=== PATIENT | male | born 1950 | race Caucasian/White ===

== ENCOUNTER → 2016-09-17 | Outpatient (CLI) | payer OTHER ==
[~2016-09-17] MED LIST: ASPI-231 PO; CARV3.1213 OR; CLOP75TA41 PO; GABA300C8 PO; INSUINJ47 SC; LEVEMIR SC; LOS50T PO; OMEG100078 PO; PRAV20TA3 PO; TELM80TA PO
[2016-09-17 10:50] LABS: Basophils # (auto) 0 uL; Basophils % (auto) 0.4 % (0.0-2.0); Eosinophils # (auto) 0.3 uL; Hematocrit 39.9 % (41.0-53.0); Hemoglobin 13.3 g/dL (13.5-17.5); Lymphocytes # (auto) 1.8 uL; Lymphocytes % (auto) 18.4 % (10.0-50.0); Mean Corpuscular Hgb Conc. 33.2 g/dL (32.0-36.0); Mean Corpuscular Volume 93.4 fL (80.0-100.0); Monocytes # (auto) 0.6 uL; Monocytes % (auto) 6.4 % (0.0-12.0); Neutrophils # (auto) 7.1 uL; Neutrophils % (auto) 71.8 % (37.0-80.0); Platelet Count (auto) 346 10^3/uL (140-450); Red Cell Distribution Width 12.6 % (11.6-16.0); White Blood Cell 9.9 10^3/uL (4.4-10.8)
[2016-09-17 10:53] LABS: Urine Bilirubin Negative (Negative); Urine Color Yellow (Yellow); Urine Glucose Normal (Normal); Urine Ketone Negative (Negative); Urine Nitrite Negative (Negative); Urine RBC 1 /hpf (0 - 3); Urine Squamous Epithelial Cell FEW /hpf (<5); Urine Urobilinogen Normal (Negative); Urine pH 5.5 (5.0-8.0)
[2016-09-17 10:57] LABS: Urine Blood 1+ /uL (Negative)
[2016-09-17 11:19] LABS: Albumin 3.7 g/dL (3.4-5.0); BUN/Creatinine Ratio 22.3; Bilirubin, Total 0.6 mg/dL (0.2-1.0); Calcium 9.1 mg/dL (8.5-10.1); Total Protein 7.5 g/dL (6.4-8.2)
[2016-09-17 11:32] LABS: Potassium 6.2 mmol/L (3.5-5.1)
== END | disposition home or self-care (01) ==
LOC: LAB 10:12
DX: E11.40 Type 2 diabetes mellitus with diabetic neuropathy, unspecified (principal)
CPT/HCPCS: 36415; 80053; 80061; 81001; 83036; 84443; 85025

== ENCOUNTER → 2016-10-10 | Outpatient (CLI) | payer OTHER ==
[2016-10-10 11:41] LABS: Urine Bilirubin Negative (Negative); Urine Color Yellow (Yellow); Urine Ketone Negative (Negative); Urine Nitrite Negative (Negative); Urine RBC 3 /hpf (0 - 3); Urine Urobilinogen Normal (Negative)
[2016-10-10 11:51] LABS: Urine Blood 1+ /uL (Negative); Urine Glucose 1+ mg/dL (Normal)
[2016-10-10 12:01] LABS: Albumin 3.5 g/dL (3.4-5.0); BUN/Creatinine Ratio 18.9; Bilirubin, Total 0.5 mg/dL (0.2-1.0); Calcium 8.8 mg/dL (8.5-10.1); Potassium 4.1 mmol/L (3.5-5.1); Total Protein 6.9 g/dL (6.4-8.2)
== END | disposition home or self-care (01) ==
LOC: LAB 09:55
DX: E87.5 Hyperkalemia (principal)
CPT/HCPCS: 36415; 80053; 81001; 82043

== ENCOUNTER → 2016-11-28 | Outpatient (CLI) | payer OTHER ==
[2016-11-28 10:59] LABS: Basophils # (auto) 0 uL; Basophils % (auto) 0.3 % (0.0-2.0); Eosinophils # (auto) 0.2 uL; Eosinophils % (auto) 2.4 % (0.0-7.0); Hematocrit 37.6 % (41.0-53.0); Hemoglobin 12.5 g/dL (13.5-17.5); Lymphocytes # (auto) 1.4 uL; Mean Corpuscular Hemoglobin 30.6 pg (28.0-32.0); Mean Corpuscular Hgb Conc. 33.2 g/dL (32.0-36.0); Mean Corpuscular Volume 92.2 fL (80.0-100.0); Mean Platelet Volume 8.3 fL (7.4-10.4); Monocytes # (auto) 0.7 uL; Monocytes % (auto) 7.9 % (0.0-12.0); Neutrophils # (auto) 6.5 uL; Neutrophils % (auto) 73.4 % (37.0-80.0); Platelet Count (auto) 309 10^3/uL (140-450); Red Cell Distribution Width 13.3 % (11.6-16.0); White Blood Cell 8.9 10^3/uL (4.4-10.8)
[2016-11-28 11:24] LABS: Albumin 3.5 g/dL (3.4-5.0); BUN/Creatinine Ratio 20.8; Bilirubin, Total 0.4 mg/dL (0.2-1.0); Calcium 8.4 mg/dL (8.5-10.1); Total Protein 7.1 g/dL (6.4-8.2)
[2016-11-28 11:40] LABS: Potassium 6.4 mmol/L (3.5-5.1)
[2016-11-28 12:10] LABS: Urine Bilirubin Negative (Negative); Urine Color Yellow (Yellow); Urine Ketone Negative (Negative); Urine Nitrite Negative (Negative); Urine RBC 11 /hpf (0 - 3); Urine Squamous Epithelial Cell FEW /hpf (<5); Urine Urobilinogen Normal (Negative)
[2016-11-28 12:13] LABS: Urine Blood 1+ /uL (Negative); Urine Glucose 2+ mg/dL (Normal)
== END | disposition home or self-care (01) ==
LOC: LAB 10:25
DX: E11.21 Type 2 diabetes mellitus with diabetic nephropathy (principal)
CPT/HCPCS: 36415; 80053; 80061; 81001; 82043; 83036; 84443; 85025

== ENCOUNTER → 2016-12-08 | Outpatient (CLI) | payer OTHER ==
[2016-12-08 09:38] LABS: BUN/Creatinine Ratio 20.8; Calcium 8.7 mg/dL (8.5-10.1); Potassium 4.5 mmol/L (3.5-5.1)
== END | disposition home or self-care (01) ==
LOC: LAB 08:23
DX: E87.5 Hyperkalemia (principal)
CPT/HCPCS: 36415; 80048

== ENCOUNTER 2017-05-14 14:40 | Emergency (ER) | payer OTHER ==
[~2017-05-14] VITALS: Ht 172.7 cm; Wt 97.1 kg
[2017-05-14 15:41] LABS: Basophils # (auto) 0 uL; Basophils % (auto) 0.2 % (0.0-2.0); CONDITION Y; Eosinophils # (auto) 0.2 uL; Eosinophils % (auto) 1.7 % (0.0-7.0); Hematocrit 33.8 % (41.0-53.0); Hemoglobin 11.6 g/dL (13.5-17.5); Lymphocytes # (auto) 1.7 uL; Mean Corpuscular Hemoglobin 32.8 pg (28.0-32.0); Mean Corpuscular Hgb Conc. 34.5 g/dL (32.0-36.0); Mean Platelet Volume 8.1 fL (7.4-10.4); Monocytes # (auto) 0.7 uL; Monocytes % (auto) 7.3 % (0.0-12.0); Neutrophils # (auto) 6.9 uL; Neutrophils % (auto) 72.8 % (37.0-80.0); Platelet Count (auto) 300 10^3/uL (140-450); Red Cell Distribution Width 12.8 % (11.6-16.0); White Blood Cell 9.5 10^3/uL (4.4-10.8)
[2017-05-14 16:03] LABS: Albumin 3.4 g/dL (3.4-5.0); BUN/Creatinine Ratio 17.3; Bilirubin, Total 0.3 mg/dL (0.2-1.0); Calcium 8.7 mg/dL (8.5-10.1); Potassium 5.5 mmol/L (3.5-5.1); Total Protein 7.3 g/dL (6.4-8.2)
[2017-05-14] MEDS ORDERED: CALCIUM CHL 100MG/ML 1,000 MG in D5W 5% 100 ML IV ONE (17:45)
[2017-05-14] MEDS ORDERED: SODIUM BICARBONATE 8.4 % INJ 50ML VIAL IV ONE (17:45)
[2017-05-14] MEDS ORDERED: DEXTROSE (50%) 50ML SYRG IV ONE (17:45)
[2017-05-14] MEDS ORDERED: InsuLIN REG 1unit/0.01ml Soln (100units/ml) IV ONE (17:45)
[2017-05-14] MEDS ORDERED: SODIUM BICARBONATE 8.4% INJ 50ML SYRINGE ONE (18:27)
[2017-05-14 20:47] VITALS: BP 146/72
== END 2017-05-14 18:45 | disposition home or self-care (01) ==
LOC: ER 14:43
DX: E87.5 Hyperkalemia (principal); N28.9 Disorder of kidney and ureter, unspecified; I25.10 Atherosclerotic heart disease of native coronary artery without angina pectoris; E11.9 Type 2 diabetes mellitus without complications; E78.5 Hyperlipidemia, unspecified; I10 Essential (primary) hypertension; Z95.1 Presence of aortocoronary bypass graft; Z79.4 Long term (current) use of insulin; Z79.82 Long term (current) use of aspirin; Z79.899 Other long term (current) drug therapy; Z90.49 Acquired absence of other specified parts of digestive tract
CPT/HCPCS: 36415; 80053; 82962; 85025; 93005; 94761; 96365; 96375; 99285; J1815; J7042; J7060

== ENCOUNTER → 2017-05-14 | Outpatient (CLI) | payer OTHER ==
[~2017-05-14] MED LIST changes: +CAR3125T OR; -CARV3.1213 OR; +GABA-497 PO; -GABA300C8 PO
[2017-05-14 09:47] LABS: Basophils # (auto) 0 uL; Basophils % (auto) 0.3 % (0.0-2.0); CONDITION Y; Eosinophils # (auto) 0.2 uL; Eosinophils % (auto) 1.8 % (0.0-7.0); Hematocrit 34.6 % (41.0-53.0); Hemoglobin 11.8 g/dL (13.5-17.5); Lymphocytes # (auto) 1.5 uL; Lymphocytes % (auto) 16.3 % (10.0-50.0); Mean Corpuscular Hemoglobin 32.5 pg (28.0-32.0); Mean Corpuscular Hgb Conc. 34.1 g/dL (32.0-36.0); Mean Corpuscular Volume 95.4 fL (80.0-100.0); Mean Platelet Volume 8.4 fL (7.4-10.4); Monocytes # (auto) 0.7 uL; Neutrophils % (auto) 74.6 % (37.0-80.0); Platelet Count (auto) 321 10^3/uL (140-450); Red Cell Distribution Width 13.1 % (11.6-16.0); White Blood Cell 9.4 10^3/uL (4.4-10.8)
[2017-05-14 09:53] LABS: Urine Bilirubin Negative (Negative); Urine Blood 1+ /uL (Negative); Urine Color Yellow (Yellow); Urine Glucose 2+ mg/dL (Normal); Urine Hyaline Cast FEW /lpf (0 - 2); Urine Ketone Negative (Negative); Urine Nitrite Negative (Negative); Urine RBC 4 /hpf (0 - 3); Urine Urobilinogen Normal (Negative); Urine pH 5.5 (5.0-8.0)
[2017-05-14 10:04] LABS: Albumin 3.5 g/dL (3.4-5.0); BUN/Creatinine Ratio 18.6; Bilirubin, Total 0.5 mg/dL (0.2-1.0); Calcium 8.7 mg/dL (8.5-10.1); Total Protein 7.3 g/dL (6.4-8.2)
[2017-05-14 10:09] LABS: Potassium 5.7 mmol/L (3.5-5.1)
== END | disposition home or self-care (01) ==
LOC: LAB 08:54
PROVIDERS: ATTEND Family Medicine
DX: E11.9 Type 2 diabetes mellitus without complications (principal); E78.5 Hyperlipidemia, unspecified; I12.9 Hypertensive chronic kidney disease with stage 1 through stage 4 chronic kidney disease, or unspecified chronic kidney disease; N18.3 Chronic kidney disease, stage 3 (moderate); I25.10 Atherosclerotic heart disease of native coronary artery without angina pectoris; Z95.1 Presence of aortocoronary bypass graft
CPT/HCPCS: 36415; 80053; 80061; 81001; 82607; 83036; 84153; 84443; 85025

== ENCOUNTER → 2017-06-09 | Outpatient (CLI) | payer OTHER ==
[2017-06-09 16:11] LABS: BUN/Creatinine Ratio 20.1; Calcium 8.4 mg/dL (8.5-10.1); Potassium 5.2 mmol/L (3.5-5.1)
== END | disposition home or self-care (01) ==
LOC: LAB 15:28
PROVIDERS: ATTEND Internal Medicine Cardiovascular Disease
DX: I13.0 Hypertensive heart and chronic kidney disease with heart failure and stage 1 through stage 4 chronic kidney disease, or unspecified chronic kidney disease (principal); I50.9 Heart failure, unspecified; N18.4 Chronic kidney disease, stage 4 (severe)
CPT/HCPCS: 36415; 80048

== ENCOUNTER → 2017-07-07 | Outpatient (CLI) | payer OTHER ==
[2017-07-07 17:36] LABS: BUN/Creatinine Ratio 20.6; Calcium 8.3 mg/dL (8.5-10.1); Potassium 4.5 mmol/L (3.5-5.1)
== END | disposition home or self-care (01) ==
LOC: LAB 15:57
PROVIDERS: ATTEND Internal Medicine Cardiovascular Disease
DX: E11.22 Type 2 diabetes mellitus with diabetic chronic kidney disease (principal); E11.65 Type 2 diabetes mellitus with hyperglycemia; N18.3 Chronic kidney disease, stage 3 (moderate); R07.89 Other chest pain
CPT/HCPCS: 36415; 80048

== ENCOUNTER → 2017-07-21 | Outpatient (CLI) | payer OTHER ==
[2017-07-21 10:31] LABS: Albumin 3.4 g/dL (3.4-5.0); BUN/Creatinine Ratio 17.6; Calcium 8.4 mg/dL (8.5-10.1); Potassium 5.2 mmol/L (3.5-5.1)
[2017-07-21 10:33] LABS: Bilirubin, Total 0.4 mg/dL (0.2-1.0); Total Protein 7.4 g/dL (6.4-8.2)
== END | disposition home or self-care (01) ==
LOC: LAB 09:39
PROVIDERS: ATTEND Family Medicine
DX: E11.21 Type 2 diabetes mellitus with diabetic nephropathy (principal); E11.22 Type 2 diabetes mellitus with diabetic chronic kidney disease; N18.9 Chronic kidney disease, unspecified; E87.5 Hyperkalemia
CPT/HCPCS: 36415; 80053; 83036

== ENCOUNTER → 2017-09-21 | Outpatient (CLI) | payer OTHER ==
[~2017-09-21] MED LIST changes: +ATOR20TA50 PO; -GABA-497 PO; +GABA300C10 PO; +INSLANTI SC; +INSLISPI SC; +LOSA100T25 PO; +METO-169 PO
[2017-09-21 09:06] LABS: Basophils # (auto) 0.1 uL; Basophils % (auto) 0.8 % (0.0-2.0); Eosinophils # (auto) 0.3 uL; Eosinophils % (auto) 3.3 % (0.0-7.0); Hematocrit 36.9 % (41.0-53.0); Hemoglobin 12.7 g/dL (13.5-17.5); Lymphocytes # (auto) 1.5 uL; Lymphocytes % (auto) 19.3 % (10.0-50.0); Mean Corpuscular Hemoglobin 32.1 pg (28.0-32.0); Mean Corpuscular Hgb Conc. 34.3 g/dL (32.0-36.0); Mean Corpuscular Volume 93.4 fL (80.0-100.0); Monocytes # (auto) 0.7 uL; Monocytes % (auto) 8.6 % (0.0-12.0); Neutrophils # (auto) 5.2 uL; Nucleated Red Blood Cells % 0.1 %; Platelet Count (auto) 243 10^3/uL (140-450); Red Blood Cells 3.95 10^6/uL (4.5-5.90); Red Cell Distribution Width 12.9 % (11.8-14.3); White Blood Cell 7.7 10^3/uL (4.4-10.8)
[2017-09-21 09:40] LABS: Urine Bacteria NONE SEEN /hpf (None Seen); Urine Blood 2+ /uL (Negative); Urine Mucus FEW (None Seen); Urine Specific Gravity 1.018 (1.001-1.035); Urine WBC 1 /hpf (0 - 3)
[2017-09-21 09:45] LABS: BUN/Creatinine Ratio 17.9; Calcium 8.3 mg/dL (8.5-10.1); Potassium 4.8 mmol/L (3.5-5.1)
[2017-09-21 09:46] LABS: Protein, Urine 245.7 mg/dL (0.0-11.9)
[2017-09-21 13:53] LABS: Hepatitis B Surface Antibody Negative
[2017-09-21 14:03] LABS: Hepatitis B Surface Antigen Negative (Negative)
[2017-09-21 14:31] LABS: Hepatitis A Total Antibody Negative; Hepatitis C Antibody Negative (Negative)
[2017-09-21 14:32] LABS: Hepatitis B Core Total AB Negative
== END | disposition home or self-care (01) ==
LOC: LAB 08:23
PROVIDERS: ATTEND Student in an Organized Health Care Education/Training Program
DX: E11.22 Type 2 diabetes mellitus with diabetic chronic kidney disease (principal); N18.3 Chronic kidney disease, stage 3 (moderate); E21.3 Hyperparathyroidism, unspecified; D63.1 Anemia in chronic kidney disease; R80.9 Proteinuria, unspecified; R79.82 Elevated C-reactive protein (CRP); R94.5 Abnormal results of liver function studies
CPT/HCPCS: 36415; 80048; 80061; 81001; 82570; 84156; 85025; 86038; 86160; 86256; 86704; 86706; 86708; 86803; 87340

== ENCOUNTER 2017-11-20 15:51 | Inpatient (IN) | payer OTHER ==
[~2017-11-20] VITALS: Ht 172.7 cm; Wt 98.7 kg
[~2017-11-20 15:51] MED LIST changes: -ATOR20TA50 PO; -INSLANTI SC; -INSLISPI SC; -LOSA100T25 PO; -METO-169 PO
[2017-11-20 16:40] LABS: Basophils # (auto) 0.1 uL; Basophils % (auto) 0.7 % (0.0-2.0); Eosinophils # (auto) 0.2 uL; Eosinophils % (auto) 2.1 % (0.0-7.0); Hematocrit 35.6 % (41.0-53.0); Lymphocytes # (auto) 1.5 uL; Lymphocytes % (auto) 15.9 % (10.0-50.0); Mean Corpuscular Hemoglobin 31.7 pg (28.0-32.0); Mean Corpuscular Hgb Conc. 33.8 g/dL (32.0-36.0); Mean Corpuscular Volume 93.8 fL (80.0-100.0); Monocytes # (auto) 0.7 uL; Monocytes % (auto) 7.5 % (0.0-12.0); Neutrophils # (auto) 7.2 uL; Neutrophils % (auto) 73.8 % (37.0-80.0); Nucleated Red Blood Cells % 0.1 %; Platelet Count (auto) 295 10^3/uL (140-450); Red Cell Distribution Width 13.4 % (11.8-14.3); White Blood Cell 9.8 10^3/uL (4.4-10.8)
[2017-11-20 16:58] LABS: Albumin 3.2 g/dL (3.4-5.0); BUN/Creatinine Ratio 21.5; Potassium 5.5 mmol/L (3.5-5.1)
[2017-11-20 17:00] LABS: Bilirubin, Total 0.4 mg/dL (0.2-1.0); Total Protein 6.9 g/dL (6.4-8.2)
[2017-11-20] MEDS ORDERED: SODIUM POLYSTYRENE SULF 15GM/60ML SUSP PO ONE (22:00)
[2017-11-21] MEDS ORDERED: DEXTROSE (50%) 50ML SYRG IV PRN (02:15)
[2017-11-21] MEDS ORDERED: TEMAZEPAM 15 MG CAP PO PRN (02:15)
[2017-11-21] MEDS ORDERED: NITROGLYCERIN 0.4 MG SL TAB SL PRN (02:15)
[2017-11-21] MEDS ORDERED: HYDROcodone-ACET 5/325MG TAB PO PRN (02:15)
[2017-11-21] MEDS ORDERED: MORPHINE SULFATE 4 MG/ML SYR/VIAL IV PRN (02:15)
[2017-11-21] MEDS ORDERED: ACETAMINOPHEN 325 MG TAB PO PRN (02:15)
[2017-11-21] MEDS ORDERED: cloNIDine HCL 0.1 MG TAB PO PRN (02:15)
[2017-11-21] MEDS ORDERED: ONDANSETRON HCL 4 MG/2 ML VIAL IV PRN (02:15)
[2017-11-21] MEDS ORDERED: DEXTROSE (50%) 50ML SYRG IV ONE (05:15)
[2017-11-21] MEDS ORDERED: SODIUM POLYSTYRENE SULF 15GM/60ML SUSP PO ONE ×2 (05:15→12:15)
[2017-11-21] MEDS ORDERED: CALCIUM GLUC 4.65meq/50ml D5AE 50 ML IV ONE ×2 (05:15→12:15)
[2017-11-21] MEDS ORDERED: InsuLIN REG 1unit/0.01ml Soln (100units/ml) IV ONE (05:15)
[2017-11-21] MEDS ORDERED: SODIUM BICARBONATE 8.4 % INJ 50ML VIAL IV ONE ×2 (05:15→12:15)
[2017-11-21] MEDS: ACCU-CHEK COMFORT CURVE STRIP VI SCH ×4 (05:58→23:45)
[2017-11-21] MEDS: InsuLIN REG 1unit/0.01ml Soln (100units/ml) SC SCH ×4 (06:05→23:46)
[2017-11-21 08:00] VITALS: BP 130/90
[2017-11-21 09:31] VITALS: BP 130/90
[2017-11-21 09:47] VITALS: BP 130/90
[2017-11-21] MEDS ORDERED: LOSARTAN POTASSIUM 50 MG TAB PO SCH (10:00)
[2017-11-21] MEDS ORDERED: MICARDIS 80 MG PO SCH (10:00)
[2017-11-21] MEDS: CARVEDILOL 3.125 MG TAB PO SCH ×2 (11:20→22:27)
[2017-11-21] MEDS: GABAPENTIN 300 MG CAP PO SCH (11:20)
[2017-11-21] MEDS: PANTOPRAZOLE 40 MG TAB PO SCH (11:21)
[2017-11-21] MEDS: CLOPIDOGREL BISULFATE 75 MG TAB PO SCH (11:21)
[2017-11-21] MEDS: ENOXAPARIN SOD 30 MG/0.3 ML SYRINGE SC SCH (11:22)
[2017-11-21 12:00] VITALS: BP 140/77
[2017-11-21] MEDS ORDERED: InsuLIN REG 1unit/0.01ml Soln (100units/ml) SC ONE (12:15)
[2017-11-21 16:12] LABS: BUN/Creatinine Ratio 19.2; Calcium 8.5 mg/dL (8.5-10.1); Potassium 5.5 mmol/L (3.5-5.1)
[2017-11-21 17:00] VITALS: BP 154/87
[2017-11-21] MEDS: Boost Glucose Control 8 Ounces PO SCH (18:03)
[2017-11-21 21:45] VITALS: BP 135/71
[2017-11-21] MEDS: PRAVASTATIN SODIUM 20 MG TAB PO SCH (22:27)
[2017-11-22 05:35] VITALS: BP 125/69
[2017-11-22] MEDS: InsuLIN REG 1unit/0.01ml Soln (100units/ml) SC SCH ×3 (06:38→18:01)
[2017-11-22] MEDS: ACCU-CHEK COMFORT CURVE STRIP VI SCH ×3 (06:38→22:00)
[2017-11-22 08:00] LABS: Albumin 3.2 g/dL (3.4-5.0); BUN/Creatinine Ratio 20.1; Bilirubin, Total 0.5 mg/dL (0.2-1.0); Calcium 8.4 mg/dL (8.5-10.1); Potassium 4.6 mmol/L (3.5-5.1)
[2017-11-22] MEDS: Boost Glucose Control 8 Ounces PO SCH ×3 (08:00→18:00)
[2017-11-22 08:09] LABS: Basophils # (auto) 0 uL; Basophils % (auto) 0.5 % (0.0-2.0); Eosinophils # (auto) 0.3 uL; Eosinophils % (auto) 2.9 % (0.0-7.0); Hematocrit 35.5 % (41.0-53.0); Lymphocytes % (auto) 22.5 % (10.0-50.0); Mean Corpuscular Hemoglobin 31.7 pg (28.0-32.0); Mean Corpuscular Hgb Conc. 33.8 g/dL (32.0-36.0); Mean Corpuscular Volume 93.8 fL (80.0-100.0); Monocytes # (auto) 0.7 uL; Monocytes % (auto) 8.3 % (0.0-12.0); Neutrophils % (auto) 65.8 % (37.0-80.0); Nucleated Red Blood Cells % 0.1 %; Platelet Count (auto) 275 10^3/uL (140-450); Red Blood Cells 3.79 10^6/uL (4.5-5.90); Red Cell Distribution Width 13.4 % (11.8-14.3)
[2017-11-22 09:00] VITALS: BP 148/76
[2017-11-22] MEDS: CARVEDILOL 3.125 MG TAB PO SCH ×2 (10:15→23:20)
[2017-11-22] MEDS: CLOPIDOGREL BISULFATE 75 MG TAB PO SCH (10:17)
[2017-11-22] MEDS: PANTOPRAZOLE 40 MG TAB PO SCH (10:18)
[2017-11-22] MEDS: GABAPENTIN 300 MG CAP PO SCH ×2 (10:18→23:21)
[2017-11-22] MEDS: ENOXAPARIN SOD 30 MG/0.3 ML SYRINGE SC SCH (10:19)
[2017-11-22] MEDS ORDERED: amLODIPine BESYLATE 5 MG TAB PO ONE (11:30)
[2017-11-22] MEDS ORDERED: NIFEdipine ER 30 MG TAB PO ONE (11:45)
[2017-11-22 13:00] VITALS: BP 156/81
[2017-11-22 17:03] VITALS: BP 141/78
[2017-11-22] MEDS ORDERED: GABA300C10 PO (18:10)
[2017-11-22 22:00] VITALS: BP 149/77
[2017-11-22] MEDS ORDERED: InsuLIN REG 1unit/0.01ml Soln (100units/ml) SC SCH (22:00)
[2017-11-22] MEDS: PRAVASTATIN SODIUM 20 MG TAB PO SCH (23:21)
[2017-11-23 05:00] VITALS: BP 116/64
[2017-11-23] MEDS: GABAPENTIN 300 MG CAP PO SCH ×2 (06:36→15:42)
[2017-11-23] MEDS ORDERED: InsuLIN REG 1unit/0.01ml Soln (100units/ml) SC SCH (07:00)
[2017-11-23] MEDS: ACCU-CHEK COMFORT CURVE STRIP VI SCH ×3 (07:10→18:50)
[2017-11-23] MEDS: InsuLIN REG 1unit/0.01ml Soln (100units/ml) SC SCH ×3 (07:10→18:50)
[2017-11-23 07:18] LABS: Basophils # (auto) 0 uL; Basophils % (auto) 0.5 % (0.0-2.0); Eosinophils # (auto) 0.3 uL; Eosinophils % (auto) 2.9 % (0.0-7.0); Hematocrit 35.2 % (41.0-53.0); Hemoglobin 12.1 g/dL (13.5-17.5); Lymphocytes # (auto) 2.4 uL; Lymphocytes % (auto) 23.4 % (10.0-50.0); Mean Corpuscular Hemoglobin 31.8 pg (28.0-32.0); Mean Corpuscular Hgb Conc. 34.3 g/dL (32.0-36.0); Mean Corpuscular Volume 92.7 fL (80.0-100.0); Monocytes # (auto) 0.8 uL; Monocytes % (auto) 7.5 % (0.0-12.0); Neutrophils # (auto) 6.7 uL; Neutrophils % (auto) 65.7 % (37.0-80.0); Platelet Count (auto) 265 10^3/uL (140-450); Red Cell Distribution Width 13.1 % (11.8-14.3); White Blood Cell 10.2 10^3/uL (4.4-10.8)
[2017-11-23 07:27] LABS: BUN/Creatinine Ratio 18.2; Calcium 8.6 mg/dL (8.5-10.1); Potassium 4.4 mmol/L (3.5-5.1)
[2017-11-23 09:00] VITALS: BP 135/79
[2017-11-23] MEDS ORDERED: NIFEdipine ER 30 MG TAB PO SCH (10:00)
[2017-11-23] MEDS ORDERED: amLODIPine BESYLATE 5 MG TAB PO SCH (10:00)
[2017-11-23] MEDS ORDERED: INSLANTI SC (11:41)
[2017-11-23] MEDS ORDERED: ATOR20TA50 PO (11:44)
[2017-11-23] MEDS ORDERED: METO-169 PO (11:45)
[2017-11-23] MEDS ORDERED: LOSA100T25 PO (11:50)
[2017-11-23] MEDS ORDERED: INSLISPI SC (11:52)
[2017-11-23 12:37] VITALS: BP 141/85
[2017-11-23] MEDS: CARVEDILOL 3.125 MG TAB PO SCH (14:10)
[2017-11-23] MEDS: CLOPIDOGREL BISULFATE 75 MG TAB PO SCH (14:10)
[2017-11-23] MEDS: ENOXAPARIN SOD 30 MG/0.3 ML SYRINGE SC SCH (14:11)
[2017-11-23] MEDS: PANTOPRAZOLE 40 MG TAB PO SCH (14:11)
[2017-11-23 16:30] VITALS: BP 140/85
[2017-11-23] MEDS: Boost Glucose Control 8 Ounces PO SCH ×3 (18:49→18:53)
== END 2017-11-23 19:33 | disposition home or self-care (01) | DRG 682 ==
LOC: ER 15:56 → TELE 15:57 → TELE-CENTR 11-21 08:14
PROVIDERS: ADMIT Nurse Practitioner; ATTEND Internal Medicine
DX: I12.9 Hypertensive chronic kidney disease with stage 1 through stage 4 chronic kidney disease, or unspecified chronic kidney disease (principal); N17.0 Acute kidney failure with tubular necrosis; E44.0 Moderate protein-calorie malnutrition; N18.4 Chronic kidney disease, stage 4 (severe); E87.5 Hyperkalemia; E11.21 Type 2 diabetes mellitus with diabetic nephropathy; E11.65 Type 2 diabetes mellitus with hyperglycemia; E11.22 Type 2 diabetes mellitus with diabetic chronic kidney disease; I25.10 Atherosclerotic heart disease of native coronary artery without angina pectoris; N18.3 Chronic kidney disease, stage 3 (moderate); Z82.49 Family history of ischemic heart disease and other diseases of the circulatory system; Z68.33 Body mass index [BMI] 33.0-33.9, adult; Z83.3 Family history of diabetes mellitus; Z95.1 Presence of aortocoronary bypass graft
CPT/HCPCS: 36415; 76775; 80048; 80053; 82962; 83036; 84132; 85025; 93005; 96365; 96375; J0610; J1815

== ENCOUNTER → 2017-11-20 | Outpatient (CLI) | payer OTHER ==
[2017-11-20 09:46] LABS: Basophils # (auto) 0.1 uL; Basophils % (auto) 0.9 % (0.0-2.0); Eosinophils # (auto) 0.3 uL; Eosinophils % (auto) 3.6 % (0.0-7.0); Hematocrit 36.8 % (41.0-53.0); Hemoglobin 12.3 g/dL (13.5-17.5); Lymphocytes # (auto) 1.8 uL; Lymphocytes % (auto) 24.4 % (10.0-50.0); Mean Corpuscular Hemoglobin 31.3 pg (28.0-32.0); Mean Corpuscular Hgb Conc. 33.3 g/dL (32.0-36.0); Mean Corpuscular Volume 93.9 fL (80.0-100.0); Monocytes # (auto) 0.6 uL; Monocytes % (auto) 8.5 % (0.0-12.0); Neutrophils # (auto) 4.6 uL; Neutrophils % (auto) 62.6 % (37.0-80.0); Platelet Count (auto) 277 10^3/uL (140-450); Red Blood Cells 3.92 10^6/uL (4.5-5.90); Red Cell Distribution Width 13.3 % (11.8-14.3); White Blood Cell 7.3 10^3/uL (4.4-10.8)
[2017-11-20 12:15] LABS: Albumin 3.2 g/dL (3.4-5.0); BUN/Creatinine Ratio 24.1; Bilirubin, Total 0.4 mg/dL (0.2-1.0); Calcium 8.7 mg/dL (8.5-10.1); Total Protein 6.9 g/dL (6.4-8.2)
== END | disposition home or self-care (01) ==
LOC: LAB 09:30
PROVIDERS: ATTEND Family Medicine
DX: E10.29 Type 1 diabetes mellitus with other diabetic kidney complication (principal)
CPT/HCPCS: 36415; 80053; 80061; 83036; 85025

== ENCOUNTER → 2017-12-15 | Outpatient (CLI) | payer OTHER ==
[~2017-12-15] MED LIST changes: +ATOR20TA50 PO; +INSLANTI SC; +INSLISPI SC; -INSUINJ47 SC; -LEVEMIR SC; -LOS50T PO; +LOSA100T25 PO; +METO-169 PO; -PRAV20TA3 PO; -TELM80TA PO
[2017-12-15 10:27] LABS: Protein, Urine 105.4 mg/dL (0.0-11.9)
[2017-12-15 10:29] LABS: BUN/Creatinine Ratio 25.8; Calcium 8.4 mg/dL (8.5-10.1); Potassium 4.5 mmol/L (3.5-5.1)
[2017-12-15 10:30] LABS: Basophils # (auto) 0.1 uL; Basophils % (auto) 0.7 % (0.0-2.0); Eosinophils # (auto) 0.1 uL; Eosinophils % (auto) 1.1 % (0.0-7.0); Hematocrit 37.3 % (41.0-53.0); Hemoglobin 12.5 g/dL (13.5-17.5); Lymphocytes # (auto) 3.1 uL; Lymphocytes % (auto) 23.5 % (10.0-50.0); Mean Corpuscular Hemoglobin 31.6 pg (28.0-32.0); Mean Corpuscular Hgb Conc. 33.5 g/dL (32.0-36.0); Mean Corpuscular Volume 94.5 fL (80.0-100.0); Monocytes # (auto) 1.1 uL; Monocytes % (auto) 8.5 % (0.0-12.0); Neutrophils # (auto) 8.6 uL; Neutrophils % (auto) 66.2 % (37.0-80.0); Platelet Count (auto) 330 10^3/uL (140-450); Red Blood Cells 3.95 10^6/uL (4.5-5.90); Red Cell Distribution Width 13.6 % (11.8-14.3)
== END | disposition home or self-care (01) ==
LOC: LAB 08:47
PROVIDERS: ATTEND Student in an Organized Health Care Education/Training Program
DX: E21.3 Hyperparathyroidism, unspecified (principal); N18.3 Chronic kidney disease, stage 3 (moderate); D63.1 Anemia in chronic kidney disease; R80.9 Proteinuria, unspecified; E55.9 Vitamin D deficiency, unspecified
CPT/HCPCS: 36415; 80048; 82570; 83970; 84156; 85025; 86038; 86160; 86256; 86431

== ENCOUNTER → 2018-02-10 | Outpatient (CLI) | payer OTHER ==
[2018-02-10 09:24] LABS: Basophils # (auto) 0.1 uL; Basophils % (auto) 0.9 % (0.0-2.0); Eosinophils # (auto) 0.2 uL; Eosinophils % (auto) 3.3 % (0.0-7.0); Hematocrit 36.9 % (41.0-53.0); Hemoglobin 12.4 g/dL (13.5-17.5); Lymphocytes # (auto) 1.7 uL; Mean Corpuscular Hemoglobin 32.2 pg (28.0-32.0); Mean Corpuscular Hgb Conc. 33.7 g/dL (32.0-36.0); Mean Corpuscular Volume 95.6 fL (80.0-100.0); Monocytes # (auto) 0.7 uL; Monocytes % (auto) 8.7 % (0.0-12.0); Neutrophils % (auto) 65.1 % (37.0-80.0); Platelet Count (auto) 291 10^3/uL (140-450); Red Blood Cells 3.86 10^6/uL (4.5-5.90); White Blood Cell 7.6 10^3/uL (4.4-10.8)
[2018-02-10 09:30] LABS: Urine Bacteria NONE SEEN /hpf (None Seen); Urine Blood 2+ /uL (Negative); Urine Specific Gravity 1.018 (1.001-1.035); Urine WBC 1 /hpf (0 - 3)
[2018-02-10 10:14] LABS: Protein, Urine 108.4 mg/dL (0.0-11.9)
[2018-02-10 10:29] LABS: BUN/Creatinine Ratio 19.4; Calcium 9.1 mg/dL (8.5-10.1); Magnesium 2.6 mg/dL (1.6-2.6)
[2018-02-10 10:42] LABS: Potassium 5.6 mmol/L (3.5-5.1)
== END | disposition home or self-care (01) ==
LOC: LAB 08:59
PROVIDERS: ATTEND Student in an Organized Health Care Education/Training Program
DX: E13.22 Other specified diabetes mellitus with diabetic chronic kidney disease (principal); R80.9 Proteinuria, unspecified; L98.499 Non-pressure chronic ulcer of skin of other sites with unspecified severity; N18.3 Chronic kidney disease, stage 3 (moderate); E21.3 Hyperparathyroidism, unspecified; D63.1 Anemia in chronic kidney disease
CPT/HCPCS: 36415; 80048; 81001; 82570; 82728; 83036; 83540; 83550; 83735; 84156; 85025

== ENCOUNTER → 2018-06-10 | Outpatient (CLI) | payer OTHER ==
[2018-06-10 11:08] LABS: Urine Bacteria NONE SEEN /hpf (None Seen); Urine Blood 1+ /uL (Negative); Urine Specific Gravity 1.018 (1.001-1.035); Urine WBC 1 /hpf (0 - 3)
== END | disposition home or self-care (01) ==
LOC: LAB 10:45
PROVIDERS: ATTEND Student in an Organized Health Care Education/Training Program
DX: N39.0 Urinary tract infection, site not specified (principal)
CPT/HCPCS: 81001; 87086

== ENCOUNTER → 2018-06-16 | Outpatient (CLI) | payer OTHER ==
[2018-06-16 13:45] LABS: Basophils # (auto) 0.1 uL; Basophils % (auto) 0.6 % (0.0-2.0); Eosinophils # (auto) 0.2 uL; Eosinophils % (auto) 1.7 % (0.0-7.0); Hematocrit 38.3 % (41.0-53.0); Lymphocytes # (auto) 1.6 uL; Lymphocytes % (auto) 16.6 % (10.0-50.0); Mean Corpuscular Hemoglobin 32.4 pg (28.0-32.0); Mean Corpuscular Volume 95.2 fL (80.0-100.0); Monocytes # (auto) 0.7 uL; Neutrophils # (auto) 7.3 uL; Neutrophils % (auto) 74.1 % (37.0-80.0); Nucleated Red Blood Cells % 0.1 %; Platelet Count (auto) 305 10^3/uL (140-450); Red Blood Cells 4.02 10^6/uL (4.5-5.90); Red Cell Distribution Width 12.9 % (11.8-14.3); White Blood Cell 9.9 10^3/uL (4.4-10.8)
[2018-06-16 13:48] LABS: Urine Bacteria NONE SEEN /hpf (None Seen); Urine Blood 1+ /uL (Negative); Urine Hyaline Cast MOD /lpf (0 - 2); Urine Mucus FEW (None Seen); Urine Specific Gravity 1.016 (1.001-1.035); Urine WBC 1 /hpf (0 - 3)
[2018-06-16 14:13] LABS: Albumin 3.5 g/dL (3.4-5.0); BUN/Creatinine Ratio 15.8; Bilirubin, Total 0.7 mg/dL (0.2-1.0); Calcium 8.7 mg/dL (8.5-10.1); Potassium 4.7 mmol/L (3.5-5.1); Total Protein 7.5 g/dL (6.4-8.2)
== END | disposition home or self-care (01) ==
LOC: LAB 13:23
PROVIDERS: ATTEND Family Medicine
DX: E78.5 Hyperlipidemia, unspecified (principal); E87.5 Hyperkalemia; E10.29 Type 1 diabetes mellitus with other diabetic kidney complication; I12.9 Hypertensive chronic kidney disease with stage 1 through stage 4 chronic kidney disease, or unspecified chronic kidney disease; N18.9 Chronic kidney disease, unspecified; Z95.1 Presence of aortocoronary bypass graft
CPT/HCPCS: 36415; 80053; 80061; 81001; 83036; 85025

== ENCOUNTER → 2018-07-20 | Outpatient (CLI) | payer OTHER ==
[2018-07-20 13:38] LABS: Basophils # (auto) 0.1 uL; Basophils % (auto) 0.8 % (0.0-2.0); Eosinophils # (auto) 0.2 uL; Eosinophils % (auto) 2.2 % (0.0-7.0); Hematocrit 37.4 % (41.0-53.0); Hemoglobin 12.4 g/dL (13.5-17.5); Lymphocytes # (auto) 1.7 uL; Lymphocytes % (auto) 18.5 % (10.0-50.0); Mean Corpuscular Hemoglobin 31.9 pg (28.0-32.0); Mean Corpuscular Hgb Conc. 33.3 g/dL (32.0-36.0); Mean Corpuscular Volume 95.7 fL (80.0-100.0); Monocytes # (auto) 0.8 uL; Monocytes % (auto) 8.5 % (0.0-12.0); Neutrophils # (auto) 6.4 uL; Platelet Count (auto) 313 10^3/uL (140-450); White Blood Cell 9.1 10^3/uL (4.4-10.8)
[2018-07-20 13:51] LABS: Urine Bacteria NONE SEEN /hpf (None Seen); Urine Blood 1+ /uL (Negative); Urine Specific Gravity 1.021 (1.001-1.035); Urine WBC <1 /hpf (0 - 3)
[2018-07-20 14:17] LABS: BUN/Creatinine Ratio 17.1; Calcium 8.2 mg/dL (8.5-10.1); Potassium 4.7 mmol/L (3.5-5.1)
== END | disposition home or self-care (01) ==
LOC: LAB 12:25
PROVIDERS: ATTEND Student in an Organized Health Care Education/Training Program
DX: I12.9 Hypertensive chronic kidney disease with stage 1 through stage 4 chronic kidney disease, or unspecified chronic kidney disease (principal); N18.3 Chronic kidney disease, stage 3 (moderate); D63.1 Anemia in chronic kidney disease; E21.3 Hyperparathyroidism, unspecified; E78.00 Pure hypercholesterolemia, unspecified; M10.9 Gout, unspecified; R80.9 Proteinuria, unspecified; E55.9 Vitamin D deficiency, unspecified
CPT/HCPCS: 36415; 80048; 81001; 83970; 85025

== ENCOUNTER → 2018-11-12 | Outpatient (CLI) | payer OTHER ==
[2018-11-12 11:44] LABS: Basophils # (auto) 0.1 uL; Basophils % (auto) 0.7 % (0.0-2.0); Eosinophils # (auto) 0.2 uL; Eosinophils % (auto) 2.1 % (0.0-7.0); Lymphocytes # (auto) 1.5 uL; Lymphocytes % (auto) 14.7 % (10.0-50.0); Mean Corpuscular Hemoglobin 31.3 pg (28.0-32.0); Mean Corpuscular Hgb Conc. 33.4 g/dL (32.0-36.0); Mean Corpuscular Volume 93.8 fL (80.0-100.0); Monocytes # (auto) 0.7 uL; Monocytes % (auto) 6.7 % (0.0-12.0); Neutrophils # (auto) 7.8 uL; Neutrophils % (auto) 75.8 % (37.0-80.0); Platelet Count (auto) 343 10^3/uL (140-450); Red Blood Cells 4.15 10^6/uL (4.5-5.90); Red Cell Distribution Width 12.7 % (11.8-14.3); White Blood Cell 10.3 10^3/uL (4.4-10.8)
[2018-11-12 11:52] LABS: Urine Blood 2+ /uL (Negative); Urine Specific Gravity 1.017 (1.001-1.035)
[2018-11-12 12:51] LABS: Potassium 4.4 mmol/L (3.5-5.1)
[2018-11-12 12:57] LABS: BUN/Creatinine Ratio 13.2; Calcium 9.8 mg/dL (8.5-10.1)
== END | disposition home or self-care (01) ==
LOC: LAB 11:09
PROVIDERS: ATTEND Student in an Organized Health Care Education/Training Program
DX: E21.3 Hyperparathyroidism, unspecified (principal); R80.9 Proteinuria, unspecified; I12.9 Hypertensive chronic kidney disease with stage 1 through stage 4 chronic kidney disease, or unspecified chronic kidney disease; N18.3 Chronic kidney disease, stage 3 (moderate); D63.1 Anemia in chronic kidney disease
CPT/HCPCS: 36415; 80048; 81003; 83036; 85025

== ENCOUNTER → 2018-11-17 | Outpatient (CLI) | payer OTHER | END | disposition home or self-care (01) | LOC: XYW 10:16 | PROVIDERS: ATTEND Internal Medicine Cardiovascular Disease | DX: I35.8 Other nonrheumatic aortic valve disorders (principal); I11.9 Hypertensive heart disease without heart failure | CPT/HCPCS: 93306 ==

== ENCOUNTER → 2018-12-01 | Outpatient (CLI) | payer OTHER ==
[2018-12-01 12:27] LABS: Protein, Urine 213.8 mg/dL (0.0-11.9)
[2018-12-01 12:49] LABS: Potassium 4.9 mmol/L (3.5-5.1)
[2018-12-01 12:57] LABS: Albumin 3.2 g/dL (3.4-5.0); BUN/Creatinine Ratio 15.9; Bilirubin, Total 0.4 mg/dL (0.2-1.0); Total Protein 7.2 g/dL (6.4-8.2)
== END | disposition home or self-care (01) ==
LOC: LAB 11:28
DX: E11.65 Type 2 diabetes mellitus with hyperglycemia (principal); I10 Essential (primary) hypertension
CPT/HCPCS: 36415; 80053; 80061; 82043; 82570; 83036; 84156

== ENCOUNTER → 2019-01-17 | Outpatient (CLI) | payer OTHER ==
[2019-01-17 16:18] LABS: Urine Blood 1+ /uL (Negative); Urine Specific Gravity 1.018 (1.001-1.035)
[2019-01-17 16:31] LABS: Basophils # (auto) 0.1 uL; Basophils % (auto) 0.6 % (0.0-2.0); Eosinophils # (auto) 0.3 uL; Eosinophils % (auto) 2.8 % (0.0-7.0); Hematocrit 35.6 % (41.0-53.0); Hemoglobin 12.3 g/dL (13.5-17.5); Lymphocytes # (auto) 1.9 uL; Mean Corpuscular Hemoglobin 31.9 pg (28.0-32.0); Mean Corpuscular Hgb Conc. 34.5 g/dL (32.0-36.0); Mean Corpuscular Volume 92.3 fL (80.0-100.0); Monocytes # (auto) 0.8 uL; Monocytes % (auto) 7.3 % (0.0-12.0); Neutrophils # (auto) 7.5 uL; Neutrophils % (auto) 71.3 % (37.0-80.0); Platelet Count (auto) 323 10^3/uL (140-450); Red Blood Cells 3.86 10^6/uL (4.5-5.90); White Blood Cell 10.5 10^3/uL (4.4-10.8)
[2019-01-17 16:49] LABS: BUN/Creatinine Ratio 17.4; Calcium 8.6 mg/dL (8.5-10.1); Potassium 3.9 mmol/L (3.5-5.1); Protein, Urine 114.1 mg/dL (0.0-11.9)
[2019-01-17 16:56] LABS: Creatinine, Urine 260 mg/dL (30.0-125.0)
== END | disposition home or self-care (01) ==
LOC: LAB 15:51
PROVIDERS: ATTEND Student in an Organized Health Care Education/Training Program
DX: I12.9 Hypertensive chronic kidney disease with stage 1 through stage 4 chronic kidney disease, or unspecified chronic kidney disease (principal); E11.22 Type 2 diabetes mellitus with diabetic chronic kidney disease; D63.1 Anemia in chronic kidney disease; N18.3 Chronic kidney disease, stage 3 (moderate); R80.9 Proteinuria, unspecified; N39.0 Urinary tract infection, site not specified
CPT/HCPCS: 36415; 80048; 81003; 82570; 84156; 85025

== ENCOUNTER → 2019-03-01 | Outpatient (CLI) | payer OTHER ==
[2019-03-01 12:57] LABS: Basophils # (auto) 0.1 uL; Basophils % (auto) 0.8 % (0.0-2.0); Eosinophils # (auto) 0.2 uL; Eosinophils % (auto) 2.6 % (0.0-7.0); Hematocrit 37.5 % (41.0-53.0); Hemoglobin 12.6 g/dL (13.5-17.5); Lymphocytes # (auto) 1.4 uL; Lymphocytes % (auto) 17.9 % (10.0-50.0); Mean Corpuscular Hemoglobin 31.6 pg (28.0-32.0); Mean Corpuscular Hgb Conc. 33.8 g/dL (32.0-36.0); Mean Corpuscular Volume 93.7 fL (80.0-100.0); Monocytes # (auto) 0.7 uL; Monocytes % (auto) 8.3 % (0.0-12.0); Neutrophils # (auto) 5.5 uL; Neutrophils % (auto) 70.4 % (37.0-80.0); Platelet Count (auto) 286 10^3/uL (140-450); Red Cell Distribution Width 13.3 % (11.8-14.3); White Blood Cell 7.9 10^3/uL (4.4-10.8)
[2019-03-01 13:39] LABS: Free T4 (Free Thyroxine) 0.76 ng/dL (0.89-1.76)
[2019-03-01 13:40] LABS: Folate (Folic Acid) 5.29 ng/mL (5.38-24)
[2019-03-01 14:14] LABS: Albumin 3.3 g/dL (3.4-5.0); Anion Gap 12 (5-15); Carbon Dioxide 16 mmol/L (21-32); Chloride 113 mmol/L (98-107); Potassium 4.1 mmol/L (3.5-5.1); Sodium 141 mmol/L (136-145)
[2019-03-01 14:21] LABS: Alanine Aminotransferase 19 U/L (16-61); Alkaline Phosphatase 90 U/L (45-117); Aspartate Aminotransferase 12 U/L (15-37); BUN/Creatinine Ratio 21.4; Bilirubin, Total 0.2 mg/dL (0.2-1.0); Blood Urea Nitrogen 61 mg/dL (7-18); Calcium 8.7 mg/dL (8.5-10.1); Cholesterol 187 mg/dL (< 200); GFR African American 29 mL/min; GFR Non-African American 24 mL/min; Glucose 336 mg/dL (74-106); HDL Cholesterol 46 mg/dL (40-59); Total Protein 7.2 g/dL (6.4-8.2); Triglycerides 457 mg/dL (< 150)
== END | disposition home or self-care (01) ==
LOC: LAB 12:17
PROVIDERS: ATTEND Internal Medicine
DX: D64.9 Anemia, unspecified (principal); R73.9 Hyperglycemia, unspecified; E78.5 Hyperlipidemia, unspecified; R52 Pain, unspecified
CPT/HCPCS: 36415; 80053; 80061; 82043; 82607; 82746; 83036; 84439; 84443; 85025

== ENCOUNTER → 2019-04-22 | Outpatient (CLI) | payer OTHER ==
[2019-04-22 10:55] LABS: Basophils # (auto) 0.1 uL; Basophils % (auto) 0.8 % (0.0-2.0); Eosinophils # (auto) 0.2 uL; Eosinophils % (auto) 2.3 % (0.0-7.0); Hematocrit 35.8 % (41.0-53.0); Hemoglobin 12.2 g/dL (13.5-17.5); Lymphocytes # (auto) 1.8 uL; Mean Corpuscular Hemoglobin 31.5 pg (28.0-32.0); Mean Corpuscular Volume 92.5 fL (80.0-100.0); Monocytes # (auto) 0.6 uL; Monocytes % (auto) 7.5 % (0.0-12.0); Neutrophils # (auto) 5.2 uL; Neutrophils % (auto) 66.4 % (37.0-80.0); Platelet Count (auto) 287 10^3/uL (140-450); Red Blood Cells 3.87 10^6/uL (4.5-5.90); Red Cell Distribution Width 13.5 % (11.8-14.3); White Blood Cell 7.8 10^3/uL (4.4-10.8)
[2019-04-22 11:11] LABS: Urine Bacteria NONE SEEN /hpf (None Seen); Urine Blood 1+ /uL (Negative); Urine Hyaline Cast FEW /lpf (0 - 2); Urine Specific Gravity 1.016 (1.001-1.035); Urine WBC <1 /hpf (0 - 3)
[2019-04-22 11:22] LABS: BUN/Creatinine Ratio 13.1; Calcium 8.7 mg/dL (8.5-10.1); Potassium 3.9 mmol/L (3.5-5.1)
== END | disposition home or self-care (01) ==
LOC: LAB 10:37
PROVIDERS: ATTEND Student in an Organized Health Care Education/Training Program
DX: E11.22 Type 2 diabetes mellitus with diabetic chronic kidney disease (principal); I12.9 Hypertensive chronic kidney disease with stage 1 through stage 4 chronic kidney disease, or unspecified chronic kidney disease; N18.3 Chronic kidney disease, stage 3 (moderate); N39.0 Urinary tract infection, site not specified; D63.1 Anemia in chronic kidney disease
CPT/HCPCS: 36415; 80048; 81001; 83036; 85025

== ENCOUNTER 2019-06-10 09:33 | Day surgery (SDC) | payer OTHER ==
[2019-06-06 11:21] LABS: Basophils # (auto) 0.1 uL; Basophils % (auto) 0.7 % (0.0-2.0); Eosinophils # (auto) 0.2 uL; Eosinophils % (auto) 2.7 % (0.0-7.0); Hematocrit 37.4 % (41.0-53.0); Hemoglobin 12.4 g/dL (13.5-17.5); Lymphocytes # (auto) 1.6 uL; Mean Corpuscular Hemoglobin 31.1 pg (28.0-32.0); Mean Corpuscular Hgb Conc. 33.1 g/dL (32.0-36.0); Mean Corpuscular Volume 94.1 fL (80.0-100.0); Monocytes # (auto) 0.5 uL; Monocytes % (auto) 6.5 % (0.0-12.0); Neutrophils % (auto) 71.1 % (37.0-80.0); Platelet Count (auto) 257 10^3/uL (140-450); Red Blood Cells 3.98 10^6/uL (4.5-5.90); Red Cell Distribution Width 12.9 % (11.8-14.3); White Blood Cell 8.4 10^3/uL (4.4-10.8)
[2019-06-06 12:00] LABS: INR < 0.93 (0.9-1.15); Partial Thromboplastin Time 26.2 sec (23.64-32.05)
[~2019-06-10] VITALS: Ht 172.7 cm; Wt 83.5 kg
[~2019-06-10 09:33] MED LIST changes: -CAR3125T OR; +DULA0.5I SC; +FURO40TA4 PO; -LOSA100T25 PO; +LOSA25TA38 PO; +NIFE30TA76 PO
[2019-06-10] MEDS ORDERED: LIDOCAINE VISCOUS 2% 15ML UD ONE (09:42)
[2019-06-10] MEDS ORDERED: SODIUM CHLORIDE LOCK 10 ML ONE (09:42)
[2019-06-10] MEDS ORDERED: MIDAZOLAM HCL 5 MG/ML-1ML VIAL ONE (09:43)
[2019-06-10] MEDS ORDERED: fentaNYL CITRATE 100 MCG/2 ML VL ONE (09:43)
[2019-06-10] MEDS ORDERED: diphenhdrAMINE HCL 50 MG/1 ML VL ONE (09:43)
[2019-06-10 11:15] VITALS: BP 130/74
== END 2019-06-10 10:54 | disposition home or self-care (01) ==
LOC: GI 09:33
PROVIDERS: ATTEND Internal Medicine Gastroenterology
DX: K29.50 Unspecified chronic gastritis without bleeding (principal); K22.8 Other specified diseases of esophagus; K29.80 Duodenitis without bleeding; I25.10 Atherosclerotic heart disease of native coronary artery without angina pectoris; E11.22 Type 2 diabetes mellitus with diabetic chronic kidney disease; I13.10 Hypertensive heart and chronic kidney disease without heart failure, with stage 1 through stage 4 chronic kidney disease, or unspecified chronic kidney disease; N18.3 Chronic kidney disease, stage 3 (moderate); E78.00 Pure hypercholesterolemia, unspecified; Z79.899 Other long term (current) drug therapy; Z97.0 Presence of artificial eye; Z79.01 Long term (current) use of anticoagulants; Z98.890 Other specified postprocedural states; Z79.4 Long term (current) use of insulin; Z95.1 Presence of aortocoronary bypass graft; Z88.8 Allergy status to other drugs, medicaments and biological substances
CPT/HCPCS: 36415; 43239; 43450; 82962; 85025; 85610; 85730; 88305; 88342; J2250; J3010; J7030

== ENCOUNTER → 2019-06-15 | Outpatient (CLI) | payer OTHER | END | disposition home or self-care (01) | LOC: LAB 13:15 | PROVIDERS: ATTEND Internal Medicine Gastroenterology | DX: Z01.812 Encounter for preprocedural laboratory examination (principal); R63.4 Abnormal weight loss; E11.22 Type 2 diabetes mellitus with diabetic chronic kidney disease; I12.9 Hypertensive chronic kidney disease with stage 1 through stage 4 chronic kidney disease, or unspecified chronic kidney disease; N18.9 Chronic kidney disease, unspecified | CPT/HCPCS: 36415; 82565; 84520 ==

== ENCOUNTER → 2019-07-27 | Outpatient (CLI) | payer OTHER ==
[2019-07-27 13:50] LABS: Basophils # (auto) 0.1 uL; Basophils % (auto) 1.3 % (0.0-2.0); Eosinophils # (auto) 0.4 uL; Eosinophils % (auto) 6.7 % (0.0-7.0); Hematocrit 33.6 % (41.0-53.0); Hemoglobin 11.2 g/dL (13.5-17.5); Lymphocytes # (auto) 1.9 uL; Lymphocytes % (auto) 29.1 % (10.0-50.0); Mean Corpuscular Hemoglobin 31.8 pg (28.0-32.0); Mean Corpuscular Hgb Conc. 33.2 g/dL (32.0-36.0); Mean Corpuscular Volume 95.6 fL (80.0-100.0); Monocytes # (auto) 0.5 uL; Monocytes % (auto) 7.1 % (0.0-12.0); Neutrophils # (auto) 3.7 uL; Neutrophils % (auto) 55.8 % (37.0-80.0); Platelet Count (auto) 255 10^3/uL (140-450); Red Blood Cells 3.52 10^6/uL (4.5-5.90); Red Cell Distribution Width 13.2 % (11.8-14.3); White Blood Cell 6.6 10^3/uL (4.4-10.8)
[2019-07-27 13:55] LABS: Urine Blood 2+ /uL (Negative); Urine Specific Gravity 1.016 (1.001-1.035)
[2019-07-27 14:18] LABS: BUN/Creatinine Ratio 12.9; Calcium 8.6 mg/dL (8.5-10.1)
[2019-07-27 14:19] LABS: Creatinine, Urine 218 mg/dL (30.0-125.0); Protein, Urine 51.9 mg/dL (0.0-11.9)
[2019-07-27 15:48] LABS: Potassium 6.1 mmol/L (3.5-5.1)
== END | disposition home or self-care (01) ==
LOC: LAB 13:34
PROVIDERS: ATTEND Student in an Organized Health Care Education/Training Program
DX: R80.9 Proteinuria, unspecified (principal); E11.22 Type 2 diabetes mellitus with diabetic chronic kidney disease; I12.9 Hypertensive chronic kidney disease with stage 1 through stage 4 chronic kidney disease, or unspecified chronic kidney disease; N18.9 Chronic kidney disease, unspecified; I25.10 Atherosclerotic heart disease of native coronary artery without angina pectoris; E78.5 Hyperlipidemia, unspecified; Z88.8 Allergy status to other drugs, medicaments and biological substances; Z79.4 Long term (current) use of insulin
CPT/HCPCS: 36415; 80048; 81003; 82570; 83036; 84156; 85025

== ENCOUNTER → 2020-03-27 | Outpatient (CLI) | payer OTHER ==
[~2020-03-27] MED LIST changes: +ASPI-498 PO; +CLIN300C8 PO; +DULA1INJ SC; +GLIP2.5T28 PO; +IBUP800T24 PO; +INSU100I43 SC; +INSUINJ37 SC; +NIFE1TAB31 PO; -NIFE30TA76 PO; +PATI1POW PO; +RANO10003 PO; +ROSU20TA14 PO
[2020-03-27 12:57] LABS: Basophils # (auto) 0.1 10 ^3/uL (0-0.2); Basophils % (auto) 0.8 % (0.0-2.0); Eosinophils # (auto) 0.1 10 ^3/uL (0-0.8); Eosinophils % (auto) 1.7 % (0.0-7.0); Hemoglobin 11.6 g/dL (13.5-17.5); Lymphocytes # (auto) 1.6 10 ^3/uL (0.4-5.4); Lymphocytes % (auto) 21.7 % (10.0-50.0); Mean Corpuscular Hemoglobin 31.9 pg (28.0-32.0); Mean Corpuscular Volume 96.4 fL (80.0-100.0); Monocytes # (auto) 0.6 10 ^3/uL (0-1.3); Monocytes % (auto) 8.6 % (0.0-12.0); Neutrophils # (auto) 4.9 10 ^3/uL (1.6-8.6); Neutrophils % (auto) 67.2 % (37.0-80.0); Nucleated Red Blood Cells % 0.1 %; Platelet Count (auto) 274 10^3/uL (140-450); Red Blood Cells 3.63 10^6/uL (4.5-5.90); Red Cell Distribution Width 13.3 % (11.8-14.3); White Blood Cell 7.2 10^3/uL (4.4-10.8)
[2020-03-27 13:06] LABS: Urine Bacteria NONE SEEN /hpf (None Seen); Urine Blood Negative /uL (Negative); Urine Hyaline Cast FEW /lpf (0 - 2); Urine Specific Gravity 1.019 (1.001-1.035); Urine WBC 1 /hpf (0 - 3)
[2020-03-27 13:24] LABS: BUN/Creatinine Ratio 14.1; Calcium 8.5 mg/dL (8.5-10.1); Potassium 5.1 mmol/L (3.5-5.1); Protein, Urine 17.1 mg/dL (0.0-11.9)
== END | disposition home or self-care (01) ==
LOC: LAB 12:46 → MERGE 12:46
PROVIDERS: ATTEND Student in an Organized Health Care Education/Training Program
DX: E11.22 Type 2 diabetes mellitus with diabetic chronic kidney disease (principal); N18.3 Chronic kidney disease, stage 3 (moderate); D63.1 Anemia in chronic kidney disease; R80.9 Proteinuria, unspecified; R82.90 Unspecified abnormal findings in urine
CPT/HCPCS: 36415; 80048; 81001; 82570; 83036; 84156; 85025

== ENCOUNTER 2020-05-13 01:48 | Emergency (ER) | payer OTHER ==
[~2020-05-13] VITALS: Ht 175.3 cm; Wt 78.9 kg
[~2020-05-13 01:48] MED LIST changes: -ASPI-498 PO; -CLIN300C8 PO; -DULA1INJ SC; -GLIP2.5T28 PO; -IBUP800T24 PO; -INSU100I43 SC; -INSUINJ37 SC; -PATI1POW PO; -RANO10003 PO; -ROSU20TA14 PO
[2020-05-13 03:21] LABS: Basophils # (auto) 0.1 10 ^3/uL (0-0.2); Basophils % (auto) 0.5 % (0.0-2.0); Eosinophils # (auto) 0.3 10 ^3/uL (0-0.8); Eosinophils % (auto) 2.9 % (0.0-7.0); Hematocrit 28.1 % (41.0-53.0); Hemoglobin 9.6 g/dL (13.5-17.5); Lymphocytes # (auto) 1.1 10 ^3/uL (0.4-5.4); Mean Corpuscular Hemoglobin 32.6 pg (28.0-32.0); Mean Corpuscular Hgb Conc. 34.2 g/dL (32.0-36.0); Mean Corpuscular Volume 95.3 fL (80.0-100.0); Monocytes # (auto) 1.2 10 ^3/uL (0-1.3); Neutrophils # (auto) 9.1 10 ^3/uL (1.6-8.6); Neutrophils % (auto) 77.6 % (37.0-80.0); Platelet Count (auto) 368 10^3/uL (140-450); Red Blood Cells 2.95 10^6/uL (4.5-5.90); Red Cell Distribution Width 12.6 % (11.8-14.3); White Blood Cell 11.8 10^3/uL (4.4-10.8)
[2020-05-13 03:38] LABS: Albumin 2.9 g/dL (3.4-5.0); Calcium 8.2 mg/dL (8.5-10.1); Potassium 4.5 mmol/L (3.5-5.1)
[2020-05-13 03:41] LABS: Bilirubin, Total 0.3 mg/dL (0.2-1.0); Total Protein 6.8 g/dL (6.4-8.2)
[2020-05-13 03:43] LABS: BUN/Creatinine Ratio 16.6
[2020-05-13] MEDS ORDERED: SODIUM CHLORIDE 0.9% 1,000 ML IV ONE (04:00)
[2020-05-13] MEDS ORDERED: InsuLIN REG 1unit/0.01ml Soln (100units/ml) IV ONE (04:00)
[2020-05-13] MEDS ORDERED: PIPERACILLIN-TAZOB 3.375GM 100 ML IV ONE (04:00)
[2020-05-13 04:53] VITALS: BP 122/54
[2020-05-14] MEDS ORDERED: DULA1INJ SC (18:33)
[2020-05-14] MEDS ORDERED: ROSU20TA14 PO (18:33)
[2020-05-14] MEDS ORDERED: METO-169 PO (18:33)
[2020-05-14] MEDS ORDERED: RANO10003 PO (18:33)
[2020-05-14] MEDS ORDERED: FURO40TA4 PO (18:33)
[2020-05-14] MEDS ORDERED: CLIN300C8 PO (18:33)
[2020-05-14] MEDS ORDERED: CLOP75TA41 PO (18:33)
[2020-05-14] MEDS ORDERED: PATI1POW PO (18:33)
[2020-05-14] MEDS ORDERED: GLIP2.5T28 PO (18:33)
[2020-05-14] MEDS ORDERED: LOSA25TA38 PO (18:33)
[2020-05-14] MEDS ORDERED: ASPI-498 PO (18:33)
[2020-05-14] MEDS ORDERED: NIFE1TAB31 PO (18:33)
[2020-05-14] MEDS ORDERED: INSUINJ37 SC (18:33)
[2020-05-14] MEDS ORDERED: INSU100I43 SC (18:33)
[2020-05-14] MEDS ORDERED: IBUP800T24 PO (18:33)
[2020-05-14] MEDS ORDERED: GABA300C10 PO (18:33)
== END 2020-05-13 06:25 | disposition home or self-care (01) ==
LOC: MERGE 01:48 → ER 01:48
DX: L03.115 Cellulitis of right lower limb (principal); E11.51 Type 2 diabetes mellitus with diabetic peripheral angiopathy without gangrene; E11.22 Type 2 diabetes mellitus with diabetic chronic kidney disease; I12.9 Hypertensive chronic kidney disease with stage 1 through stage 4 chronic kidney disease, or unspecified chronic kidney disease; N18.9 Chronic kidney disease, unspecified; D63.1 Anemia in chronic kidney disease; E78.5 Hyperlipidemia, unspecified
CPT/HCPCS: 36415; 80053; 85025; 87077; 87186; 87205; 96361; 96374; 99283; J1815; J2543

== ENCOUNTER 2020-05-25 12:31 | Emergency (ER) | payer OTHER ==
[~2020-05-25] VITALS: Ht 175.3 cm; Wt 78.9 kg
[2020-05-25 13:06] VITALS: BP 109/56
[2020-05-25 13:58] LABS: Basophils # (auto) 0.1 10 ^3/uL (0-0.2); Basophils % (auto) 1.1 % (0.0-2.0); Eosinophils # (auto) 0.2 10 ^3/uL (0-0.8); Eosinophils % (auto) 2.5 % (0.0-7.0); Hemoglobin 9.4 g/dL (13.5-17.5); Lymphocytes # (auto) 1.6 10 ^3/uL (0.4-5.4); Mean Corpuscular Hemoglobin 32.6 pg (28.0-32.0); Mean Corpuscular Hgb Conc. 34.7 g/dL (32.0-36.0); Mean Corpuscular Volume 94.1 fL (80.0-100.0); Monocytes # (auto) 0.6 10 ^3/uL (0-1.3); Monocytes % (auto) 6.3 % (0.0-12.0); Neutrophils # (auto) 6.5 10 ^3/uL (1.6-8.6); Neutrophils % (auto) 72.1 % (37.0-80.0); Platelet Count (auto) 456 10^3/uL (140-450); Red Blood Cells 2.87 10^6/uL (4.5-5.90); Red Cell Distribution Width 12.4 % (11.8-14.3); White Blood Cell 8.9 10^3/uL (4.4-10.8)
[2020-05-25 14:45] LABS: Albumin 2.9 g/dL (3.4-5.0); Calcium 8.5 mg/dL (8.5-10.1); Potassium 5.4 mmol/L (3.5-5.1)
[2020-05-25 14:49] LABS: BUN/Creatinine Ratio 15.3; Bilirubin, Total 0.3 mg/dL (0.2-1.0); Total Protein 7.2 g/dL (6.4-8.2)
== END 2020-05-25 13:56 | disposition home or self-care (01) ==
LOC: ER 12:31
DX: T82.49XA Other complication of vascular dialysis catheter, initial encounter (principal); Y84.9 Medical procedure, unspecified as the cause of abnormal reaction of the patient, or of later complication, without mention of misadventure at the time of the procedure; Y92.89 Other specified places as the place of occurrence of the external cause
CPT/HCPCS: 36410; 36415; 80053; 85025

== ENCOUNTER 2020-05-31 17:54 | Emergency (ER) | payer OTHER ==
[~2020-05-31] VITALS: Ht 175.3 cm; Wt 78.9 kg
[2020-05-31 18:28] LABS: Basophils # (auto) 0.1 10 ^3/uL (0-0.2); Basophils % (auto) 0.9 % (0.0-2.0); Eosinophils # (auto) 0.7 10 ^3/uL (0-0.8); Eosinophils % (auto) 8.4 % (0.0-7.0); Hematocrit 29.9 % (41.0-53.0); Hemoglobin 9.8 g/dL (13.5-17.5); Lymphocytes # (auto) 1.3 10 ^3/uL (0.4-5.4); Lymphocytes % (auto) 16.9 % (10.0-50.0); Mean Corpuscular Hemoglobin 31.3 pg (28.0-32.0); Mean Corpuscular Hgb Conc. 32.8 g/dL (32.0-36.0); Mean Corpuscular Volume 95.5 fL (80.0-100.0); Monocytes # (auto) 0.5 10 ^3/uL (0-1.3); Monocytes % (auto) 6.7 % (0.0-12.0); Neutrophils # (auto) 5.3 10 ^3/uL (1.6-8.6); Neutrophils % (auto) 67.1 % (37.0-80.0); Platelet Count (auto) 399 10^3/uL (140-450); Red Blood Cells 3.13 10^6/uL (4.5-5.90); Red Cell Distribution Width 12.8 % (11.8-14.3)
[2020-05-31 18:43] LABS: INR 1.03 (0.9-1.15); Partial Thromboplastin Time 26.8 sec (23.0-31.2)
[2020-05-31 19:07] LABS: Chloride 109 mmol/L (98-107); Potassium 4.5 mmol/L (3.5-5.1); Sodium 138 mmol/L (136-145)
[2020-05-31 19:15] LABS: Alanine Aminotransferase 19 U/L (16-61); Albumin 3.4 g/dL (3.4-5.0); Alkaline Phosphatase 74 U/L (45-117); Anion Gap 6 (5-15); Aspartate Aminotransferase 12 U/L (15-37); BUN/Creatinine Ratio 14.8; Bilirubin, Total 0.4 mg/dL (0.2-1.0); Blood Urea Nitrogen 56 mg/dL (7-18); Calcium 8.5 mg/dL (8.5-10.1); Carbon Dioxide 23 mmol/L (21-32); GFR African American 20 mL/min; GFR Non-African American 17 mL/min; Glucose 102 mg/dL (74-106); Total Protein 7.9 g/dL (6.4-8.2)
[2020-05-31 20:06] VITALS: BP 121/60
== END 2020-05-31 20:05 | disposition home or self-care (01) ==
LOC: ER 17:54
DX: E87.5 Hyperkalemia (principal); E11.22 Type 2 diabetes mellitus with diabetic chronic kidney disease; I12.9 Hypertensive chronic kidney disease with stage 1 through stage 4 chronic kidney disease, or unspecified chronic kidney disease; N18.9 Chronic kidney disease, unspecified; D63.1 Anemia in chronic kidney disease; I25.10 Atherosclerotic heart disease of native coronary artery without angina pectoris; E78.5 Hyperlipidemia, unspecified
CPT/HCPCS: 36415; 80053; 84484; 85025; 85610; 85730; 93005

== ENCOUNTER → 2020-05-31 | Outpatient (CLI) | payer OTHER ==
[2020-05-31 14:49] LABS: Basophils # (auto) 0.1 10 ^3/uL (0-0.2); Basophils % (auto) 1.3 % (0.0-2.0); Eosinophils # (auto) 0.5 10 ^3/uL (0-0.8); Eosinophils % (auto) 7.7 % (0.0-7.0); Hematocrit 28.5 % (41.0-53.0); Hemoglobin 9.6 g/dL (13.5-17.5); Lymphocytes # (auto) 1.4 10 ^3/uL (0.4-5.4); Lymphocytes % (auto) 21.7 % (10.0-50.0); Mean Corpuscular Hemoglobin 31.8 pg (28.0-32.0); Mean Corpuscular Hgb Conc. 33.5 g/dL (32.0-36.0); Mean Corpuscular Volume 94.7 fL (80.0-100.0); Monocytes # (auto) 0.6 10 ^3/uL (0-1.3); Monocytes % (auto) 8.4 % (0.0-12.0); Neutrophils % (auto) 60.9 % (37.0-80.0); Nucleated Red Blood Cells % 0.5 %; Platelet Count (auto) 400 10^3/uL (140-450); Red Blood Cells 3.01 10^6/uL (4.5-5.90); Red Cell Distribution Width 12.9 % (11.8-14.3); White Blood Cell 6.6 10^3/uL (4.4-10.8)
[2020-05-31 15:13] LABS: Albumin 3.3 g/dL (3.4-5.0); Calcium 8.5 mg/dL (8.5-10.1)
[2020-05-31 15:16] LABS: BUN/Creatinine Ratio 16.9
[2020-05-31 15:32] LABS: Bilirubin, Total 0.4 mg/dL (0.2-1.0); Total Protein 7.2 g/dL (6.4-8.2)
== END | disposition home or self-care (01) ==
LOC: LAB 14:32
PROVIDERS: ATTEND Internal Medicine
DX: I13.0 Hypertensive heart and chronic kidney disease with heart failure and stage 1 through stage 4 chronic kidney disease, or unspecified chronic kidney disease (principal); N18.9 Chronic kidney disease, unspecified; I50.9 Heart failure, unspecified; L03.031 Cellulitis of right toe; L02.415 Cutaneous abscess of right lower limb; Z47.81 Encounter for orthopedic aftercare following surgical amputation
CPT/HCPCS: 36415; 80053; 85025

== ENCOUNTER → 2020-06-18 | Outpatient (CLI) | payer OTHER ==
[~2020-06-18] MED LIST changes: +ASPI-498 PO; +CLIN300C8 PO; +DULA1INJ SC; +GLIP2.5T28 PO; +IBUP800T24 PO; +INSU100I43 SC; +INSUINJ37 SC; +PATI1POW PO; +RANO10003 PO; +ROSU20TA14 PO
[2020-06-18 15:05] LABS: Eosinophils # (auto) 0.3 10 ^3/uL (0-0.8); Lymphocytes # (auto) 1.1 10 ^3/uL (0.4-5.4); Monocytes # (auto) 0.8 10 ^3/uL (0-1.3); Monocytes % (auto) 7.7 % (0.0-12.0); Neutrophils # (auto) 8.5 10 ^3/uL (1.6-8.6); Nucleated Red Blood Cells % 0.1 %
[2020-06-18 15:07] LABS: Basophils # (auto) 0 10 ^3/uL (0-0.2); Basophils % (auto) 0.4 % (0.0-2.0); Eosinophils % (auto) 2.8 % (0.0-7.0); Hematocrit 23.8 % (41.0-53.0); Hemoglobin 8.2 g/dL (13.5-17.5); Lymphocytes % (auto) 10.2 % (10.0-50.0); Mean Corpuscular Hemoglobin 32.3 pg (28.0-32.0); Mean Corpuscular Hgb Conc. 34.5 g/dL (32.0-36.0); Mean Corpuscular Volume 93.8 fL (80.0-100.0); Neutrophils % (auto) 78.9 % (37.0-80.0); Platelet Count (auto) 236 10^3/uL (140-450); Red Blood Cells 2.54 10^6/uL (4.5-5.90); Red Cell Distribution Width 13.5 % (11.8-14.3); White Blood Cell 10.8 10^3/uL (4.4-10.8)
[2020-06-18 15:23] LABS: Calcium 8.4 mg/dL (8.5-10.1); Potassium 4.6 mmol/L (3.5-5.1)
[2020-06-18 15:28] LABS: Bilirubin, Total 0.6 mg/dL (0.2-1.0); Total Protein 7.2 g/dL (6.4-8.2)
== END | disposition home or self-care (01) ==
LOC: LAB 14:50
PROVIDERS: ATTEND Internal Medicine
DX: E11.621 Type 2 diabetes mellitus with foot ulcer (principal); E11.22 Type 2 diabetes mellitus with diabetic chronic kidney disease; N18.4 Chronic kidney disease, stage 4 (severe); E87.5 Hyperkalemia
CPT/HCPCS: 36415; 80053; 85025

== ENCOUNTER → 2020-08-07 | Outpatient (CLI) | payer OTHER ==
[2020-08-07 16:31] LABS: Basophils # (auto) 0.1 10 ^3/uL (0-0.2); Basophils % (auto) 0.8 % (0.0-2.0); Eosinophils # (auto) 0.4 10 ^3/uL (0-0.8); Eosinophils % (auto) 6.1 % (0.0-7.0); Hematocrit 27.3 % (41.0-53.0); Hemoglobin 9.2 g/dL (13.5-17.5); Lymphocytes # (auto) 1.6 10 ^3/uL (0.4-5.4); Lymphocytes % (auto) 22.4 % (10.0-50.0); Mean Corpuscular Hgb Conc. 33.6 g/dL (32.0-36.0); Mean Corpuscular Volume 95.1 fL (80.0-100.0); Monocytes # (auto) 0.5 10 ^3/uL (0-1.3); Monocytes % (auto) 7.5 % (0.0-12.0); Neutrophils # (auto) 4.4 10 ^3/uL (1.6-8.6); Neutrophils % (auto) 63.2 % (37.0-80.0); Platelet Count (auto) 336 10^3/uL (140-450); Red Blood Cells 2.87 10^6/uL (4.5-5.90); White Blood Cell 6.9 10^3/uL (4.4-10.8)
[2020-08-07 16:38] LABS: Urine Bacteria NONE SEEN /hpf (None Seen); Urine Blood 1+ /uL (Negative); Urine WBC 426 /hpf (0 - 3); Urine WBC Clumps PRESENT /hpf (None Seen)
[2020-08-07 17:05] LABS: % Iron Saturation 32.6 % (20-55)
[2020-08-07 17:06] LABS: Albumin 3.3 g/dL (3.4-5.0); BUN/Creatinine Ratio 18.6; Bilirubin, Total 0.3 mg/dL (0.2-1.0); Magnesium 2.6 mg/dL (1.6-2.6); Phosphorus 3.9 mg/dL (2.5-4.90); Total Protein 7.3 g/dL (6.4-8.2)
[2020-08-07 17:17] LABS: Potassium 5.8 mmol/L (3.5-5.1)
== END | disposition home or self-care (01) ==
LOC: LAB 16:07
PROVIDERS: ATTEND Student in an Organized Health Care Education/Training Program
DX: E56.9 Vitamin deficiency, unspecified (principal); N18.31 Chronic kidney disease, stage 3a; D63.1 Anemia in chronic kidney disease; E11.22 Type 2 diabetes mellitus with diabetic chronic kidney disease; L98.499 Non-pressure chronic ulcer of skin of other sites with unspecified severity; E78.5 Hyperlipidemia, unspecified; E83.39 Other disorders of phosphorus metabolism; R80.9 Proteinuria, unspecified; R82.90 Unspecified abnormal findings in urine
CPT/HCPCS: 36415; 80053; 81001; 82306; 82570; 83036; 83540; 83550; 83735; 83970; 84100; 84156; 85025

== ENCOUNTER → 2020-09-03 | Outpatient (CLI) | payer OTHER ==
[2020-09-03 10:12] LABS: Urine Bacteria NONE SEEN /hpf (None Seen); Urine Blood TRACE /uL (Negative); Urine Specific Gravity 1.012 (1.001-1.035); Urine WBC 1 /hpf (0 - 3)
[2020-09-03 10:24] LABS: Basophils # (auto) 0.1 10 ^3/uL (0-0.2); Basophils % (auto) 0.7 % (0.0-2.0); Eosinophils # (auto) 0.2 10 ^3/uL (0-0.8); Eosinophils % (auto) 2.6 % (0.0-7.0); Hematocrit 29.6 % (41.0-53.0); Hemoglobin 9.9 g/dL (13.5-17.5); Lymphocytes # (auto) 1.2 10 ^3/uL (0.4-5.4); Mean Corpuscular Hemoglobin 32.5 pg (28.0-32.0); Mean Corpuscular Hgb Conc. 33.5 g/dL (32.0-36.0); Monocytes # (auto) 0.7 10 ^3/uL (0-1.3); Monocytes % (auto) 8.1 % (0.0-12.0); Neutrophils # (auto) 6.4 10 ^3/uL (1.6-8.6); Neutrophils % (auto) 74.6 % (37.0-80.0); Platelet Count (auto) 316 10^3/uL (140-450); Red Blood Cells 3.05 10^6/uL (4.5-5.90); Red Cell Distribution Width 13.6 % (11.8-14.3); White Blood Cell 8.6 10^3/uL (4.4-10.8)
[2020-09-03 11:19] LABS: Albumin 3.4 g/dL (3.4-5.0); Calcium 8.7 mg/dL (8.5-10.1); Magnesium 2.6 mg/dL (1.6-2.6)
[2020-09-03 11:21] LABS: Protein, Urine 54.5 mg/dL (0.0-11.9)
[2020-09-03 11:23] LABS: BUN/Creatinine Ratio 23.8; Bilirubin, Total 0.2 mg/dL (0.2-1.0); Phosphorus 4.9 mg/dL (2.5-4.90); Total Protein 7.6 g/dL (6.4-8.2)
[2020-09-03 11:31] LABS: Potassium 5.7 mmol/L (3.5-5.1)
== END | disposition home or self-care (01) ==
LOC: LAB 09:50
PROVIDERS: ATTEND Student in an Organized Health Care Education/Training Program
DX: E11.22 Type 2 diabetes mellitus with diabetic chronic kidney disease (principal); N18.31 Chronic kidney disease, stage 3a; D63.1 Anemia in chronic kidney disease; E21.3 Hyperparathyroidism, unspecified; B17.9 Acute viral hepatitis, unspecified; R80.9 Proteinuria, unspecified; R82.90 Unspecified abnormal findings in urine; E56.9 Vitamin deficiency, unspecified
CPT/HCPCS: 36415; 80053; 81001; 82306; 82570; 83036; 83735; 83970; 84100; 84156; 85025; 87340

== ENCOUNTER → 2020-10-01 | Outpatient (CLI) | payer OTHER ==
[~2020-10-01] MED LIST changes: -CLOP75TA41 PO; +CLOP75TA70 PO; +ERGO1CAP23 PO; +FOLI1TAB6 PO; +FURO80TA3 PO; -IBUP800T24 PO; +IBUP800T27 PO; +INSU1INJ19 SC; +LOS25T PO; -METO-169 PO; +METO-289 PO; +ROSU1TAB14 PO; +SODI650T PO
[2020-10-01 15:40] LABS: Urine WBC None Seen /hpf (0 - 3)
[2020-10-01 15:58] LABS: Urine Bacteria NONE SEEN /hpf (None Seen); Urine Blood Negative /uL (Negative); Urine Specific Gravity 1.012 (1.001-1.035)
[2020-10-01 16:07] LABS: Albumin 3.7 g/dL (3.4-5.0); Calcium 8.6 mg/dL (8.5-10.1); Magnesium 2.6 mg/dL (1.6-2.6); Potassium 5.3 mmol/L (3.5-5.1)
[2020-10-01 16:09] LABS: Protein, Urine 36.8 mg/dL (0.0-11.9)
[2020-10-01 16:10] LABS: % Iron Saturation 20.1 % (20-55); Bilirubin, Total 0.4 mg/dL (0.2-1.0); Phosphorus 4.1 mg/dL (2.5-4.90); Total Protein 7.9 g/dL (6.4-8.2)
[2020-10-01 16:28] LABS: Basophils # (auto) 0 10 ^3/uL (0-0.2); Basophils % (auto) 0.6 % (0.0-2.0); Eosinophils # (auto) 0.2 10 ^3/uL (0-0.8); Eosinophils % (auto) 2.3 % (0.0-7.0); Hematocrit 32.5 % (41.0-53.0); Hemoglobin 10.9 g/dL (13.5-17.5); Lymphocytes # (auto) 1.2 10 ^3/uL (0.4-5.4); Lymphocytes % (auto) 17.9 % (10.0-50.0); Mean Corpuscular Hemoglobin 31.8 pg (28.0-32.0); Mean Corpuscular Hgb Conc. 33.7 g/dL (32.0-36.0); Mean Corpuscular Volume 94.6 fL (80.0-100.0); Monocytes # (auto) 0.5 10 ^3/uL (0-1.3); Monocytes % (auto) 7.4 % (0.0-12.0); Neutrophils # (auto) 4.8 10 ^3/uL (1.6-8.6); Neutrophils % (auto) 71.8 % (37.0-80.0); Red Blood Cells 3.43 10^6/uL (4.5-5.90); Red Cell Distribution Width 13.2 % (11.8-14.3); White Blood Cell 6.6 10^3/uL (4.4-10.8)
== END | disposition home or self-care (01) ==
LOC: LAB 15:28
PROVIDERS: ATTEND Student in an Organized Health Care Education/Training Program
DX: E11.22 Type 2 diabetes mellitus with diabetic chronic kidney disease (principal); N18.4 Chronic kidney disease, stage 4 (severe); D63.1 Anemia in chronic kidney disease; E61.2 Magnesium deficiency; E21.3 Hyperparathyroidism, unspecified; R82.90 Unspecified abnormal findings in urine; E56.9 Vitamin deficiency, unspecified
CPT/HCPCS: 36415; 80053; 81001; 82306; 82570; 83036; 83540; 83550; 83735; 83970; 84100; 84156; 85025

== ENCOUNTER → 2020-10-11 | Outpatient (CLI) | payer OTHER ==
[~2020-10-11] MED LIST changes: -ERGO1CAP23 PO; -FOLI1TAB6 PO; -FURO80TA3 PO; -INSU1INJ19 SC; -LOS25T PO; +METO-169 PO; -METO-289 PO; -ROSU1TAB14 PO; -SODI650T PO
== END | disposition home or self-care (01) ==
LOC: LAB 12:09
PROVIDERS: ATTEND Family Medicine
DX: L57.0 Actinic keratosis (principal)

== ENCOUNTER 2020-10-24 13:35 | Inpatient (IN) | payer OTHER ==
[~2020-10-24] VITALS: Ht 175.3 cm; Wt 84.3 kg
[2020-10-24 15:16] LABS: Basophils # (auto) 0.1 10 ^3/uL (0-0.2); Basophils % (auto) 0.7 % (0.0-2.0); Eosinophils # (auto) 0.2 10 ^3/uL (0-0.8); Eosinophils % (auto) 2.3 % (0.0-7.0); Hematocrit 28.5 % (41.0-53.0); Hemoglobin 9.8 g/dL (13.5-17.5); Lymphocytes # (auto) 1.3 10 ^3/uL (0.4-5.4); Lymphocytes % (auto) 14.8 % (10.0-50.0); Mean Corpuscular Hemoglobin 32.1 pg (28.0-32.0); Mean Corpuscular Hgb Conc. 34.4 g/dL (32.0-36.0); Mean Corpuscular Volume 93.2 fL (80.0-100.0); Monocytes # (auto) 0.6 10 ^3/uL (0-1.3); Monocytes % (auto) 7.4 % (0.0-12.0); Neutrophils # (auto) 6.5 10 ^3/uL (1.6-8.6); Neutrophils % (auto) 74.8 % (37.0-80.0); Platelet Count (auto) 320 10^3/uL (140-450); Red Blood Cells 3.06 10^6/uL (4.5-5.90); Red Cell Distribution Width 12.7 % (11.8-14.3); White Blood Cell 8.7 10^3/uL (4.4-10.8)
[2020-10-24 15:40] LABS: Albumin 3.3 g/dL (3.4-5.0); Anion Gap 7 (5-15); Blood Urea Nitrogen 56 mg/dL (7-18); Calcium 8.4 mg/dL (8.5-10.1); Carbon Dioxide 23 mmol/L (21-32); Chloride 109 mmol/L (98-107); Glucose 110 mg/dL (74-106); Potassium 5.3 mmol/L (3.5-5.1); Sodium 139 mmol/L (136-145)
[2020-10-24 15:45] LABS: Alanine Aminotransferase 22 U/L (16-61); Alkaline Phosphatase 83 U/L (45-117); Aspartate Aminotransferase 12 U/L (15-37); BUN/Creatinine Ratio 15.3; Bilirubin, Total 0.4 mg/dL (0.2-1.0); GFR African American 21 mL/min; GFR Non-African American 18 mL/min; Total Protein 7.5 g/dL (6.4-8.2)
[2020-10-24] MEDS ORDERED: ACETAMINOPHEN 325 MG TAB PO PRN (20:45)
[2020-10-24] MEDS ORDERED: TEMAZEPAM 15 MG CAP PO PRN (20:45)
[2020-10-24] MEDS ORDERED: ONDANSETRON HCL 4 MG/2 ML VIAL IV PRN (20:45)
[2020-10-24] MEDS ORDERED: DEXTROSE (50%) 50ML SYRG IV PRN (20:45)
[2020-10-24] MEDS: ATORVASTATIN 20 MG TAB PO SCH (22:00)
[2020-10-24] MEDS: ACCU-CHEK COMFORT CURVE STRIP VI SCH (22:00)
[2020-10-24] MEDS: InsuLIN REG 1unit/0.01ml Soln (100units/ml) SC SCH (22:00)
[2020-10-24] MEDS: RANOLAZINE ER 500 MG TAB PO SCH (22:00)
[2020-10-24] MEDS: GABAPENTIN 300 MG CAP PO SCH (22:00)
[2020-10-25] MEDS ORDERED: SODIUM ZIRCONIUM CYCL 10 GM PAK PO ONE (01:00)
[2020-10-25 06:24] LABS: Urine Bacteria NONE SEEN /hpf (None Seen); Urine Blood TRACE /uL (Negative); Urine Specific Gravity 1.014 (1.001-1.035); Urine WBC 1 /hpf (0 - 3)
[2020-10-25] MEDS: ACCU-CHEK COMFORT CURVE STRIP VI SCH ×3 (06:28→21:23)
[2020-10-25] MEDS: InsuLIN REG 1unit/0.01ml Soln (100units/ml) SC SCH ×3 (06:31→21:25)
[2020-10-25 07:59] LABS: Calcium 8.5 mg/dL (8.5-10.1)
[2020-10-25 08:04] LABS: Potassium 5.6 mmol/L (3.5-5.1)
[2020-10-25 08:12] LABS: Basophils # (auto) 0 10 ^3/uL (0-0.2); Basophils % (auto) 0.7 % (0.0-2.0); Eosinophils # (auto) 0.1 10 ^3/uL (0-0.8); Hematocrit 28.2 % (41.0-53.0); Hemoglobin 9.7 g/dL (13.5-17.5); Lymphocytes % (auto) 16.1 % (10.0-50.0); Mean Corpuscular Hemoglobin 32.3 pg (28.0-32.0); Mean Corpuscular Hgb Conc. 34.5 g/dL (32.0-36.0); Mean Corpuscular Volume 93.6 fL (80.0-100.0); Monocytes # (auto) 0.4 10 ^3/uL (0-1.3); Monocytes % (auto) 6.9 % (0.0-12.0); Neutrophils # (auto) 4.6 10 ^3/uL (1.6-8.6); Neutrophils % (auto) 74.3 % (37.0-80.0); Nucleated Red Blood Cells % 0.1 %; Platelet Count (auto) 309 10^3/uL (140-450); Red Blood Cells 3.01 10^6/uL (4.5-5.90); Red Cell Distribution Width 13.1 % (11.8-14.3); White Blood Cell 6.2 10^3/uL (4.4-10.8)
[2020-10-25] MEDS ORDERED: SODIUM BICARBONATE 8.4% INJ 50ML SYRINGE IV ONE (10:30)
[2020-10-25] MEDS ORDERED: ALBUTEROL SULF 2.5 MG/0.5ML(0.5%) NEB SOLN NEB ONE (10:30)
[2020-10-25] MEDS: FUROSEMIDE 40 MG TAB PO SCH (11:19)
[2020-10-25] MEDS: SODIUM ZIRCONIUM CYCL 10 GM PAK PO SCH ×3 (11:20→21:02)
[2020-10-25] MEDS: GABAPENTIN 300 MG CAP PO SCH ×2 (11:20→21:02)
[2020-10-25] MEDS: CLOPIDOGREL BISULFATE 75 MG TAB PO SCH (11:20)
[2020-10-25] MEDS: NIFEdipine ER 30 MG TAB PO SCH (11:20)
[2020-10-25] MEDS: METOPROLOL SUCCINATE XL 50 MG TAB PO SCH (11:20)
[2020-10-25] MEDS: PANTOPRAZOLE 40 MG TAB PO SCH (11:20)
[2020-10-25] MEDS: RANOLAZINE ER 500 MG TAB PO SCH ×2 (12:10→21:02)
[2020-10-25] MEDS ORDERED: SODIUM BICARBONATE 50ML VIAL 150 ML in D5W 5% 1,000 ML IV ONE (13:00)
[2020-10-25 18:40] VITALS: BP 136/70
[2020-10-25] MEDS ORDERED: POLYETHYLENE GLYCOL 17 GM PWDR PO ONE (19:15)
[2020-10-25] MEDS ORDERED: ERGOCALCIFEROL 50,000 UNIT(1.25MG) CAP PO SCH (19:30)
[2020-10-25 20:00] VITALS: BP 132/67
[2020-10-25 20:30] VITALS: BP 132/67
[2020-10-25] MEDS: ATORVASTATIN 20 MG TAB PO SCH (21:01)
[2020-10-25 22:00] VITALS: BP 132/67
[2020-10-26] MEDS ORDERED: INSULIN LANTUS (GLARGINE) 1 /0.01ml (100units/ml) SC ONE (00:30)
[2020-10-26] MEDS ORDERED: DEXTROSE (50%) 50ML SYRG IV PRN (00:30)
[2020-10-26] MEDS: InsuLIN REG 1unit/0.01ml Soln (100units/ml) SC SCH ×5 (04:03→20:00)
[2020-10-26] MEDS: ACCU-CHEK COMFORT CURVE STRIP VI SCH ×5 (04:03→20:00)
[2020-10-26 05:00] VITALS: BP 123/59
[2020-10-26] MEDS: SODIUM ZIRCONIUM CYCL 10 GM PAK PO SCH ×3 (06:00→22:00)
[2020-10-26 06:30] LABS: Potassium 4.2 mmol/L (3.5-5.1)
[2020-10-26 06:34] LABS: BUN/Creatinine Ratio 15.2; Calcium 7.8 mg/dL (8.5-10.1); Magnesium 2.4 mg/dL (1.6-2.6); Phosphorus 4.8 mg/dL (2.5-4.90)
[2020-10-26 08:15] VITALS: BP 124/69
[2020-10-26 09:00] VITALS: BP 124/69
[2020-10-26] MEDS: CLOPIDOGREL BISULFATE 75 MG TAB PO SCH (09:40)
[2020-10-26] MEDS: FUROSEMIDE 40 MG TAB PO SCH (09:40)
[2020-10-26] MEDS: GABAPENTIN 300 MG CAP PO SCH ×2 (09:40→22:00)
[2020-10-26] MEDS: METOPROLOL SUCCINATE XL 50 MG TAB PO SCH (09:41)
[2020-10-26] MEDS: NIFEdipine ER 30 MG TAB PO SCH (09:41)
[2020-10-26] MEDS: RANOLAZINE ER 500 MG TAB PO SCH ×2 (09:41→22:00)
[2020-10-26] MEDS: PANTOPRAZOLE 40 MG TAB PO SCH (09:41)
[2020-10-26] MEDS: INSULIN LANTUS (GLARGINE) 1 /0.01ml (100units/ml) SC SCH ×2 (09:42→22:00)
[2020-10-26] MEDS ORDERED: DAKINS QUARTER STR 0.125% (NaHypochlorite) 473 ML TOPICAL SOL TOP SCH (10:00)
[2020-10-26 13:00] VITALS: BP 116/72
[2020-10-26 15:01] LABS: Protein, Urine 77.5 mg/dL (0.0-11.9)
[2020-10-26] MEDS ORDERED: CLOP75TA70 PO (15:19)
[2020-10-26] MEDS ORDERED: ATOR20TA50 PO (15:19)
[2020-10-26] MEDS ORDERED: ASPI-231 PO (15:19)
[2020-10-26] MEDS ORDERED: ERGO1CAP23 PO (15:22)
[2020-10-26 16:48] VITALS: BP 119/67
[2020-10-26] MEDS: ATORVASTATIN 20 MG TAB PO SCH (22:00)
[2020-10-27] MEDS: ACCU-CHEK COMFORT CURVE STRIP VI SCH (00:22)
[2020-10-27] MEDS: InsuLIN REG 1unit/0.01ml Soln (100units/ml) SC SCH (00:27)
== END 2020-10-27 00:44 | disposition home or self-care (01) | DRG 69 ==
LOC: ER 13:35 → OVERFLOW 20:41 → WEST WING 10-25 20:31
PROVIDERS: ADMIT Nurse Practitioner; ATTEND Internal Medicine
DX: G45.9 Transient cerebral ischemic attack, unspecified (principal); U07.1 COVID-19; I50.42 Chronic combined systolic (congestive) and diastolic (congestive) heart failure; I13.2 Hypertensive heart and chronic kidney disease with heart failure and with stage 5 chronic kidney disease, or end stage renal disease; N18.5 Chronic kidney disease, stage 5; D63.8 Anemia in other chronic diseases classified elsewhere; E55.9 Vitamin D deficiency, unspecified; E11.22 Type 2 diabetes mellitus with diabetic chronic kidney disease; E11.42 Type 2 diabetes mellitus with diabetic polyneuropathy; E11.621 Type 2 diabetes mellitus with foot ulcer; E11.65 Type 2 diabetes mellitus with hyperglycemia; E11.69 Type 2 diabetes mellitus with other specified complication; E87.5 Hyperkalemia; E78.5 Hyperlipidemia, unspecified; F17.200 Nicotine dependence, unspecified, uncomplicated; I25.10 Atherosclerotic heart disease of native coronary artery without angina pectoris; I70.0 Atherosclerosis of aorta; L97.519 Non-pressure chronic ulcer of other part of right foot with unspecified severity; Z79.02 Long term (current) use of antithrombotics/antiplatelets; Z79.899 Other long term (current) drug therapy; Z79.82 Long term (current) use of aspirin; Z82.3 Family history of stroke; Z82.49 Family history of ischemic heart disease and other diseases of the circulatory system; Z83.0 Family history of human immunodeficiency virus [HIV] disease; Z83.3 Family history of diabetes mellitus; Z86.73 Personal history of transient ischemic attack (TIA), and cerebral infarction without residual deficits; Z89.429 Acquired absence of other toe(s), unspecified side; Z91.14 Patient's other noncompliance with medication regimen; Z95.1 Presence of aortocoronary bypass graft; H54.62 Unqualified visual loss, left eye, normal vision right eye
CPT/HCPCS: 36415; 70450; 70551; 71046; 76775; 80048; 80053; 81001; 82043; 82270; 82570; 82962; 83735; 83880; 84100; 84156; 84300; 84484; 85025; 87426; 93005; 93306; 93886; 94644; G0378; J1815

== ENCOUNTER → 2020-10-29 | Outpatient (CLI) | payer OTHER ==
[~2020-10-29] MED LIST changes: -ASPI-498 PO; -CLIN300C8 PO; +ERGO1CAP23 PO; -GLIP2.5T28 PO; -IBUP800T27 PO; -INSU100I43 SC; -INSUINJ37 SC; -LOSA25TA38 PO; -RANO10003 PO; -ROSU20TA14 PO
[2020-10-29 15:54] LABS: Basophils # (auto) 0 10 ^3/uL (0-0.2); Basophils % (auto) 0.4 % (0.0-2.0); Eosinophils # (auto) 0.2 10 ^3/uL (0-0.8); Eosinophils % (auto) 2.4 % (0.0-7.0); Hematocrit 26.9 % (41.0-53.0); Hemoglobin 9.3 g/dL (13.5-17.5); Lymphocytes # (auto) 1.4 10 ^3/uL (0.4-5.4); Lymphocytes % (auto) 18.9 % (10.0-50.0); Mean Corpuscular Hemoglobin 32.8 pg (28.0-32.0); Mean Corpuscular Hgb Conc. 34.5 g/dL (32.0-36.0); Monocytes # (auto) 0.7 10 ^3/uL (0-1.3); Monocytes % (auto) 9.3 % (0.0-12.0); Neutrophils # (auto) 5.3 10 ^3/uL (1.6-8.6); Platelet Count (auto) 274 10^3/uL (140-450); Red Blood Cells 2.83 10^6/uL (4.5-5.90); White Blood Cell 7.6 10^3/uL (4.4-10.8)
[2020-10-29 16:10] LABS: BUN/Creatinine Ratio 12.5; Calcium 8.1 mg/dL (8.5-10.1); Potassium 4.1 mmol/L (3.5-5.1)
== END | disposition home or self-care (01) ==
LOC: LAB 15:36
PROVIDERS: ATTEND Internal Medicine
DX: E11.621 Type 2 diabetes mellitus with foot ulcer (principal); L57.0 Actinic keratosis
CPT/HCPCS: 36415; 80048; 83036; 85025

== ENCOUNTER 2020-11-04 15:08 | Inpatient (IN) | payer OTHER ==
[~2020-11-04] VITALS: Ht 175.3 cm; Wt 84.1 kg
[2020-11-04 15:46] LABS: Basophils # (auto) 0 10 ^3/uL (0-0.2); Basophils % (auto) 0.6 % (0.0-2.0); Eosinophils # (auto) 0.1 10 ^3/uL (0-0.8); Eosinophils % (auto) 1.6 % (0.0-7.0); Hematocrit 27.1 % (41.0-53.0); Hemoglobin 9.4 g/dL (13.5-17.5); Lymphocytes # (auto) 1.1 10 ^3/uL (0.4-5.4); Lymphocytes % (auto) 18.2 % (10.0-50.0); Mean Corpuscular Hemoglobin 32.8 pg (28.0-32.0); Mean Corpuscular Hgb Conc. 34.5 g/dL (32.0-36.0); Mean Corpuscular Volume 95.2 fL (80.0-100.0); Monocytes # (auto) 0.7 10 ^3/uL (0-1.3); Monocytes % (auto) 11.6 % (0.0-12.0); Neutrophils # (auto) 4.3 10 ^3/uL (1.6-8.6); Nucleated Red Blood Cells % 0.1 %; Platelet Count (auto) 253 10^3/uL (140-450); Red Blood Cells 2.85 10^6/uL (4.5-5.90); Red Cell Distribution Width 13.2 % (11.8-14.3); White Blood Cell 6.3 10^3/uL (4.4-10.8)
[2020-11-04 16:09] LABS: Calcium 8.1 mg/dL (8.5-10.1); Potassium 5.5 mmol/L (3.5-5.1)
[2020-11-04 16:16] LABS: BUN/Creatinine Ratio 14.1; Bilirubin, Total 0.6 mg/dL (0.2-1.0); Total Protein 7.2 g/dL (6.4-8.2)
[2020-11-04] MEDS ORDERED: ONDANSETRON HCL 4 MG/2 ML VIAL IV ONE (18:30)
[2020-11-04] MEDS ORDERED: MORPHINE SULFATE 4 MG/ML SYR/VIAL IV ONE (18:30)
[2020-11-04] MEDS ORDERED: ALBUTEROL SULF 2.5 MG/0.5ML(0.5%) NEB SOLN NEB ONE (20:00)
[2020-11-04] MEDS ORDERED: FUROSEMIDE 20 MG/2 ML VIAL IV ONE (20:00)
[2020-11-04] MEDS ORDERED: ONDANSETRON HCL 4 MG/2 ML VIAL IV PRN (21:00)
[2020-11-04] MEDS ORDERED: DEXTROSE (50%) 50ML SYRG IV PRN (21:00)
[2020-11-04] MEDS ORDERED: MORPHINE SULF INJ 2 MG/ML SYRINGE 1ML IV PRN (21:00)
[2020-11-04] MEDS ORDERED: TEMAZEPAM 15 MG CAP PO PRN (21:00)
[2020-11-04] MEDS ORDERED: NITROGLYCERIN 0.4 MG SL TAB SL PRN (21:00)
[2020-11-04] MEDS ORDERED: ACETAMINOPHEN 325 MG TAB PO PRN (21:00)
[2020-11-04 21:30] VITALS: BP 138/70
[2020-11-04] MEDS: ACCU-CHEK COMFORT CURVE STRIP VI SCH (22:53)
[2020-11-04] MEDS: ATORVASTATIN 20 MG TAB PO SCH (22:57)
[2020-11-04] MEDS: InsuLIN REG 1unit/0.01ml Soln (100units/ml) SC SCH (22:57)
[2020-11-04] MEDS: GABAPENTIN 300 MG CAP PO SCH (22:57)
[2020-11-05] MEDS ORDERED: SODIUM ZIRCONIUM CYCL 10 GM PAK PO ONE (01:00)
[2020-11-05] MEDS: FUROSEMIDE 40 MG/4 ML VIAL IV SCH ×2 (06:15→18:00)
[2020-11-05] MEDS: ACCU-CHEK COMFORT CURVE STRIP VI SCH ×4 (06:15→21:17)
[2020-11-05 06:29] LABS: Basophils # (auto) 0 10 ^3/uL (0-0.2); Basophils % (auto) 0.5 % (0.0-2.0); Eosinophils # (auto) 0.3 10 ^3/uL (0-0.8); Eosinophils % (auto) 4.2 % (0.0-7.0); Hematocrit 24.9 % (41.0-53.0); Hemoglobin 8.5 g/dL (13.5-17.5); Lymphocytes % (auto) 17.3 % (10.0-50.0); Mean Corpuscular Hemoglobin 32.3 pg (28.0-32.0); Mean Corpuscular Hgb Conc. 33.9 g/dL (32.0-36.0); Mean Corpuscular Volume 95.3 fL (80.0-100.0); Monocytes # (auto) 0.8 10 ^3/uL (0-1.3); Monocytes % (auto) 13.3 % (0.0-12.0); Neutrophils # (auto) 3.9 10 ^3/uL (1.6-8.6); Neutrophils % (auto) 64.7 % (37.0-80.0); Platelet Count (auto) 219 10^3/uL (140-450); Red Blood Cells 2.62 10^6/uL (4.5-5.90); White Blood Cell 6.1 10^3/uL (4.4-10.8)
[2020-11-05] MEDS: InsuLIN REG 1unit/0.01ml Soln (100units/ml) SC SCH ×4 (06:50→21:16)
[2020-11-05 06:51] LABS: Albumin 2.8 g/dL (3.4-5.0); Calcium 8.3 mg/dL (8.5-10.1); Potassium 5.3 mmol/L (3.5-5.1)
[2020-11-05 06:54] LABS: BUN/Creatinine Ratio 15.2; Bilirubin, Total 0.5 mg/dL (0.2-1.0); Total Protein 6.8 g/dL (6.4-8.2)
[2020-11-05] MEDS: NIFEdipine ER 30 MG TAB PO SCH (10:45)
[2020-11-05] MEDS: PANTOPRAZOLE 40 MG TAB PO SCH (10:45)
[2020-11-05] MEDS: ASPirin 81 mg TAB PO SCH (10:45)
[2020-11-05] MEDS: GABAPENTIN 300 MG CAP PO SCH ×2 (10:45→21:17)
[2020-11-05] MEDS: CLOPIDOGREL BISULFATE 75 MG TAB PO SCH (10:45)
[2020-11-05] MEDS: METOPROLOL SUCCINATE XL 50 MG TAB PO SCH (10:45)
[2020-11-05 11:11] LABS: Urine Bacteria NONE SEEN /hpf (None Seen); Urine Blood 1+ /uL (Negative); Urine Specific Gravity 1.008 (1.001-1.035); Urine WBC 2 /hpf (0 - 3)
[2020-11-05] MEDS ORDERED: FUROSEMIDE 20 MG/2 ML VIAL IV ONE (11:15)
[2020-11-05] MEDS ORDERED: RANO10003 PO ×2 (16:54→16:55)
[2020-11-05] MEDS ORDERED: GLIP2.5T28 PO (16:54)
[2020-11-05] MEDS ORDERED: LOSA25TA38 PO (16:55)
[2020-11-05] MEDS ORDERED: SODI650T PO (16:56)
[2020-11-05 17:00] VITALS: BP 154/80
[2020-11-05] MEDS: ATORVASTATIN 20 MG TAB PO SCH (21:17)
[2020-11-05 22:00] VITALS: BP 136/64
[2020-11-06 05:00] VITALS: BP 133/69
[2020-11-06] MEDS: FUROSEMIDE 40 MG/4 ML VIAL IV SCH (06:00)
[2020-11-06 06:53] LABS: Basophils # (auto) 0 10 ^3/uL (0-0.2); Basophils % (auto) 0.6 % (0.0-2.0); Eosinophils # (auto) 0.3 10 ^3/uL (0-0.8); Eosinophils % (auto) 4.4 % (0.0-7.0); Hematocrit 25.8 % (41.0-53.0); Hemoglobin 8.9 g/dL (13.5-17.5); Lymphocytes # (auto) 1.1 10 ^3/uL (0.4-5.4); Lymphocytes % (auto) 14.9 % (10.0-50.0); Mean Corpuscular Hemoglobin 32.5 pg (28.0-32.0); Mean Corpuscular Hgb Conc. 34.5 g/dL (32.0-36.0); Monocytes # (auto) 0.6 10 ^3/uL (0-1.3); Monocytes % (auto) 8.3 % (0.0-12.0); Neutrophils # (auto) 5.1 10 ^3/uL (1.6-8.6); Neutrophils % (auto) 71.8 % (37.0-80.0); Platelet Count (auto) 259 10^3/uL (140-450); Red Blood Cells 2.74 10^6/uL (4.5-5.90); Red Cell Distribution Width 12.9 % (11.8-14.3); White Blood Cell 7.2 10^3/uL (4.4-10.8)
[2020-11-06] MEDS: InsuLIN REG 1unit/0.01ml Soln (100units/ml) SC SCH ×2 (07:00→11:30)
[2020-11-06] MEDS: ACCU-CHEK COMFORT CURVE STRIP VI SCH ×2 (07:00→11:30)
[2020-11-06 07:07] LABS: Potassium 5.1 mmol/L (3.5-5.1)
[2020-11-06 07:20] LABS: BUN/Creatinine Ratio 15.1; Calcium 8.1 mg/dL (8.5-10.1)
[2020-11-06 09:00] VITALS: BP 140/68
[2020-11-06] MEDS: GABAPENTIN 300 MG CAP PO SCH (09:32)
[2020-11-06] MEDS: CLOPIDOGREL BISULFATE 75 MG TAB PO SCH (09:32)
[2020-11-06] MEDS: ASPirin 81 mg TAB PO SCH (09:32)
[2020-11-06] MEDS: NIFEdipine ER 30 MG TAB PO SCH (09:33)
[2020-11-06] MEDS: PANTOPRAZOLE 40 MG TAB PO SCH (09:33)
[2020-11-06] MEDS: METOPROLOL SUCCINATE XL 50 MG TAB PO SCH (09:33)
[2020-11-06] MEDS ORDERED: SODIUM ZIRCONIUM CYCL 10 GM PAK PO SCH (10:00)
[2020-11-06] MEDS ORDERED: FUROSEMIDE 40 MG/4 ML VIAL IV ONE (10:15)
[2020-11-06] MEDS ORDERED: CALCIUM ACETATE 667 MG CAP PO SCH (12:00)
[2020-11-06 13:57] VITALS: BP 135/70
[2020-11-06 16:49] VITALS: BP 130/73
[2020-11-06] MEDS ORDERED: TAMSULOSIN HYDROCHLORIDE 0.4 MG CAP PO SCH (18:00)
== END 2020-11-06 18:00 | disposition home or self-care (01) | DRG 291 ==
LOC: ER 15:08 → TELE 20:58 → TELE-E-ADS 11-05 16:54 → DOU IN ADS 11-05 17:39
PROVIDERS: ADMIT Nurse Practitioner; ATTEND Internal Medicine
DX: I13.2 Hypertensive heart and chronic kidney disease with heart failure and with stage 5 chronic kidney disease, or end stage renal disease (principal); I50.33 Acute on chronic diastolic (congestive) heart failure; N17.0 Acute kidney failure with tubular necrosis; N18.6 End stage renal disease; Z20.822 Contact with and (suspected) exposure to COVID-19; E11.22 Type 2 diabetes mellitus with diabetic chronic kidney disease; E87.5 Hyperkalemia; I25.10 Atherosclerotic heart disease of native coronary artery without angina pectoris; E78.5 Hyperlipidemia, unspecified; I70.0 Atherosclerosis of aorta; D63.1 Anemia in chronic kidney disease; E83.39 Other disorders of phosphorus metabolism; I08.0 Rheumatic disorders of both mitral and aortic valves; R33.9 Retention of urine, unspecified; Z88.8 Allergy status to other drugs, medicaments and biological substances; Z95.1 Presence of aortocoronary bypass graft; Z90.89 Acquired absence of other organs; Z83.0 Family history of human immunodeficiency virus [HIV] disease; Z83.3 Family history of diabetes mellitus; Z82.3 Family history of stroke; Z82.49 Family history of ischemic heart disease and other diseases of the circulatory system; Z83.49 Family history of other endocrine, nutritional and metabolic diseases; Z91.19 Patient's noncompliance with other medical treatment and regimen; Z79.899 Other long term (current) drug therapy
CPT/HCPCS: 36415; 71045; 80048; 80053; 81001; 82306; 82962; 83880; 83970; 84100; 84484; 85025; 85379; 87426; 93005; 93970; 94640; 96374; 96375; 96376; G0378; J1815; J2405

== ENCOUNTER → 2020-11-08 | Outpatient (CLI) | payer OTHER ==
[~2020-11-08] MED LIST changes: -DULA0.5I SC; +GLIP2.5T28 PO; +LOSA25TA38 PO; +RANO10003 PO; +SODI650T PO
[2020-11-08 15:11] LABS: Basophils # (auto) 0 10 ^3/uL (0-0.2); Basophils % (auto) 0.7 % (0.0-2.0); Eosinophils # (auto) 0.2 10 ^3/uL (0-0.8); Eosinophils % (auto) 2.9 % (0.0-7.0); Hematocrit 26.7 % (41.0-53.0); Lymphocytes # (auto) 1.2 10 ^3/uL (0.4-5.4); Mean Corpuscular Hemoglobin 32.2 pg (28.0-32.0); Mean Corpuscular Hgb Conc. 33.8 g/dL (32.0-36.0); Mean Corpuscular Volume 95.5 fL (80.0-100.0); Monocytes # (auto) 0.6 10 ^3/uL (0-1.3); Monocytes % (auto) 9.2 % (0.0-12.0); Neutrophils # (auto) 4.5 10 ^3/uL (1.6-8.6); Neutrophils % (auto) 69.2 % (37.0-80.0); Platelet Count (auto) 254 10^3/uL (140-450); Red Blood Cells 2.79 10^6/uL (4.5-5.90); Red Cell Distribution Width 12.8 % (11.8-14.3); White Blood Cell 6.5 10^3/uL (4.4-10.8)
[2020-11-08 15:30] LABS: Urine Bacteria NONE SEEN /hpf (None Seen); Urine Blood 2+ /uL (Negative); Urine Specific Gravity 1.012 (1.001-1.035); Urine WBC 1 /hpf (0 - 3)
[2020-11-08 16:01] LABS: % Iron Saturation 14.4 % (20-55)
[2020-11-08 16:02] LABS: Albumin 3.1 g/dL (3.4-5.0); Magnesium 2.6 mg/dL (1.6-2.6); Potassium 5.2 mmol/L (3.5-5.1); Protein, Urine 202.1 mg/dL (0.0-11.9)
[2020-11-08 16:05] LABS: BUN/Creatinine Ratio 16.4; Bilirubin, Total 0.4 mg/dL (0.2-1.0); Phosphorus 3.7 mg/dL (2.5-4.90); Total Protein 7.4 g/dL (6.4-8.2)
== END | disposition home or self-care (01) ==
LOC: LAB 14:35
PROVIDERS: ATTEND Student in an Organized Health Care Education/Training Program
DX: E11.22 Type 2 diabetes mellitus with diabetic chronic kidney disease (principal); N18.4 Chronic kidney disease, stage 4 (severe); D63.1 Anemia in chronic kidney disease; E83.39 Other disorders of phosphorus metabolism; R82.90 Unspecified abnormal findings in urine; E56.9 Vitamin deficiency, unspecified
CPT/HCPCS: 36415; 80053; 81001; 82306; 82570; 83036; 83540; 83550; 83735; 83970; 84100; 84156; 85025

== ENCOUNTER → 2020-12-05 | Outpatient (CLI) | payer OTHER ==
[2020-12-05 10:14] LABS: Urine Bacteria FEW /hpf (None Seen); Urine Blood 2+ /uL (Negative); Urine Hyaline Cast FEW /lpf (0 - 2); Urine Specific Gravity 1.017 (1.001-1.035); Urine WBC 6 /hpf (0 - 3)
[2020-12-05 10:38] LABS: Basophils # (auto) 0.1 10 ^3/uL (0-0.2); Eosinophils # (auto) 0.2 10 ^3/uL (0-0.8); Eosinophils % (auto) 3.8 % (0.0-7.0); Hematocrit 28.3 % (41.0-53.0); Hemoglobin 9.9 g/dL (13.5-17.5); Lymphocytes # (auto) 1.1 10 ^3/uL (0.4-5.4); Lymphocytes % (auto) 17.6 % (10.0-50.0); Mean Corpuscular Hemoglobin 32.2 pg (28.0-32.0); Mean Corpuscular Hgb Conc. 34.9 g/dL (32.0-36.0); Mean Corpuscular Volume 92.2 fL (80.0-100.0); Monocytes # (auto) 0.5 10 ^3/uL (0-1.3); Monocytes % (auto) 8.6 % (0.0-12.0); Neutrophils # (auto) 4.3 10 ^3/uL (1.6-8.6); Platelet Count (auto) 337 10^3/uL (140-450); Red Blood Cells 3.07 10^6/uL (4.5-5.90); Red Cell Distribution Width 12.5 % (11.8-14.3); White Blood Cell 6.2 10^3/uL (4.4-10.8)
[2020-12-05 10:39] LABS: Albumin 3.6 g/dL (3.4-5.0); Calcium 9.1 mg/dL (8.5-10.1); Magnesium 2.4 mg/dL (1.6-2.6); Potassium 4.8 mmol/L (3.5-5.1)
[2020-12-05 10:42] LABS: BUN/Creatinine Ratio 14.1; Bilirubin, Total 0.4 mg/dL (0.2-1.0); Phosphorus 5.4 mg/dL (2.5-4.90); Total Protein 8.1 g/dL (6.4-8.2)
[2020-12-05 13:43] LABS: Protein, Urine 427.6 mg/dL (0.0-11.9)
== END | disposition home or self-care (01) ==
LOC: LAB 09:46
PROVIDERS: ATTEND Student in an Organized Health Care Education/Training Program
DX: N18.4 Chronic kidney disease, stage 4 (severe) (principal); D63.1 Anemia in chronic kidney disease; E83.2 Disorders of zinc metabolism; R80.9 Proteinuria, unspecified; R82.90 Unspecified abnormal findings in urine; R56.9 Unspecified convulsions
CPT/HCPCS: 36415; 80053; 81001; 82306; 82570; 83036; 83735; 83970; 84100; 84156; 85025

== ENCOUNTER → 2021-01-03 | Outpatient (CLI) | payer OTHER ==
[2021-01-03 13:38] LABS: Albumin 3.5 g/dL (3.4-5.0); Calcium 8.6 mg/dL (8.5-10.1); Potassium 4.7 mmol/L (3.5-5.1)
[2021-01-03 13:45] LABS: BUN/Creatinine Ratio 14.9; Bilirubin, Total 0.3 mg/dL (0.2-1.0); Total Protein 7.3 g/dL (6.4-8.2)
== END | disposition home or self-care (01) ==
LOC: LAB 12:59
PROVIDERS: ATTEND Internal Medicine
DX: E11.621 Type 2 diabetes mellitus with foot ulcer (principal)
CPT/HCPCS: 36415; 80053

== ENCOUNTER → 2021-01-22 | Outpatient (CLI) | payer OTHER ==
[~2021-01-22] MED LIST changes: -METO-169 PO; +METO-289 PO
[2021-01-22 14:12] LABS: Calcium 8.5 mg/dL (8.5-10.1)
[2021-01-22 14:14] LABS: BUN/Creatinine Ratio 14.4
[2021-01-22 14:33] LABS: Potassium 5.6 mmol/L (3.5-5.1)
[2021-01-24 09:35] LABS: Hepatitis B Surface Antibody Negative
[2021-01-24 10:04] LABS: Hepatitis A Total Antibody Negative
[2021-01-24 12:21] LABS: Hepatitis B Core Total AB Negative; Hepatitis B Surface Antigen Negative (Negative); Hepatitis C Antibody Negative (Negative)
== END | disposition home or self-care (01) ==
LOC: LAB 13:15
PROVIDERS: ATTEND Internal Medicine
DX: N18.4 Chronic kidney disease, stage 4 (severe) (principal)
CPT/HCPCS: 36415; 80048; 83036; 86704; 86706; 86708; 86803; 87340

== ENCOUNTER 2021-02-05 14:07 | Inpatient (IN) | payer OTHER ==
[2021-02-05] VITALS (9 sets, daily range): BP systolic 120–139; BP diastolic 52–75
[~2021-02-05] VITALS: Ht 175.3 cm; Wt 84.5 kg
[2021-02-05 15:46] LABS: Basophils # (auto) 0 10 ^3/uL (0-0.2); Basophils % (auto) 0.3 % (0.0-2.0); Eosinophils # (auto) 0.1 10 ^3/uL (0-0.8); Eosinophils % (auto) 0.6 % (0.0-7.0); Hematocrit 28.4 % (41.0-53.0); Hemoglobin 9.9 g/dL (13.5-17.5); Lymphocytes # (auto) 0.5 10 ^3/uL (0.4-5.4); Lymphocytes % (auto) 3.2 % (10.0-50.0); Mean Corpuscular Hemoglobin 32.8 pg (28.0-32.0); Mean Corpuscular Hgb Conc. 34.9 g/dL (32.0-36.0); Mean Corpuscular Volume 93.9 fL (80.0-100.0); Monocytes # (auto) 0.7 10 ^3/uL (0-1.3); Monocytes % (auto) 4.7 % (0.0-12.0); Neutrophils # (auto) 13.7 10 ^3/uL (1.6-8.6); Neutrophils % (auto) 91.2 % (37.0-80.0); Platelet Count (auto) 268 10^3/uL (140-450); Red Blood Cells 3.03 10^6/uL (4.5-5.90); Red Cell Distribution Width 13.4 % (11.8-14.3)
[2021-02-05] MEDS ORDERED: ROSU1TAB14 PO (15:56)
[2021-02-05] MEDS ORDERED: LOS25T PO (15:56)
[2021-02-05 15:57] LABS: Albumin 3.2 g/dL (3.4-5.0); Anion Gap 9 (5-15); Blood Urea Nitrogen 70 mg/dL (7-18); Calcium 8.2 mg/dL (8.5-10.1); Carbon Dioxide 17 mmol/L (21-32); Chloride 110 mmol/L (98-107); Glucose 262 mg/dL (74-106); Sodium 136 mmol/L (136-145)
[2021-02-05 16:03] LABS: Alanine Aminotransferase 15 U/L (16-61); Alkaline Phosphatase 76 U/L (45-117); Aspartate Aminotransferase 9 U/L (15-37); BUN/Creatinine Ratio 17.3; Bilirubin, Total 0.4 mg/dL (0.2-1.0); GFR African American 19 mL/min; GFR Non-African American 16 mL/min
[2021-02-05 16:24] LABS: Potassium 5.7 mmol/L (3.5-5.1)
[2021-02-05] MEDS ORDERED: SODIUM BICARBONATE 8.4% INJ 50ML SYRINGE IV ONE (16:30)
[2021-02-05] MEDS ORDERED: DEXTROSE (50%) 50ML SYRG IV ONE (16:30)
[2021-02-05] MEDS ORDERED: InsuLIN REG 1unit/0.01ml Soln (100units/ml) IV ONE (16:30)
[2021-02-05] MEDS ORDERED: ACETAMINOPHEN 500 MG TAB PO ONE ×2 (16:33→16:45)
[2021-02-05] MEDS ORDERED: cefTRIAXone 1GM/50ML D5W 50 ML IV ONE (16:45)
[2021-02-05 16:49] LABS: INR 1.02 (0.9-1.15); Partial Thromboplastin Time 28.3 sec (23.0-31.2)
[2021-02-05] MEDS ORDERED: CLINDAMYCIN 600MG IV 50 ML IV ONE (17:00)
[2021-02-05 17:19] LABS: Urine Bacteria NONE SEEN /hpf (None Seen); Urine Blood 2+ /uL (Negative); Urine Specific Gravity 1.013 (1.001-1.035); Urine WBC 1 /hpf (0 - 3)
[2021-02-05] MEDS ORDERED: NITROGLYCERIN 0.4 MG SL TAB SL PRN (17:30)
[2021-02-05] MEDS ORDERED: HYDROcodone-ACET 5/325MG TAB PO PRN (17:30)
[2021-02-05] MEDS ORDERED: ACETAMINOPHEN 500 MG TAB PO PRN (17:30)
[2021-02-05] MEDS ORDERED: MORPHINE SULF INJ 2 MG/ML SYRINGE 1ML IV PRN ×2 (17:30)
[2021-02-05] MEDS ORDERED: ONDANSETRON HCL 4 MG/2 ML VIAL IV PRN (17:30)
[2021-02-05] MEDS ORDERED: DEXTROSE (50%) 50ML SYRG IV PRN (17:30)
[2021-02-05] MEDS ORDERED: SODIUM ZIRCONIUM CYCL 10 GM PAK PO ONE (19:30)
[2021-02-05] MEDS: SODIUM BICARB 50ML SYR 75 ML in SOD CHL 0.45% 1,000 ML IV SCH (21:55)
[2021-02-05] MEDS: metroNIDAZOLE 500MG/100ML 100 ML IV SCH (21:56)
[2021-02-05] MEDS: ACCU-CHEK COMFORT CURVE STRIP VI SCH (21:56)
[2021-02-05] MEDS: GABAPENTIN 300 MG CAP PO SCH (21:56)
[2021-02-05] MEDS: InsuLIN REG 1unit/0.01ml Soln (100units/ml) SC SCH (21:57)
[2021-02-05] MEDS ORDERED: ATORVASTATIN 20 MG TAB PO SCH (22:00)
[2021-02-05] MEDS: CLINDAMYCIN 300MG IV 50 ML IV SCH (23:54)
[2021-02-06] VITALS (14 sets, daily range): BP systolic 108–135; BP diastolic 41–72
[2021-02-06 05:08] LABS: Basophils # (auto) 0 10 ^3/uL (0-0.2); Basophils % (auto) 0.5 % (0.0-2.0); Eosinophils # (auto) 0.1 10 ^3/uL (0-0.8); Eosinophils % (auto) 1.4 % (0.0-7.0); Hematocrit 27.1 % (41.0-53.0); Hemoglobin 9.4 g/dL (13.5-17.5); Lymphocytes # (auto) 1.4 10 ^3/uL (0.4-5.4); Lymphocytes % (auto) 12.9 % (10.0-50.0); Mean Corpuscular Hemoglobin 32.9 pg (28.0-32.0); Mean Corpuscular Hgb Conc. 34.8 g/dL (32.0-36.0); Mean Corpuscular Volume 94.6 fL (80.0-100.0); Monocytes # (auto) 0.8 10 ^3/uL (0-1.3); Monocytes % (auto) 7.4 % (0.0-12.0); Neutrophils # (auto) 8.2 10 ^3/uL (1.6-8.6); Neutrophils % (auto) 77.8 % (37.0-80.0); Platelet Count (auto) 257 10^3/uL (140-450); Red Blood Cells 2.87 10^6/uL (4.5-5.90); Red Cell Distribution Width 13.6 % (11.8-14.3); White Blood Cell 10.6 10^3/uL (4.4-10.8)
[2021-02-06] MEDS: CLINDAMYCIN 300MG IV 50 ML IV SCH ×2 (05:22→13:27)
[2021-02-06 05:29] LABS: Potassium 5.3 mmol/L (3.5-5.1)
[2021-02-06] MEDS: ACCU-CHEK COMFORT CURVE STRIP VI SCH ×3 (06:18→17:00)
[2021-02-06] MEDS: metroNIDAZOLE 500MG/100ML 100 ML IV SCH ×2 (06:18→12:19)
[2021-02-06] MEDS: InsuLIN REG 1unit/0.01ml Soln (100units/ml) SC SCH ×3 (06:19→17:00)
[2021-02-06] MEDS ORDERED: cefTRIAXone 1GM/50ML D5W 50 ML IV SCH (09:00)
[2021-02-06] MEDS: GABAPENTIN 300 MG CAP PO SCH ×2 (09:30→09:33)
[2021-02-06] MEDS: SODIUM BICARB 50ML SYR 75 ML in SOD CHL 0.45% 1,000 ML IV SCH (09:50)
[2021-02-06] MEDS ORDERED: METOPROLOL SUCCINATE XL 50 MG TAB PO SCH (10:00)
[2021-02-06] MEDS ORDERED: FAMOTIDINE 20 MG TAB PO SCH (10:00)
[2021-02-06] MEDS ORDERED: ASPirin-EC 81 mg tab PO SCH (10:00)
[2021-02-06] MEDS ORDERED: NIFEdipine ER 30 MG TAB PO SCH (10:00)
[2021-02-06] MEDS ORDERED: SODIUM ZIRCONIUM CYCL 10 GM PAK PO ONE (11:30)
[2021-02-06] MEDS ORDERED: ROSU1TAB14 PO (13:59)
[2021-02-06] MEDS ORDERED: ERGO1CAP23 PO (13:59)
[2021-02-06] MEDS ORDERED: FURO80TA3 PO (13:59)
[2021-02-06] MEDS ORDERED: MUPIROCIN 2% OINT 15gm or 22gm TOP ONE (14:30)
[2021-02-06] MEDS ORDERED: MUPIROCIN 2% OINT 15gm or 22gm EACHNOSTRI SCH (22:00)
== END 2021-02-06 17:25 | disposition home or self-care (01) | DRG 871 ==
LOC: ER 14:07 → TELE 17:30 → DOU IN ICU 20:30
PROVIDERS: ADMIT Nurse Practitioner Acute Care; ATTEND Internal Medicine
DX: A41.9 Sepsis, unspecified organism (principal); N18.6 End stage renal disease; G45.9 Transient cerebral ischemic attack, unspecified; I13.2 Hypertensive heart and chronic kidney disease with heart failure and with stage 5 chronic kidney disease, or end stage renal disease; N17.9 Acute kidney failure, unspecified; R65.20 Severe sepsis without septic shock; Z20.822 Contact with and (suspected) exposure to COVID-19; D63.8 Anemia in other chronic diseases classified elsewhere; W19.XXXA Unspecified fall, initial encounter; E11.621 Type 2 diabetes mellitus with foot ulcer; E87.5 Hyperkalemia; I25.10 Atherosclerotic heart disease of native coronary artery without angina pectoris; E11.65 Type 2 diabetes mellitus with hyperglycemia; E11.42 Type 2 diabetes mellitus with diabetic polyneuropathy; E11.319 Type 2 diabetes mellitus with unspecified diabetic retinopathy without macular edema; D63.1 Anemia in chronic kidney disease; E78.5 Hyperlipidemia, unspecified; E11.22 Type 2 diabetes mellitus with diabetic chronic kidney disease; Z89.421 Acquired absence of other right toe(s); Y93.9 Activity, unspecified; Z79.4 Long term (current) use of insulin; Y92.9 Unspecified place or not applicable; Y99.9 Unspecified external cause status; Z95.1 Presence of aortocoronary bypass graft; Z79.02 Long term (current) use of antithrombotics/antiplatelets; Z79.82 Long term (current) use of aspirin; Z79.899 Other long term (current) drug therapy; Z83.3 Family history of diabetes mellitus; Z82.3 Family history of stroke; Z82.49 Family history of ischemic heart disease and other diseases of the circulatory system; Z83.42 Family history of familial hypercholesterolemia; Z83.49 Family history of other endocrine, nutritional and metabolic diseases; Z86.16 Personal history of COVID-19
CPT/HCPCS: 36415; 70450; 71045; 73700; 80048; 80053; 81001; 82962; 83605; 83735; 84132; 84484; 85025; 85610; 85730; 87040; 87081; 87205; 87426; 93005; 96365; 96375; G0378; J0696; J1815; J3490

== ENCOUNTER → 2021-02-08 | Outpatient (CLI) | payer OTHER ==
[~2021-02-08] MED LIST changes: -ATOR20TA50 PO; -FURO40TA4 PO; +FURO80TA3 PO; -INSLANTI SC; -LOSA25TA38 PO; +ROSU1TAB14 PO
[2021-02-08 12:19] LABS: Basophils # (auto) 0.1 10 ^3/uL (0-0.2); Eosinophils # (auto) 0.2 10 ^3/uL (0-0.8); Hematocrit 29.4 % (41.0-53.0); Hemoglobin 10.1 g/dL (13.5-17.5); Lymphocytes # (auto) 1.4 10 ^3/uL (0.4-5.4); Lymphocytes % (auto) 22.7 % (10.0-50.0); Mean Corpuscular Hemoglobin 32.4 pg (28.0-32.0); Mean Corpuscular Hgb Conc. 34.4 g/dL (32.0-36.0); Mean Corpuscular Volume 94.1 fL (80.0-100.0); Monocytes # (auto) 0.6 10 ^3/uL (0-1.3); Neutrophils % (auto) 63.3 % (37.0-80.0); Platelet Count (auto) 330 10^3/uL (140-450); Red Blood Cells 3.13 10^6/uL (4.5-5.90); Red Cell Distribution Width 13.6 % (11.8-14.3); White Blood Cell 6.2 10^3/uL (4.4-10.8)
[2021-02-08 12:40] LABS: Albumin 3.3 g/dL (3.4-5.0); Calcium 8.7 mg/dL (8.5-10.1)
[2021-02-08 12:44] LABS: BUN/Creatinine Ratio 15.9; Bilirubin, Total 0.4 mg/dL (0.2-1.0); Phosphorus 5.5 mg/dL (2.5-4.90); Total Protein 7.4 g/dL (6.4-8.2)
[2021-02-08 13:52] LABS: Potassium 6.3 mmol/L (3.5-5.1)
== END | disposition home or self-care (01) ==
LOC: LAB 11:56
PROVIDERS: ATTEND Student in an Organized Health Care Education/Training Program
DX: N18.31 Chronic kidney disease, stage 3a (principal); D63.1 Anemia in chronic kidney disease; E21.3 Hyperparathyroidism, unspecified; M10.9 Gout, unspecified; R80.9 Proteinuria, unspecified
CPT/HCPCS: 36415; 80053; 83036; 84100; 85025

== ENCOUNTER → 2021-02-15 | Outpatient (CLI) | payer OTHER ==
[2021-02-15 15:25] LABS: BUN/Creatinine Ratio 13.9; Calcium 8.7 mg/dL (8.5-10.1); Potassium 4.3 mmol/L (3.5-5.1)
== END | disposition home or self-care (01) ==
LOC: LAB 14:58
PROVIDERS: ATTEND Student in an Organized Health Care Education/Training Program
DX: N18.30 Chronic kidney disease, stage 3 unspecified (principal)
CPT/HCPCS: 36415; 80048

== ENCOUNTER → 2021-03-05 | Outpatient (CLI) | payer OTHER ==
[~2021-03-05] MED LIST changes: +FOLI1TAB6 PO; +INSU1INJ19 SC
[2021-03-05 11:03] LABS: Basophils # (auto) 0.1 10 ^3/uL (0-0.2); Basophils % (auto) 0.9 % (0.0-2.0); Eosinophils # (auto) 0.3 10 ^3/uL (0-0.8); Eosinophils % (auto) 3.5 % (0.0-7.0); Hematocrit 27.3 % (41.0-53.0); Hemoglobin 9.8 g/dL (13.5-17.5); Lymphocytes # (auto) 1.6 10 ^3/uL (0.4-5.4); Lymphocytes % (auto) 17.2 % (10.0-50.0); Mean Corpuscular Hemoglobin 33.4 pg (28.0-32.0); Mean Corpuscular Hgb Conc. 35.8 g/dL (32.0-36.0); Mean Corpuscular Volume 93.3 fL (80.0-100.0); Monocytes # (auto) 0.7 10 ^3/uL (0-1.3); Monocytes % (auto) 8.2 % (0.0-12.0); Neutrophils # (auto) 6.4 10 ^3/uL (1.6-8.6); Neutrophils % (auto) 70.2 % (37.0-80.0); Red Blood Cells 2.93 10^6/uL (4.5-5.90); White Blood Cell 9.1 10^3/uL (4.4-10.8)
[2021-03-05 11:11] LABS: Urine Bacteria NONE SEEN /hpf (None Seen); Urine Blood 1+ /uL (Negative); Urine Specific Gravity 1.015 (1.001-1.035); Urine WBC 2 /hpf (0 - 3)
[2021-03-05 11:21] LABS: Protein, Urine 113.9 mg/dL (0.0-11.9)
[2021-03-05 11:45] LABS: Albumin 3.3 g/dL (3.4-5.0); Calcium 8.1 mg/dL (8.5-10.1); Magnesium 2.6 mg/dL (1.6-2.6); Potassium 5.1 mmol/L (3.5-5.1)
[2021-03-05 11:48] LABS: BUN/Creatinine Ratio 14.9; Bilirubin, Total 0.5 mg/dL (0.2-1.0); Phosphorus 4.6 mg/dL (2.5-4.90); Total Protein 7.1 g/dL (6.4-8.2)
== END | disposition home or self-care (01) ==
LOC: LAB 10:38
PROVIDERS: ATTEND Student in an Organized Health Care Education/Training Program
DX: E61.2 Magnesium deficiency (principal); R80.9 Proteinuria, unspecified; E21.3 Hyperparathyroidism, unspecified
CPT/HCPCS: 36415; 80053; 80069; 81001; 82306; 82570; 83036; 83735; 83970; 84156; 85025

== ENCOUNTER → 2021-03-19 | Outpatient (CLI) | payer OTHER ==
[~2021-03-19] MED LIST changes: -FOLI1TAB6 PO; -INSU1INJ19 SC
[2021-03-19 17:05] LABS: BUN/Creatinine Ratio 13.9; Calcium 8.6 mg/dL (8.5-10.1); Potassium 4.7 mmol/L (3.5-5.1)
== END | disposition home or self-care (01) ==
LOC: LAB 16:30
PROVIDERS: ATTEND Student in an Organized Health Care Education/Training Program
DX: N18.31 Chronic kidney disease, stage 3a (principal)
CPT/HCPCS: 36415; 80048

== ENCOUNTER → 2021-03-29 | Outpatient (CLI) | payer OTHER ==
[~2021-03-29] MED LIST changes: -ERGO1CAP23 PO; +FOLI1TAB6 PO; +INSU1INJ19 SC; -PATI1POW PO; -SODI650T PO
[2021-03-29 15:00] LABS: BUN/Creatinine Ratio 16.1; Calcium 8.3 mg/dL (8.5-10.1); Potassium 5.2 mmol/L (3.5-5.1)
== END | disposition home or self-care (01) ==
LOC: LAB 13:30
PROVIDERS: ATTEND Student in an Organized Health Care Education/Training Program
DX: E11.22 Type 2 diabetes mellitus with diabetic chronic kidney disease (principal); N18.9 Chronic kidney disease, unspecified
CPT/HCPCS: 36415; 80048

== ENCOUNTER → 2021-04-09 | Outpatient (CLI) | payer OTHER ==
[2021-04-09 14:54] LABS: Albumin 3.4 g/dL (3.4-5.0); BUN/Creatinine Ratio 14.7; Calcium 8.1 mg/dL (8.5-10.1)
[2021-04-09 14:57] LABS: Bilirubin, Total 0.4 mg/dL (0.2-1.0); Total Protein 7.4 g/dL (6.4-8.2)
== END | disposition home or self-care (01) ==
LOC: LAB 13:35
PROVIDERS: ATTEND Student in an Organized Health Care Education/Training Program
DX: N18.5 Chronic kidney disease, stage 5 (principal); B17.9 Acute viral hepatitis, unspecified
CPT/HCPCS: 36415; 80053; 86706

== ENCOUNTER 2021-04-20 13:18 | Emergency (ER) | payer OTHER ==
[~2021-04-20] VITALS: Ht 167.6 cm; Wt 68.0 kg
[2021-04-20] MEDS ORDERED: CATHFLO ACTIVASE (ALTEPLASE) 2 MG VIAL IV ONE (15:15)
[2021-04-20 15:36] VITALS: BP 161/71
== END 2021-04-20 15:39 | disposition home or self-care (01) ==
LOC: ER 13:18 → EDBD 13:18 → ER 15:38
DX: I12.0 Hypertensive chronic kidney disease with stage 5 chronic kidney disease or end stage renal disease (principal); E11.22 Type 2 diabetes mellitus with diabetic chronic kidney disease; N18.6 End stage renal disease; I25.10 Atherosclerotic heart disease of native coronary artery without angina pectoris; E78.5 Hyperlipidemia, unspecified; Z99.2 Dependence on renal dialysis; Z88.8 Allergy status to other drugs, medicaments and biological substances; Z79.4 Long term (current) use of insulin; Z79.82 Long term (current) use of aspirin; Z79.899 Other long term (current) drug therapy; Z95.1 Presence of aortocoronary bypass graft; Z90.89 Acquired absence of other organs

== ENCOUNTER 2021-09-05 10:06 | Inpatient (IN) | payer OTHER ==
[~2021-09-05] VITALS: Ht 175.3 cm; Wt 77.2 kg
[~2021-09-05 10:06] MED LIST changes: -ASPI-231 PO; +ASPI1TAB20 PO
[2021-09-05 11:22] LABS: Hematocrit 18.4 % (41.0-53.0); Mean Corpuscular Hemoglobin 38.7 pg (28.0-32.0); Mean Corpuscular Volume 101.9 fL (80.0-100.0); Red Cell Distribution Width 14.9 % (11.8-14.3); White Blood Cell 6.4 10^3/uL (4.4-10.8)
[2021-09-05 11:27] LABS: Monocytes % (manual) 0 (0-12)
[2021-09-05 11:28] LABS: Basophils % (manual) 0 (0.0-2.0); Blast Cells 0; Metamyelocytes % 0; Promyelocytes % 0; Reactive Lymphocytes 0
[2021-09-05 11:40] LABS: Albumin 2.4 g/dL (3.4-5.0); Calcium 7.3 mg/dL (8.5-10.1); Potassium 4.8 mmol/L (3.5-5.1)
[2021-09-05 11:45] LABS: BUN/Creatinine Ratio 5.4; Bilirubin, Total 0.5 mg/dL (0.2-1.0); Total Protein 6.5 g/dL (6.4-8.2)
[2021-09-05 12:16] LABS: Band Neutrophils % (manual) 3; Eosinophils % (manual) 4 (0-7); Lymphocytes % (manual) 27 (10.0-50.0); Myelocytes % 1
[2021-09-05 15:30] VITALS: BP 120/81
[2021-09-05 15:45] VITALS: BP 120/80
[2021-09-05] MEDS ORDERED: MORPHINE SULFATE INJECTION 2 MG/ML SYRG IV PRN ×3 (16:30→19:00)
[2021-09-05] MEDS ORDERED: NITROGLYCERIN 0.4 MG SL TAB SL PRN ×2 (16:30→19:00)
[2021-09-05 17:09] LABS: Folate (Folic Acid) 21.67 ng/mL (5.38-24)
[2021-09-05 18:26] LABS: % Iron Saturation 43.5 % (20-55)
[2021-09-05] MEDS ORDERED: LORazepam 0.5 MG TAB PO PRN (19:00)
[2021-09-05] MEDS ORDERED: METOCLOPRAMIDE HCL 5MG/ml INJ 2ml VIAL IV PRN ×2 (19:00→19:15)
[2021-09-05] MEDS ORDERED: ALUM & MAG HYDROX-SIMETH LIQ(MAALOX) 30 ML PO PRN (19:00)
[2021-09-05] MEDS ORDERED: hydrALAZINE HCL 20 MG/ML VL IV PRN (19:00)
[2021-09-05] MEDS ORDERED: DEXTROSE (50%) 50ML SYRG IV PRN (19:00)
[2021-09-05] MEDS ORDERED: HYDROcodone-ACET 5/325MG TAB PO PRN (19:00)
[2021-09-05] MEDS ORDERED: DOCUSATE SOD 100 MG CAP PO PRN (19:00)
[2021-09-05] MEDS ORDERED: CYANOCOBALAMIN 500 MCG TAB PO ONE (19:00)
[2021-09-05] MEDS ORDERED: FOLIC ACID 1 MG TAB PO ONE (19:00)
[2021-09-05] MEDS ORDERED: PANTOPRAZOLE 40 MG/10 ML VIAL INJ IV ONE (19:00)
[2021-09-05] MEDS ORDERED: SEVELAMER 800 MG TAB PO ONE (19:15)
[2021-09-05] MEDS ORDERED: ATORVASTATIN 20 MG TAB PO SCH (22:00)
[2021-09-05] MEDS ORDERED: InsuLIN REG 1unit/0.01ml Soln (100units/ml) SC SCH (22:00)
[2021-09-05] MEDS ORDERED: TAMS0.4C36 PO (23:15)
[2021-09-05] MEDS ORDERED: CEPH500C PO (23:15)
[2021-09-05] MEDS ORDERED: ISOS1TAB28 PO (23:15)
[2021-09-05] MEDS ORDERED: GABA300C10 PO (23:15)
[2021-09-05] MEDS ORDERED: PANT40TA2 PO (23:15)
[2021-09-05] MEDS ORDERED: APIX5TAB PO (23:15)
[2021-09-05 23:17] VITALS: BP 147/90
[2021-09-05] MEDS: ISOSORBIDE MONONITRATE 20 MG TAB PO SCH (23:22)
[2021-09-05] MEDS: hydrALAZINE HCL 10 MG TAB PO SCH (23:23)
[2021-09-05] MEDS: RANOLAZINE ER 500 MG TAB PO SCH (23:23)
[2021-09-05] MEDS: ACCU-CHEK COMFORT CURVE STRIP VI SCH (23:24)
[2021-09-06] MEDS ORDERED: HEPARIN SODIUM (PORCINE) 5000 UNITS/ML 1ML VIAL SC ONE (00:45)
[2021-09-06 05:00] VITALS: BP 144/88
[2021-09-06] MEDS: hydrALAZINE HCL 10 MG TAB PO SCH ×2 (06:06→14:00)
[2021-09-06] MEDS: ACCU-CHEK COMFORT CURVE STRIP VI SCH ×2 (06:06→12:27)
[2021-09-06] MEDS: InsuLIN REG 1unit/0.01ml Soln (100units/ml) SC SCH ×2 (06:07→11:30)
[2021-09-06 06:14] LABS: Albumin 2.1 g/dL (3.4-5.0); Calcium 7.3 mg/dL (8.5-10.1); Magnesium 2.9 mg/dL (1.6-2.6); Potassium 4.8 mmol/L (3.5-5.1)
[2021-09-06 06:19] LABS: BUN/Creatinine Ratio 5.6; Bilirubin, Total 0.3 mg/dL (0.2-1.0); Total Protein 5.6 g/dL (6.4-8.2); Uric Acid 5.1 mg/dL (3.5-7.2)
[2021-09-06 06:19] LABS: INR 1.11 (0.9-1.15); Partial Thromboplastin Time 30.6 sec (23.6-33.0)
[2021-09-06 07:47] LABS: Hematocrit 22.4 % (41.0-53.0); Hemoglobin 7.5 g/dL (13.5-17.5); Mean Corpuscular Hemoglobin 31.7 pg (28.0-32.0); Mean Corpuscular Hgb Conc. 33.6 g/dL (32.0-36.0); Mean Corpuscular Volume 94.3 fL (80.0-100.0); Red Blood Cells 2.37 10^6/uL (4.5-5.90); Red Cell Distribution Width 16.3 % (11.8-14.3); White Blood Cell 6.7 10^3/uL (4.4-10.8)
[2021-09-06 07:57] LABS: Basophils % (manual) 0 (0.0-2.0); Blast Cells 0; Metamyelocytes % 0; Promyelocytes % 0; Reactive Lymphocytes 0
[2021-09-06 08:00] VITALS: BP 125/63
[2021-09-06 09:00] VITALS: BP 125/63
[2021-09-06 09:44] LABS: Band Neutrophils % (manual) 1; Eosinophils % (manual) 5 (0-7); Lymphocytes % (manual) 23 (10.0-50.0)
[2021-09-06 09:45] LABS: Monocytes % (manual) 8 (0-12)
[2021-09-06] MEDS ORDERED: CYANOCOBALAMIN 500 MCG TAB PO SCH (10:00)
[2021-09-06] MEDS ORDERED: PANTOPRAZOLE 40 MG/10 ML VIAL INJ IV SCH (10:00)
[2021-09-06] MEDS ORDERED: CLOPIDOGREL BISULFATE 75 MG TAB PO SCH (10:00)
[2021-09-06] MEDS ORDERED: FOLIC ACID 1 MG TAB PO SCH (10:00)
[2021-09-06] MEDS ORDERED: GABAPENTIN 300 MG CAP PO SCH (10:00)
[2021-09-06] MEDS ORDERED: ASPirin-EC 81 mg tab PO SCH (10:00)
[2021-09-06] MEDS ORDERED: METOPROLOL SUCCINATE XL 50 MG TAB PO SCH (10:00)
[2021-09-06] MEDS: RANOLAZINE ER 500 MG TAB PO SCH (10:37)
[2021-09-06] MEDS: ISOSORBIDE MONONITRATE 20 MG TAB PO SCH (10:38)
[2021-09-06] MEDS: SEVELAMER 800 MG TAB PO SCH ×2 (10:39→12:25)
[2021-09-06 10:46] LABS: Myelocytes % 0
[2021-09-06] MEDS ORDERED: ROSU1TAB14 PO (12:00)
[2021-09-06] MEDS ORDERED: PANT40TA2 PO (12:00)
[2021-09-06] MEDS ORDERED: GABA300C10 PO (12:00)
[2021-09-06] MEDS ORDERED: CYAN500T3 PO (12:00)
[2021-09-06] MEDS ORDERED: HYDR10TA26 PO (12:00)
[2021-09-06] MEDS ORDERED: METO-289 PO (12:00)
[2021-09-06] MEDS ORDERED: SEVE800T PO (12:00)
[2021-09-06] MEDS ORDERED: FOLI1TAB6 PO (12:00)
[2021-09-06] MEDS ORDERED: ISOS1TAB28 PO (12:00)
[2021-09-06] MEDS ORDERED: TAMS0.4C36 PO (12:00)
[2021-09-06] MEDS ORDERED: CLOP75TA70 PO (12:00)
[2021-09-06] MEDS ORDERED: RANO10003 PO (12:00)
[2021-09-06] MEDS ORDERED: DOCU100C10 PO (12:00)
[2021-09-06] MEDS ORDERED: DULA1INJ SC (12:00)
[2021-09-06] MEDS ORDERED: INSU1INJ19 SC (12:00)
[2021-09-06] MEDS ORDERED: FURO80TA3 PO (12:00)
[2021-09-06] MEDS ORDERED: ASPI1TAB20 PO (12:00)
[2021-09-06] MEDS ORDERED: INSU100I43 SC (12:00)
[2021-09-06] MEDS ORDERED: OMEG100078 PO (12:00)
[2021-09-06 13:24] LABS: Urine Bacteria NONE SEEN /hpf (None Seen); Urine Blood 2+ /uL (Negative); Urine Specific Gravity 1.012 (1.001-1.035); Urine WBC 4 /hpf (0 - 3)
[2021-09-06 13:36] LABS: Alcohol, Urine < 3.0 mg/dL (0-10); Amphetamine Screen, Urine NEGATIVE (NEGATIVE); Barbiturate Scree,Urine NEGATIVE (NEGATIVE); Benzodiazephine Screen, Urine NEGATIVE (NEGATIVE); Cannabinoid Screen, Urine NEGATIVE (NEGATIVE); Cocaine Screen, Urine NEGATIVE (NEGATIVE); Opiate Scree,Urine NEGATIVE (NEGATIVE); Phencyclidine Screen, Urine NEGATIVE (NEGATIVE)
[2021-09-06 13:55] VITALS: BP 125/63
[2021-09-06] MEDS ORDERED: TAMSULOSIN HYDROCHLORIDE 0.4 MG CAP PO SCH (18:00)
== END 2021-09-06 14:36 | disposition home or self-care (01) | DRG 291 ==
LOC: ER 10:06 → TELE 18:55 → TELE-WESTW 20:05
PROVIDERS: ADMIT Hospitalist; ATTEND Hospitalist
PROC: 30233N1 Transfusion of Nonautologous Red Blood Cells into Peripheral Vein, Percutaneous Approach (ICD-10-PCS; principal; 2021-09-05)
DX: I13.2 Hypertensive heart and chronic kidney disease with heart failure and with stage 5 chronic kidney disease, or end stage renal disease (principal); N18.6 End stage renal disease; I50.33 Acute on chronic diastolic (congestive) heart failure; D53.9 Nutritional anemia, unspecified; I25.10 Atherosclerotic heart disease of native coronary artery without angina pectoris; I25.5 Ischemic cardiomyopathy; E11.40 Type 2 diabetes mellitus with diabetic neuropathy, unspecified; E88.09 Other disorders of plasma-protein metabolism, not elsewhere classified; K31.9 Disease of stomach and duodenum, unspecified; I48.0 Paroxysmal atrial fibrillation; U09.9 Post COVID-19 condition, unspecified; Z20.822 Contact with and (suspected) exposure to COVID-19; E11.22 Type 2 diabetes mellitus with diabetic chronic kidney disease; E11.51 Type 2 diabetes mellitus with diabetic peripheral angiopathy without gangrene; I50.82 Biventricular heart failure; K29.70 Gastritis, unspecified, without bleeding; Z79.82 Long term (current) use of aspirin; Z99.2 Dependence on renal dialysis; Z79.899 Other long term (current) drug therapy; Z82.49 Family history of ischemic heart disease and other diseases of the circulatory system; Z83.3 Family history of diabetes mellitus; Z86.73 Personal history of transient ischemic attack (TIA), and cerebral infarction without residual deficits; Z95.1 Presence of aortocoronary bypass graft; Z95.5 Presence of coronary angioplasty implant and graft
CPT/HCPCS: 36415; 36430; 80053; 80307; 81001; 82607; 82746; 82962; 83036; 83540; 83550; 83735; 83880; 84100; 84443; 84484; 84550; 85007; 85027; 85379; 85610; 85730; 86850; 86900; 86901; 86920; 87040; 87081; 87426; 93005; 96374; 99291; C9113; G0378; J1815

== ENCOUNTER → 2021-10-10 | Outpatient (CLI) | payer OTHER ==
[~2021-10-10] MED LIST changes: +CYAN500T3 PO; +DOCU100C10 PO; -GLIP2.5T28 PO; +HYDR10TA26 PO; -INSLISPI SC; +INSU100I43 SC; +ISOS1TAB28 PO; -NIFE1TAB31 PO; +PANT40TA2 PO; +SEVE800T PO; +TAMS0.4C36 PO
== END | disposition home or self-care (01) ==
LOC: XY 14:47
PROVIDERS: ATTEND Internal Medicine
DX: I73.9 Peripheral vascular disease, unspecified (principal); I70.92 Chronic total occlusion of artery of the extremities
CPT/HCPCS: 93925

== ENCOUNTER → 2021-10-14 | Outpatient (CLI) | payer OTHER | END | disposition home or self-care (01) | LOC: XYW 10:45 | PROVIDERS: ATTEND Internal Medicine | DX: I08.3 Combined rheumatic disorders of mitral, aortic and tricuspid valves (principal) | CPT/HCPCS: 93306 ==

== ENCOUNTER 2021-11-14 06:51 | Inpatient (IN) | payer OTHER ==
[~2021-11-14] VITALS: Ht 172.7 cm; Wt 72.4 kg
[2021-11-14 07:39] LABS: Basophils # (auto) 0.1 10 ^3/uL (0-0.2); Basophils % (auto) 1.4 % (0.0-2.0); Eosinophils # (auto) 0.2 10 ^3/uL (0-0.8); Eosinophils % (auto) 2.4 % (0.0-7.0); Hematocrit 28.8 % (41.0-53.0); Hemoglobin 9.7 g/dL (13.5-17.5); Lymphocytes # (auto) 0.9 10 ^3/uL (0.4-5.4); Lymphocytes % (auto) 13.7 % (10.0-50.0); Mean Corpuscular Hemoglobin 31.9 pg (28.0-32.0); Mean Corpuscular Hgb Conc. 33.7 g/dL (32.0-36.0); Mean Corpuscular Volume 94.9 fL (80.0-100.0); Monocytes # (auto) 0.9 10 ^3/uL (0-1.3); Monocytes % (auto) 14.2 % (0.0-12.0); Neutrophils # (auto) 4.5 10 ^3/uL (1.6-8.6); Neutrophils % (auto) 68.3 % (37.0-80.0); Nucleated Red Blood Cells % 0.1 %; Red Blood Cells 3.03 10^6/uL (4.5-5.90); Red Cell Distribution Width 14.5 % (11.8-14.3); White Blood Cell 6.6 10^3/uL (4.4-10.8)
[2021-11-14 07:52] LABS: Albumin 2.8 g/dL (3.4-5.0); Potassium 3.6 mmol/L (3.5-5.1)
[2021-11-14 07:57] LABS: BUN/Creatinine Ratio 8.4; Bilirubin, Total 0.4 mg/dL (0.2-1.0); Total Protein 6.5 g/dL (6.4-8.2)
[2021-11-14 08:14] LABS: INR 1.11 (0.9-1.15); Partial Thromboplastin Time 34.8 sec (23.6-33.0)
[2021-11-14] MEDS ORDERED: ONDANSETRON HCL 4 MG/2 ML VIAL IV ONE (09:00)
[2021-11-14] MEDS ORDERED: MORPHINE SULFATE INJECTION 2 MG/ML SYRG IV PRN (10:30)
[2021-11-14] MEDS ORDERED: NITROGLYCERIN 0.4 MG SL TAB SL PRN (10:30)
[2021-11-14] MEDS ORDERED: ACETAMINOPHEN 325 MG TAB PO PRN (11:00)
[2021-11-14] MEDS ORDERED: DEXTROSE (50%) 50ML SYRG IV PRN (11:15)
[2021-11-14] MEDS ORDERED: SODIUM CHL 0.9% 1000 ML BAG XX ONE (11:30)
[2021-11-14] MEDS: InsuLIN REG 1unit/0.01ml Soln (100units/ml) SC SCH ×3 (12:02→22:00)
[2021-11-14] MEDS: ACCU-CHEK COMFORT CURVE STRIP VI SCH ×3 (12:03→22:32)
[2021-11-14 13:00] VITALS: BP 152/81
[2021-11-14] MEDS: hydrALAZINE HCL 10 MG TAB PO SCH ×2 (14:35→22:00)
[2021-11-14 17:00] VITALS: BP 136/86
[2021-11-14 17:25] LABS: Urine Bacteria NONE SEEN /hpf (None Seen); Urine Blood 2+ /uL (Negative); Urine Specific Gravity 1.011 (1.001-1.035); Urine WBC 5 /hpf (0 - 3)
[2021-11-14] MEDS: TAMSULOSIN HYDROCHLORIDE 0.4 MG CAP PO SCH (17:43)
[2021-11-14] MEDS ORDERED: EPOETIN ALFA-EPBX 10,000 UNIT/1ML VIAL SC ONE (21:00)
[2021-11-14 21:58] VITALS: BP 106/52
[2021-11-14] MEDS: RANOLAZINE ER 500 MG TAB PO SCH (22:20)
[2021-11-14] MEDS: ATORVASTATIN 20 MG TAB PO SCH (22:21)
[2021-11-14] MEDS: GABAPENTIN 300 MG CAP PO SCH (22:21)
[2021-11-14] MEDS: HEPARIN SODIUM (PORCINE) 5000 UNITS/ML 1ML VIAL SC SCH (22:30)
[2021-11-15 04:18] VITALS: BP 111/57
[2021-11-15] MEDS: hydrALAZINE HCL 10 MG TAB PO SCH ×3 (06:00→23:10)
[2021-11-15] MEDS: HEPARIN SODIUM (PORCINE) 5000 UNITS/ML 1ML VIAL SC SCH ×3 (06:00→23:20)
[2021-11-15] MEDS: InsuLIN REG 1unit/0.01ml Soln (100units/ml) SC SCH ×4 (06:12→23:21)
[2021-11-15] MEDS: ACCU-CHEK COMFORT CURVE STRIP VI SCH ×4 (06:13→23:21)
[2021-11-15 06:39] LABS: Basophils # (auto) 0.1 10 ^3/uL (0-0.2); Basophils % (auto) 1.1 % (0.0-2.0); Eosinophils # (auto) 0.2 10 ^3/uL (0-0.8); Eosinophils % (auto) 3.4 % (0.0-7.0); Hematocrit 28.3 % (41.0-53.0); Hemoglobin 9.7 g/dL (13.5-17.5); Lymphocytes # (auto) 0.9 10 ^3/uL (0.4-5.4); Mean Corpuscular Hemoglobin 32.3 pg (28.0-32.0); Mean Corpuscular Hgb Conc. 34.1 g/dL (32.0-36.0); Mean Corpuscular Volume 94.6 fL (80.0-100.0); Monocytes # (auto) 0.6 10 ^3/uL (0-1.3); Monocytes % (auto) 13.1 % (0.0-12.0); Neutrophils # (auto) 3.1 10 ^3/uL (1.6-8.6); Neutrophils % (auto) 63.4 % (37.0-80.0); Nucleated Red Blood Cells % 0.1 %; Red Blood Cells 2.99 10^6/uL (4.5-5.90); Red Cell Distribution Width 14.4 % (11.8-14.3); White Blood Cell 4.9 10^3/uL (4.4-10.8)
[2021-11-15 06:58] LABS: Albumin 2.5 g/dL (3.4-5.0); Calcium 7.9 mg/dL (8.5-10.1); Potassium 4.2 mmol/L (3.5-5.1)
[2021-11-15 07:01] LABS: Phosphorus 4.6 mg/dL (2.5-4.90)
[2021-11-15 09:00] VITALS: BP 133/78
[2021-11-15] MEDS ORDERED: CLOPIDOGREL BISULFATE 75 MG TAB PO SCH (10:00)
[2021-11-15] MEDS: ASPirin-EC 81 mg tab PO SCH (12:47)
[2021-11-15] MEDS: ISOSORBIDE MONONITRATE ER 60 MG TAB PO SCH (12:50)
[2021-11-15] MEDS: FUROSEMIDE 40 MG TAB PO SCH (12:51)
[2021-11-15] MEDS: GABAPENTIN 300 MG CAP PO SCH ×2 (12:51→23:10)
[2021-11-15] MEDS: RANOLAZINE ER 500 MG TAB PO SCH ×2 (12:51→23:11)
[2021-11-15] MEDS: METOPROLOL SUCCINATE XL 50 MG TAB PO SCH (12:52)
[2021-11-15 13:00] VITALS: BP 136/77
[2021-11-15 17:00] VITALS: BP 124/69
[2021-11-15] MEDS: TAMSULOSIN HYDROCHLORIDE 0.4 MG CAP PO SCH (17:10)
[2021-11-15 22:00] VITALS: BP 122/69
[2021-11-15] MEDS: ATORVASTATIN 20 MG TAB PO SCH (23:09)
[2021-11-15] MEDS: DAKINS QUARTER STR 0.125% (NaHypochlorite) 473 ML TOPICAL SOL TOP SCH (23:22)
[2021-11-16 05:00] VITALS: BP 113/67
[2021-11-16] MEDS: hydrALAZINE HCL 10 MG TAB PO SCH ×3 (06:42→22:01)
[2021-11-16] MEDS: InsuLIN REG 1unit/0.01ml Soln (100units/ml) SC SCH ×3 (06:48→22:26)
[2021-11-16] MEDS: HEPARIN SODIUM (PORCINE) 5000 UNITS/ML 1ML VIAL SC SCH ×3 (06:49→22:03)
[2021-11-16] MEDS: ACCU-CHEK COMFORT CURVE STRIP VI SCH ×4 (06:49→22:26)
[2021-11-16 08:00] VITALS: BP 135/76
[2021-11-16] MEDS: ASPirin-EC 81 mg tab PO SCH (08:53)
[2021-11-16] MEDS: ISOSORBIDE MONONITRATE ER 60 MG TAB PO SCH (08:54)
[2021-11-16] MEDS: FUROSEMIDE 40 MG TAB PO SCH (08:54)
[2021-11-16] MEDS: METOPROLOL SUCCINATE XL 50 MG TAB PO SCH (08:55)
[2021-11-16] MEDS: DAKINS QUARTER STR 0.125% (NaHypochlorite) 473 ML TOPICAL SOL TOP SCH ×2 (08:55→22:03)
[2021-11-16] MEDS: RANOLAZINE ER 500 MG TAB PO SCH ×2 (08:55→22:02)
[2021-11-16 09:38] LABS: Albumin 2.6 g/dL (3.4-5.0); BUN/Creatinine Ratio 9.2; Calcium 7.8 mg/dL (8.5-10.1); Phosphorus 4.8 mg/dL (2.5-4.90); Potassium 4.6 mmol/L (3.5-5.1)
[2021-11-16] MEDS ORDERED: SODIUM ZIRCONIUM CYCL 10 GM PAK PO SCH (10:00)
[2021-11-16 13:21] VITALS: BP 117/68
[2021-11-16 17:00] VITALS: BP 130/68
[2021-11-16] MEDS: TAMSULOSIN HYDROCHLORIDE 0.4 MG CAP PO SCH (17:22)
[2021-11-16 22:00] VITALS: BP 139/74
[2021-11-16] MEDS: ATORVASTATIN 20 MG TAB PO SCH (22:00)
[2021-11-16] MEDS: SODIUM ZIRCONIUM CYCL 10 GM PAK PO SCH (22:01)
[2021-11-16] MEDS: GABAPENTIN 300 MG CAP PO SCH (22:02)
[2021-11-17 05:00] VITALS: BP 155/86
[2021-11-17] MEDS: hydrALAZINE HCL 10 MG TAB PO SCH ×3 (05:16→21:01)
[2021-11-17] MEDS: HEPARIN SODIUM (PORCINE) 5000 UNITS/ML 1ML VIAL SC SCH ×3 (05:17→21:02)
[2021-11-17] MEDS: ACCU-CHEK COMFORT CURVE STRIP VI SCH ×4 (06:05→21:03)
[2021-11-17] MEDS: InsuLIN REG 1unit/0.01ml Soln (100units/ml) SC SCH ×4 (06:06→21:08)
[2021-11-17 06:19] LABS: Albumin 2.7 g/dL (3.4-5.0); Calcium 7.7 mg/dL (8.5-10.1); Potassium 4.4 mmol/L (3.5-5.1)
[2021-11-17 06:22] LABS: BUN/Creatinine Ratio 9.4; Phosphorus 5.6 mg/dL (2.5-4.90)
[2021-11-17 09:00] VITALS: BP 156/93
[2021-11-17] MEDS ORDERED: CEPHALEXIN 250 MG CAP PO SCH (09:45)
[2021-11-17] MEDS ORDERED: CEPHALEXIN 250 MG CAP PO ONE (10:00)
[2021-11-17] MEDS: ASPirin-EC 81 mg tab PO SCH (10:21)
[2021-11-17] MEDS: ISOSORBIDE MONONITRATE ER 60 MG TAB PO SCH (10:22)
[2021-11-17] MEDS: FUROSEMIDE 40 MG TAB PO SCH (10:23)
[2021-11-17] MEDS: SODIUM ZIRCONIUM CYCL 10 GM PAK PO SCH ×2 (10:23→21:01)
[2021-11-17] MEDS: RANOLAZINE ER 500 MG TAB PO SCH ×2 (10:23→21:02)
[2021-11-17] MEDS: DAKINS QUARTER STR 0.125% (NaHypochlorite) 473 ML TOPICAL SOL TOP SCH ×2 (10:24→21:02)
[2021-11-17] MEDS: METOPROLOL SUCCINATE XL 50 MG TAB PO SCH (10:24)
[2021-11-17 13:00] VITALS: BP 138/80
[2021-11-17 17:00] VITALS: BP 130/72
[2021-11-17] MEDS: TAMSULOSIN HYDROCHLORIDE 0.4 MG CAP PO SCH (17:57)
[2021-11-17] MEDS: ATORVASTATIN 20 MG TAB PO SCH (21:01)
[2021-11-17] MEDS: GABAPENTIN 300 MG CAP PO SCH (21:01)
[2021-11-17 22:00] VITALS: BP 121/62
[2021-11-18] VITALS (10 sets, daily range): BP systolic 122–181; BP diastolic 67–99
[2021-11-18 04:48] LABS: Basophils # (auto) 0.1 10 ^3/uL (0-0.2); Basophils % (auto) 0.9 % (0.0-2.0); Eosinophils # (auto) 0.2 10 ^3/uL (0-0.8); Eosinophils % (auto) 3.4 % (0.0-7.0); Hematocrit 29.3 % (41.0-53.0); Lymphocytes # (auto) 1.3 10 ^3/uL (0.4-5.4); Lymphocytes % (auto) 21.3 % (10.0-50.0); Mean Corpuscular Hemoglobin 32.3 pg (28.0-32.0); Mean Corpuscular Volume 95.2 fL (80.0-100.0); Monocytes # (auto) 0.6 10 ^3/uL (0-1.3); Monocytes % (auto) 9.6 % (0.0-12.0); Neutrophils # (auto) 3.9 10 ^3/uL (1.6-8.6); Neutrophils % (auto) 64.8 % (37.0-80.0); Nucleated Red Blood Cells % 0.1 %; Red Blood Cells 3.08 10^6/uL (4.5-5.90); Red Cell Distribution Width 14.5 % (11.8-14.3)
[2021-11-18 04:59] LABS: Albumin 2.7 g/dL (3.4-5.0); BUN/Creatinine Ratio 9.4; Calcium 7.8 mg/dL (8.5-10.1); Phosphorus 6.2 mg/dL (2.5-4.90); Potassium 4.6 mmol/L (3.5-5.1)
[2021-11-18 05:03] LABS: INR 1.12 (0.9-1.15); Partial Thromboplastin Time 33.1 sec (23.6-33.0)
[2021-11-18] MEDS: HEPARIN SODIUM (PORCINE) 5000 UNITS/ML 1ML VIAL SC SCH ×3 (05:05→21:52)
[2021-11-18] MEDS: hydrALAZINE HCL 10 MG TAB PO SCH ×3 (05:05→21:25)
[2021-11-18] MEDS: ACCU-CHEK COMFORT CURVE STRIP VI SCH ×4 (06:00→21:26)
[2021-11-18] MEDS: InsuLIN REG 1unit/0.01ml Soln (100units/ml) SC SCH ×4 (06:00→22:00)
[2021-11-18] MEDS ORDERED: SODIUM CHL 0.9% 1000 ML BAG XX ONE (06:15)
[2021-11-18] MEDS: ISOSORBIDE MONONITRATE ER 60 MG TAB PO SCH (10:00)
[2021-11-18] MEDS: SODIUM ZIRCONIUM CYCL 10 GM PAK PO SCH ×2 (10:00→21:25)
[2021-11-18] MEDS: FUROSEMIDE 40 MG TAB PO SCH (10:00)
[2021-11-18] MEDS: ASPirin-EC 81 mg tab PO SCH (10:00)
[2021-11-18] MEDS: DAKINS QUARTER STR 0.125% (NaHypochlorite) 473 ML TOPICAL SOL TOP SCH ×2 (10:00→21:25)
[2021-11-18] MEDS: METOPROLOL SUCCINATE XL 50 MG TAB PO SCH (10:00)
[2021-11-18] MEDS: CEPHALEXIN 250 MG CAP PO SCH (10:00)
[2021-11-18] MEDS: RANOLAZINE ER 500 MG TAB PO SCH ×2 (10:00→21:24)
[2021-11-18] MEDS: ONDANSETRON HCL 4 MG/2 ML VIAL IV PRN (11:21)
[2021-11-18] MEDS ORDERED: IODIXANOL 320MG/ML 100ML BTL IV ONE (15:54)
[2021-11-18] MEDS ORDERED: LIDOCAINE 2%HCL (LOCAL ANESTH.) INJ 10ml MDV ONE ×2 (15:56→16:08)
[2021-11-18] MEDS ORDERED: fentaNYL CITRATE 100 MCG/2 ML VL ONE (16:27)
[2021-11-18] MEDS ORDERED: MIDAZOLAM HCL 2MG/2ML 2ml VIAL (1mg/ml) ONE (16:27)
[2021-11-18] MEDS ORDERED: HEPARIN SODIUM (PORCINE) 5000 UNITS/ML 1ML VIAL ONE (16:47)
[2021-11-18] MEDS ORDERED: ONDANSETRON HCL 4 MG/2 ML VIAL ONE (16:59)
[2021-11-18] MEDS ORDERED: METOCLOPRAMIDE HCL 5MG/ml INJ 2ml VIAL IV ONE (18:00)
[2021-11-18] MEDS ORDERED: PANTOPRAZOLE 40 MG/10 ML VIAL INJ IV ONE (18:00)
[2021-11-18] MEDS: TAMSULOSIN HYDROCHLORIDE 0.4 MG CAP PO SCH (18:25)
[2021-11-18] MEDS ORDERED: EPOETIN ALFA-EPBX 10,000 UNIT/1ML VIAL SC ONE (21:00)
[2021-11-18] MEDS: GABAPENTIN 300 MG CAP PO SCH (21:24)
[2021-11-18] MEDS: ATORVASTATIN 20 MG TAB PO SCH (21:24)
[2021-11-19 04:39] VITALS: BP 141/80
[2021-11-19] MEDS: HEPARIN SODIUM (PORCINE) 5000 UNITS/ML 1ML VIAL SC SCH ×3 (05:53→21:33)
[2021-11-19] MEDS: hydrALAZINE HCL 10 MG TAB PO SCH ×3 (05:55→21:43)
[2021-11-19] MEDS: InsuLIN REG 1unit/0.01ml Soln (100units/ml) SC SCH ×4 (05:56→21:32)
[2021-11-19] MEDS: ACCU-CHEK COMFORT CURVE STRIP VI SCH ×4 (05:56→21:44)
[2021-11-19 06:13] LABS: Albumin 2.7 g/dL (3.4-5.0); BUN/Creatinine Ratio 9.6; Calcium 7.7 mg/dL (8.5-10.1); Phosphorus 6.8 mg/dL (2.5-4.90)
[2021-11-19 09:00] VITALS: BP 132/76
[2021-11-19] MEDS: ASPirin-EC 81 mg tab PO SCH (09:09)
[2021-11-19] MEDS: SODIUM ZIRCONIUM CYCL 10 GM PAK PO SCH ×2 (09:10→21:43)
[2021-11-19] MEDS: RANOLAZINE ER 500 MG TAB PO SCH ×2 (09:12→21:43)
[2021-11-19] MEDS: FUROSEMIDE 40 MG TAB PO SCH (09:12)
[2021-11-19] MEDS: METOPROLOL SUCCINATE XL 50 MG TAB PO SCH (09:13)
[2021-11-19] MEDS: ISOSORBIDE MONONITRATE ER 60 MG TAB PO SCH (09:14)
[2021-11-19] MEDS ORDERED: SODIUM CHL 0.9% 1000 ML BAG XX ONE (09:15)
[2021-11-19] MEDS: DAKINS QUARTER STR 0.125% (NaHypochlorite) 473 ML TOPICAL SOL TOP SCH ×2 (09:19→21:44)
[2021-11-19] MEDS: CEPHALEXIN 250 MG CAP PO SCH (09:19)
[2021-11-19 13:00] VITALS: BP 110/63
[2021-11-19] MEDS ORDERED: HEPARIN SODIUM (PORCINE) 5000 UNITS/ML 1ML VIAL ONE (14:25)
[2021-11-19 16:44] LABS: Hematocrit 27.5 % (41.0-53.0); Hemoglobin 9.4 g/dL (13.5-17.5)
[2021-11-19 17:00] VITALS: BP 116/74
[2021-11-19] MEDS: TAMSULOSIN HYDROCHLORIDE 0.4 MG CAP PO SCH (17:14)
[2021-11-19] MEDS ORDERED: EPOETIN ALFA-EPBX 10,000 UNIT/1ML VIAL SC ONE (21:00)
[2021-11-19] MEDS: ATORVASTATIN 20 MG TAB PO SCH (21:43)
[2021-11-19] MEDS: GABAPENTIN 300 MG CAP PO SCH (21:44)
[2021-11-19 22:00] VITALS: BP 126/72
[2021-11-20] VITALS (7 sets, daily range): BP systolic 111–150; BP diastolic 70–84
[2021-11-20] MEDS: InsuLIN REG 1unit/0.01ml Soln (100units/ml) SC SCH ×4 (05:49→22:00)
[2021-11-20] MEDS: ACCU-CHEK COMFORT CURVE STRIP VI SCH ×4 (05:49→22:00)
[2021-11-20] MEDS: hydrALAZINE HCL 10 MG TAB PO SCH ×3 (05:49→21:58)
[2021-11-20] MEDS: HEPARIN SODIUM (PORCINE) 5000 UNITS/ML 1ML VIAL SC SCH ×3 (06:02→22:09)
[2021-11-20 06:34] LABS: Eosinophils # (auto) 0.2 10 ^3/uL (0-0.8); Eosinophils % (auto) 3.8 % (0.0-7.0); Monocytes # (auto) 0.6 10 ^3/uL (0-1.3); Neutrophils # (auto) 3.1 10 ^3/uL (1.6-8.6)
[2021-11-20 06:36] LABS: Basophils # (auto) 0 10 ^3/uL (0-0.2); Basophils % (auto) 0.9 % (0.0-2.0); Hematocrit 25.6 % (41.0-53.0); Lymphocytes # (auto) 1.2 10 ^3/uL (0.4-5.4); Lymphocytes % (auto) 22.3 % (10.0-50.0); Mean Corpuscular Hemoglobin 34.6 pg (28.0-32.0); Mean Corpuscular Hgb Conc. 34.9 g/dL (32.0-36.0); Mean Corpuscular Volume 99.2 fL (80.0-100.0); Monocytes % (auto) 12.2 % (0.0-12.0); Neutrophils % (auto) 60.8 % (37.0-80.0); Nucleated Red Blood Cells % 0.2 %; Red Blood Cells 2.59 10^6/uL (4.5-5.90); Red Cell Distribution Width 13.9 % (11.8-14.3); White Blood Cell 5.2 10^3/uL (4.4-10.8)
[2021-11-20 06:40] LABS: INR 1.12 (0.9-1.15); Partial Thromboplastin Time 33.7 sec (23.6-33.0)
[2021-11-20 06:47] LABS: Potassium 4.3 mmol/L (3.5-5.1)
[2021-11-20 06:52] LABS: BUN/Creatinine Ratio 9.2; Calcium 7.8 mg/dL (8.5-10.1)
[2021-11-20] MEDS: SODIUM ZIRCONIUM CYCL 10 GM PAK PO SCH ×2 (10:00→21:58)
[2021-11-20] MEDS: FUROSEMIDE 40 MG TAB PO SCH (10:00)
[2021-11-20] MEDS: ASPirin-EC 81 mg tab PO SCH (10:30)
[2021-11-20] MEDS: RANOLAZINE ER 500 MG TAB PO SCH ×2 (10:30→21:57)
[2021-11-20] MEDS: CEPHALEXIN 250 MG CAP PO SCH (10:31)
[2021-11-20] MEDS: ISOSORBIDE MONONITRATE ER 60 MG TAB PO SCH (10:31)
[2021-11-20] MEDS: METOPROLOL SUCCINATE XL 50 MG TAB PO SCH (10:32)
[2021-11-20] MEDS ORDERED: LIDOCAINE 2%HCL (LOCAL ANESTH.) INJ 10ml MDV ONE (11:22)
[2021-11-20] MEDS ORDERED: MIDAZOLAM HCL 2MG/2ML 2ml VIAL (1mg/ml) ONE (11:31)
[2021-11-20] MEDS ORDERED: ONDANSETRON HCL 4 MG/2 ML VIAL ONE (11:31)
[2021-11-20] MEDS ORDERED: ANGIOMAX 250 MG VIAL IV ONE (11:31)
[2021-11-20] MEDS ORDERED: fentaNYL CITRATE 100 MCG/2 ML VL ONE (11:31)
[2021-11-20] MEDS ORDERED: SODIUM CHL 0.9% 50 ML ONE (11:32)
[2021-11-20] MEDS ORDERED: VERAPAMIL 2.5MG/ML INJ 2ML VIAL IV ONE (12:43)
[2021-11-20] MEDS ORDERED: diphenhdrAMINE HCL 50 MG/1 ML VL ONE (12:50)
[2021-11-20] MEDS ORDERED: hydrALAZINE HCL 20 MG/ML VL ONE (12:51)
[2021-11-20] MEDS ORDERED: IODIXANOL 320MG/ML 100ML BTL IV ONE (13:01)
[2021-11-20] MEDS ORDERED: SODIUM CHL 0.9% 1000 ML BAG XX ONE (13:30)
[2021-11-20] MEDS: DAKINS QUARTER STR 0.125% (NaHypochlorite) 473 ML TOPICAL SOL TOP SCH ×2 (17:55→22:00)
[2021-11-20] MEDS: TAMSULOSIN HYDROCHLORIDE 0.4 MG CAP PO SCH (18:04)
[2021-11-20] MEDS ORDERED: EPOETIN ALFA-EPBX 10,000 UNIT/1ML VIAL SC ONE (21:00)
[2021-11-20] MEDS: GABAPENTIN 300 MG CAP PO SCH (21:59)
[2021-11-20] MEDS: ATORVASTATIN 20 MG TAB PO SCH (21:59)
[2021-11-20] MEDS: SODIUM CHLOR 0.9% PF (SALINE LOCK) 10ML VIAL/SYR IV SCH (22:00)
[2021-11-21 05:00] VITALS: BP 119/73
[2021-11-21] MEDS: hydrALAZINE HCL 10 MG TAB PO SCH ×3 (06:24→21:42)
[2021-11-21] MEDS: SODIUM CHLOR 0.9% PF (SALINE LOCK) 10ML VIAL/SYR IV SCH ×3 (06:24→21:56)
[2021-11-21] MEDS: HEPARIN SODIUM (PORCINE) 5000 UNITS/ML 1ML VIAL SC SCH ×3 (06:26→21:56)
[2021-11-21] MEDS: InsuLIN REG 1unit/0.01ml Soln (100units/ml) SC SCH ×4 (06:27→21:50)
[2021-11-21] MEDS: ACCU-CHEK COMFORT CURVE STRIP VI SCH ×4 (06:27→21:56)
[2021-11-21 09:00] VITALS: BP 138/66
[2021-11-21] MEDS: ASPirin-EC 81 mg tab PO SCH (09:45)
[2021-11-21] MEDS: ISOSORBIDE MONONITRATE ER 60 MG TAB PO SCH (09:45)
[2021-11-21] MEDS: CEPHALEXIN 250 MG CAP PO SCH ×2 (09:46→21:42)
[2021-11-21] MEDS: FUROSEMIDE 40 MG TAB PO SCH (09:47)
[2021-11-21] MEDS: SODIUM ZIRCONIUM CYCL 10 GM PAK PO SCH ×2 (09:47→21:41)
[2021-11-21] MEDS: METOPROLOL SUCCINATE XL 50 MG TAB PO SCH (09:47)
[2021-11-21] MEDS: RANOLAZINE ER 500 MG TAB PO SCH ×2 (09:47→21:41)
[2021-11-21] MEDS: DAKINS QUARTER STR 0.125% (NaHypochlorite) 473 ML TOPICAL SOL TOP SCH ×2 (09:48→21:54)
[2021-11-21 13:00] VITALS: BP 123/67
[2021-11-21 17:00] VITALS: BP 117/70
[2021-11-21] MEDS: TAMSULOSIN HYDROCHLORIDE 0.4 MG CAP PO SCH (18:00)
[2021-11-21] MEDS: ATORVASTATIN 20 MG TAB PO SCH (21:42)
[2021-11-21] MEDS: GABAPENTIN 300 MG CAP PO SCH (21:42)
[2021-11-21 22:00] VITALS: BP 121/72
[2021-11-22 05:00] VITALS: BP_SYST 116; BP_SYST 27; BP_DIAS 62; BP_DIAS 65
[2021-11-22] MEDS: HEPARIN SODIUM (PORCINE) 5000 UNITS/ML 1ML VIAL SC SCH ×3 (05:37→22:36)
[2021-11-22] MEDS: hydrALAZINE HCL 10 MG TAB PO SCH ×3 (05:38→22:34)
[2021-11-22] MEDS: SODIUM CHLOR 0.9% PF (SALINE LOCK) 10ML VIAL/SYR IV SCH ×3 (05:38→22:32)
[2021-11-22] MEDS: ACCU-CHEK COMFORT CURVE STRIP VI SCH ×4 (06:14→22:45)
[2021-11-22] MEDS: InsuLIN REG 1unit/0.01ml Soln (100units/ml) SC SCH ×4 (06:14→22:44)
[2021-11-22 06:15] LABS: Basophils # (auto) 0.1 10 ^3/uL (0-0.2); Basophils % (auto) 0.9 % (0.0-2.0); Eosinophils # (auto) 0.1 10 ^3/uL (0-0.8); Eosinophils % (auto) 2.6 % (0.0-7.0); Hematocrit 26.2 % (41.0-53.0); Hemoglobin 9.2 g/dL (13.5-17.5); Lymphocytes # (auto) 0.6 10 ^3/uL (0.4-5.4); Lymphocytes % (auto) 11.4 % (10.0-50.0); Mean Corpuscular Hemoglobin 33.1 pg (28.0-32.0); Mean Corpuscular Volume 94.8 fL (80.0-100.0); Monocytes # (auto) 0.5 10 ^3/uL (0-1.3); Monocytes % (auto) 8.7 % (0.0-12.0); Neutrophils # (auto) 4.2 10 ^3/uL (1.6-8.6); Neutrophils % (auto) 76.4 % (37.0-80.0); Red Blood Cells 2.76 10^6/uL (4.5-5.90); Red Cell Distribution Width 14.4 % (11.8-14.3); White Blood Cell 5.5 10^3/uL (4.4-10.8)
[2021-11-22 06:44] LABS: Potassium 3.6 mmol/L (3.5-5.1)
[2021-11-22 06:54] LABS: INR 1.19 (0.9-1.15)
[2021-11-22 07:03] LABS: BUN/Creatinine Ratio 7.2; Calcium 8.1 mg/dL (8.5-10.1)
[2021-11-22 08:00] VITALS: BP 145/66
[2021-11-22] MEDS: RANOLAZINE ER 500 MG TAB PO SCH ×2 (10:22→22:35)
[2021-11-22] MEDS: ASPirin-EC 81 mg tab PO SCH (10:22)
[2021-11-22] MEDS: ISOSORBIDE MONONITRATE ER 60 MG TAB PO SCH (10:23)
[2021-11-22] MEDS: CEPHALEXIN 250 MG CAP PO SCH (10:24)
[2021-11-22] MEDS: FUROSEMIDE 40 MG TAB PO SCH (10:24)
[2021-11-22] MEDS: METOPROLOL SUCCINATE XL 50 MG TAB PO SCH (10:25)
[2021-11-22] MEDS: SODIUM ZIRCONIUM CYCL 10 GM PAK PO SCH (10:25)
[2021-11-22] MEDS: DAKINS QUARTER STR 0.125% (NaHypochlorite) 473 ML TOPICAL SOL TOP SCH ×2 (10:26→22:00)
[2021-11-22 11:50] VITALS: BP 153/89
[2021-11-22] MEDS ORDERED: PIPERACILLIN-TAZOB 2.25GM 50 ML IV ONE (13:00)
[2021-11-22] MEDS ORDERED: PIPERACILLIN-TAZOB 0.75 GM in D5W 5% 50 ML IV PRN (14:45)
[2021-11-22 16:45] VITALS: BP 133/60
[2021-11-22] MEDS: TAMSULOSIN HYDROCHLORIDE 0.4 MG CAP PO SCH (18:00)
[2021-11-22 22:00] VITALS: BP 129/68
[2021-11-22] MEDS: PIPERACILLIN-TAZOB 2.25GM 50 ML IV SCH (22:33)
[2021-11-22] MEDS: GABAPENTIN 300 MG CAP PO SCH (22:34)
[2021-11-22] MEDS: ATORVASTATIN 20 MG TAB PO SCH (22:34)
[2021-11-23 04:35] VITALS: BP 127/67
[2021-11-23 05:49] LABS: Basophils # (auto) 0.1 10 ^3/uL (0-0.2); Basophils % (auto) 1.2 % (0.0-2.0); Eosinophils # (auto) 0.2 10 ^3/uL (0-0.8); Eosinophils % (auto) 2.8 % (0.0-7.0); Hematocrit 28.8 % (41.0-53.0); Hemoglobin 9.9 g/dL (13.5-17.5); Lymphocytes # (auto) 0.8 10 ^3/uL (0.4-5.4); Lymphocytes % (auto) 15.5 % (10.0-50.0); Mean Corpuscular Hemoglobin 32.4 pg (28.0-32.0); Mean Corpuscular Hgb Conc. 34.4 g/dL (32.0-36.0); Mean Corpuscular Volume 94.1 fL (80.0-100.0); Monocytes # (auto) 0.5 10 ^3/uL (0-1.3); Monocytes % (auto) 8.6 % (0.0-12.0); Neutrophils # (auto) 3.8 10 ^3/uL (1.6-8.6); Neutrophils % (auto) 71.9 % (37.0-80.0); Red Blood Cells 3.06 10^6/uL (4.5-5.90); Red Cell Distribution Width 14.1 % (11.8-14.3); White Blood Cell 5.4 10^3/uL (4.4-10.8)
[2021-11-23] MEDS: hydrALAZINE HCL 10 MG TAB PO SCH ×3 (06:10→21:48)
[2021-11-23] MEDS: SODIUM CHLOR 0.9% PF (SALINE LOCK) 10ML VIAL/SYR IV SCH ×3 (06:10→21:42)
[2021-11-23] MEDS: HEPARIN SODIUM (PORCINE) 5000 UNITS/ML 1ML VIAL SC SCH ×3 (06:18→21:42)
[2021-11-23] MEDS: ACCU-CHEK COMFORT CURVE STRIP VI SCH ×4 (06:32→21:49)
[2021-11-23] MEDS: InsuLIN REG 1unit/0.01ml Soln (100units/ml) SC SCH ×4 (06:33→22:01)
[2021-11-23] MEDS: ONDANSETRON HCL 4 MG/2 ML VIAL IV PRN ×2 (06:38→21:43)
[2021-11-23 08:00] VITALS: BP 127/67
[2021-11-23 09:00] VITALS: BP 129/67
[2021-11-23] MEDS: PIPERACILLIN-TAZOB 2.25GM 50 ML IV SCH ×2 (10:00→21:28)
[2021-11-23] MEDS: ASPirin-EC 81 mg tab PO SCH (10:00)
[2021-11-23] MEDS: ISOSORBIDE MONONITRATE ER 60 MG TAB PO SCH (10:00)
[2021-11-23] MEDS: RANOLAZINE ER 500 MG TAB PO SCH ×2 (10:00→21:27)
[2021-11-23] MEDS: METOPROLOL SUCCINATE XL 50 MG TAB PO SCH (10:00)
[2021-11-23] MEDS: FUROSEMIDE 40 MG TAB PO SCH (10:00)
[2021-11-23] MEDS: DAKINS QUARTER STR 0.125% (NaHypochlorite) 473 ML TOPICAL SOL TOP SCH ×2 (10:00→21:49)
[2021-11-23 13:00] VITALS: BP 125/67
[2021-11-23 17:00] VITALS: BP 129/57
[2021-11-23] MEDS: TAMSULOSIN HYDROCHLORIDE 0.4 MG CAP PO SCH (17:32)
[2021-11-23] MEDS: ATORVASTATIN 20 MG TAB PO SCH (21:27)
[2021-11-23] MEDS: GABAPENTIN 300 MG CAP PO SCH (21:27)
[2021-11-23 22:00] VITALS: BP 126/76
[2021-11-24 05:00] VITALS: BP 129/66
[2021-11-24] MEDS: SODIUM CHLOR 0.9% PF (SALINE LOCK) 10ML VIAL/SYR IV SCH ×3 (05:48→21:21)
[2021-11-24] MEDS: HEPARIN SODIUM (PORCINE) 5000 UNITS/ML 1ML VIAL SC SCH ×3 (05:49→21:52)
[2021-11-24] MEDS: hydrALAZINE HCL 10 MG TAB PO SCH ×3 (05:49→22:01)
[2021-11-24] MEDS: InsuLIN REG 1unit/0.01ml Soln (100units/ml) SC SCH ×4 (07:00→21:59)
[2021-11-24] MEDS: ACCU-CHEK COMFORT CURVE STRIP VI SCH ×4 (07:19→21:53)
[2021-11-24 08:40] VITALS: BP 148/81
[2021-11-24] MEDS: ASPirin-EC 81 mg tab PO SCH (10:19)
[2021-11-24] MEDS: PIPERACILLIN-TAZOB 2.25GM 50 ML IV SCH ×2 (10:19→21:20)
[2021-11-24] MEDS: ISOSORBIDE MONONITRATE ER 60 MG TAB PO SCH (10:20)
[2021-11-24] MEDS: RANOLAZINE ER 500 MG TAB PO SCH ×2 (10:21→21:21)
[2021-11-24] MEDS: FUROSEMIDE 40 MG TAB PO SCH (10:21)
[2021-11-24] MEDS: METOPROLOL SUCCINATE XL 50 MG TAB PO SCH (10:22)
[2021-11-24] MEDS: DAKINS QUARTER STR 0.125% (NaHypochlorite) 473 ML TOPICAL SOL TOP SCH ×2 (10:22→21:52)
[2021-11-24 13:00] VITALS: BP 128/76
[2021-11-24] MEDS: TAMSULOSIN HYDROCHLORIDE 0.4 MG CAP PO SCH (16:09)
[2021-11-24 17:00] VITALS: BP 131/76
[2021-11-24] MEDS ORDERED: GABAPENTIN 100 MG CAP PO ONE (21:15)
[2021-11-24] MEDS: ATORVASTATIN 20 MG TAB PO SCH (21:21)
[2021-11-24 22:00] VITALS: BP 134/77
[2021-11-25] MEDS: ONDANSETRON HCL 4 MG/2 ML VIAL IV PRN (01:36)
[2021-11-25 05:00] VITALS: BP 177/72
[2021-11-25] MEDS: hydrALAZINE HCL 10 MG TAB PO SCH ×3 (05:18→22:06)
[2021-11-25] MEDS: SODIUM CHLOR 0.9% PF (SALINE LOCK) 10ML VIAL/SYR IV SCH ×2 (05:18→14:00)
[2021-11-25] MEDS: PIPERACILLIN-TAZOB 2.25GM 50 ML IV SCH ×2 (05:18→14:45)
[2021-11-25] MEDS: GABAPENTIN 100 MG CAP PO SCH ×3 (05:18→22:05)
[2021-11-25] MEDS: HEPARIN SODIUM (PORCINE) 5000 UNITS/ML 1ML VIAL SC SCH ×2 (05:42→14:41)
[2021-11-25] MEDS: InsuLIN REG 1unit/0.01ml Soln (100units/ml) SC SCH ×4 (06:14→22:07)
[2021-11-25] MEDS: ACCU-CHEK COMFORT CURVE STRIP VI SCH ×4 (06:15→22:06)
[2021-11-25 08:00] VITALS: BP 138/76
[2021-11-25 08:47] VITALS: BP 145/74
[2021-11-25] MEDS: DAKINS QUARTER STR 0.125% (NaHypochlorite) 473 ML TOPICAL SOL TOP SCH ×2 (10:00→22:00)
[2021-11-25] MEDS: FUROSEMIDE 40 MG TAB PO SCH (10:33)
[2021-11-25] MEDS: METOPROLOL SUCCINATE XL 50 MG TAB PO SCH (10:34)
[2021-11-25] MEDS: ASPirin-EC 81 mg tab PO SCH (10:34)
[2021-11-25] MEDS: RANOLAZINE ER 500 MG TAB PO SCH ×2 (10:34→22:05)
[2021-11-25] MEDS: ISOSORBIDE MONONITRATE ER 60 MG TAB PO SCH (10:35)
[2021-11-25] MEDS ORDERED: SODIUM CHL 0.9% 1000 ML BAG XX ONE (12:00)
[2021-11-25 12:15] VITALS: BP 151/67
[2021-11-25 15:21] VITALS: BP 137/67
[2021-11-25 15:49] LABS: Basophils # (auto) 0.1 10 ^3/uL (0-0.2); Basophils % (auto) 2.1 % (0.0-2.0); Eosinophils # (auto) 0.1 10 ^3/uL (0-0.8); Eosinophils % (auto) 1.1 % (0.0-7.0); Hematocrit 29.9 % (41.0-53.0); Hemoglobin 9.9 g/dL (13.5-17.5); Lymphocytes # (auto) 1.1 10 ^3/uL (0.4-5.4); Monocytes # (auto) 0.5 10 ^3/uL (0-1.3); Monocytes % (auto) 7.9 % (0.0-12.0); Neutrophils # (auto) 4.7 10 ^3/uL (1.6-8.6); Neutrophils % (auto) 71.9 % (37.0-80.0); Red Blood Cells 3.15 10^6/uL (4.5-5.90); White Blood Cell 6.6 10^3/uL (4.4-10.8)
[2021-11-25 15:50] LABS: Mean Corpuscular Hemoglobin 31.5 pg (28.0-32.0); Mean Corpuscular Hgb Conc. 33.2 g/dL (32.0-36.0); Mean Corpuscular Volume 95.1 fL (80.0-100.0); Red Cell Distribution Width 14.9 % (11.8-14.3)
[2021-11-25] MEDS: TAMSULOSIN HYDROCHLORIDE 0.4 MG CAP PO SCH (17:47)
[2021-11-25] MEDS ORDERED: EPOETIN ALFA-EPBX 10,000 UNIT/1ML VIAL SC ONE (21:00)
[2021-11-25] MEDS: ATORVASTATIN 20 MG TAB PO SCH (22:05)
[2021-11-25] MEDS: DOXYCYCLINE 100 MG TAB/CAP PO SCH (22:06)
[2021-11-25 23:19] VITALS: BP 130/72
[2021-11-26] MEDS: SODIUM CHLOR 0.9% PF (SALINE LOCK) 10ML VIAL/SYR IV SCH ×4 (01:22→23:57)
[2021-11-26] MEDS: PIPERACILLIN-TAZOB 2.25GM 50 ML IV SCH ×4 (01:22→23:57)
[2021-11-26] MEDS: HEPARIN SODIUM (PORCINE) 5000 UNITS/ML 1ML VIAL SC SCH ×3 (01:23→14:00)
[2021-11-26 04:29] VITALS: BP 135/61
[2021-11-26] MEDS: GABAPENTIN 100 MG CAP PO SCH ×3 (06:00→23:58)
[2021-11-26 06:42] LABS: Basophils # (auto) 0.1 10 ^3/uL (0-0.2); Eosinophils # (auto) 0.2 10 ^3/uL (0-0.8); Eosinophils % (auto) 2.4 % (0.0-7.0); Hemoglobin 9.6 g/dL (13.5-17.5); Lymphocytes # (auto) 1.4 10 ^3/uL (0.4-5.4); Lymphocytes % (auto) 18.8 % (10.0-50.0); Mean Corpuscular Hemoglobin 32.4 pg (28.0-32.0); Mean Corpuscular Hgb Conc. 34.2 g/dL (32.0-36.0); Mean Corpuscular Volume 94.6 fL (80.0-100.0); Monocytes # (auto) 0.7 10 ^3/uL (0-1.3); Monocytes % (auto) 8.9 % (0.0-12.0); Neutrophils # (auto) 5.2 10 ^3/uL (1.6-8.6); Neutrophils % (auto) 68.9 % (37.0-80.0); Red Blood Cells 2.96 10^6/uL (4.5-5.90); Red Cell Distribution Width 14.7 % (11.8-14.3); White Blood Cell 7.6 10^3/uL (4.4-10.8)
[2021-11-26] MEDS: ACCU-CHEK COMFORT CURVE STRIP VI SCH ×4 (07:02→23:59)
[2021-11-26] MEDS: InsuLIN REG 1unit/0.01ml Soln (100units/ml) SC SCH ×4 (07:03→22:45)
[2021-11-26] MEDS: hydrALAZINE HCL 10 MG TAB PO SCH ×4 (07:06→23:58)
[2021-11-26 07:18] LABS: BUN/Creatinine Ratio 4.4; Calcium 8.4 mg/dL (8.5-10.1); Potassium 3.6 mmol/L (3.5-5.1)
[2021-11-26] MEDS: DAKINS QUARTER STR 0.125% (NaHypochlorite) 473 ML TOPICAL SOL TOP SCH ×2 (10:00→23:58)
[2021-11-26] MEDS: DOXYCYCLINE 100 MG TAB/CAP PO SCH ×2 (10:00→23:58)
[2021-11-26] MEDS ORDERED: HALOPERIDOL LACTATE 5 MG/ML INJ VIAL IM PRN ×2 (10:30→17:30)
[2021-11-26] MEDS: ASPirin-EC 81 mg tab PO SCH (11:02)
[2021-11-26] MEDS: ISOSORBIDE MONONITRATE ER 60 MG TAB PO SCH (11:02)
[2021-11-26] MEDS: METOPROLOL SUCCINATE XL 50 MG TAB PO SCH (11:03)
[2021-11-26] MEDS: RANOLAZINE ER 500 MG TAB PO SCH ×2 (11:03→23:58)
[2021-11-26] MEDS: FUROSEMIDE 40 MG TAB PO SCH (11:21)
[2021-11-26] MEDS: TAMSULOSIN HYDROCHLORIDE 0.4 MG CAP PO SCH (18:00)
[2021-11-26] MEDS ORDERED: LORazepam 2MG/ML-1ML VIAL IV PRN (18:00)
[2021-11-26 22:00] VITALS: BP 152/79
[2021-11-26] MEDS: ATORVASTATIN 20 MG TAB PO SCH (23:58)
[2021-11-27] MEDS: HEPARIN SODIUM (PORCINE) 5000 UNITS/ML 1ML VIAL SC SCH ×4 (00:09→21:58)
[2021-11-27 05:00] VITALS: BP 130/73
[2021-11-27] MEDS: SODIUM CHLOR 0.9% PF (SALINE LOCK) 10ML VIAL/SYR IV SCH ×3 (05:55→21:25)
[2021-11-27] MEDS: PIPERACILLIN-TAZOB 2.25GM 50 ML IV SCH ×3 (05:55→21:27)
[2021-11-27] MEDS: GABAPENTIN 100 MG CAP PO SCH ×3 (05:56→21:27)
[2021-11-27] MEDS: InsuLIN REG 1unit/0.01ml Soln (100units/ml) SC SCH ×4 (05:56→21:58)
[2021-11-27] MEDS: hydrALAZINE HCL 10 MG TAB PO SCH ×3 (05:56→21:59)
[2021-11-27] MEDS: ACCU-CHEK COMFORT CURVE STRIP VI SCH ×4 (05:56→21:27)
[2021-11-27 06:38] LABS: Basophils # (auto) 0.1 10 ^3/uL (0-0.2); Basophils % (auto) 0.7 % (0.0-2.0); Eosinophils # (auto) 0.4 10 ^3/uL (0-0.8); Eosinophils % (auto) 4.6 % (0.0-7.0); Hemoglobin 10.3 g/dL (13.5-17.5); Mean Corpuscular Hemoglobin 32.8 pg (28.0-32.0); Mean Corpuscular Hgb Conc. 34.2 g/dL (32.0-36.0); Mean Corpuscular Volume 95.9 fL (80.0-100.0); Monocytes # (auto) 0.6 10 ^3/uL (0-1.3); Monocytes % (auto) 8.1 % (0.0-12.0); Neutrophils # (auto) 5.7 10 ^3/uL (1.6-8.6); Neutrophils % (auto) 73.6 % (37.0-80.0); Red Blood Cells 3.13 10^6/uL (4.5-5.90); Red Cell Distribution Width 14.8 % (11.8-14.3); White Blood Cell 7.7 10^3/uL (4.4-10.8)
[2021-11-27 06:57] LABS: BUN/Creatinine Ratio 4.3; Calcium 8.4 mg/dL (8.5-10.1); Potassium 3.9 mmol/L (3.5-5.1)
[2021-11-27] MEDS ORDERED: SODIUM CHL 0.9% 1000 ML BAG XX ONE (07:00)
[2021-11-27 07:26] LABS: INR 1.21 (0.9-1.15); Partial Thromboplastin Time 30.8 sec (23.6-33.0)
[2021-11-27] MEDS: ASPirin-EC 81 mg tab PO SCH (09:37)
[2021-11-27] MEDS: FUROSEMIDE 40 MG TAB PO SCH (09:38)
[2021-11-27] MEDS: ISOSORBIDE MONONITRATE ER 60 MG TAB PO SCH (09:48)
[2021-11-27] MEDS: METOPROLOL SUCCINATE XL 50 MG TAB PO SCH (09:49)
[2021-11-27] MEDS: RANOLAZINE ER 500 MG TAB PO SCH ×2 (09:49→21:26)
[2021-11-27] MEDS: DOXYCYCLINE 100 MG TAB/CAP PO SCH ×2 (09:49→21:26)
[2021-11-27] MEDS: DAKINS QUARTER STR 0.125% (NaHypochlorite) 473 ML TOPICAL SOL TOP SCH ×2 (09:50→21:27)
[2021-11-27] MEDS ORDERED: fentaNYL CITRATE 100 MCG/2 ML VL ONE (16:21)
[2021-11-27] MEDS ORDERED: MIDAZOLAM HCL 2MG/2ML 2ml VIAL (1mg/ml) ONE (16:21)
[2021-11-27] MEDS ORDERED: ANGIOMAX 250 MG VIAL IV ONE (16:21)
[2021-11-27] MEDS ORDERED: SODIUM CHL 0.9% 50 ML ONE (16:22)
[2021-11-27] MEDS ORDERED: IODIXANOL 320MG/ML 100ML BTL IV ONE (16:27)
[2021-11-27] MEDS ORDERED: LIDOCAINE 2%HCL (LOCAL ANESTH.) INJ 10ml MDV ONE (16:27)
[2021-11-27] MEDS ORDERED: hydrALAZINE HCL 20 MG/ML VL ONE (16:46)
[2021-11-27] MEDS: TAMSULOSIN HYDROCHLORIDE 0.4 MG CAP PO SCH (18:00)
[2021-11-27] MEDS ORDERED: EPOETIN ALFA-EPBX 10,000 UNIT/1ML VIAL SC ONE (21:00)
[2021-11-27] MEDS: ATORVASTATIN 20 MG TAB PO SCH (21:27)
[2021-11-27 22:00] VITALS: BP 132/73
[2021-11-28 05:00] VITALS: BP 136/68
[2021-11-28] MEDS: ACCU-CHEK COMFORT CURVE STRIP VI SCH ×4 (05:26→22:29)
[2021-11-28] MEDS: InsuLIN REG 1unit/0.01ml Soln (100units/ml) SC SCH ×4 (05:27→22:50)
[2021-11-28] MEDS: GABAPENTIN 100 MG CAP PO SCH (05:42)
[2021-11-28] MEDS: PIPERACILLIN-TAZOB 2.25GM 50 ML IV SCH ×3 (05:42→23:51)
[2021-11-28] MEDS: SODIUM CHLOR 0.9% PF (SALINE LOCK) 10ML VIAL/SYR IV SCH ×3 (05:42→22:24)
[2021-11-28] MEDS: hydrALAZINE HCL 10 MG TAB PO SCH ×3 (06:24→22:28)
[2021-11-28] MEDS: HEPARIN SODIUM (PORCINE) 5000 UNITS/ML 1ML VIAL SC SCH ×3 (06:31→22:27)
[2021-11-28 09:00] VITALS: BP 121/67
[2021-11-28] MEDS: ASPirin-EC 81 mg tab PO SCH (09:53)
[2021-11-28] MEDS: ISOSORBIDE MONONITRATE ER 60 MG TAB PO SCH ×2 (09:54→17:36)
[2021-11-28] MEDS: FUROSEMIDE 40 MG TAB PO SCH (09:54)
[2021-11-28] MEDS: RANOLAZINE ER 500 MG TAB PO SCH ×2 (09:54→22:28)
[2021-11-28] MEDS: METOPROLOL SUCCINATE XL 50 MG TAB PO SCH ×2 (09:55→17:36)
[2021-11-28] MEDS: DOXYCYCLINE 100 MG TAB/CAP PO SCH ×2 (09:56→22:27)
[2021-11-28] MEDS: DAKINS QUARTER STR 0.125% (NaHypochlorite) 473 ML TOPICAL SOL TOP SCH ×2 (10:04→22:29)
[2021-11-28 13:00] VITALS: BP 162/86
[2021-11-28] MEDS: TAMSULOSIN HYDROCHLORIDE 0.4 MG CAP PO SCH (16:58)
[2021-11-28 17:00] VITALS: BP 158/76
[2021-11-28 22:00] VITALS: BP 130/64
[2021-11-28] MEDS ORDERED: GABAPENTIN 100 MG CAP PO SCH (22:00)
[2021-11-28] MEDS: ATORVASTATIN 20 MG TAB PO SCH (22:28)
[2021-11-29 05:00] VITALS: BP 120/66
[2021-11-29] MEDS: SODIUM CHLOR 0.9% PF (SALINE LOCK) 10ML VIAL/SYR IV SCH ×3 (05:34→21:52)
[2021-11-29 05:44] LABS: Hemoglobin 9.7 g/dL (13.5-17.5)
[2021-11-29] MEDS: PIPERACILLIN-TAZOB 2.25GM 50 ML IV SCH ×3 (06:00→21:52)
[2021-11-29] MEDS: ACCU-CHEK COMFORT CURVE STRIP VI SCH ×4 (06:12→21:53)
[2021-11-29] MEDS: InsuLIN REG 1unit/0.01ml Soln (100units/ml) SC SCH ×4 (06:15→22:24)
[2021-11-29] MEDS: ONDANSETRON HCL 4 MG/2 ML VIAL IV PRN (06:36)
[2021-11-29] MEDS ORDERED: SODIUM CHL 0.9% 1000 ML BAG XX ONE (07:00)
[2021-11-29 09:00] VITALS: BP 119/63
[2021-11-29] MEDS: ISOSORBIDE MONONITRATE ER 60 MG TAB PO SCH (09:48)
[2021-11-29] MEDS: RANOLAZINE ER 500 MG TAB PO SCH ×2 (09:48→21:52)
[2021-11-29] MEDS: METOPROLOL SUCCINATE XL 50 MG TAB PO SCH (09:48)
[2021-11-29] MEDS: DOXYCYCLINE 100 MG TAB/CAP PO SCH ×2 (09:48→21:52)
[2021-11-29] MEDS: ASPirin-EC 81 mg tab PO SCH (09:49)
[2021-11-29] MEDS: GABAPENTIN 100 MG CAP PO SCH (09:49)
[2021-11-29] MEDS: FUROSEMIDE 40 MG TAB PO SCH (09:49)
[2021-11-29] MEDS: hydrALAZINE HCL 10 MG TAB PO SCH ×3 (09:50→22:00)
[2021-11-29] MEDS: HEPARIN SODIUM (PORCINE) 5000 UNITS/ML 1ML VIAL SC SCH ×3 (09:52→22:28)
[2021-11-29] MEDS: DAKINS QUARTER STR 0.125% (NaHypochlorite) 473 ML TOPICAL SOL TOP SCH ×2 (09:55→21:53)
[2021-11-29 13:00] VITALS: BP 115/66
[2021-11-29 17:00] VITALS: BP 108/56
[2021-11-29] MEDS: TAMSULOSIN HYDROCHLORIDE 0.4 MG CAP PO SCH (17:31)
[2021-11-29] MEDS ORDERED: EPOETIN ALFA-EPBX 10,000 UNIT/1ML VIAL SC ONE (21:00)
[2021-11-29] MEDS: ATORVASTATIN 20 MG TAB PO SCH (21:52)
[2021-11-29 22:10] VITALS: BP 109/58
[2021-11-30 05:50] VITALS: BP 143/72
[2021-11-30] MEDS: PIPERACILLIN-TAZOB 2.25GM 50 ML IV SCH ×3 (06:22→22:06)
[2021-11-30] MEDS: SODIUM CHLOR 0.9% PF (SALINE LOCK) 10ML VIAL/SYR IV SCH ×3 (06:22→22:06)
[2021-11-30] MEDS: InsuLIN REG 1unit/0.01ml Soln (100units/ml) SC SCH ×4 (06:23→22:11)
[2021-11-30] MEDS: ACCU-CHEK COMFORT CURVE STRIP VI SCH ×4 (06:23→22:08)
[2021-11-30] MEDS: hydrALAZINE HCL 10 MG TAB PO SCH ×3 (06:23→22:07)
[2021-11-30] MEDS: HEPARIN SODIUM (PORCINE) 5000 UNITS/ML 1ML VIAL SC SCH ×3 (06:24→22:17)
[2021-11-30 09:00] VITALS: BP_SYST 124; BP_SYST 127; BP_DIAS 72; BP_DIAS 82
[2021-11-30] MEDS: FUROSEMIDE 40 MG TAB PO SCH (10:00)
[2021-11-30] MEDS: GABAPENTIN 100 MG CAP PO SCH (10:00)
[2021-11-30] MEDS: RANOLAZINE ER 500 MG TAB PO SCH ×2 (10:00→22:07)
[2021-11-30] MEDS: DOXYCYCLINE 100 MG TAB/CAP PO SCH ×2 (10:00→22:07)
[2021-11-30] MEDS ORDERED: RIVAROXABAN 10 MG TAB PO SCH (10:00)
[2021-11-30] MEDS: METOPROLOL SUCCINATE XL 50 MG TAB PO SCH (10:00)
[2021-11-30] MEDS: ISOSORBIDE MONONITRATE ER 60 MG TAB PO SCH (10:00)
[2021-11-30] MEDS: DAKINS QUARTER STR 0.125% (NaHypochlorite) 473 ML TOPICAL SOL TOP SCH ×2 (10:00→22:08)
[2021-11-30] MEDS ORDERED: CLOPIDOGREL BISULFATE 75 MG TAB PO ONE (10:45)
[2021-11-30 13:00] VITALS: BP 142/92
[2021-11-30 17:03] VITALS: BP 132/74
[2021-11-30] MEDS: TAMSULOSIN HYDROCHLORIDE 0.4 MG CAP PO SCH (18:00)
[2021-11-30 20:00] VITALS: BP 144/86
[2021-11-30 22:00] VITALS: BP 144/68
[2021-11-30] MEDS: ATORVASTATIN 20 MG TAB PO SCH (22:07)
[2021-12-01 05:00] VITALS: BP 117/55
[2021-12-01] MEDS: SODIUM CHLOR 0.9% PF (SALINE LOCK) 10ML VIAL/SYR IV SCH ×2 (06:02→13:00)
[2021-12-01] MEDS: PIPERACILLIN-TAZOB 2.25GM 50 ML IV SCH ×2 (06:03→13:00)
[2021-12-01] MEDS: hydrALAZINE HCL 10 MG TAB PO SCH ×2 (06:04→13:01)
[2021-12-01] MEDS: ACCU-CHEK COMFORT CURVE STRIP VI SCH ×2 (06:05→12:32)
[2021-12-01] MEDS: HEPARIN SODIUM (PORCINE) 5000 UNITS/ML 1ML VIAL SC SCH ×2 (06:05→13:01)
[2021-12-01] MEDS: InsuLIN REG 1unit/0.01ml Soln (100units/ml) SC SCH ×2 (06:22→12:41)
[2021-12-01 08:00] VITALS: BP 119/72
[2021-12-01] MEDS: DOXYCYCLINE 100 MG TAB/CAP PO SCH (09:51)
[2021-12-01] MEDS: DAKINS QUARTER STR 0.125% (NaHypochlorite) 473 ML TOPICAL SOL TOP SCH (09:51)
[2021-12-01] MEDS: RANOLAZINE ER 500 MG TAB PO SCH (09:51)
[2021-12-01] MEDS: GABAPENTIN 100 MG CAP PO SCH (09:52)
[2021-12-01] MEDS ORDERED: CLOPIDOGREL BISULFATE 75 MG TAB PO SCH (10:00)
[2021-12-01] MEDS: ISOSORBIDE MONONITRATE ER 60 MG TAB PO SCH (10:04)
[2021-12-01] MEDS: FUROSEMIDE 40 MG TAB PO SCH (10:05)
[2021-12-01] MEDS: METOPROLOL SUCCINATE XL 50 MG TAB PO SCH (10:05)
[2021-12-01 12:00] VITALS: BP 104/74
[2021-12-01] MEDS: ONDANSETRON HCL 4 MG/2 ML VIAL IV PRN (12:54)
[2021-12-01 13:56] VITALS: BP 104/79
[2021-12-01 14:20] VITALS: BP 104/79
[2021-12-01 14:29] VITALS: BP 104/79
[2021-12-02] MEDS ORDERED: SODIUM CHL 0.9% 1000 ML BAG XX ONE (07:00)
[2021-12-02] MEDS ORDERED: EPOETIN ALFA-EPBX 10,000 UNIT/1ML VIAL SC ONE (21:00)
== END 2021-12-01 15:55 | disposition home health service (06) | DRG 673 ==
LOC: ER 06:51 → TELE 10:16 → TELE-EAST 13:21
PROVIDERS: ADMIT Internal Medicine; ATTEND Internal Medicine
PROC: 0JH63XZ Insertion of Tunneled Vascular Access Device into Chest Subcutaneous Tissue and Fascia, Percutaneous Approach (ICD-10-PCS; principal; 2021-11-18)
PROC: B548ZZA Ultrasonography of Superior Vena Cava, Guidance (ICD-10-PCS; 2021-11-18)
PROC: B5181ZA Fluoroscopy of Superior Vena Cava using Low Osmolar Contrast, Guidance (ICD-10-PCS; 2021-11-18)
PROC: 02H633Z Insertion of Infusion Device into Right Atrium, Percutaneous Approach (ICD-10-PCS; 2021-11-18)
PROC: 047R3ZZ Dilation of Right Posterior Tibial Artery, Percutaneous Approach (ICD-10-PCS; 2021-11-20)
PROC: 04CR3ZZ Extirpation of Matter from Right Posterior Tibial Artery, Percutaneous Approach (ICD-10-PCS; 2021-11-20)
PROC: 5A1D70Z Performance of Urinary Filtration, Intermittent, Less than 6 Hours Per Day (ICD-10-PCS; 2021-11-20)
PROC: B41GYZZ Fluoroscopy of Left Lower Extremity Arteries using Other Contrast (ICD-10-PCS; 2021-11-20)
PROC: B41FYZZ Fluoroscopy of Right Lower Extremity Arteries using Other Contrast (ICD-10-PCS; 2021-11-20)
PROC: 5A1D70Z Performance of Urinary Filtration, Intermittent, Less than 6 Hours Per Day (ICD-10-PCS; 2021-11-22)
PROC: 5A1D70Z Performance of Urinary Filtration, Intermittent, Less than 6 Hours Per Day (ICD-10-PCS; 2021-11-25)
PROC: 047N3ZZ Dilation of Left Popliteal Artery, Percutaneous Approach (ICD-10-PCS; 2021-11-27)
PROC: 5A1D70Z Performance of Urinary Filtration, Intermittent, Less than 6 Hours Per Day (ICD-10-PCS; 2021-11-27)
PROC: B41GYZZ Fluoroscopy of Left Lower Extremity Arteries using Other Contrast (ICD-10-PCS; 2021-11-27)
PROC: 5A1D70Z Performance of Urinary Filtration, Intermittent, Less than 6 Hours Per Day (ICD-10-PCS; 2021-11-29)
DX: T82.42XA Displacement of vascular dialysis catheter, initial encounter (principal); N18.6 End stage renal disease; G93.41 Metabolic encephalopathy; I50.21 Acute systolic (congestive) heart failure; I13.2 Hypertensive heart and chronic kidney disease with heart failure and with stage 5 chronic kidney disease, or end stage renal disease; L97.519 Non-pressure chronic ulcer of other part of right foot with unspecified severity; I25.10 Atherosclerotic heart disease of native coronary artery without angina pectoris; D63.1 Anemia in chronic kidney disease; E11.621 Type 2 diabetes mellitus with foot ulcer; E11.42 Type 2 diabetes mellitus with diabetic polyneuropathy; Y84.1 Kidney dialysis as the cause of abnormal reaction of the patient, or of later complication, without mention of misadventure at the time of the procedure; G20 Parkinson's disease; G25.3 Myoclonus; E11.22 Type 2 diabetes mellitus with diabetic chronic kidney disease; E11.51 Type 2 diabetes mellitus with diabetic peripheral angiopathy without gangrene; Z20.822 Contact with and (suspected) exposure to COVID-19; E78.5 Hyperlipidemia, unspecified; Z79.4 Long term (current) use of insulin; Z82.3 Family history of stroke; Z82.49 Family history of ischemic heart disease and other diseases of the circulatory system; Z79.899 Other long term (current) drug therapy; Z89.429 Acquired absence of other toe(s), unspecified side; Z83.3 Family history of diabetes mellitus; Z79.82 Long term (current) use of aspirin; Z99.2 Dependence on renal dialysis; Z95.1 Presence of aortocoronary bypass graft; Z88.8 Allergy status to other drugs, medicaments and biological substances; Y92.89 Other specified places as the place of occurrence of the external cause
CPT/HCPCS: 36415; 70450; 70551; 71045; 76942; 80048; 80053; 80069; 81001; 82962; 83036; 83880; 84132; 84484; 85014; 85018; 85025; 85610; 85730; 86850; 86900; 86901; 87040; 87077; 87081; 87186; 87205; 90935; 92610; 93005; 95819; 96374; 97110; 97116; 97163; 97530; 99152; 99153; C1724; C9113; G0378; J1642; J1815; J2001; J2250; J2405; J2543; Q9967

== ENCOUNTER 2021-12-06 22:38 | Inpatient (IN) | payer OTHER ==
[~2021-12-06] VITALS: Ht 170.2 cm; Wt 77.3 kg
[~2021-12-06 22:38] MED LIST changes: -CYAN500T3 PO; -DOCU100C10 PO; -OMEG100078 PO
[2021-12-07] MEDS ORDERED: MORPHINE SULFATE 4 MG/ML SYR/VIAL IV PRN
[2021-12-07] MEDS ORDERED: DEXTROSE (50%) 50ML SYRG IV PRN
[2021-12-07] MEDS ORDERED: hydrALAZINE HCL 20 MG/ML VL IV PRN
[2021-12-07] MEDS ORDERED: MORPHINE SULFATE INJECTION 2 MG/ML SYRG IV PRN
[2021-12-07] MEDS ORDERED: ACETAMINOPHEN 325 MG TAB PO PRN
[2021-12-07] MEDS ORDERED: DOCUSATE SOD 100 MG CAP PO PRN
[2021-12-07] MEDS ORDERED: HYDROcodone-ACET 5/325MG TAB PO PRN
[2021-12-07] MEDS ORDERED: NITROGLYCERIN 0.4 MG SL TAB SL PRN
[2021-12-07] MEDS ORDERED: ONDANSETRON HCL 4 MG/2 ML VIAL IV PRN
[2021-12-07] MEDS ORDERED: HEPARIN DRIP/D5W 100UNITS/ML 250 ML IV SCH
[2021-12-07 01:19] LABS: Basophils # (auto) 0 10 ^3/uL (0-0.2); Eosinophils # (auto) 0.3 10 ^3/uL (0-0.8); Lymphocytes # (auto) 0.8 10 ^3/uL (0.4-5.4)
[2021-12-07 01:23] LABS: Basophils % (auto) 0.8 % (0.0-2.0); Eosinophils % (auto) 5.3 % (0.0-7.0); Hematocrit 30.9 % (41.0-53.0); Hemoglobin 10.5 g/dL (13.5-17.5); Lymphocytes % (auto) 14.1 % (10.0-50.0); Mean Corpuscular Hemoglobin 32.8 pg (28.0-32.0); Mean Corpuscular Volume 96.4 fL (80.0-100.0); Monocytes # (auto) 0.6 10 ^3/uL (0-1.3); Monocytes % (auto) 10.8 % (0.0-12.0); Neutrophils # (auto) 4.1 10 ^3/uL (1.6-8.6); Red Cell Distribution Width 16.6 % (11.8-14.3); White Blood Cell 5.9 10^3/uL (4.4-10.8)
[2021-12-07 01:30] LABS: INR 1.13 (0.9-1.15)
[2021-12-07 01:34] LABS: Albumin 2.5 g/dL (3.4-5.0); BUN/Creatinine Ratio 7.1; Calcium 8.3 mg/dL (8.5-10.1); Potassium 4.4 mmol/L (3.5-5.1)
[2021-12-07 01:38] LABS: Bilirubin, Total 0.5 mg/dL (0.2-1.0); Total Protein 6.2 g/dL (6.4-8.2)
[2021-12-07 04:33] VITALS: BP 133/81
[2021-12-07 05:27] VITALS: BP 162/91
[2021-12-07] MEDS ORDERED: PIPERACILLIN-TAZOB 2.25GM 50 ML IV SCH ×2 (06:00→17:00)
[2021-12-07] MEDS ORDERED: SODIUM CHLOR 0.9% PF (SALINE LOCK) 10ML VIAL/SYR IV SCH (06:00)
[2021-12-07 06:23] LABS: Basophils # (auto) 0 10 ^3/uL (0-0.2); Basophils % (auto) 0.9 % (0.0-2.0); Eosinophils # (auto) 0.4 10 ^3/uL (0-0.8); Eosinophils % (auto) 6.8 % (0.0-7.0); Hematocrit 28.8 % (41.0-53.0); Mean Corpuscular Volume 98.4 fL (80.0-100.0); Monocytes # (auto) 0.7 10 ^3/uL (0-1.3); Red Blood Cells 2.92 10^6/uL (4.5-5.90)
[2021-12-07 06:25] LABS: Hemoglobin 9.9 g/dL (13.5-17.5); Lymphocytes # (auto) 0.7 10 ^3/uL (0.4-5.4); Lymphocytes % (auto) 13.5 % (10.0-50.0); Mean Corpuscular Hemoglobin 33.8 pg (28.0-32.0); Mean Corpuscular Hgb Conc. 34.4 g/dL (32.0-36.0); Monocytes % (auto) 12.7 % (0.0-12.0); Neutrophils # (auto) 3.5 10 ^3/uL (1.6-8.6); Neutrophils % (auto) 66.1 % (37.0-80.0); White Blood Cell 5.3 10^3/uL (4.4-10.8)
[2021-12-07 06:34] LABS: Potassium 4.3 mmol/L (3.5-5.1)
[2021-12-07 06:38] LABS: Albumin 2.4 g/dL (3.4-5.0); BUN/Creatinine Ratio 6.8; Calcium 8.4 mg/dL (8.5-10.1)
[2021-12-07 06:54] LABS: Bilirubin, Total 0.5 mg/dL (0.2-1.0)
[2021-12-07] MEDS: ACCU-CHEK COMFORT CURVE STRIP VI SCH ×2 (06:56→11:30)
[2021-12-07] MEDS: InsuLIN REG 1unit/0.01ml Soln (100units/ml) SC SCH ×2 (06:58→11:30)
[2021-12-07] MEDS ORDERED: PIPERACILLIN-TAZOB 0.75 GM in D5W 5% 50 ML IV SCH (07:30)
[2021-12-07 08:00] VITALS: BP 134/59
[2021-12-07] MEDS: SEVELAMER 800 MG TAB PO SCH ×2 (08:17→13:08)
[2021-12-07 09:00] VITALS: BP 138/78
[2021-12-07 09:18] LABS: INR 1.16 (0.9-1.15); Partial Thromboplastin Time 35.9 sec (23.6-33.0)
[2021-12-07] MEDS ORDERED: CARVEDILOL 3.125 MG TAB PO SCH (10:00)
[2021-12-07] MEDS ORDERED: HEPARIN SODIUM (PORCINE) 5000 UNITS/ML 1ML VIAL IV ONE (10:00)
[2021-12-07] MEDS ORDERED: FAMOTIDINE (10MG/ML) 2ML VL IV SCH (10:00)
[2021-12-07] MEDS ORDERED: B-COMPLEX W/ C & FOLIC ACID(NEPHROVITE TAB) PO SCH (10:00)
[2021-12-07] MEDS ORDERED: CLOPIDOGREL BISULFATE 75 MG TAB PO SCH (11:15)
[2021-12-07] MEDS ORDERED: ASPirin 81 mg TAB PO SCH (11:15)
[2021-12-07 13:00] VITALS: BP 142/74
[2021-12-07] MEDS ORDERED: TAMSULOSIN HYDROCHLORIDE 0.4 MG CAP PO SCH (18:00)
[2021-12-07] MEDS ORDERED: EPOETIN ALFA-EPBX 10,000 UNIT/1ML VIAL SC ONE (21:00)
[2021-12-07] MEDS ORDERED: DAKINS QUARTER STR 0.125% (NaHypochlorite) 473 ML TOPICAL SOL TOP SCH (22:00)
[2021-12-07] MEDS ORDERED: ATORVASTATIN 20 MG TAB PO SCH (22:00)
[2021-12-07] MEDS ORDERED: InsuLIN REG 1unit/0.01ml Soln (100units/ml) SC SCH (22:00)
== END 2021-12-07 17:00 | disposition left against medical advice (07) | DRG 280 ==
LOC: CENTRAL 22:38 → TELE-CENTR 12-07 00:25
PROVIDERS: ADMIT Hospitalist; ATTEND Hospitalist
PROC: 5A1D70Z Performance of Urinary Filtration, Intermittent, Less than 6 Hours Per Day (ICD-10-PCS; principal; 2021-12-07)
DX: I21.4 Non-ST elevation (NSTEMI) myocardial infarction (principal); N18.6 End stage renal disease; I12.0 Hypertensive chronic kidney disease with stage 5 chronic kidney disease or end stage renal disease; E87.2 Acidosis; D63.1 Anemia in chronic kidney disease; E11.22 Type 2 diabetes mellitus with diabetic chronic kidney disease; E11.51 Type 2 diabetes mellitus with diabetic peripheral angiopathy without gangrene; E11.621 Type 2 diabetes mellitus with foot ulcer; E78.00 Pure hypercholesterolemia, unspecified; I25.10 Atherosclerotic heart disease of native coronary artery without angina pectoris; L97.519 Non-pressure chronic ulcer of other part of right foot with unspecified severity; E11.65 Type 2 diabetes mellitus with hyperglycemia; Z20.822 Contact with and (suspected) exposure to COVID-19; N40.0 Benign prostatic hyperplasia without lower urinary tract symptoms; Z82.49 Family history of ischemic heart disease and other diseases of the circulatory system; I25.2 Old myocardial infarction; Z82.3 Family history of stroke; Z83.3 Family history of diabetes mellitus; Z95.1 Presence of aortocoronary bypass graft; Z95.5 Presence of coronary angioplasty implant and graft; Z99.2 Dependence on renal dialysis
CPT/HCPCS: 36415; 71045; 80053; 82962; 83880; 84484; 85025; 85610; 85730; 87081; 87340; 90935; G0378; J1642; J1815; J2543; J3490

== ENCOUNTER 2022-01-26 21:55 | Emergency (ER) | payer OTHER ==
[~2022-01-26] VITALS: Ht 175.3 cm; Wt 78.9 kg
[2022-01-27] MEDS ORDERED: VANCOMYCIN 1GM/250ML 250 ML IV ONE (02:15)
[2022-01-27] MEDS ORDERED: PIPERACILLIN-TAZOB 3.375GM 100 ML IV ONE (02:15)
[2022-01-27 03:18] LABS: Basophils # (auto) 0.1 10 ^3/uL (0-0.2); Basophils % (auto) 0.7 % (0.0-2.0); Eosinophils # (auto) 0.2 10 ^3/uL (0-0.8); Eosinophils % (auto) 3.1 % (0.0-7.0); Hematocrit 26.1 % (41.0-53.0); Hemoglobin 8.9 g/dL (13.5-17.5); Lymphocytes # (auto) 1.4 10 ^3/uL (0.4-5.4); Mean Corpuscular Hemoglobin 31.7 pg (28.0-32.0); Mean Corpuscular Hgb Conc. 34.3 g/dL (32.0-36.0); Mean Corpuscular Volume 92.4 fL (80.0-100.0); Monocytes # (auto) 0.8 10 ^3/uL (0-1.3); Monocytes % (auto) 10.7 % (0.0-12.0); Neutrophils # (auto) 5.3 10 ^3/uL (1.6-8.6); Neutrophils % (auto) 67.5 % (37.0-80.0); Red Blood Cells 2.82 10^6/uL (4.5-5.90); Red Cell Distribution Width 15.4 % (11.8-14.3); White Blood Cell 7.9 10^3/uL (4.4-10.8)
[2022-01-27 03:28] LABS: Albumin 2.5 g/dL (3.4-5.0); Calcium 8.1 mg/dL (8.5-10.1); Potassium 4.3 mmol/L (3.5-5.1)
[2022-01-27 03:36] LABS: BUN/Creatinine Ratio 8.3; Bilirubin, Total 0.3 mg/dL (0.2-1.0); CRP High Sensitivity 10.4 mg/dL (< 0.3); Total Protein 7.5 g/dL (6.4-8.2)
[2022-01-27 11:25] VITALS: BP 167/70
[2022-02-03] MEDS ORDERED: DAKI0.25 EX (11:41)
[2022-02-03] MEDS ORDERED: SODI650T PO (11:41)
[2022-02-03] MEDS ORDERED: ISOS1TAB28 PO (11:41)
[2022-02-03] MEDS ORDERED: INSU100I43 SC (11:41)
[2022-02-03] MEDS ORDERED: GLIP2.5T28 PO (11:41)
[2022-02-03] MEDS ORDERED: IMIQ5CRE4 TOP (11:41)
[2022-02-03] MEDS ORDERED: ERGO1CAP23 PO (11:54)
== END 2022-01-27 13:09 | disposition home or self-care (01) ==
LOC: ER 21:55
DX: L03.115 Cellulitis of right lower limb (principal); I12.0 Hypertensive chronic kidney disease with stage 5 chronic kidney disease or end stage renal disease; E11.22 Type 2 diabetes mellitus with diabetic chronic kidney disease; N18.6 End stage renal disease; Z86.73 Personal history of transient ischemic attack (TIA), and cerebral infarction without residual deficits; Z90.89 Acquired absence of other organs; Z95.1 Presence of aortocoronary bypass graft; Z20.822 Contact with and (suspected) exposure to COVID-19; Z79.899 Other long term (current) drug therapy; Z88.8 Allergy status to other drugs, medicaments and biological substances
CPT/HCPCS: 36415; 71045; 73610; 73630; 80053; 85025; 85652; 86141; 86850; 86900; 86901; 87040; 87077; 87186; 87205; 87426; 96365; 96366; 96367; 99285; J2543; J3370

== ENCOUNTER 2022-02-04 15:58 | Inpatient (IN) | payer OTHER ==
[~2022-02-04] VITALS: Ht 175.3 cm; Wt 72.8 kg
[~2022-02-04 15:58] MED LIST changes: +DAKI0.25 EX; +ERGO1CAP23 PO; +GLIP2.5T28 PO; +IMIQ5CRE4 TOP; -SEVE800T PO; +SODI650T PO
[2022-02-04] MEDS ORDERED: ASPirin 81 mg TAB PO ONE (17:15)
[2022-02-04 18:56] LABS: Basophils # (auto) 0.1 10 ^3/uL (0-0.2); Basophils % (auto) 0.6 % (0.0-2.0); Eosinophils # (auto) 0.1 10 ^3/uL (0-0.8); Eosinophils % (auto) 0.9 % (0.0-7.0); Hematocrit 26.4 % (41.0-53.0); Hemoglobin 9.1 g/dL (13.5-17.5); Lymphocytes # (auto) 0.6 10 ^3/uL (0.4-5.4); Lymphocytes % (auto) 6.2 % (10.0-50.0); Mean Corpuscular Hemoglobin 31.1 pg (28.0-32.0); Mean Corpuscular Hgb Conc. 34.6 g/dL (32.0-36.0); Mean Corpuscular Volume 89.9 fL (80.0-100.0); Monocytes # (auto) 0.9 10 ^3/uL (0-1.3); Monocytes % (auto) 9.4 % (0.0-12.0); Neutrophils # (auto) 7.9 10 ^3/uL (1.6-8.6); Neutrophils % (auto) 82.9 % (37.0-80.0); Red Blood Cells 2.94 10^6/uL (4.5-5.90); Red Cell Distribution Width 15.4 % (11.8-14.3); White Blood Cell 9.5 10^3/uL (4.4-10.8)
[2022-02-04 19:13] LABS: Albumin 2.5 g/dL (3.4-5.0); Calcium 8.6 mg/dL (8.5-10.1)
[2022-02-04 19:16] LABS: BUN/Creatinine Ratio 5.7; Bilirubin, Total 0.6 mg/dL (0.2-1.0); Total Protein 7.6 g/dL (6.4-8.2)
[2022-02-05] MEDS ORDERED: NITROGLYCERIN 0.4 MG SL TAB SL PRN (05:15)
[2022-02-05] MEDS ORDERED: ONDANSETRON HCL 4 MG/2 ML VIAL IV PRN (05:15)
[2022-02-05] MEDS ORDERED: DEXTROSE (50%) 50ML SYRG IV PRN (05:15)
[2022-02-05] MEDS ORDERED: MORPHINE SULFATE INJ 2 MG/ml SYRG IV PRN (05:15)
[2022-02-05] MEDS ORDERED: ACETAMINOPHEN 325 MG TAB PO PRN (05:15)
[2022-02-05] MEDS: SODIUM BICARBONATE 650 MG TAB PO SCH ×3 (05:54→23:53)
[2022-02-05] MEDS: ACCU-CHEK COMFORT CURVE STRIP VI SCH ×4 (06:51→23:51)
[2022-02-05] MEDS: InsuLIN REG 1unit/0.01ml Soln (100units/ml) SC SCH ×3 (06:52→22:00)
[2022-02-05 09:15] VITALS: BP 146/62
[2022-02-05] MEDS: FUROSEMIDE 40 MG TAB PO SCH (09:33)
[2022-02-05 10:30] VITALS: BP 146/62
[2022-02-05] MEDS: ASPirin 81 mg TAB PO SCH (12:17)
[2022-02-05] MEDS: RANOLAZINE ER 500 MG TAB PO SCH ×2 (12:17→23:51)
[2022-02-05] MEDS: PANTOPRAZOLE 40 MG TAB PO SCH (12:18)
[2022-02-05] MEDS: METOPROLOL SUCCINATE XL 50 MG TAB PO SCH (12:20)
[2022-02-05] MEDS: GABAPENTIN 300 MG CAP PO SCH ×2 (12:21→23:50)
[2022-02-05] MEDS: ISOSORBIDE MONONITRATE ER 60 MG TAB PO SCH ×2 (12:22→23:50)
[2022-02-05] MEDS: CLOPIDOGREL BISULFATE 75 MG TAB PO SCH (12:23)
[2022-02-05 13:00] VITALS: BP 154/69
[2022-02-05] MEDS ORDERED: ANGIOMAX 250 MG VIAL IV ONE (16:24)
[2022-02-05] MEDS ORDERED: HEPARIN SODIUM (PORCINE) 5000 UNITS/ML 1ML VIAL ONE (16:24)
[2022-02-05] MEDS ORDERED: VERAPAMIL 2.5MG/ML INJ 2ML VIAL IV ONE (16:24)
[2022-02-05] MEDS ORDERED: SODIUM CHL 0.9% 50 ML ONE (16:25)
[2022-02-05] MEDS ORDERED: MIDAZOLAM HCL 2MG/2ML 2ml VIAL (1mg/ml) ONE (16:25)
[2022-02-05] MEDS ORDERED: fentaNYL CITRATE 100 MCG/2 ML VL ONE (16:25)
[2022-02-05] MEDS ORDERED: LIDOCAINE 2%HCL (LOCAL ANESTH.) INJ 10ml MDV ONE (16:25)
[2022-02-05 17:00] VITALS: BP 136/68
[2022-02-05] MEDS ORDERED: METOPROLOL TARTRATE 1MG/1ML-5ML VIAL IV ONE (17:15)
[2022-02-05] MEDS: TAMSULOSIN HYDROCHLORIDE 0.4 MG CAP PO SCH (18:00)
[2022-02-05 20:24] VITALS: BP 136/68
[2022-02-05 22:00] VITALS: BP 150/78
[2022-02-05] MEDS: ATORVASTATIN 20 MG TAB PO SCH (23:49)
[2022-02-06 05:00] VITALS: BP 112/54
[2022-02-06] MEDS: ACCU-CHEK COMFORT CURVE STRIP VI SCH ×4 (06:27→21:54)
[2022-02-06] MEDS: SODIUM BICARBONATE 650 MG TAB PO SCH ×3 (06:27→21:52)
[2022-02-06] MEDS: InsuLIN REG 1unit/0.01ml Soln (100units/ml) SC SCH ×4 (06:28→21:54)
[2022-02-06] MEDS ORDERED: SODIUM CHL 0.9% 1000 ML BAG XX ONE (07:00)
[2022-02-06 08:00] VITALS: BP 123/59
[2022-02-06 08:03] LABS: Basophils # (auto) 0 10 ^3/uL (0-0.2); Eosinophils # (auto) 0.1 10 ^3/uL (0-0.8); Hemoglobin 7.7 g/dL (13.5-17.5); Lymphocytes # (auto) 0.5 10 ^3/uL (0.4-5.4); Monocytes # (auto) 0.5 10 ^3/uL (0-1.3)
[2022-02-06 08:06] LABS: Basophils % (auto) 0.5 % (0.0-2.0); Eosinophils % (auto) 2.3 % (0.0-7.0); Hematocrit 22.5 % (41.0-53.0); Lymphocytes % (auto) 7.3 % (10.0-50.0); Mean Corpuscular Hemoglobin 31.2 pg (28.0-32.0); Mean Corpuscular Hgb Conc. 34.1 g/dL (32.0-36.0); Mean Corpuscular Volume 91.6 fL (80.0-100.0); Monocytes % (auto) 8.1 % (0.0-12.0); Neutrophils # (auto) 5.1 10 ^3/uL (1.6-8.6); Neutrophils % (auto) 81.8 % (37.0-80.0); Red Blood Cells 2.45 10^6/uL (4.5-5.90); White Blood Cell 6.3 10^3/uL (4.4-10.8)
[2022-02-06 08:18] LABS: Calcium 7.8 mg/dL (8.5-10.1); Potassium 4.3 mmol/L (3.5-5.1)
[2022-02-06 08:19] LABS: BUN/Creatinine Ratio 7.6
[2022-02-06 08:22] LABS: Bilirubin, Total 0.4 mg/dL (0.2-1.0); Total Protein 6.2 g/dL (6.4-8.2)
[2022-02-06 09:00] VITALS: BP 123/59
[2022-02-06] MEDS: FUROSEMIDE 40 MG TAB PO SCH (11:50)
[2022-02-06] MEDS: GABAPENTIN 300 MG CAP PO SCH ×2 (11:51→21:53)
[2022-02-06] MEDS: CLOPIDOGREL BISULFATE 75 MG TAB PO SCH (11:51)
[2022-02-06] MEDS: ISOSORBIDE MONONITRATE ER 60 MG TAB PO SCH ×2 (11:53→21:53)
[2022-02-06] MEDS: ASPirin 81 mg TAB PO SCH (11:54)
[2022-02-06] MEDS: PANTOPRAZOLE 40 MG TAB PO SCH (11:55)
[2022-02-06] MEDS: METOPROLOL SUCCINATE XL 50 MG TAB PO SCH (11:55)
[2022-02-06] MEDS: RANOLAZINE ER 500 MG TAB PO SCH ×2 (14:00→21:53)
[2022-02-06 16:54] VITALS: BP 128/63
[2022-02-06] MEDS: TAMSULOSIN HYDROCHLORIDE 0.4 MG CAP PO SCH (17:52)
[2022-02-06] MEDS ORDERED: EPOETIN ALFA-EPBX 10,000 UNIT/1ML VIAL SC ONE (21:00)
[2022-02-06] MEDS: ATORVASTATIN 20 MG TAB PO SCH (21:53)
[2022-02-06] MEDS: DAKINS QUARTER STR 0.125% (NaHypochlorite) 473 ML TOPICAL SOL TOP SCH (21:54)
[2022-02-06 21:58] VITALS: BP 98/45
[2022-02-07 04:52] VITALS: BP 112/58
[2022-02-07] MEDS: SODIUM BICARBONATE 650 MG TAB PO SCH (05:52)
[2022-02-07] MEDS: InsuLIN REG 1unit/0.01ml Soln (100units/ml) SC SCH ×2 (06:04→12:09)
[2022-02-07] MEDS: ACCU-CHEK COMFORT CURVE STRIP VI SCH ×2 (06:05→12:10)
[2022-02-07 06:42] LABS: Basophils # (auto) 0.1 10 ^3/uL (0-0.2); Basophils % (auto) 1.2 % (0.0-2.0); Eosinophils # (auto) 0.2 10 ^3/uL (0-0.8); Hematocrit 23.5 % (41.0-53.0); Hemoglobin 8.1 g/dL (13.5-17.5); Lymphocytes # (auto) 0.8 10 ^3/uL (0.4-5.4); Lymphocytes % (auto) 13.5 % (10.0-50.0); Mean Corpuscular Hemoglobin 32.5 pg (28.0-32.0); Mean Corpuscular Hgb Conc. 34.4 g/dL (32.0-36.0); Mean Corpuscular Volume 94.5 fL (80.0-100.0); Monocytes # (auto) 0.6 10 ^3/uL (0-1.3); Monocytes % (auto) 9.4 % (0.0-12.0); Neutrophils # (auto) 4.4 10 ^3/uL (1.6-8.6); Neutrophils % (auto) 71.9 % (37.0-80.0); Red Blood Cells 2.48 10^6/uL (4.5-5.90); White Blood Cell 6.1 10^3/uL (4.4-10.8)
[2022-02-07 08:00] VITALS: BP 102/55
[2022-02-07 09:00] VITALS: BP 102/55
[2022-02-07] MEDS: ASPirin 81 mg TAB PO SCH (10:00)
[2022-02-07] MEDS: CLOPIDOGREL BISULFATE 75 MG TAB PO SCH (10:00)
[2022-02-07] MEDS: DAKINS QUARTER STR 0.125% (NaHypochlorite) 473 ML TOPICAL SOL TOP SCH (10:00)
[2022-02-07] MEDS: PANTOPRAZOLE 40 MG TAB PO SCH (11:20)
[2022-02-07] MEDS: GABAPENTIN 300 MG CAP PO SCH (11:20)
[2022-02-07] MEDS: RANOLAZINE ER 500 MG TAB PO SCH (11:21)
[2022-02-07 13:00] VITALS: BP 144/70
[2022-02-07 14:04] VITALS: BP 118/78
[2022-02-07] MEDS: FUROSEMIDE 40 MG TAB PO SCH (15:43)
[2022-02-07] MEDS: ISOSORBIDE MONONITRATE ER 60 MG TAB PO SCH (15:44)
[2022-02-07] MEDS: METOPROLOL SUCCINATE XL 50 MG TAB PO SCH (15:44)
== END 2022-02-07 15:43 | disposition home or self-care (01) | DRG 250 ==
LOC: ER 15:58 → TELE 02-05 05:09 → TELE-CENTR 02-05 09:16
PROVIDERS: ADMIT Nurse Practitioner; ATTEND Internal Medicine
PROC: 02703ZZ Dilation of Coronary Artery, One Artery, Percutaneous Approach (ICD-10-PCS; principal; 2022-02-05)
PROC: 02C13ZZ Extirpation of Matter from Coronary Artery, Two Arteries, Percutaneous Approach (ICD-10-PCS; 2022-02-05)
PROC: B211YZZ Fluoroscopy of Multiple Coronary Arteries using Other Contrast (ICD-10-PCS; 2022-02-05)
PROC: B213YZZ Fluoroscopy of Multiple Coronary Artery Bypass Grafts using Other Contrast (ICD-10-PCS; 2022-02-05)
PROC: B218YZZ Fluoroscopy of Left Internal Mammary Bypass Graft using Other Contrast (ICD-10-PCS; 2022-02-05)
PROC: 5A1D70Z Performance of Urinary Filtration, Intermittent, Less than 6 Hours Per Day (ICD-10-PCS; 2022-02-07)
DX: T82.858A Stenosis of other vascular prosthetic devices, implants and grafts, initial encounter (principal); U07.1 COVID-19; N18.6 End stage renal disease; I25.110 Atherosclerotic heart disease of native coronary artery with unstable angina pectoris; M86.9 Osteomyelitis, unspecified; D63.1 Anemia in chronic kidney disease; E11.22 Type 2 diabetes mellitus with diabetic chronic kidney disease; E11.51 Type 2 diabetes mellitus with diabetic peripheral angiopathy without gangrene; E66.9 Obesity, unspecified; Z99.2 Dependence on renal dialysis; Z95.5 Presence of coronary angioplasty implant and graft; E11.69 Type 2 diabetes mellitus with other specified complication; Z68.23 Body mass index [BMI] 23.0-23.9, adult; Z88.8 Allergy status to other drugs, medicaments and biological substances; Z82.3 Family history of stroke; Z82.49 Family history of ischemic heart disease and other diseases of the circulatory system; Z83.3 Family history of diabetes mellitus; Z91.19 Patient's noncompliance with other medical treatment and regimen; Z95.1 Presence of aortocoronary bypass graft
CPT/HCPCS: 36415; 71045; 80053; 82962; 84484; 85025; 85610; 85730; 90935; 93005; 96374; 96375; 97163; 99152; 99153; 99291; C1887; G0378; J1815; J2001; J2250; Q9967

== ENCOUNTER 2022-02-22 20:18 | Inpatient (IN) | payer OTHER ==
[~2022-02-22] VITALS: Ht 175.3 cm; Wt 75.2 kg
[2022-02-22 21:51] LABS: White Blood Cell 12.9 10^3/uL (4.4-10.8)
[2022-02-22 21:52] LABS: Hematocrit 21.3 % (41.0-53.0); Hemoglobin 7.4 g/dL (13.5-17.5); Mean Corpuscular Hgb Conc. 34.6 g/dL (32.0-36.0); Mean Corpuscular Volume 86.8 fL (80.0-100.0); Red Blood Cells 2.45 10^6/uL (4.5-5.90); Red Cell Distribution Width 14.4 % (11.8-14.3)
[2022-02-22 22:00] LABS: Basophils % (manual) 0 (0.0-2.0); Blast Cells 0; Eosinophils % (manual) 0 (0-7); Metamyelocytes % 0; Myelocytes % 0; Promyelocytes % 0; Reactive Lymphocytes 0
[2022-02-22 22:34] LABS: Band Neutrophils % (manual) 1; Lymphocytes % (manual) 7 (10.0-50.0); Monocytes % (manual) 5 (0-12)
[2022-02-22] MEDS ORDERED: VANCOMYCIN 1GM/250ML 250 ML IV ONE (23:15)
[2022-02-22] MEDS ORDERED: levoFLOXacin 500MG 100 ML IV ONE (23:15)
[2022-02-22 23:43] LABS: BUN/Creatinine Ratio 6.1; Potassium 3.2 mmol/L (3.5-5.1)
[2022-02-22 23:44] LABS: Albumin 2.1 g/dL (3.4-5.0); Bilirubin, Total 0.7 mg/dL (0.2-1.0); Calcium 7.6 mg/dL (8.5-10.1); Total Protein 6.7 g/dL (6.4-8.2)
[2022-02-23] MEDS ORDERED: DEXTROSE (50%) 50ML SYRG IV PRN (00:30)
[2022-02-23] MEDS ORDERED: DOCUSATE SOD 100 MG CAP PO PRN (00:30)
[2022-02-23] MEDS ORDERED: VANCOMYCIN PER PHARMACY 0 MG IV SCH (00:30)
[2022-02-23] MEDS ORDERED: ONDANSETRON HCL 4 MG/2 ML VIAL IV PRN (00:30)
[2022-02-23] MEDS ORDERED: FUROSEMIDE 40 MG/4 ML VIAL IV ONE (00:30)
[2022-02-23] MEDS ORDERED: NITROGLYCERIN 0.4 MG SL TAB SL PRN (01:15)
[2022-02-23] MEDS ORDERED: MORPHINE SULFATE INJ 2 MG/ml SYRG IV PRN (01:15)
[2022-02-23] MEDS ORDERED: HEPARIN SODIUM (PORCINE) 5000 UNITS/ML 1ML VIAL IV ONE (02:15)
[2022-02-23 04:17] LABS: Lactic Acid w/Reflex 2.2 mmol/L (0.4-2.0)
[2022-02-23] MEDS ORDERED: HEPARIN SODIUM (PORCINE) 5000 UNITS/ML 1ML VIAL SC SCH ×2 (06:00)
[2022-02-23] MEDS: SODIUM CHLOR 0.9% PF (SALINE LOCK) 10ML VIAL/SYR IV SCH ×3 (06:00→21:55)
[2022-02-23] MEDS: ACCU-CHEK COMFORT CURVE STRIP VI SCH ×4 (07:14→21:57)
[2022-02-23] MEDS: InsuLIN REG 1unit/0.01ml Soln (100units/ml) SC SCH ×4 (07:19→21:57)
[2022-02-23] MEDS: SEVELAMER 800 MG TAB PO SCH ×3 (08:02→18:33)
[2022-02-23 08:32] LABS: Basophils # (auto) 0.1 10 ^3/uL (0-0.2); Eosinophils # (auto) 0 10 ^3/uL (0-0.8); Hemoglobin 7.1 g/dL (13.5-17.5); Lymphocytes # (auto) 0.5 10 ^3/uL (0.4-5.4); Lymphocytes % (auto) 3.8 % (10.0-50.0)
[2022-02-23 08:34] LABS: Basophils % (auto) 0.5 % (0.0-2.0); Eosinophils % (auto) 0.2 % (0.0-7.0); Hematocrit 20.8 % (41.0-53.0); Mean Corpuscular Hgb Conc. 34.2 g/dL (32.0-36.0); Mean Corpuscular Volume 87.6 fL (80.0-100.0); Monocytes # (auto) 0.6 10 ^3/uL (0-1.3); Neutrophils # (auto) 11.1 10 ^3/uL (1.6-8.6); Neutrophils % (auto) 90.5 % (37.0-80.0); Red Blood Cells 2.38 10^6/uL (4.5-5.90); Red Cell Distribution Width 14.4 % (11.8-14.3); White Blood Cell 12.3 10^3/uL (4.4-10.8)
[2022-02-23 08:39] LABS: Albumin 1.8 g/dL (3.4-5.0); Calcium 7.6 mg/dL (8.5-10.1); Potassium 3.1 mmol/L (3.5-5.1)
[2022-02-23 08:43] LABS: BUN/Creatinine Ratio 6.9; Bilirubin, Total 0.7 mg/dL (0.2-1.0); Total Protein 6.1 g/dL (6.4-8.2)
[2022-02-23] MEDS: cefTRIAXone 1GM/50ML D5W 50 ML IV SCH (09:05)
[2022-02-23] MEDS: CARVEDILOL 12.5 MG TAB PO SCH ×2 (09:52→21:55)
[2022-02-23] MEDS: B-COMPLEX W/ C & FOLIC ACID(NEPHROVITE TAB) PO SCH (09:52)
[2022-02-23] MEDS: FUROSEMIDE 40 MG/4 ML VIAL IV SCH (09:53)
[2022-02-23] MEDS ORDERED: ASPirin 81 mg TAB PO SCH (10:00)
[2022-02-23] MEDS ORDERED: FAMOTIDINE (10MG/ML) 2ML VL IV SCH (10:00)
[2022-02-23] MEDS ORDERED: CLOPIDOGREL BISULFATE 75 MG TAB PO ONE (10:15)
[2022-02-23] MEDS ORDERED: POTASSIUM EFFERVESENT TAB 25 MEQ PO ONE (10:15)
[2022-02-23] MEDS: DOBUTamine 1000MCG/ML 250 ML IV SCH (11:13)
[2022-02-23] MEDS: SACUBITRIL-VALSARTAN 24mg/26mg TAB PO SCH (21:55)
[2022-02-23] MEDS: ATORVASTATIN 20 MG TAB PO SCH (21:56)
[2022-02-24 04:00] VITALS: BP 102/49
[2022-02-24] MEDS: SODIUM CHLOR 0.9% PF (SALINE LOCK) 10ML VIAL/SYR IV SCH ×3 (06:46→22:29)
[2022-02-24] MEDS: InsuLIN REG 1unit/0.01ml Soln (100units/ml) SC SCH ×4 (06:46→22:00)
[2022-02-24] MEDS: ACCU-CHEK COMFORT CURVE STRIP VI SCH ×4 (06:46→22:30)
[2022-02-24 07:28] LABS: Basophils # (auto) 0 10 ^3/uL (0-0.2); Lymphocytes # (auto) 0.5 10 ^3/uL (0.4-5.4)
[2022-02-24 07:33] LABS: Basophils % (auto) 0.5 % (0.0-2.0); Eosinophils # (auto) 0.4 10 ^3/uL (0-0.8); Eosinophils % (auto) 4.4 % (0.0-7.0); Hematocrit 19.3 % (41.0-53.0); Lymphocytes % (auto) 5.8 % (10.0-50.0); Mean Corpuscular Hgb Conc. 35.4 g/dL (32.0-36.0); Mean Corpuscular Volume 87.4 fL (80.0-100.0); Monocytes # (auto) 0.7 10 ^3/uL (0-1.3); Monocytes % (auto) 8.9 % (0.0-12.0); Neutrophils # (auto) 6.7 10 ^3/uL (1.6-8.6); Neutrophils % (auto) 80.4 % (37.0-80.0); Red Blood Cells 2.21 10^6/uL (4.5-5.90); Red Cell Distribution Width 14.4 % (11.8-14.3); White Blood Cell 8.4 10^3/uL (4.4-10.8)
[2022-02-24 07:49] LABS: Hemoglobin 6.8 g/dL (13.5-17.5)
[2022-02-24 08:02] LABS: Albumin 1.6 g/dL (3.4-5.0); BUN/Creatinine Ratio 8.1; Calcium 7.2 mg/dL (8.5-10.1); Potassium 3.3 mmol/L (3.5-5.1)
[2022-02-24 08:05] LABS: Bilirubin, Total 0.4 mg/dL (0.2-1.0); Total Protein 5.1 g/dL (6.4-8.2)
[2022-02-24 09:00] VITALS: BP 113/42
[2022-02-24] MEDS: B-COMPLEX W/ C & FOLIC ACID(NEPHROVITE TAB) PO SCH (10:56)
[2022-02-24] MEDS: SEVELAMER 800 MG TAB PO SCH ×3 (10:56→18:23)
[2022-02-24] MEDS: SACUBITRIL-VALSARTAN 24mg/26mg TAB PO SCH ×2 (10:56→22:30)
[2022-02-24] MEDS: CARVEDILOL 12.5 MG TAB PO SCH ×2 (10:59→22:29)
[2022-02-24] MEDS: ASPirin 81 mg TAB PO SCH (10:59)
[2022-02-24] MEDS: cefTRIAXone 1GM/50ML D5W 50 ML IV SCH (11:00)
[2022-02-24] MEDS: DOBUTamine 1000MCG/ML 250 ML IV SCH (11:37)
[2022-02-24] MEDS: CLOPIDOGREL BISULFATE 75 MG TAB PO SCH (12:27)
[2022-02-24] MEDS: FUROSEMIDE 40 MG/4 ML VIAL IV SCH (12:27)
[2022-02-24 13:00] VITALS: BP 136/59
[2022-02-24] MEDS ORDERED: POTASSIUM CHL 20 Meq TABLET PO ONE (14:30)
[2022-02-24] MEDS ORDERED: VANCOMYCIN 1GM/250ML 250 ML IV ONE (16:00)
[2022-02-24 16:36] LABS: Hemoglobin 7.6 g/dL (13.5-17.5)
[2022-02-24 16:39] LABS: Hematocrit 22.6 % (41.0-53.0)
[2022-02-24 17:00] VITALS: BP 100/39
[2022-02-24] MEDS: ACETAMINOPHEN 325 MG TAB PO PRN (17:46)
[2022-02-24 22:11] VITALS: BP 108/57
[2022-02-24] MEDS: ATORVASTATIN 20 MG TAB PO SCH (22:30)
[2022-02-25 05:21] VITALS: BP 120/53
[2022-02-25 05:30] LABS: Basophils # (auto) 0.1 10 ^3/uL (0-0.2); Eosinophils # (auto) 0.4 10 ^3/uL (0-0.8); Lymphocytes # (auto) 0.7 10 ^3/uL (0.4-5.4)
[2022-02-25 05:37] LABS: Basophils % (auto) 0.9 % (0.0-2.0); Eosinophils % (auto) 3.8 % (0.0-7.0); Hematocrit 20.6 % (41.0-53.0); Hemoglobin 7.1 g/dL (13.5-17.5); Lymphocytes % (auto) 6.8 % (10.0-50.0); Mean Corpuscular Hgb Conc. 34.4 g/dL (32.0-36.0); Mean Corpuscular Volume 87.2 fL (80.0-100.0); Monocytes # (auto) 0.7 10 ^3/uL (0-1.3); Monocytes % (auto) 7.4 % (0.0-12.0); Neutrophils % (auto) 81.1 % (37.0-80.0); Red Blood Cells 2.37 10^6/uL (4.5-5.90); Red Cell Distribution Width 14.7 % (11.8-14.3); White Blood Cell 9.9 10^3/uL (4.4-10.8)
[2022-02-25 05:45] LABS: Calcium 7.2 mg/dL (8.5-10.1); Chloride 98 mmol/L (98-107); Magnesium 2.2 mg/dL (1.6-2.6); Potassium 3.7 mmol/L (3.5-5.1); Sodium 131 mmol/L (136-145)
[2022-02-25] MEDS: DOBUTamine 1000MCG/ML 250 ML IV SCH (05:45)
[2022-02-25 05:48] LABS: Anion Gap 12 (5-15); BUN/Creatinine Ratio 8.1; Blood Urea Nitrogen 46 mg/dL (7-18); Carbon Dioxide 21 mmol/L (21-32); GFR African American 13 mL/min; GFR Non-African American 11 mL/min; Glucose 113 mg/dL (74-106)
[2022-02-25] MEDS: SODIUM CHLOR 0.9% PF (SALINE LOCK) 10ML VIAL/SYR IV SCH ×3 (06:38→22:03)
[2022-02-25] MEDS: ACCU-CHEK COMFORT CURVE STRIP VI SCH ×4 (06:38→22:04)
[2022-02-25] MEDS: InsuLIN REG 1unit/0.01ml Soln (100units/ml) SC SCH ×4 (06:39→22:10)
[2022-02-25 09:00] VITALS: BP 126/55
[2022-02-25] MEDS: cefTRIAXone 1GM/50ML D5W 50 ML IV SCH (09:13)
[2022-02-25] MEDS: ASPirin 81 mg TAB PO SCH (09:22)
[2022-02-25] MEDS: SEVELAMER 800 MG TAB PO SCH ×3 (09:22→19:04)
[2022-02-25] MEDS: CARVEDILOL 12.5 MG TAB PO SCH ×2 (09:23→22:03)
[2022-02-25] MEDS: CLOPIDOGREL BISULFATE 75 MG TAB PO SCH (09:24)
[2022-02-25] MEDS: B-COMPLEX W/ C & FOLIC ACID(NEPHROVITE TAB) PO SCH (09:24)
[2022-02-25] MEDS: FAMOTIDINE (10MG/ML) 2ML VL IV SCH (09:25)
[2022-02-25] MEDS: FUROSEMIDE 40 MG/4 ML VIAL IV SCH (09:26)
[2022-02-25] MEDS: SACUBITRIL-VALSARTAN 24mg/26mg TAB PO SCH ×2 (09:36→22:04)
[2022-02-25] MEDS ORDERED: EPOETIN ALFA-EPBX 10,000 UNIT/1ML VIAL SC ONE (10:30)
[2022-02-25 13:00] VITALS: BP 98/89
[2022-02-25] MEDS ORDERED: SODIUM CHL 0.9% 1000 ML BAG XX ONE (15:00)
[2022-02-25 15:12] LABS: INR 1.19 (0.9-1.15)
[2022-02-25 17:00] VITALS: BP 119/38
[2022-02-25] MEDS ORDERED: DOBUTamine 1000MCG/ML 250 ML IV SCH (21:00)
[2022-02-25 21:45] VITALS: BP 120/60
[2022-02-25 22:00] VITALS: BP 120/56
[2022-02-25] MEDS: ATORVASTATIN 20 MG TAB PO SCH (22:04)
[2022-02-26 05:10] VITALS: BP 116/51
[2022-02-26] MEDS: SODIUM CHLOR 0.9% PF (SALINE LOCK) 10ML VIAL/SYR IV SCH ×3 (06:10→22:07)
[2022-02-26] MEDS: ACCU-CHEK COMFORT CURVE STRIP VI SCH ×4 (06:10→22:09)
[2022-02-26] MEDS: InsuLIN REG 1unit/0.01ml Soln (100units/ml) SC SCH ×4 (06:10→22:13)
[2022-02-26 07:27] LABS: BUN/Creatinine Ratio 9.5; Potassium 3.6 mmol/L (3.5-5.1)
[2022-02-26] MEDS: SEVELAMER 800 MG TAB PO SCH ×3 (08:00→17:44)
[2022-02-26] MEDS ORDERED: ceFAZolin 1GM/50ML 100 ML IV ONE (08:26)
[2022-02-26] MEDS ORDERED: ceFAZolin 1GM VL ONE (08:57)
[2022-02-26] MEDS ORDERED: ROPIVACAINE 0.5% (5MG/ML) 20ML AMPULE IJ ONE (08:58)
[2022-02-26 09:00] VITALS: BP 134/53
[2022-02-26] MEDS: cefTRIAXone 1GM/50ML D5W 50 ML IV SCH (09:00)
[2022-02-26] MEDS ORDERED: fentaNYL CITRATE 100 MCG/2 ML VL ONE (09:00)
[2022-02-26] MEDS ORDERED: MIDAZOLAM HCL 2MG/2ML 2ml VIAL (1mg/ml) ONE (09:01)
[2022-02-26] MEDS ORDERED: NEOMYCIN-BACITRACIN-POLYM 15GM TOP OINT TOP ONE (09:02)
[2022-02-26] MEDS ORDERED: PROPOFOL 10 MG/ML 20 ML IV ONE (09:29)
[2022-02-26] MEDS ORDERED: DexAMETHasone SOD PHOS 10MG/1ML VIAL INJ ONE (09:29)
[2022-02-26] MEDS: CLOPIDOGREL BISULFATE 75 MG TAB PO SCH (10:00)
[2022-02-26] MEDS: ASPirin 81 mg TAB PO SCH (12:23)
[2022-02-26] MEDS: B-COMPLEX W/ C & FOLIC ACID(NEPHROVITE TAB) PO SCH (12:23)
[2022-02-26] MEDS: SACUBITRIL-VALSARTAN 24mg/26mg TAB PO SCH ×2 (12:24→22:08)
[2022-02-26] MEDS: CARVEDILOL 12.5 MG TAB PO SCH ×2 (12:25→22:08)
[2022-02-26] MEDS: FUROSEMIDE 40 MG/4 ML VIAL IV SCH (12:26)
[2022-02-26 16:31] VITALS: BP 141/64
[2022-02-26 22:00] VITALS: BP 143/62
[2022-02-26] MEDS: ATORVASTATIN 20 MG TAB PO SCH (22:09)
[2022-02-27] MEDS: HYDROcodone-ACET 5/325MG TAB PO PRN (01:24)
[2022-02-27 05:00] VITALS: BP 150/70
[2022-02-27 05:17] LABS: Hemoglobin 7.2 g/dL (13.5-17.5); White Blood Cell 11.6 10^3/uL (4.4-10.8)
[2022-02-27 05:27] LABS: Hematocrit 21.3 % (41.0-53.0); Mean Corpuscular Hemoglobin 29.8 pg (28.0-32.0); Mean Corpuscular Hgb Conc. 33.7 g/dL (32.0-36.0); Mean Corpuscular Volume 88.5 fL (80.0-100.0); Red Cell Distribution Width 14.2 % (11.8-14.3)
[2022-02-27 05:52] LABS: Basophils % (manual) 0 (0.0-2.0); Blast Cells 0; Eosinophils % (manual) 0 (0-7); Metamyelocytes % 0; Myelocytes % 0; Promyelocytes % 0; Reactive Lymphocytes 0
[2022-02-27 06:03] LABS: BUN/Creatinine Ratio 9.4; Calcium 8.1 mg/dL (8.5-10.1)
[2022-02-27] MEDS: SODIUM CHLOR 0.9% PF (SALINE LOCK) 10ML VIAL/SYR IV SCH ×2 (06:25→22:00)
[2022-02-27] MEDS: ACCU-CHEK COMFORT CURVE STRIP VI SCH ×4 (06:25→22:00)
[2022-02-27] MEDS: InsuLIN REG 1unit/0.01ml Soln (100units/ml) SC SCH ×4 (06:32→22:00)
[2022-02-27] MEDS: SEVELAMER 800 MG TAB PO SCH ×3 (08:00→17:36)
[2022-02-27] MEDS ORDERED: SODIUM CHL 0.9% 1000 ML BAG XX ONE (08:30)
[2022-02-27 08:44] LABS: Band Neutrophils % (manual) 2; Lymphocytes % (manual) 2 (10.0-50.0); Monocytes % (manual) 4 (0-12)
[2022-02-27 09:00] VITALS: BP 140/63
[2022-02-27] MEDS: FAMOTIDINE (10MG/ML) 2ML VL IV SCH (10:00)
[2022-02-27 12:30] VITALS: BP 125/52
[2022-02-27] MEDS: B-COMPLEX W/ C & FOLIC ACID(NEPHROVITE TAB) PO SCH (12:34)
[2022-02-27] MEDS: ASPirin 81 mg TAB PO SCH (12:34)
[2022-02-27] MEDS: CLOPIDOGREL BISULFATE 75 MG TAB PO SCH (12:35)
[2022-02-27] MEDS: SACUBITRIL-VALSARTAN 24mg/26mg TAB PO SCH ×2 (12:39→23:49)
[2022-02-27] MEDS: CARVEDILOL 12.5 MG TAB PO SCH ×2 (12:40→22:00)
[2022-02-27] MEDS: FUROSEMIDE 40 MG/4 ML VIAL IV SCH (12:45)
[2022-02-27] MEDS: cefTRIAXone 1GM/50ML D5W 50 ML IV SCH (12:46)
[2022-02-27] MEDS ORDERED: LIDOCAINE 1% (LOCAL ANESTH.) PF 5ml SDV ID ONE (15:15)
[2022-02-27] MEDS ORDERED: ERTAPENEM SOD INJ 0.5 GM in SODIUM CHL 0.9% 50 ML IV ONE (15:30)
[2022-02-27 16:34] VITALS: BP 105/63
[2022-02-27] MEDS ORDERED: EPOETIN ALFA-EPBX 10,000 UNIT/1ML VIAL SC ONE (21:00)
[2022-02-27 22:00] VITALS: BP 141/61
[2022-02-27] MEDS: ATORVASTATIN 20 MG TAB PO SCH (23:38)
[2022-02-28] VITALS (11 sets, daily range): BP systolic 124–150; BP diastolic 49–84
[2022-02-28 06:10] LABS: Hematocrit 20.6 % (41.0-53.0); Red Blood Cells 2.31 10^6/uL (4.5-5.90); Red Cell Distribution Width 14.8 % (11.8-14.3)
[2022-02-28 06:18] LABS: Mean Corpuscular Hemoglobin 30.2 pg (28.0-32.0); Mean Corpuscular Hgb Conc. 33.9 g/dL (32.0-36.0); White Blood Cell 18.8 10^3/uL (4.4-10.8)
[2022-02-28 06:24] LABS: Calcium 7.7 mg/dL (8.5-10.1); Magnesium 2.5 mg/dL (1.6-2.6); Potassium 3.9 mmol/L (3.5-5.1)
[2022-02-28 06:27] LABS: BUN/Creatinine Ratio 9.9
[2022-02-28 06:29] LABS: Basophils % (manual) 0 (0.0-2.0); Blast Cells 0; Eosinophils % (manual) 0 (0-7); Promyelocytes % 0; Reactive Lymphocytes 0
[2022-02-28] MEDS: InsuLIN REG 1unit/0.01ml Soln (100units/ml) SC SCH ×5 (06:59→22:27)
[2022-02-28 08:18] LABS: Band Neutrophils % (manual) 1; Lymphocytes % (manual) 4 (10.0-50.0); Metamyelocytes % 1; Monocytes % (manual) 7 (0-12); Myelocytes % 1
[2022-02-28] MEDS: ACCU-CHEK COMFORT CURVE STRIP VI SCH ×2 (11:30→17:00)
[2022-02-28] MEDS: ACETAMINOPHEN 325 MG TAB PO PRN ×2 (12:00→16:59)
[2022-02-28 15:10] LABS: Hematocrit 20.6 % (41.0-53.0)
[2022-02-28 15:17] LABS: Hemoglobin 6.9 g/dL (13.5-17.5)
[2022-02-28] MEDS: SEVELAMER 800 MG TAB PO SCH ×3 (16:57→19:17)
[2022-02-28] MEDS: SODIUM CHLOR 0.9% PF (SALINE LOCK) 10ML VIAL/SYR IV SCH ×2 (16:57→21:45)
[2022-02-28] MEDS: ASPirin 81 mg TAB PO SCH (17:01)
[2022-02-28] MEDS: B-COMPLEX W/ C & FOLIC ACID(NEPHROVITE TAB) PO SCH (17:02)
[2022-02-28] MEDS: SACUBITRIL-VALSARTAN 24mg/26mg TAB PO SCH ×2 (17:02→21:43)
[2022-02-28] MEDS: CLOPIDOGREL BISULFATE 75 MG TAB PO SCH (17:02)
[2022-02-28] MEDS: CARVEDILOL 12.5 MG TAB PO SCH ×2 (17:02→21:44)
[2022-02-28] MEDS: ERTAPENEM SOD INJ 0.5 GM in SODIUM CHL 0.9% 50 ML IV SCH (19:10)
[2022-02-28] MEDS: ATORVASTATIN 20 MG TAB PO SCH (21:43)
[2022-03-01 01:33] LABS: Hematocrit 24.5 % (41.0-53.0); Hemoglobin 8.1 g/dL (13.5-17.5)
[2022-03-01 05:00] VITALS: BP 131/52
[2022-03-01] MEDS: SEVELAMER 800 MG TAB PO SCH ×3 (08:19→18:11)
[2022-03-01] MEDS: ACCU-CHEK COMFORT CURVE STRIP VI SCH ×4 (08:25→21:40)
[2022-03-01] MEDS: InsuLIN REG 1unit/0.01ml Soln (100units/ml) SC SCH ×5 (08:30→21:40)
[2022-03-01 09:00] VITALS: BP 158/70
[2022-03-01] MEDS: CLOPIDOGREL BISULFATE 75 MG TAB PO SCH (10:06)
[2022-03-01] MEDS: B-COMPLEX W/ C & FOLIC ACID(NEPHROVITE TAB) PO SCH (10:06)
[2022-03-01] MEDS: CARVEDILOL 12.5 MG TAB PO SCH ×2 (10:06→21:40)
[2022-03-01] MEDS: SACUBITRIL-VALSARTAN 24mg/26mg TAB PO SCH ×2 (10:06→21:40)
[2022-03-01] MEDS: ASPirin 81 mg TAB PO SCH (10:06)
[2022-03-01] MEDS: SODIUM CHLOR 0.9% PF (SALINE LOCK) 10ML VIAL/SYR IV SCH ×2 (10:07→22:00)
[2022-03-01] MEDS: FAMOTIDINE (10MG/ML) 2ML VL IV SCH (10:07)
[2022-03-01] MEDS: FUROSEMIDE 40 MG TAB PO SCH (10:07)
[2022-03-01 11:08] LABS: Hematocrit 26.9 % (41.0-53.0); Hemoglobin 8.7 g/dL (13.5-17.5); Mean Corpuscular Hemoglobin 29.5 pg (28.0-32.0); Mean Corpuscular Hgb Conc. 32.3 g/dL (32.0-36.0); Mean Corpuscular Volume 91.4 fL (80.0-100.0); Red Blood Cells 2.94 10^6/uL (4.5-5.90); Red Cell Distribution Width 15.5 % (11.8-14.3); White Blood Cell 15.9 10^3/uL (4.4-10.8)
[2022-03-01 11:17] LABS: Basophils % (manual) 0 (0.0-2.0); Blast Cells 0; Promyelocytes % 0; Reactive Lymphocytes 0
[2022-03-01 11:38] LABS: Band Neutrophils % (manual) 2; Eosinophils % (manual) 4 (0-7); Lymphocytes % (manual) 18 (10.0-50.0); Metamyelocytes % 1; Monocytes % (manual) 3 (0-12); Myelocytes % 3
[2022-03-01 12:46] LABS: INR 1.12 (0.9-1.15); Partial Thromboplastin Time 28.2 sec (23.6-33.0)
[2022-03-01 13:00] VITALS: BP 157/66
[2022-03-01 17:00] VITALS: BP 142/58
[2022-03-01] MEDS: ERTAPENEM SOD INJ 0.5 GM in SODIUM CHL 0.9% 50 ML IV SCH (18:48)
[2022-03-01] MEDS: HYDROcodone-ACET 5/325MG TAB PO PRN ×2 (19:55)
[2022-03-01 20:54] VITALS: BP 163/65
[2022-03-01] MEDS: ATORVASTATIN 20 MG TAB PO SCH (21:40)
[2022-03-02] MEDS: InsuLIN REG 1unit/0.01ml Soln (100units/ml) SC SCH ×4 (05:40→22:00)
[2022-03-02 05:48] VITALS: BP 151/53
[2022-03-02 05:56] LABS: Hematocrit 25.5 % (41.0-53.0); Hemoglobin 8.7 g/dL (13.5-17.5); Mean Corpuscular Hemoglobin 30.5 pg (28.0-32.0); Mean Corpuscular Hgb Conc. 34.1 g/dL (32.0-36.0); Mean Corpuscular Volume 89.5 fL (80.0-100.0); Red Blood Cells 2.84 10^6/uL (4.5-5.90); Red Cell Distribution Width 15.1 % (11.8-14.3)
[2022-03-02 06:09] LABS: Basophils % (manual) 0 (0.0-2.0); Blast Cells 0; Calcium 7.8 mg/dL (8.5-10.1); Metamyelocytes % 0; Potassium 4.2 mmol/L (3.5-5.1); Promyelocytes % 0; Reactive Lymphocytes 0
[2022-03-02 06:11] LABS: BUN/Creatinine Ratio 11.1
[2022-03-02] MEDS: ACCU-CHEK COMFORT CURVE STRIP VI SCH ×4 (06:12→22:00)
[2022-03-02 07:14] LABS: Band Neutrophils % (manual) 2; Eosinophils % (manual) 1 (0-7); Lymphocytes % (manual) 14 (10.0-50.0); Monocytes % (manual) 5 (0-12); Myelocytes % 4
[2022-03-02] MEDS: B-COMPLEX W/ C & FOLIC ACID(NEPHROVITE TAB) PO SCH (08:19)
[2022-03-02] MEDS: CLOPIDOGREL BISULFATE 75 MG TAB PO SCH (08:19)
[2022-03-02] MEDS: ASPirin 81 mg TAB PO SCH (08:19)
[2022-03-02] MEDS: SEVELAMER 800 MG TAB PO SCH ×3 (08:19→18:12)
[2022-03-02 09:00] VITALS: BP 166/67
[2022-03-02] MEDS: FUROSEMIDE 40 MG TAB PO SCH (10:00)
[2022-03-02] MEDS: SACUBITRIL-VALSARTAN 24mg/26mg TAB PO SCH ×2 (10:00→22:00)
[2022-03-02] MEDS: CARVEDILOL 12.5 MG TAB PO SCH ×2 (10:00→22:00)
[2022-03-02] MEDS: SODIUM CHLOR 0.9% PF (SALINE LOCK) 10ML VIAL/SYR IV SCH ×2 (11:29→22:00)
[2022-03-02 13:00] VITALS: BP 156/58
[2022-03-02] MEDS: HYDROcodone-ACET 5/325MG TAB PO PRN (15:42)
[2022-03-02 17:24] VITALS: BP 135/39
[2022-03-02] MEDS: ERTAPENEM SOD INJ 0.5 GM in SODIUM CHL 0.9% 50 ML IV SCH (18:12)
[2022-03-02 22:00] VITALS: BP 148/47
[2022-03-02] MEDS: ATORVASTATIN 20 MG TAB PO SCH (22:00)
[2022-03-03] MEDS: HYDROcodone-ACET 5/325MG TAB PO PRN ×2 (04:32→08:38)
[2022-03-03 05:00] VITALS: BP 171/71
[2022-03-03 05:22] LABS: Hematocrit 25.3 % (41.0-53.0); Hemoglobin 8.6 g/dL (13.5-17.5); Mean Corpuscular Hemoglobin 30.9 pg (28.0-32.0); Mean Corpuscular Hgb Conc. 34.1 g/dL (32.0-36.0); Mean Corpuscular Volume 90.4 fL (80.0-100.0); Red Cell Distribution Width 15.6 % (11.8-14.3); White Blood Cell 9.3 10^3/uL (4.4-10.8)
[2022-03-03 05:30] LABS: Basophils % (manual) 0 (0.0-2.0); Blast Cells 0; Metamyelocytes % 0; Myelocytes % 0; Promyelocytes % 0; Reactive Lymphocytes 0
[2022-03-03] MEDS: hydrALAZINE HCL 20 MG/ML VL IV PRN (05:57)
[2022-03-03 06:00] VITALS: BP 149/59
[2022-03-03] MEDS: InsuLIN REG 1unit/0.01ml Soln (100units/ml) SC SCH ×4 (06:01→21:46)
[2022-03-03] MEDS: ACCU-CHEK COMFORT CURVE STRIP VI SCH ×4 (06:46→21:47)
[2022-03-03 08:34] LABS: Band Neutrophils % (manual) 5; Eosinophils % (manual) 1 (0-7); Lymphocytes % (manual) 14 (10.0-50.0); Monocytes % (manual) 4 (0-12)
[2022-03-03] MEDS: FAMOTIDINE (10MG/ML) 2ML VL IV SCH (08:36)
[2022-03-03] MEDS: B-COMPLEX W/ C & FOLIC ACID(NEPHROVITE TAB) PO SCH (08:37)
[2022-03-03] MEDS: CLOPIDOGREL BISULFATE 75 MG TAB PO SCH (08:37)
[2022-03-03] MEDS: SEVELAMER 800 MG TAB PO SCH ×3 (08:37→17:58)
[2022-03-03] MEDS: SACUBITRIL-VALSARTAN 24mg/26mg TAB PO SCH ×2 (08:37→21:45)
[2022-03-03] MEDS: ASPirin 81 mg TAB PO SCH (08:37)
[2022-03-03] MEDS: FUROSEMIDE 40 MG TAB PO SCH (08:38)
[2022-03-03] MEDS: CARVEDILOL 12.5 MG TAB PO SCH ×3 (08:40→21:45)
[2022-03-03] MEDS: SODIUM CHLOR 0.9% PF (SALINE LOCK) 10ML VIAL/SYR IV SCH ×2 (08:42→21:45)
[2022-03-03] MEDS ORDERED: LIDOCAINE 1% (LOCAL ANESTH.) PF 5ml SDV ID ONE (11:15)
[2022-03-03] MEDS ORDERED: VANCOMYCIN PER PHARMACY 0 MG IV SCH (14:15)
[2022-03-03] MEDS ORDERED: VANCOMYCIN 1GM/250ML 250 ML IV ONE ×2 (14:30→16:00)
[2022-03-03 17:10] VITALS: BP 169/76
[2022-03-03] MEDS: ERTAPENEM SOD INJ 0.5 GM in SODIUM CHL 0.9% 50 ML IV SCH (18:09)
[2022-03-03] MEDS: ATORVASTATIN 20 MG TAB PO SCH (21:47)
[2022-03-03 22:01] VITALS: BP 149/61
[2022-03-04 05:04] VITALS: BP 177/73
[2022-03-04] MEDS: InsuLIN REG 1unit/0.01ml Soln (100units/ml) SC SCH ×4 (06:23→22:00)
[2022-03-04] MEDS: ACCU-CHEK COMFORT CURVE STRIP VI SCH ×4 (06:26→22:03)
[2022-03-04] MEDS ORDERED: SODIUM CHL 0.9% 1000 ML BAG XX ONE (07:00)
[2022-03-04 08:37] VITALS: BP 180/93
[2022-03-04 08:40] VITALS: BP 165/73
[2022-03-04] MEDS: CLOPIDOGREL BISULFATE 75 MG TAB PO SCH (09:41)
[2022-03-04] MEDS: B-COMPLEX W/ C & FOLIC ACID(NEPHROVITE TAB) PO SCH (09:41)
[2022-03-04] MEDS: ASPirin 81 mg TAB PO SCH (09:41)
[2022-03-04] MEDS: SEVELAMER 800 MG TAB PO SCH ×3 (09:41→17:44)
[2022-03-04] MEDS: SACUBITRIL-VALSARTAN 24mg/26mg TAB PO SCH ×2 (09:41→22:03)
[2022-03-04] MEDS: FUROSEMIDE 40 MG TAB PO SCH (09:42)
[2022-03-04] MEDS: CARVEDILOL 12.5 MG TAB PO SCH ×2 (09:45→22:03)
[2022-03-04] MEDS: SODIUM CHLOR 0.9% PF (SALINE LOCK) 10ML VIAL/SYR IV SCH ×2 (09:47→22:02)
[2022-03-04 12:47] VITALS: BP 178/98
[2022-03-04] MEDS ORDERED: VANCOMYCIN PER PHARMACY 0 MG IV SCH (14:15)
[2022-03-04 16:44] VITALS: BP 164/77
[2022-03-04] MEDS: ERTAPENEM SOD INJ 0.5 GM in SODIUM CHL 0.9% 50 ML IV SCH (17:52)
[2022-03-04] MEDS ORDERED: EPOETIN ALFA-EPBX 10,000 UNIT/1ML VIAL SC ONE (21:00)
[2022-03-04 22:00] VITALS: BP_SYST 159; BP_DIAS 70; BP_DIAS 81
[2022-03-04] MEDS: ATORVASTATIN 20 MG TAB PO SCH (22:03)
[2022-03-05] VITALS (7 sets, daily range): BP systolic 146–170; BP diastolic 55–80
[2022-03-05] MEDS: hydrALAZINE HCL 20 MG/ML VL IV PRN ×2 (05:21→12:15)
[2022-03-05] MEDS: ACCU-CHEK COMFORT CURVE STRIP VI SCH ×4 (07:00→22:18)
[2022-03-05] MEDS: InsuLIN REG 1unit/0.01ml Soln (100units/ml) SC SCH ×4 (07:00→22:17)
[2022-03-05] MEDS: SEVELAMER 800 MG TAB PO SCH ×3 (08:50→17:15)
[2022-03-05] MEDS: FAMOTIDINE (10MG/ML) 2ML VL IV SCH (08:50)
[2022-03-05] MEDS: SODIUM CHLOR 0.9% PF (SALINE LOCK) 10ML VIAL/SYR IV SCH ×2 (08:50→22:03)
[2022-03-05] MEDS: CARVEDILOL 12.5 MG TAB PO SCH ×2 (08:51→22:02)
[2022-03-05] MEDS: SACUBITRIL-VALSARTAN 24mg/26mg TAB PO SCH ×2 (08:51→22:03)
[2022-03-05] MEDS: ASPirin 81 mg TAB PO SCH (08:51)
[2022-03-05] MEDS: FUROSEMIDE 40 MG TAB PO SCH (08:52)
[2022-03-05] MEDS: B-COMPLEX W/ C & FOLIC ACID(NEPHROVITE TAB) PO SCH (08:52)
[2022-03-05] MEDS: CLOPIDOGREL BISULFATE 75 MG TAB PO SCH (08:52)
[2022-03-05] MEDS ORDERED: VANCOMYCIN 1GM/250ML 250 ML IV ONE (13:45)
[2022-03-05] MEDS: ERTAPENEM SOD INJ 0.5 GM in SODIUM CHL 0.9% 50 ML IV SCH (17:15)
[2022-03-05] MEDS: ATORVASTATIN 20 MG TAB PO SCH (22:03)
[2022-03-06] VITALS: BP 147/82
[2022-03-06 05:21] LABS: Hemoglobin 9.2 g/dL (13.5-17.5); Mean Corpuscular Hemoglobin 29.7 pg (28.0-32.0); Mean Corpuscular Hgb Conc. 32.8 g/dL (32.0-36.0); Mean Corpuscular Volume 90.6 fL (80.0-100.0); Red Blood Cells 3.09 10^6/uL (4.5-5.90); Red Cell Distribution Width 16.1 % (11.8-14.3); White Blood Cell 6.9 10^3/uL (4.4-10.8)
[2022-03-06 05:28] LABS: Band Neutrophils % (manual) 0; Basophils % (manual) 0 (0.0-2.0); Blast Cells 0; Metamyelocytes % 0; Myelocytes % 0; Promyelocytes % 0; Reactive Lymphocytes 0
[2022-03-06 05:40] LABS: BUN/Creatinine Ratio 6.9; Calcium 7.8 mg/dL (8.5-10.1); Magnesium 2.3 mg/dL (1.6-2.6); Potassium 3.8 mmol/L (3.5-5.1)
[2022-03-06] MEDS: InsuLIN REG 1unit/0.01ml Soln (100units/ml) SC SCH ×3 (06:56→17:41)
[2022-03-06] MEDS: ACCU-CHEK COMFORT CURVE STRIP VI SCH ×3 (07:00→17:38)
[2022-03-06 07:56] LABS: Eosinophils % (manual) 7 (0-7); Lymphocytes % (manual) 22 (10.0-50.0); Monocytes % (manual) 8 (0-12)
[2022-03-06 08:00] VITALS: BP 112/70
[2022-03-06] MEDS: SEVELAMER 800 MG TAB PO SCH ×3 (08:00→17:41)
[2022-03-06] MEDS: SODIUM CHLOR 0.9% PF (SALINE LOCK) 10ML VIAL/SYR IV SCH (10:00)
[2022-03-06] MEDS: ASPirin 81 mg TAB PO SCH (10:55)
[2022-03-06] MEDS: B-COMPLEX W/ C & FOLIC ACID(NEPHROVITE TAB) PO SCH (10:55)
[2022-03-06] MEDS: FUROSEMIDE 40 MG TAB PO SCH (10:55)
[2022-03-06] MEDS: CLOPIDOGREL BISULFATE 75 MG TAB PO SCH (10:56)
[2022-03-06] MEDS: CARVEDILOL 12.5 MG TAB PO SCH (10:56)
[2022-03-06] MEDS: SACUBITRIL-VALSARTAN 24mg/26mg TAB PO SCH (10:56)
[2022-03-06] MEDS ORDERED: SODIUM CHL 0.9% 1000 ML BAG XX ONE (11:30)
[2022-03-06 12:00] VITALS: BP 148/65
[2022-03-06 12:01] VITALS: BP 148/65
[2022-03-06] MEDS ORDERED: ASPI-378 PO (14:48)
[2022-03-06] MEDS ORDERED: LEVO500T31 PO (14:48)
[2022-03-06] MEDS ORDERED: SEVE800T8 PO (14:48)
[2022-03-06] MEDS ORDERED: ATOR10TA PO (14:48)
[2022-03-06] MEDS ORDERED: ALBUAER3 IN (14:48)
[2022-03-06] MEDS ORDERED: SACU1TAB PO (14:48)
[2022-03-06] MEDS ORDERED: FAMO20TA10 PO (14:48)
[2022-03-06] MEDS ORDERED: CLOP75TA28 PO (14:48)
[2022-03-06] MEDS ORDERED: FURO1TAB31 PO (14:53)
[2022-03-06] MEDS ORDERED: CAR125T PO (14:53)
[2022-03-06] MEDS ORDERED: DOCU-94 PO (14:53)
[2022-03-06] MEDS ORDERED: SACC250C PO (14:53)
[2022-03-06] MEDS ORDERED: INSLANTI SC (14:55)
[2022-03-06 16:10] VITALS: BP 125/36
[2022-03-06] MEDS: ERTAPENEM SOD INJ 0.5 GM in SODIUM CHL 0.9% 50 ML IV SCH (17:38)
[2022-03-06] MEDS: ALBUMIN 25% 100 ML IV PRN ×2 (17:43→17:44)
[2022-03-06 17:50] VITALS: BP 112/70
[2022-03-06] MEDS ORDERED: EPOETIN ALFA-EPBX 10,000 UNIT/1ML VIAL SC ONE (21:00)
== END 2022-03-06 19:08 | disposition left against medical advice (07) | DRG 853 ==
LOC: EDBD 20:18 → ER 20:18 → OVERFLOW 02-23 01:04 → TELE-WESTW 02-23 22:53
PROVIDERS: ADMIT Nurse Practitioner Family; ATTEND Internal Medicine
PROC: 0QBN0ZZ Excision of Right Metatarsal, Open Approach (ICD-10-PCS; 2022-02-26)
PROC: 0Y6R0Z0 Detachment at Right 2nd Toe, Complete, Open Approach (ICD-10-PCS; principal; 2022-02-26 09:07)
PROC: 0LBV0ZZ Excision of Right Foot Tendon, Open Approach (ICD-10-PCS; 2022-02-26 09:07)
PROC: 30233N1 Transfusion of Nonautologous Red Blood Cells into Peripheral Vein, Percutaneous Approach (ICD-10-PCS; 2022-02-28)
PROC: 5A1D70Z Performance of Urinary Filtration, Intermittent, Less than 6 Hours Per Day (ICD-10-PCS; 2022-03-02)
PROC: 5A1D70Z Performance of Urinary Filtration, Intermittent, Less than 6 Hours Per Day (ICD-10-PCS; 2022-03-04)
PROC: 5A1D70Z Performance of Urinary Filtration, Intermittent, Less than 6 Hours Per Day (ICD-10-PCS; 2022-03-06)
DX: A41.9 Sepsis, unspecified organism (principal); I21.A1 Myocardial infarction type 2; N18.6 End stage renal disease; I50.23 Acute on chronic systolic (congestive) heart failure; M87.877 Other osteonecrosis, right toe(s); L03.116 Cellulitis of left lower limb; L03.115 Cellulitis of right lower limb; I13.2 Hypertensive heart and chronic kidney disease with heart failure and with stage 5 chronic kidney disease, or end stage renal disease; N17.9 Acute kidney failure, unspecified; M86.8X7 Other osteomyelitis, ankle and foot; E87.1 Hypo-osmolality and hyponatremia; Z20.822 Contact with and (suspected) exposure to COVID-19; D63.1 Anemia in chronic kidney disease; E11.22 Type 2 diabetes mellitus with diabetic chronic kidney disease; E11.622 Type 2 diabetes mellitus with other skin ulcer; E11.65 Type 2 diabetes mellitus with hyperglycemia; I25.10 Atherosclerotic heart disease of native coronary artery without angina pectoris; B87.1 Wound myiasis; L97.519 Non-pressure chronic ulcer of other part of right foot with unspecified severity; E11.51 Type 2 diabetes mellitus with diabetic peripheral angiopathy without gangrene; E11.621 Type 2 diabetes mellitus with foot ulcer; Z53.29 Procedure and treatment not carried out because of patient's decision for other reasons; E11.69 Type 2 diabetes mellitus with other specified complication; E78.5 Hyperlipidemia, unspecified; E87.6 Hypokalemia; E78.00 Pure hypercholesterolemia, unspecified; E88.09 Other disorders of plasma-protein metabolism, not elsewhere classified; Z79.4 Long term (current) use of insulin; Z99.2 Dependence on renal dialysis; Z95.1 Presence of aortocoronary bypass graft; Z82.3 Family history of stroke; Z82.49 Family history of ischemic heart disease and other diseases of the circulatory system; Z88.8 Allergy status to other drugs, medicaments and biological substances; Z83.3 Family history of diabetes mellitus; Z91.15 Patient's noncompliance with renal dialysis
CPT/HCPCS: 36415; 36569; 70450; 71045; 73700; 73718; 78582; 80048; 80053; 80202; 82962; 83036; 83605; 83735; 83880; 84484; 85007; 85014; 85018; 85025; 85027; 85379; 85610; 85730; 86850; 86900; 86901; 86920; 87040; 87070; 87075; 87077; 87186; 87205; 90935; 93005; 93970; 96365; 96375; 97163; G0378; J0690; J0696; J1100; J1335; J1642; J1815; J1956; J2250; J2704; J3490; P9047

== ENCOUNTER 2022-03-12 15:33 | Inpatient (IN) | payer OTHER ==
[~2022-03-12] VITALS: Ht 180.3 cm; Wt 71.6 kg
[~2022-03-12 15:33] MED LIST changes: +ASPI-378 PO; -ASPI1TAB20 PO; +ATOR10TA PO; +CAR125T PO; +CLOP75TA28 PO; -CLOP75TA70 PO; -DAKI0.25 EX; +DOCU-94 PO; -DULA1INJ SC; -ERGO1CAP23 PO; +FAMO20TA10 PO; -FOLI1TAB6 PO; +FURO1TAB31 PO; -FURO80TA3 PO; -GLIP2.5T28 PO; -HYDR10TA26 PO; -IMIQ5CRE4 TOP; +INSLANTI SC; -INSU100I43 SC; -INSU1INJ19 SC; +LEVO500T31 PO; -METO-289 PO; -PANT40TA2 PO; -RANO10003 PO; -ROSU1TAB14 PO; +SACC250C PO; +SACU1TAB PO; +SEVE800T8 PO; -SODI650T PO
[2022-03-12] MEDS ORDERED: VANCOMYCIN 1GM/250ML 250 ML IV ONE (16:45)
[2022-03-12 17:02] LABS: Basophils # (auto) 0 10 ^3/uL (0-0.2); Basophils % (auto) 0.3 % (0.0-2.0); Eosinophils # (auto) 0.7 10 ^3/uL (0-0.8); Eosinophils % (auto) 8.5 % (0.0-7.0); Hematocrit 27.1 % (41.0-53.0); Hemoglobin 8.4 g/dL (13.5-17.5); Lymphocytes # (auto) 1.3 10 ^3/uL (0.4-5.4); Lymphocytes % (auto) 14.9 % (10.0-50.0); Mean Corpuscular Hemoglobin 29.1 pg (28.0-32.0); Mean Corpuscular Hgb Conc. 31.1 g/dL (32.0-36.0); Mean Corpuscular Volume 93.7 fL (80.0-100.0); Monocytes # (auto) 0.6 10 ^3/uL (0-1.3); Monocytes % (auto) 6.6 % (0.0-12.0); Neutrophils # (auto) 6.1 10 ^3/uL (1.6-8.6); Neutrophils % (auto) 69.7 % (37.0-80.0); Red Blood Cells 2.89 10^6/uL (4.5-5.90); White Blood Cell 8.7 10^3/uL (4.4-10.8)
[2022-03-12 17:25] LABS: Alanine Aminotransferase 9 U/L (16-61); Albumin 2.3 g/dL (3.4-5.0); Anion Gap 12 (5-15); Aspartate Aminotransferase 11 U/L (15-37); BUN/Creatinine Ratio 9.4; Blood Urea Nitrogen 71 mg/dL (7-18); Calcium 8.2 mg/dL (8.5-10.1); Carbon Dioxide 22 mmol/L (21-32); Chloride 109 mmol/L (98-107); GFR African American 9 mL/min; GFR Non-African American 8 mL/min; Glucose 141 mg/dL (74-106); Potassium 4.9 mmol/L (3.5-5.1); Sodium 143 mmol/L (136-145)
[2022-03-12 17:28] LABS: Alkaline Phosphatase 57 U/L (45-117); Bilirubin, Total 0.6 mg/dL (0.2-1.0); Total Protein 6.5 g/dL (6.4-8.2)
[2022-03-12] MEDS ORDERED: TEMAZEPAM 15 MG CAP PO PRN (22:00)
[2022-03-12] MEDS ORDERED: cefTRIAXone 1GM/50ML D5W 50 ML IV ONE (22:00)
[2022-03-12] MEDS ORDERED: ACETAMINOPHEN 325 MG TAB PO PRN (22:00)
[2022-03-12] MEDS ORDERED: DEXTROSE (50%) 50ML SYRG IV PRN (22:00)
[2022-03-12] MEDS: ACCU-CHEK COMFORT CURVE STRIP VI SCH (23:49)
[2022-03-13] MEDS: ATORVASTATIN 20 MG TAB PO SCH ×2 (00:01→22:10)
[2022-03-13] MEDS: CARVEDILOL 12.5 MG TAB PO SCH ×3 (00:02→22:00)
[2022-03-13] MEDS: InsuLIN REG 1unit/0.01ml Soln (100units/ml) SC SCH ×5 (00:02→22:12)
[2022-03-13] MEDS: CLINDAMYCIN 600MG IV 50 ML IV SCH ×2 (00:45→06:37)
[2022-03-13 02:00] VITALS: BP 130/62
[2022-03-13 05:00] VITALS: BP 119/58
[2022-03-13 06:02] LABS: Basophils # (auto) 0 10 ^3/uL (0-0.2); Basophils % (auto) 0.5 % (0.0-2.0); Monocytes # (auto) 0.5 10 ^3/uL (0-1.3); Neutrophils % (auto) 71.7 % (37.0-80.0)
[2022-03-13 06:07] LABS: Eosinophils # (auto) 0.8 10 ^3/uL (0-0.8); Hematocrit 25.6 % (41.0-53.0); Hemoglobin 8.3 g/dL (13.5-17.5); Lymphocytes # (auto) 0.8 10 ^3/uL (0.4-5.4); Lymphocytes % (auto) 10.9 % (10.0-50.0); Mean Corpuscular Hemoglobin 29.7 pg (28.0-32.0); Mean Corpuscular Hgb Conc. 32.2 g/dL (32.0-36.0); Mean Corpuscular Volume 92.2 fL (80.0-100.0); Monocytes % (auto) 6.9 % (0.0-12.0); Neutrophils # (auto) 5.5 10 ^3/uL (1.6-8.6); Red Blood Cells 2.78 10^6/uL (4.5-5.90); Red Cell Distribution Width 16.1 % (11.8-14.3); White Blood Cell 7.7 10^3/uL (4.4-10.8)
[2022-03-13] MEDS: ACCU-CHEK COMFORT CURVE STRIP VI SCH ×4 (06:14→22:11)
[2022-03-13 06:24] LABS: Albumin 2.1 g/dL (3.4-5.0); Calcium 7.6 mg/dL (8.5-10.1); Potassium 4.4 mmol/L (3.5-5.1)
[2022-03-13 06:27] LABS: BUN/Creatinine Ratio 9.6; Bilirubin, Total 0.5 mg/dL (0.2-1.0)
[2022-03-13] MEDS: SEVELAMER 800 MG TAB PO SCH ×3 (08:00→17:42)
[2022-03-13 09:03] VITALS: BP 103/49
[2022-03-13] MEDS: FUROSEMIDE 40 MG TAB PO SCH (10:00)
[2022-03-13] MEDS: SACUBITRIL-VALSARTAN 24mg/26mg TAB PO SCH ×3 (10:00→22:10)
[2022-03-13] MEDS: CLOPIDOGREL BISULFATE 75 MG TAB PO SCH ×2 (10:00→11:25)
[2022-03-13] MEDS ORDERED: FOLIC ACID 1 MG, MULTIPLE VITAMIN 10 ML, MAGNESIUM SULF SDV 50% 8 MEQ, THIAMINE INJ 100... INJ SCH ×5 (12:00)
[2022-03-13 13:12] VITALS: BP 108/48
[2022-03-13] MEDS ORDERED: VANCOMYCIN PER PHARMACY 0 MG IV SCH (14:30)
[2022-03-13] MEDS: levoFLOXacin 500MG 100 ML IV SCH (15:00)
[2022-03-13] MEDS ORDERED: VANCOMYCIN 500 MG in D5W 5% 100 ML IV ONE (18:00)
[2022-03-13 18:03] VITALS: BP 107/56
[2022-03-13 21:51] VITALS: BP 105/39
[2022-03-13] MEDS ORDERED: cefTRIAXone 1GM/50ML D5W 50 ML IV SCH (22:00)
[2022-03-14] MEDS: ACCU-CHEK COMFORT CURVE STRIP VI SCH ×4 (05:08→23:20)
[2022-03-14] MEDS: InsuLIN REG 1unit/0.01ml Soln (100units/ml) SC SCH ×4 (05:08→22:50)
[2022-03-14 05:19] VITALS: BP 94/39
[2022-03-14] MEDS ORDERED: SODIUM CHL 0.9% 1000 ML BAG XX ONE (07:00)
[2022-03-14 07:39] LABS: INR 1.09 (0.9-1.15); Partial Thromboplastin Time 31.1 sec (23.6-33.0)
[2022-03-14] MEDS ORDERED: SODIUM CHLORIDE LOCK 30 ML ONE (08:04)
[2022-03-14] MEDS ORDERED: ONDANSETRON HCL 4 MG/2 ML VIAL ONE (08:04)
[2022-03-14] MEDS ORDERED: PROPOFOL 10 MG/ML 20 ML IV ONE (08:04)
[2022-03-14] MEDS ORDERED: KETAMINE HCL 10 ML ONE (08:04)
[2022-03-14] MEDS ORDERED: fentaNYL CITRATE 100 MCG/2 ML VL ONE (08:04)
[2022-03-14] MEDS ORDERED: MIDAZOLAM HCL 2MG/2ML 2ml VIAL (1mg/ml) ONE (08:04)
[2022-03-14] MEDS: SEVELAMER 800 MG TAB PO SCH ×3 (08:44→18:00)
[2022-03-14 09:00] VITALS: BP 124/58
[2022-03-14] MEDS ORDERED: ceFAZolin 1GM/50ML 100 ML IV ONE (09:01)
[2022-03-14 09:14] LABS: BUN/Creatinine Ratio 9.4; Calcium 7.7 mg/dL (8.5-10.1); Potassium 4.7 mmol/L (3.5-5.1)
[2022-03-14] MEDS ORDERED: MORPHINE SULFATE 4 MG/ML SYR/VIAL IV PRN (09:15)
[2022-03-14] MEDS ORDERED: ACCU-CHEK COMFORT CURVE STRIP VI ONE (09:15)
[2022-03-14] MEDS ORDERED: METOCLOPRAMIDE HCL 5MG/ml INJ 2ml VIAL IV PRN (09:15)
[2022-03-14] MEDS ORDERED: HYDROmorphone HCL 2 MG/ML VL/or syr IV PRN (09:15)
[2022-03-14] MEDS ORDERED: ceFAZolin 1GM VL ONE (09:44)
[2022-03-14] MEDS: FUROSEMIDE 40 MG TAB PO SCH (11:39)
[2022-03-14] MEDS: SACUBITRIL-VALSARTAN 24mg/26mg TAB PO SCH ×2 (11:39→23:06)
[2022-03-14] MEDS: CARVEDILOL 12.5 MG TAB PO SCH ×2 (11:40→22:00)
[2022-03-14 13:00] VITALS: BP 115/44
[2022-03-14] MEDS ORDERED: VANCOMYCIN 500 MG in D5W 5% 100 ML IV ONE (20:00)
[2022-03-14] MEDS ORDERED: EPOETIN ALFA-EPBX 10,000 UNIT/1ML VIAL SC ONE (21:00)
[2022-03-14 22:00] VITALS: BP 95/49
[2022-03-14] MEDS: ATORVASTATIN 20 MG TAB PO SCH (23:06)
[2022-03-14] MEDS: HYDROcodone-ACET 5/325MG TAB PO PRN (23:19)
[2022-03-15] VITALS (9 sets, daily range): BP systolic 62–134; BP diastolic 26–68
[2022-03-15] MEDS: InsuLIN REG 1unit/0.01ml Soln (100units/ml) SC SCH ×4 (06:12→21:56)
[2022-03-15] MEDS: ACCU-CHEK COMFORT CURVE STRIP VI SCH ×4 (06:16→21:55)
[2022-03-15 08:28] LABS: Basophils # (auto) 0 10 ^3/uL (0-0.2); Basophils % (auto) 0.9 % (0.0-2.0); Eosinophils # (auto) 0.6 10 ^3/uL (0-0.8); Hemoglobin 7.9 g/dL (13.5-17.5); Lymphocytes # (auto) 0.9 10 ^3/uL (0.4-5.4); Monocytes # (auto) 0.3 10 ^3/uL (0-1.3)
[2022-03-15 08:30] LABS: Eosinophils % (auto) 14.1 % (0.0-7.0); Hematocrit 24.6 % (41.0-53.0); Lymphocytes % (auto) 20.4 % (10.0-50.0); Mean Corpuscular Hemoglobin 29.4 pg (28.0-32.0); Monocytes % (auto) 7.4 % (0.0-12.0); Neutrophils # (auto) 2.5 10 ^3/uL (1.6-8.6); Neutrophils % (auto) 57.2 % (37.0-80.0); Red Blood Cells 2.68 10^6/uL (4.5-5.90); Red Cell Distribution Width 15.8 % (11.8-14.3); White Blood Cell 4.3 10^3/uL (4.4-10.8)
[2022-03-15] MEDS: SEVELAMER 800 MG TAB PO SCH ×3 (08:55→18:19)
[2022-03-15] MEDS: SACUBITRIL-VALSARTAN 24mg/26mg TAB PO SCH ×2 (10:24→21:46)
[2022-03-15] MEDS: CARVEDILOL 12.5 MG TAB PO SCH ×2 (10:24→21:46)
[2022-03-15] MEDS: HYDROcodone-ACET 5/325MG TAB PO PRN (10:25)
[2022-03-15] MEDS: FUROSEMIDE 40 MG TAB PO SCH (10:25)
[2022-03-15] MEDS: ONDANSETRON HCL 4 MG/2 ML VIAL IV PRN (10:26)
[2022-03-15] MEDS ORDERED: SODIUM CHLORIDE 0.9% 500 ML IV ONE (13:00)
[2022-03-15] MEDS: levoFLOXacin 500MG 100 ML IV SCH (15:11)
[2022-03-15] MEDS: MIDODRINE HCL 10 MG TAB PO SCH (16:52)
[2022-03-15] MEDS ORDERED: SODIUM CHLORIDE 0.9% 1,000 ML IV ONE (18:15)
[2022-03-15] MEDS: ATORVASTATIN 20 MG TAB PO SCH (21:55)
[2022-03-15] MEDS: Pro-Stat SF 30ml Vanilla PO SCH (22:11)
[2022-03-16 02:00] VITALS: BP 110/48
[2022-03-16] MEDS: MIDODRINE HCL 10 MG TAB PO SCH ×3 (05:55→17:10)
[2022-03-16] MEDS: InsuLIN REG 1unit/0.01ml Soln (100units/ml) SC SCH ×4 (05:55→22:43)
[2022-03-16 06:22] LABS: Urine Bacteria NONE SEEN /hpf (None Seen); Urine Blood 1+ /uL (Negative); Urine Mucus FEW (None Seen); Urine Specific Gravity 1.013 (1.001-1.035); Urine WBC 2 /hpf (0 - 3)
[2022-03-16 07:15] LABS: Potassium 4.3 mmol/L (3.5-5.1)
[2022-03-16 07:29] LABS: Albumin 1.8 g/dL (3.4-5.0); Calcium 7.5 mg/dL (8.5-10.1); Magnesium 2.3 mg/dL (1.6-2.6); Phosphorus 5.2 mg/dL (2.5-4.90)
[2022-03-16] MEDS: ACCU-CHEK COMFORT CURVE STRIP VI SCH ×4 (07:29→22:42)
[2022-03-16 08:00] VITALS: BP 114/57
[2022-03-16 09:00] VITALS: BP 114/57
[2022-03-16] MEDS: CARVEDILOL 12.5 MG TAB PO SCH ×2 (09:54→21:31)
[2022-03-16] MEDS: Pro-Stat SF 30ml Vanilla PO SCH ×2 (09:55→21:25)
[2022-03-16] MEDS: SACUBITRIL-VALSARTAN 24mg/26mg TAB PO SCH ×2 (09:56→21:31)
[2022-03-16] MEDS: B-COMPLEX W/ C & FOLIC ACID(NEPHROVITE TAB) PO SCH (09:56)
[2022-03-16] MEDS: FUROSEMIDE 40 MG TAB PO SCH (09:57)
[2022-03-16] MEDS: SEVELAMER 800 MG TAB PO SCH ×3 (09:57→17:10)
[2022-03-16 13:00] VITALS: BP 116/46
[2022-03-16] MEDS ORDERED: DAKINS HALF STR 0.25% (NaHypochlorite) 473 ML TOPICAL SOL TOP ONE (16:00)
[2022-03-16 17:00] VITALS: BP 120/50
[2022-03-16] MEDS: metroNIDAZOLE 500MG/100ML 100 ML IV SCH ×2 (17:10→21:31)
[2022-03-16 21:48] VITALS: BP 115/63
[2022-03-16] MEDS: ATORVASTATIN 20 MG TAB PO SCH (22:42)
[2022-03-17] MEDS: HYDROcodone-ACET 5/325MG TAB PO PRN (02:07)
[2022-03-17] MEDS: NITROGLYCERIN 0.4 MG SL TAB SL PRN ×4 (02:25→08:28)
[2022-03-17] MEDS: ONDANSETRON HCL 4 MG/2 ML VIAL IV PRN (03:06)
[2022-03-17 04:59] VITALS: BP 154/61
[2022-03-17] MEDS: MIDODRINE HCL 10 MG TAB PO SCH ×3 (06:00→16:53)
[2022-03-17] MEDS: metroNIDAZOLE 500MG/100ML 100 ML IV SCH ×3 (06:31→17:00)
[2022-03-17] MEDS: ACCU-CHEK COMFORT CURVE STRIP VI SCH ×4 (06:35→23:06)
[2022-03-17] MEDS: InsuLIN REG 1unit/0.01ml Soln (100units/ml) SC SCH ×4 (06:35→22:58)
[2022-03-17 08:00] VITALS: BP 129/57
[2022-03-17 09:00] VITALS: BP 129/57
[2022-03-17] MEDS: SEVELAMER 800 MG TAB PO SCH ×3 (09:34→16:17)
[2022-03-17] MEDS: CARVEDILOL 12.5 MG TAB PO SCH ×2 (09:35→22:40)
[2022-03-17] MEDS: FUROSEMIDE 40 MG TAB PO SCH (09:35)
[2022-03-17] MEDS: SACUBITRIL-VALSARTAN 24mg/26mg TAB PO SCH ×2 (09:35→22:40)
[2022-03-17] MEDS: B-COMPLEX W/ C & FOLIC ACID(NEPHROVITE TAB) PO SCH (09:36)
[2022-03-17] MEDS: Pro-Stat SF 30ml Vanilla PO SCH ×2 (09:36→22:00)
[2022-03-17 13:00] VITALS: BP 95/40
[2022-03-17] MEDS: levoFLOXacin 500MG 100 ML IV SCH (15:00)
[2022-03-17 17:00] VITALS: BP 109/67
[2022-03-17 22:00] VITALS: BP 116/58
[2022-03-17] MEDS: LINEZOLID 600MG/300ML 300 ML IV SCH (22:39)
[2022-03-17] MEDS: ATORVASTATIN 20 MG TAB PO SCH (22:41)
[2022-03-18 05:00] VITALS: BP 104/65
[2022-03-18] MEDS: metroNIDAZOLE 500MG/100ML 100 ML IV SCH ×2 (05:22→14:05)
[2022-03-18] MEDS: InsuLIN REG 1unit/0.01ml Soln (100units/ml) SC SCH ×3 (06:11→18:02)
[2022-03-18] MEDS: ACCU-CHEK COMFORT CURVE STRIP VI SCH ×3 (06:13→18:01)
[2022-03-18] MEDS: MIDODRINE HCL 10 MG TAB PO SCH ×3 (06:14→18:01)
[2022-03-18 06:34] LABS: Hematocrit 23.7 % (41.0-53.0); Hemoglobin 7.7 g/dL (13.5-17.5); Mean Corpuscular Hemoglobin 29.2 pg (28.0-32.0); Mean Corpuscular Hgb Conc. 32.4 g/dL (32.0-36.0); Mean Corpuscular Volume 90.2 fL (80.0-100.0); Red Blood Cells 2.63 10^6/uL (4.5-5.90); Red Cell Distribution Width 16.1 % (11.8-14.3); White Blood Cell 4.9 10^3/uL (4.4-10.8)
[2022-03-18 06:46] LABS: BUN/Creatinine Ratio 8.9; Potassium 4.6 mmol/L (3.5-5.1)
[2022-03-18 07:10] LABS: Band Neutrophils % (manual) 0; Basophils % (manual) 0 (0.0-2.0); Blast Cells 0; Myelocytes % 0; Promyelocytes % 0; Reactive Lymphocytes 0
[2022-03-18] MEDS: SEVELAMER 800 MG TAB PO SCH ×3 (08:44→18:01)
[2022-03-18 08:57] LABS: Eosinophils % (manual) 9 (0-7); Lymphocytes % (manual) 30 (10.0-50.0); Metamyelocytes % 1; Monocytes % (manual) 6 (0-12)
[2022-03-18 09:00] VITALS: BP 125/81
[2022-03-18] MEDS: SACUBITRIL-VALSARTAN 24mg/26mg TAB PO SCH (09:18)
[2022-03-18] MEDS: B-COMPLEX W/ C & FOLIC ACID(NEPHROVITE TAB) PO SCH (09:19)
[2022-03-18] MEDS: CARVEDILOL 12.5 MG TAB PO SCH (09:19)
[2022-03-18] MEDS: FUROSEMIDE 40 MG TAB PO SCH (09:19)
[2022-03-18] MEDS: Pro-Stat SF 30ml Vanilla PO SCH (09:20)
[2022-03-18] MEDS: LINEZOLID 600MG/300ML 300 ML IV SCH (09:20)
[2022-03-18 13:00] VITALS: BP 120/60
[2022-03-18 16:07] VITALS: BP 12/60
[2022-03-18 16:28] VITALS: BP 106/65
[2022-03-19] MEDS ORDERED: SODIUM CHL 0.9% 1000 ML BAG XX ONE (07:00)
[2022-03-19] MEDS ORDERED: EPOETIN ALFA-EPBX 10,000 UNIT/1ML VIAL SC ONE (21:00)
== END 2022-03-18 16:10 | disposition home or self-care (01) | DRG 474 ==
LOC: EDBD 15:33 → ER 15:33 → OVERFLOW 21:59 → WEST WING 23:28 → TELE-WESTW 03-15 16:23
PROVIDERS: ADMIT Nurse Practitioner; ATTEND Internal Medicine
PROC: 0Y6M0ZB Detachment at Right Foot, Partial 2nd Ray, Open Approach (ICD-10-PCS; 2022-03-14)
PROC: 0Y6M0ZC Detachment at Right Foot, Partial 3rd Ray, Open Approach (ICD-10-PCS; 2022-03-14)
PROC: 0Y6M0ZD Detachment at Right Foot, Partial 4th Ray, Open Approach (ICD-10-PCS; 2022-03-14)
PROC: 0Y6M0ZF Detachment at Right Foot, Partial 5th Ray, Open Approach (ICD-10-PCS; 2022-03-14)
PROC: 0Y6M0Z9 Detachment at Right Foot, Partial 1st Ray, Open Approach (ICD-10-PCS; principal; 2022-03-14 09:31)
DX: T87.53 Necrosis of amputation stump, right lower extremity (principal); N18.6 End stage renal disease; I12.0 Hypertensive chronic kidney disease with stage 5 chronic kidney disease or end stage renal disease; L03.115 Cellulitis of right lower limb; R78.81 Bacteremia; M86.8X7 Other osteomyelitis, ankle and foot; E11.69 Type 2 diabetes mellitus with other specified complication; I25.10 Atherosclerotic heart disease of native coronary artery without angina pectoris; Z20.822 Contact with and (suspected) exposure to COVID-19; B87.9 Myiasis, unspecified; S91.301A Unspecified open wound, right foot, initial encounter; Y83.5 Amputation of limb(s) as the cause of abnormal reaction of the patient, or of later complication, without mention of misadventure at the time of the procedure; D63.1 Anemia in chronic kidney disease; L97.513 Non-pressure chronic ulcer of other part of right foot with necrosis of muscle; Z89.421 Acquired absence of other right toe(s); E11.22 Type 2 diabetes mellitus with diabetic chronic kidney disease; E11.51 Type 2 diabetes mellitus with diabetic peripheral angiopathy without gangrene; E11.621 Type 2 diabetes mellitus with foot ulcer; E78.5 Hyperlipidemia, unspecified; I25.2 Old myocardial infarction; Z99.2 Dependence on renal dialysis; Z88.8 Allergy status to other drugs, medicaments and biological substances; Z82.49 Family history of ischemic heart disease and other diseases of the circulatory system; Z82.3 Family history of stroke; Z83.3 Family history of diabetes mellitus; Z91.19 Patient's noncompliance with other medical treatment and regimen; Z95.1 Presence of aortocoronary bypass graft
CPT/HCPCS: 36415; 71045; 71250; 73630; 80048; 80053; 80069; 80202; 81001; 82550; 82962; 83605; 83735; 84484; 85007; 85025; 85027; 85610; 85730; 86850; 86900; 86901; 87040; 87070; 87075; 87077; 87081; 87186; 87205; 90935; 93005; 96365; 96367; 97110; 97116; 97163; 97530; G0378; J0690; J0696; J1815; J1956; J2250; J2405; J2704; J3490; J7060

== ENCOUNTER 2022-03-20 17:34 | Inpatient (IN) | payer OTHER ==
[~2022-03-20] VITALS: Ht 175.3 cm; Wt 66.4 kg
[2022-03-20] MEDS ORDERED: PIPERACILLIN-TAZOB 3.375GM 100 ML IV ONE (18:00)
[2022-03-20] MEDS ORDERED: SODIUM CHLORIDE 0.9% 1,000 ML IV ONE (18:00)
[2022-03-20] MEDS ORDERED: CLINDAMYCIN 600MG IV 50 ML IV ONE (18:00)
[2022-03-20 18:33] LABS: Basophils # (auto) 0 10 ^3/uL (0-0.2); Eosinophils # (auto) 0.2 10 ^3/uL (0-0.8); Eosinophils % (auto) 3.2 % (0.0-7.0); Hematocrit 21.5 % (41.0-53.0); Hemoglobin 7.1 g/dL (13.5-17.5); Lymphocytes # (auto) 1.2 10 ^3/uL (0.4-5.4); Lymphocytes % (auto) 24.6 % (10.0-50.0); Mean Corpuscular Hemoglobin 29.8 pg (28.0-32.0); Mean Corpuscular Hgb Conc. 32.9 g/dL (32.0-36.0); Mean Corpuscular Volume 90.6 fL (80.0-100.0); Monocytes # (auto) 0.5 10 ^3/uL (0-1.3); Monocytes % (auto) 9.8 % (0.0-12.0); Neutrophils # (auto) 2.9 10 ^3/uL (1.6-8.6); Neutrophils % (auto) 61.4 % (37.0-80.0); Nucleated Red Blood Cells % 0.1 %; Red Blood Cells 2.37 10^6/uL (4.5-5.90); Red Cell Distribution Width 17.6 % (11.8-14.3); White Blood Cell 4.8 10^3/uL (4.4-10.8)
[2022-03-20 18:47] LABS: INR 1.18 (0.9-1.15); Partial Thromboplastin Time 32.2 sec (23.6-33.0)
[2022-03-20 18:53] LABS: Alanine Aminotransferase < 6 U/L (16-61); Albumin 2.1 g/dL (3.4-5.0); Anion Gap 10 (5-15); Aspartate Aminotransferase 12 U/L (15-37); BUN/Creatinine Ratio 7.1; Blood Urea Nitrogen 48 mg/dL (7-18); Calcium 7.5 mg/dL (8.5-10.1); Carbon Dioxide 23 mmol/L (21-32); Chloride 107 mmol/L (98-107); GFR African American 10 mL/min; GFR Non-African American 9 mL/min; Glucose 80 mg/dL (74-106); Potassium 4.5 mmol/L (3.5-5.1); Sodium 140 mmol/L (136-145)
[2022-03-20 19:00] LABS: Alkaline Phosphatase 53 U/L (45-117); Bilirubin, Total 0.4 mg/dL (0.2-1.0); Total Protein 5.7 g/dL (6.4-8.2)
[2022-03-20] MEDS ORDERED: MORPHINE SULFATE INJ 2 MG/ml SYRG IV PRN ×2 (21:00→23:00)
[2022-03-20] MEDS ORDERED: DEXTROSE (50%) 50ML SYRG IV PRN (21:00)
[2022-03-20] MEDS ORDERED: DOCUSATE SOD 100 MG CAP PO PRN (21:00)
[2022-03-20] MEDS ORDERED: ALBUMIN 25% 100 ML IV ONE (21:00)
[2022-03-20] MEDS ORDERED: ONDANSETRON HCL 4 MG/2 ML VIAL IV PRN (21:00)
[2022-03-20] MEDS: SODIUM CHLOR 0.9% PF (SALINE LOCK) 10ML VIAL/SYR IV SCH (22:00)
[2022-03-20] MEDS: InsuLIN REG 1unit/0.01ml Soln (100units/ml) SC SCH (22:00)
[2022-03-20] MEDS: ACCU-CHEK COMFORT CURVE STRIP VI SCH (22:00)
[2022-03-20] MEDS ORDERED: NITROGLYCERIN 0.4 MG SL TAB SL PRN (23:00)
[2022-03-21] MEDS: HEPARIN SODIUM (PORCINE) 5000 UNITS/ML 1ML VIAL SC SCH ×3 (00:34→22:23)
[2022-03-21] MEDS: CLINDAMYCIN 300MG IV 50 ML IV SCH ×2 (03:48→12:25)
[2022-03-21] MEDS: SODIUM CHLOR 0.9% PF (SALINE LOCK) 10ML VIAL/SYR IV SCH ×3 (06:00→22:17)
[2022-03-21 06:12] LABS: Eosinophils # (auto) 0.3 10 ^3/uL (0-0.8); Mean Corpuscular Volume 92.2 fL (80.0-100.0); Monocytes # (auto) 0.4 10 ^3/uL (0-1.3); Neutrophils # (auto) 2.1 10 ^3/uL (1.6-8.6)
[2022-03-21 06:19] LABS: Albumin 2.5 g/dL (3.4-5.0); Anion Gap 8 (5-15); Blood Urea Nitrogen 52 mg/dL (7-18); Calcium 7.5 mg/dL (8.5-10.1); Carbon Dioxide 25 mmol/L (21-32); Chloride 110 mmol/L (98-107); Glucose 137 mg/dL (74-106); Sodium 143 mmol/L (136-145)
[2022-03-21 06:22] LABS: Alanine Aminotransferase < 6 U/L (16-61); Alkaline Phosphatase 57 U/L (45-117); Aspartate Aminotransferase 12 U/L (15-37); BUN/Creatinine Ratio 7.3; Bilirubin, Total 0.3 mg/dL (0.2-1.0); GFR African American 10 mL/min; GFR Non-African American 8 mL/min; Total Protein 5.9 g/dL (6.4-8.2)
[2022-03-21 06:25] LABS: Basophils # (auto) 0 10 ^3/uL (0-0.2); Basophils % (auto) 1.2 % (0.0-2.0); Eosinophils % (auto) 7.2 % (0.0-7.0); Hematocrit 20.7 % (41.0-53.0); Lymphocytes # (auto) 1.2 10 ^3/uL (0.4-5.4); Lymphocytes % (auto) 29.2 % (10.0-50.0); Mean Corpuscular Hemoglobin 31.1 pg (28.0-32.0); Mean Corpuscular Hgb Conc. 33.8 g/dL (32.0-36.0); Monocytes % (auto) 9.9 % (0.0-12.0); Neutrophils % (auto) 52.5 % (37.0-80.0); Red Blood Cells 2.25 10^6/uL (4.5-5.90); Red Cell Distribution Width 17.9 % (11.8-14.3)
[2022-03-21] MEDS: InsuLIN REG 1unit/0.01ml Soln (100units/ml) SC SCH ×5 (06:51→22:18)
[2022-03-21] MEDS: ACCU-CHEK COMFORT CURVE STRIP VI SCH ×4 (06:55→22:17)
[2022-03-21 07:18] LABS: Urine Bacteria NONE SEEN /hpf (None Seen); Urine Blood Negative /uL (Negative); Urine Hyaline Cast FEW /lpf (0 - 2); Urine Specific Gravity 1.009 (1.001-1.035); Urine WBC <1 /hpf (0 - 3)
[2022-03-21] MEDS ORDERED: PIPERACILLIN-TAZOB 2.25GM 50 ML IV SCH (08:00)
[2022-03-21 09:43] LABS: % Iron Saturation 34.6 % (20-55)
[2022-03-21 12:06] VITALS: BP 149/69
[2022-03-21] MEDS: SEVELAMER 800 MG TAB PO SCH ×3 (12:24→18:00)
[2022-03-21] MEDS: B-COMPLEX W/ C & FOLIC ACID(NEPHROVITE TAB) PO SCH (12:25)
[2022-03-21 13:00] VITALS: BP 149/69
[2022-03-21] MEDS ORDERED: ASPirin 81 mg TAB PO ONE (15:00)
[2022-03-21] MEDS ORDERED: CLOPIDOGREL BISULFATE 75 MG TAB PO ONE (15:00)
[2022-03-21 16:38] VITALS: BP 134/67
[2022-03-21 20:00] VITALS: BP 121/70
[2022-03-21 22:00] VITALS: BP 136/66
[2022-03-21] MEDS: LINEZOLID 600MG TABLET PO SCH (22:17)
[2022-03-22 05:00] VITALS: BP 123/60
[2022-03-22] MEDS: SODIUM CHLOR 0.9% PF (SALINE LOCK) 10ML VIAL/SYR IV SCH ×3 (05:59→21:42)
[2022-03-22] MEDS: ACCU-CHEK COMFORT CURVE STRIP VI SCH ×4 (06:32→21:43)
[2022-03-22] MEDS: InsuLIN REG 1unit/0.01ml Soln (100units/ml) SC SCH ×4 (06:32→21:43)
[2022-03-22] MEDS ORDERED: SODIUM CHL 0.9% 1000 ML BAG XX ONE (07:00)
[2022-03-22 08:00] VITALS: BP 121/70
[2022-03-22 08:40] VITALS: BP 150/70
[2022-03-22 08:41] LABS: Basophils # (auto) 0.1 10 ^3/uL (0-0.2); Eosinophils # (auto) 0.4 10 ^3/uL (0-0.8); Hemoglobin 7.5 g/dL (13.5-17.5); Lymphocytes # (auto) 1.5 10 ^3/uL (0.4-5.4); Monocytes # (auto) 0.5 10 ^3/uL (0-1.3); Neutrophils # (auto) 3.3 10 ^3/uL (1.6-8.6)
[2022-03-22 08:44] LABS: Basophils % (auto) 1.3 % (0.0-2.0); Eosinophils % (auto) 7.5 % (0.0-7.0); Hematocrit 22.9 % (41.0-53.0); Lymphocytes % (auto) 25.3 % (10.0-50.0); Mean Corpuscular Hemoglobin 30.1 pg (28.0-32.0); Mean Corpuscular Hgb Conc. 32.8 g/dL (32.0-36.0); Mean Corpuscular Volume 91.7 fL (80.0-100.0); Monocytes % (auto) 8.9 % (0.0-12.0); Red Cell Distribution Width 18.5 % (11.8-14.3); White Blood Cell 5.8 10^3/uL (4.4-10.8)
[2022-03-22 08:58] LABS: BUN/Creatinine Ratio 7.2; Calcium 7.8 mg/dL (8.5-10.1)
[2022-03-22 09:27] LABS: Potassium 5.7 mmol/L (3.5-5.1)
[2022-03-22] MEDS ORDERED: SODIUM ZIRCONIUM CYCL 10 GM PAK PO SCH (09:30)
[2022-03-22] MEDS ORDERED: CALCIUM GLUC 1,000mg/50ml-NS 50 ML IV ONE (09:30)
[2022-03-22] MEDS ORDERED: ALBUTEROL SULF 2.5 MG/0.5ML(0.5%) NEB SOLN NEB ONE (09:30)
[2022-03-22] MEDS ORDERED: InsuLIN REG 1unit/0.01ml Soln (100units/ml) IV ONE ×2 (09:30→13:45)
[2022-03-22] MEDS ORDERED: DEXTROSE (50%) 50ML SYRG IV ONE ×3 (09:30→11:30)
[2022-03-22] MEDS ORDERED: SODIUM BICARBONATE 8.4 % INJ 50ML VIAL IV ONE ×4 (09:30→11:30)
[2022-03-22] MEDS: SEVELAMER 800 MG TAB PO SCH ×3 (10:47→17:45)
[2022-03-22] MEDS: ASPirin 81 mg TAB PO SCH (10:50)
[2022-03-22] MEDS: B-COMPLEX W/ C & FOLIC ACID(NEPHROVITE TAB) PO SCH (10:50)
[2022-03-22] MEDS: CLOPIDOGREL BISULFATE 75 MG TAB PO SCH (10:51)
[2022-03-22] MEDS: HEPARIN SODIUM (PORCINE) 5000 UNITS/ML 1ML VIAL SC SCH ×2 (10:52→21:43)
[2022-03-22] MEDS: LINEZOLID 600MG TABLET PO SCH ×2 (10:53→21:42)
[2022-03-22 12:56] VITALS: BP 130/61
[2022-03-22] MEDS: SODIUM ZIRCONIUM CYCL 10 GM PAK PO SCH ×2 (13:45→21:42)
[2022-03-22 14:53] LABS: Hematocrit 27.3 % (41.0-53.0); Hemoglobin 8.8 g/dL (13.5-17.5)
[2022-03-22 17:00] VITALS: BP 140/61
[2022-03-22] MEDS ORDERED: EPOETIN ALFA-EPBX 10,000 UNIT/1ML VIAL SC ONE (21:00)
[2022-03-22 22:00] VITALS: BP 131/49
[2022-03-23 05:00] VITALS: BP 106/41
[2022-03-23 06:13] LABS: White Blood Cell 5.1 10^3/uL (4.4-10.8)
[2022-03-23 06:16] LABS: Hematocrit 21.3 % (41.0-53.0); Mean Corpuscular Hemoglobin 29.9 pg (28.0-32.0); Mean Corpuscular Hgb Conc. 32.1 g/dL (32.0-36.0); Mean Corpuscular Volume 93.2 fL (80.0-100.0); Red Blood Cells 2.29 10^6/uL (4.5-5.90)
[2022-03-23] MEDS: SODIUM ZIRCONIUM CYCL 10 GM PAK PO SCH ×3 (06:17→21:50)
[2022-03-23] MEDS: ACCU-CHEK COMFORT CURVE STRIP VI SCH ×4 (06:17→21:52)
[2022-03-23] MEDS: SODIUM CHLOR 0.9% PF (SALINE LOCK) 10ML VIAL/SYR IV SCH ×3 (06:17→21:32)
[2022-03-23] MEDS: InsuLIN REG 1unit/0.01ml Soln (100units/ml) SC SCH ×4 (06:18→21:59)
[2022-03-23 06:21] LABS: Hemoglobin 6.8 g/dL (13.5-17.5)
[2022-03-23 06:23] LABS: Band Neutrophils % (manual) 0; Basophils % (manual) 0 (0.0-2.0); Blast Cells 0; Metamyelocytes % 0; Promyelocytes % 0; Reactive Lymphocytes 0
[2022-03-23 06:39] LABS: Potassium 4.5 mmol/L (3.5-5.1)
[2022-03-23 06:57] LABS: BUN/Creatinine Ratio 7.1; Calcium 7.3 mg/dL (8.5-10.1)
[2022-03-23] MEDS ORDERED: SODIUM CHL 0.9% 1000 ML BAG XX ONE (07:00)
[2022-03-23 07:16] LABS: Eosinophils % (manual) 5 (0-7); Lymphocytes % (manual) 31 (10.0-50.0); Monocytes % (manual) 5 (0-12); Myelocytes % 3
[2022-03-23 09:00] VITALS: BP 128/59
[2022-03-23] MEDS: SEVELAMER 800 MG TAB PO SCH ×3 (09:21→17:40)
[2022-03-23] MEDS: B-COMPLEX W/ C & FOLIC ACID(NEPHROVITE TAB) PO SCH (09:26)
[2022-03-23] MEDS: ASPirin 81 mg TAB PO SCH (09:26)
[2022-03-23] MEDS: CLOPIDOGREL BISULFATE 75 MG TAB PO SCH (09:26)
[2022-03-23] MEDS: LINEZOLID 600MG TABLET PO SCH ×2 (10:00→21:52)
[2022-03-23] MEDS: HEPARIN SODIUM (PORCINE) 5000 UNITS/ML 1ML VIAL SC SCH ×2 (10:00→22:01)
[2022-03-23 13:00] VITALS: BP 115/76
[2022-03-23 17:00] VITALS: BP 130/53
[2022-03-23] MEDS ORDERED: EPOETIN ALFA-EPBX 10,000 UNIT/1ML VIAL SC ONE (21:00)
[2022-03-23 21:58] VITALS: BP 146/34
[2022-03-24 05:00] VITALS: BP 161/58
[2022-03-24 05:44] LABS: Mean Corpuscular Hemoglobin 29.4 pg (28.0-32.0); Mean Corpuscular Hgb Conc. 33.3 g/dL (32.0-36.0); Mean Corpuscular Volume 88.5 fL (80.0-100.0); Red Blood Cells 3.39 10^6/uL (4.5-5.90); Red Cell Distribution Width 19.2 % (11.8-14.3); White Blood Cell 5.8 10^3/uL (4.4-10.8)
[2022-03-24 05:48] LABS: Band Neutrophils % (manual) 0; Basophils % (manual) 0 (0.0-2.0); Blast Cells 0; Metamyelocytes % 0; Promyelocytes % 0; Reactive Lymphocytes 0
[2022-03-24 06:05] LABS: Calcium 7.7 mg/dL (8.5-10.1); Potassium 3.7 mmol/L (3.5-5.1)
[2022-03-24 06:08] LABS: BUN/Creatinine Ratio 7.2
[2022-03-24] MEDS: SODIUM CHLOR 0.9% PF (SALINE LOCK) 10ML VIAL/SYR IV SCH ×3 (06:35→21:36)
[2022-03-24] MEDS: SODIUM ZIRCONIUM CYCL 10 GM PAK PO SCH (06:36)
[2022-03-24] MEDS: ACCU-CHEK COMFORT CURVE STRIP VI SCH ×4 (06:38→21:34)
[2022-03-24] MEDS: InsuLIN REG 1unit/0.01ml Soln (100units/ml) SC SCH ×4 (06:39→21:35)
[2022-03-24] MEDS: SEVELAMER 800 MG TAB PO SCH ×3 (08:47→18:08)
[2022-03-24 09:00] VITALS: BP 126/66
[2022-03-24 09:30] LABS: Eosinophils % (manual) 5 (0-7); Lymphocytes % (manual) 29 (10.0-50.0); Monocytes % (manual) 3 (0-12); Myelocytes % 1
[2022-03-24] MEDS: ASPirin 81 mg TAB PO SCH (11:04)
[2022-03-24] MEDS: B-COMPLEX W/ C & FOLIC ACID(NEPHROVITE TAB) PO SCH (11:04)
[2022-03-24] MEDS: LINEZOLID 600MG TABLET PO SCH ×2 (11:04→21:35)
[2022-03-24] MEDS: CLOPIDOGREL BISULFATE 75 MG TAB PO SCH (11:05)
[2022-03-24] MEDS: HEPARIN SODIUM (PORCINE) 5000 UNITS/ML 1ML VIAL SC SCH ×2 (11:07→21:34)
[2022-03-24 13:00] VITALS: BP 128/70
[2022-03-24 17:00] VITALS: BP 125/57
[2022-03-24 22:00] VITALS: BP 125/69
[2022-03-25 05:00] VITALS: BP 141/64
[2022-03-25] MEDS: SODIUM CHLOR 0.9% PF (SALINE LOCK) 10ML VIAL/SYR IV SCH ×3 (06:19→22:29)
[2022-03-25] MEDS: ACCU-CHEK COMFORT CURVE STRIP VI SCH ×4 (06:44→22:24)
[2022-03-25] MEDS: InsuLIN REG 1unit/0.01ml Soln (100units/ml) SC SCH ×4 (06:45→22:25)
[2022-03-25] MEDS ORDERED: SODIUM CHL 0.9% 1000 ML BAG XX ONE (07:00)
[2022-03-25] MEDS: SEVELAMER 800 MG TAB PO SCH ×3 (08:09→17:44)
[2022-03-25] MEDS: ASPirin 81 mg TAB PO SCH (08:09)
[2022-03-25] MEDS: B-COMPLEX W/ C & FOLIC ACID(NEPHROVITE TAB) PO SCH (08:09)
[2022-03-25] MEDS: LINEZOLID 600MG TABLET PO SCH ×2 (08:09→22:23)
[2022-03-25] MEDS: CLOPIDOGREL BISULFATE 75 MG TAB PO SCH (08:09)
[2022-03-25] MEDS: HEPARIN SODIUM (PORCINE) 5000 UNITS/ML 1ML VIAL SC SCH ×2 (08:10→22:28)
[2022-03-25 09:00] VITALS: BP 150/68
[2022-03-25 13:55] VITALS: BP 130/58
[2022-03-25 16:33] VITALS: BP 139/81
[2022-03-25] MEDS ORDERED: EPOETIN ALFA-EPBX 10,000 UNIT/1ML VIAL SC ONE (21:00)
[2022-03-25 22:38] VITALS: BP 114/56
[2022-03-26 05:14] VITALS: BP 129/56
[2022-03-26] MEDS: SODIUM CHLOR 0.9% PF (SALINE LOCK) 10ML VIAL/SYR IV SCH ×2 (05:53→13:56)
[2022-03-26] MEDS: ACCU-CHEK COMFORT CURVE STRIP VI SCH ×3 (06:31→17:22)
[2022-03-26] MEDS: InsuLIN REG 1unit/0.01ml Soln (100units/ml) SC SCH ×3 (06:32→17:29)
[2022-03-26] MEDS: B-COMPLEX W/ C & FOLIC ACID(NEPHROVITE TAB) PO SCH (08:21)
[2022-03-26] MEDS: CLOPIDOGREL BISULFATE 75 MG TAB PO SCH (08:21)
[2022-03-26] MEDS: ASPirin 81 mg TAB PO SCH (08:21)
[2022-03-26] MEDS: SEVELAMER 800 MG TAB PO SCH ×3 (08:21→17:40)
[2022-03-26] MEDS: LINEZOLID 600MG TABLET PO SCH (08:21)
[2022-03-26] MEDS: HEPARIN SODIUM (PORCINE) 5000 UNITS/ML 1ML VIAL SC SCH (08:25)
[2022-03-26 09:00] VITALS: BP 121/58
[2022-03-26 13:00] VITALS: BP 127/61
[2022-03-26 16:51] VITALS: BP 127/61
[2022-03-26 17:00] VITALS: BP 151/73
[2022-03-27] MEDS ORDERED: Juven Orange Powder PACKET 27.5gm PO SCH (10:00)
== END 2022-03-26 23:02 | disposition home health service (06) | DRG 871 ==
LOC: ER 17:34 → EDBD 17:34 → OVERFLOW 22:50 → EAST 03-21 11:00
PROVIDERS: ADMIT Nurse Practitioner Family; ATTEND Internal Medicine
PROC: 30233N1 Transfusion of Nonautologous Red Blood Cells into Peripheral Vein, Percutaneous Approach (ICD-10-PCS; 2022-03-23)
PROC: 5A1D70Z Performance of Urinary Filtration, Intermittent, Less than 6 Hours Per Day (ICD-10-PCS; 2022-03-23)
PROC: 5A1D70Z Performance of Urinary Filtration, Intermittent, Less than 6 Hours Per Day (ICD-10-PCS; principal; 2022-03-25)
DX: A41.9 Sepsis, unspecified organism (principal); N18.6 End stage renal disease; U07.1 COVID-19; I12.0 Hypertensive chronic kidney disease with stage 5 chronic kidney disease or end stage renal disease; D63.1 Anemia in chronic kidney disease; E87.5 Hyperkalemia; E11.51 Type 2 diabetes mellitus with diabetic peripheral angiopathy without gangrene; E11.22 Type 2 diabetes mellitus with diabetic chronic kidney disease; I95.9 Hypotension, unspecified; I73.9 Peripheral vascular disease, unspecified; E88.09 Other disorders of plasma-protein metabolism, not elsewhere classified; E78.5 Hyperlipidemia, unspecified; S91.104A Unspecified open wound of right lesser toe(s) without damage to nail, initial encounter; X58.XXXA Exposure to other specified factors, initial encounter; Z89.421 Acquired absence of other right toe(s); Z82.3 Family history of stroke; Z83.42 Family history of familial hypercholesterolemia; Z95.5 Presence of coronary angioplasty implant and graft; Z79.4 Long term (current) use of insulin; Z90.89 Acquired absence of other organs; Z95.1 Presence of aortocoronary bypass graft; Z83.3 Family history of diabetes mellitus; Z82.49 Family history of ischemic heart disease and other diseases of the circulatory system; Z88.8 Allergy status to other drugs, medicaments and biological substances; Z91.19 Patient's noncompliance with other medical treatment and regimen; Z99.2 Dependence on renal dialysis; Y93.89 Activity, other specified; Y92.89 Other specified places as the place of occurrence of the external cause; Y99.8 Other external cause status
CPT/HCPCS: 36415; 71045; 80048; 80053; 81001; 82728; 82962; 83540; 83550; 83605; 83880; 84484; 85007; 85014; 85018; 85025; 85027; 85610; 85730; 86850; 86900; 86901; 86920; 87040; 87081; 90935; 93005; 94640; 96365; 96366; 96367; 96368; 97163; 99291; G0378; J1815; J2543; J3490; P9047

== ENCOUNTER 2022-05-03 17:26 | Emergency (ER) | payer OTHER ==
[~2022-05-03] VITALS: Ht 180.3 cm; Wt 65.0 kg
[~2022-05-03 17:26] MED LIST changes: -CAR125T PO; -DOCU-94 PO; -FAMO20TA10 PO; -LEVO500T31 PO; -SACC250C PO; -SEVE800T8 PO
[2022-05-04] MEDS ORDERED: SODIUM CHLORIDE 0.9% 1,000 ML IV ONE (07:45)
[2022-05-04] MEDS ORDERED: cefTRIAXone 1GM/50ML D5W 50 ML IV ONE (07:45)
[2022-05-04 08:54] LABS: Basophils # (auto) 0.1 10 ^3/uL (0-0.2); Eosinophils # (auto) 0.2 10 ^3/uL (0-0.8); Eosinophils % (auto) 3.9 % (0.0-7.0); Hematocrit 27.6 % (41.0-53.0); Hemoglobin 8.9 g/dL (13.5-17.5); Lymphocytes % (auto) 15.9 % (10.0-50.0); Mean Corpuscular Hemoglobin 30.1 pg (28.0-32.0); Mean Corpuscular Hgb Conc. 32.1 g/dL (32.0-36.0); Mean Corpuscular Volume 93.7 fL (80.0-100.0); Monocytes # (auto) 0.7 10 ^3/uL (0-1.3); Monocytes % (auto) 11.1 % (0.0-12.0); Neutrophils # (auto) 4.1 10 ^3/uL (1.6-8.6); Neutrophils % (auto) 68.1 % (37.0-80.0); Red Blood Cells 2.95 10^6/uL (4.5-5.90)
[2022-05-04 09:04] LABS: Albumin 2.5 g/dL (3.4-5.0); Calcium 8.2 mg/dL (8.5-10.1); Potassium 4.4 mmol/L (3.5-5.1)
[2022-05-04 09:06] LABS: Bilirubin, Total 0.4 mg/dL (0.2-1.0); Total Protein 6.5 g/dL (6.4-8.2)
[2022-05-04 09:26] LABS: Urine Bacteria NONE SEEN /hpf (None Seen); Urine Blood Negative /uL (Negative); Urine Hyaline Cast FEW /lpf (0 - 2); Urine Specific Gravity 1.008 (1.001-1.035); Urine WBC 1 /hpf (0 - 3)
[2022-05-04 11:06] VITALS: BP 156/65
== END 2022-05-04 15:06 | disposition left against medical advice (07) ==
LOC: ER 17:26 → EDUNIT# 17:26 → EDBD 17:26 → ER 05-04 02:57
DX: M86.271 Subacute osteomyelitis, right ankle and foot (principal); I12.9 Hypertensive chronic kidney disease with stage 1 through stage 4 chronic kidney disease, or unspecified chronic kidney disease; E11.22 Type 2 diabetes mellitus with diabetic chronic kidney disease; N18.9 Chronic kidney disease, unspecified; E78.5 Hyperlipidemia, unspecified; E46 Unspecified protein-calorie malnutrition; D64.9 Anemia, unspecified; Z95.1 Presence of aortocoronary bypass graft; Z90.89 Acquired absence of other organs; Z88.8 Allergy status to other drugs, medicaments and biological substances; Z53.29 Procedure and treatment not carried out because of patient's decision for other reasons
CPT/HCPCS: 36415; 73630; 80053; 81001; 85025; 85652; 87426; 96365; 99284; J0696; J7030

== ENCOUNTER 2022-05-19 12:28 | Inpatient (IN) | payer OTHER ==
[~2022-05-19] VITALS: Ht 175.3 cm; Wt 65.3 kg
[2022-05-19] MEDS ORDERED: VANCOMYCIN 1GM/250ML 250 ML IV ONE (15:00)
[2022-05-19] MEDS ORDERED: PIPERACILLIN-TAZOB 3.375GM 100 ML IV ONE (15:00)
[2022-05-19] MEDS ORDERED: TETANUS-DIPTH-ACEL PERTUSSIS 0.5ML SYR Tdap IM ONE (15:00)
[2022-05-19 15:40] LABS: Basophils # (auto) 0 10 ^3/uL (0-0.2); Basophils % (auto) 0.5 % (0.0-2.0); Eosinophils # (auto) 0.1 10 ^3/uL (0-0.8); Eosinophils % (auto) 1.4 % (0.0-7.0); Lymphocytes # (auto) 0.9 10 ^3/uL (0.4-5.4); Lymphocytes % (auto) 11.5 % (10.0-50.0); Mean Corpuscular Hemoglobin 30.8 pg (28.0-32.0); Mean Corpuscular Hgb Conc. 32.3 g/dL (32.0-36.0); Mean Corpuscular Volume 95.4 fL (80.0-100.0); Monocytes # (auto) 0.5 10 ^3/uL (0-1.3); Monocytes % (auto) 6.6 % (0.0-12.0); Red Blood Cells 3.57 10^6/uL (4.5-5.90); White Blood Cell 7.5 10^3/uL (4.4-10.8)
[2022-05-19 15:56] LABS: Albumin 3.1 g/dL (3.4-5.0); Calcium 8.5 mg/dL (8.5-10.1)
[2022-05-19 16:04] LABS: BUN/Creatinine Ratio 9.6; Bilirubin, Total 0.3 mg/dL (0.2-1.0); CRP High Sensitivity 5.04 mg/dL (< 0.3); Total Protein 7.5 g/dL (6.4-8.2)
[2022-05-19 16:10] LABS: Potassium 6.6 mmol/L (3.5-5.1)
[2022-05-19] MEDS ORDERED: DEXTROSE (50%) 50ML SYRG IV ONE (16:30)
[2022-05-19] MEDS ORDERED: ALBUTEROL SULF 2.5 MG/0.5ML(0.5%) NEB SOLN NEB ONE (16:30)
[2022-05-19] MEDS ORDERED: CALCIUM GLUC 1,000mg/50ml-NS 50 ML IV ONE (16:30)
[2022-05-19] MEDS ORDERED: SODIUM ZIRCONIUM CYCL 10 GM PAK PO ONE (16:30)
[2022-05-19] MEDS ORDERED: InsuLIN REG 1unit/0.01ml Soln (100units/ml) IV ONE (16:30)
[2022-05-19] MEDS ORDERED: hydrALAZINE HCL 20 MG/ML VL IV PRN ×2 (19:00→19:30)
[2022-05-19] MEDS ORDERED: MORPHINE SULFATE INJ 2 MG/ml SYRG IV PRN ×2 (19:15)
[2022-05-19] MEDS ORDERED: NITROGLYCERIN 0.4 MG SL TAB SL PRN (19:15)
[2022-05-19] MEDS ORDERED: VANCOMYCIN PER PHARMACY 0 MG IV SCH (19:15)
[2022-05-19] MEDS ORDERED: SODIUM CHLORIDE 0.9% 250 ML IV ONE (19:30)
[2022-05-19] MEDS ORDERED: SODIUM CHL 0.9% 1000 ML BAG XX ONE (19:30)
[2022-05-19] MEDS ORDERED: DEXTROSE (50%) 50ML SYRG IV PRN (19:30)
[2022-05-19 19:49] LABS: Cholesterol 162 mg/dL (< 200)
[2022-05-19 19:52] LABS: HDL Cholesterol 64 mg/dL (40-59); LDL Cholesterol 83 mg/dL (< 100); Triglycerides 149 mg/dL (< 150)
[2022-05-19 22:50] LABS: BUN/Creatinine Ratio 10.3; Calcium 8.5 mg/dL (8.5-10.1); Potassium 4.9 mmol/L (3.5-5.1)
[2022-05-20] MEDS: ISOSORBIDE MONONITRATE ER 60 MG TAB PO SCH ×3 (02:03→23:23)
[2022-05-20] MEDS: GABAPENTIN 300 MG CAP PO SCH ×3 (02:03→23:24)
[2022-05-20] MEDS: SACUBITRIL-VALSARTAN 24mg/26mg TAB PO SCH ×2 (02:03→08:39)
[2022-05-20] MEDS: ACCU-CHEK COMFORT CURVE STRIP VI SCH ×5 (02:04→23:26)
[2022-05-20] MEDS: InsuLIN REG 1unit/0.01ml Soln (100units/ml) SC SCH ×5 (02:13→23:25)
[2022-05-20] MEDS: INSULIN LANTUS (GLARGINE) 1 /0.01ml (100units/ml) SC SCH ×2 (02:14→23:26)
[2022-05-20 05:33] LABS: Albumin 2.5 g/dL (3.4-5.0); Calcium 8.2 mg/dL (8.5-10.1); Potassium 4.9 mmol/L (3.5-5.1)
[2022-05-20 05:37] LABS: BUN/Creatinine Ratio 7.3; Bilirubin, Total 0.5 mg/dL (0.2-1.0)
[2022-05-20 05:44] LABS: Basophils # (auto) 0 10 ^3/uL (0-0.2); Basophils % (auto) 0.7 % (0.0-2.0); Eosinophils # (auto) 0.1 10 ^3/uL (0-0.8); Hematocrit 28.7 % (41.0-53.0); Hemoglobin 9.5 g/dL (13.5-17.5); Lymphocytes # (auto) 0.8 10 ^3/uL (0.4-5.4); Lymphocytes % (auto) 11.7 % (10.0-50.0); Mean Corpuscular Hemoglobin 31.3 pg (28.0-32.0); Mean Corpuscular Volume 94.8 fL (80.0-100.0); Monocytes # (auto) 0.6 10 ^3/uL (0-1.3); Neutrophils # (auto) 4.9 10 ^3/uL (1.6-8.6); Neutrophils % (auto) 76.6 % (37.0-80.0); Red Blood Cells 3.03 10^6/uL (4.5-5.90); White Blood Cell 6.4 10^3/uL (4.4-10.8)
[2022-05-20] MEDS: PIPERACILLIN-TAZOB 2.25GM 50 ML IV SCH ×3 (08:38→23:21)
[2022-05-20] MEDS: ASPirin-EC 81 mg tab PO SCH (08:38)
[2022-05-20] MEDS: ENOXAPARIN SOD 30 MG/0.3 ML SYRINGE SC SCH (08:38)
[2022-05-20] MEDS: ATORVASTATIN 20 MG TAB PO SCH (08:39)
[2022-05-20] MEDS: SODIUM ZIRCONIUM CYCL 10 GM PAK PO SCH ×3 (10:00→20:29)
[2022-05-20] MEDS ORDERED: PIPERACILLIN-TAZOB 2.25GM 50 ML IV SCH (10:00)
[2022-05-20 10:20] VITALS: BP 111/54
[2022-05-20 13:00] VITALS: BP 111/54
[2022-05-20 14:40] VITALS: BP 111/54
[2022-05-20 14:41] VITALS: BP 124/76
[2022-05-20] MEDS ORDERED: METO-289 PO (15:10)
[2022-05-20] MEDS ORDERED: RANO10003 PO (15:10)
[2022-05-20] MEDS ORDERED: GLIP2.5T28 PO (15:10)
[2022-05-20] MEDS ORDERED: DULA1INJ SC (15:10)
[2022-05-20] MEDS ORDERED: INSLISPI SC (15:10)
[2022-05-20 16:19] VITALS: BP 105/55
[2022-05-20] MEDS: TAMSULOSIN HYDROCHLORIDE 0.4 MG CAP PO SCH (18:13)
[2022-05-20 18:59] LABS: INR 1.03 (0.9-1.15); Partial Thromboplastin Time 32.9 sec (24.6-33.4)
[2022-05-20 21:47] VITALS: BP 126/75
[2022-05-21] VITALS (7 sets, daily range): BP systolic 104–138; BP diastolic 62–71
[2022-05-21] MEDS: PIPERACILLIN-TAZOB 2.25GM 50 ML IV SCH ×2 (04:36→21:24)
[2022-05-21] MEDS: InsuLIN REG 1unit/0.01ml Soln (100units/ml) SC SCH ×4 (06:18→21:29)
[2022-05-21] MEDS: ACCU-CHEK COMFORT CURVE STRIP VI SCH ×4 (06:19→21:28)
[2022-05-21] MEDS ORDERED: VANCOMYCIN 1GM/250ML 250 ML IV SCH (07:00)
[2022-05-21 08:52] LABS: Albumin 2.3 g/dL (3.4-5.0); Calcium 7.8 mg/dL (8.5-10.1); Potassium 5.2 mmol/L (3.5-5.1)
[2022-05-21 08:55] LABS: Bilirubin, Total 0.3 mg/dL (0.2-1.0); Total Protein 5.8 g/dL (6.4-8.2)
[2022-05-21] MEDS: SODIUM ZIRCONIUM CYCL 10 GM PAK PO SCH ×3 (10:00→21:26)
[2022-05-21] MEDS: ATORVASTATIN 20 MG TAB PO SCH (10:00)
[2022-05-21] MEDS: GABAPENTIN 300 MG CAP PO SCH ×2 (10:00→21:27)
[2022-05-21] MEDS: ENOXAPARIN SOD 30 MG/0.3 ML SYRINGE SC SCH (10:00)
[2022-05-21] MEDS: ASPirin-EC 81 mg tab PO SCH (10:00)
[2022-05-21] MEDS: ISOSORBIDE MONONITRATE ER 60 MG TAB PO SCH ×2 (10:00→21:26)
[2022-05-21] MEDS ORDERED: ceFAZolin 1GM VL ONE (10:27)
[2022-05-21] MEDS ORDERED: HYDROmorphone HCL 2 MG/ML VL/or syr IV PRN (12:00)
[2022-05-21] MEDS ORDERED: ACCU-CHEK COMFORT CURVE STRIP VI ONE (12:00)
[2022-05-21] MEDS ORDERED: ONDANSETRON HCL 4 MG/2 ML VIAL IV PRN (12:00)
[2022-05-21] MEDS ORDERED: PIPERACILLIN-TAZOB 2.25GM 50 ML IV SCH (13:00)
[2022-05-21] MEDS ORDERED: SODIUM CHL 0.9% 1000 ML BAG XX ONE (14:15)
[2022-05-21] MEDS: TAMSULOSIN HYDROCHLORIDE 0.4 MG CAP PO SCH (17:54)
[2022-05-21] MEDS ORDERED: EPOETIN ALFA-EPBX 10,000 UNIT/1ML VIAL SC ONE (21:00)
[2022-05-21] MEDS: INSULIN LANTUS (GLARGINE) 1 /0.01ml (100units/ml) SC SCH (21:34)
[2022-05-22 05:00] VITALS: BP 137/74
[2022-05-22] MEDS: PIPERACILLIN-TAZOB 2.25GM 50 ML IV SCH ×2 (05:03→13:53)
[2022-05-22] MEDS: ACCU-CHEK COMFORT CURVE STRIP VI SCH ×3 (06:13→17:32)
[2022-05-22] MEDS: InsuLIN REG 1unit/0.01ml Soln (100units/ml) SC SCH ×3 (06:27→17:34)
[2022-05-22 06:35] LABS: Calcium 7.7 mg/dL (8.5-10.1); Potassium 4.7 mmol/L (3.5-5.1)
[2022-05-22 06:38] LABS: BUN/Creatinine Ratio 6.6
[2022-05-22 08:00] VITALS: BP 99/57
[2022-05-22 09:00] VITALS: BP_SYST 117; BP_SYST 99; BP_DIAS 57; BP_DIAS 58
[2022-05-22] MEDS: ASPirin-EC 81 mg tab PO SCH (09:50)
[2022-05-22] MEDS: ATORVASTATIN 20 MG TAB PO SCH (09:52)
[2022-05-22] MEDS: ISOSORBIDE MONONITRATE ER 60 MG TAB PO SCH (09:52)
[2022-05-22] MEDS: GABAPENTIN 300 MG CAP PO SCH (09:54)
[2022-05-22] MEDS: ENOXAPARIN SOD 30 MG/0.3 ML SYRINGE SC SCH (09:54)
[2022-05-22] MEDS: SODIUM ZIRCONIUM CYCL 10 GM PAK PO SCH (09:54)
[2022-05-22] MEDS ORDERED: DOXY-286 PO (12:48)
[2022-05-22 13:24] VITALS: BP 102/52
[2022-05-22 16:54] VITALS: BP 114/49
[2022-05-22 17:12] VITALS: BP 114/49
[2022-05-22] MEDS: TAMSULOSIN HYDROCHLORIDE 0.4 MG CAP PO SCH (17:31)
== END 2022-05-22 18:23 | disposition home health service (06) | DRG 463 ==
LOC: ER 12:28 → TELE 19:14 → TELE-WESTW 05-20 10:39
PROVIDERS: ADMIT Registered Nurse; ATTEND Internal Medicine Nephrology
PROC: 5A1D70Z Performance of Urinary Filtration, Intermittent, Less than 6 Hours Per Day (ICD-10-PCS; principal; 2022-05-19)
PROC: 0JBQ0ZZ Excision of Right Foot Subcutaneous Tissue and Fascia, Open Approach (ICD-10-PCS; 2022-05-21)
PROC: 0JRQ07Z Replacement of Right Foot Subcutaneous Tissue and Fascia with Autologous Tissue Substitute, Open Approach (ICD-10-PCS; 2022-05-21)
PROC: 5A1D70Z Performance of Urinary Filtration, Intermittent, Less than 6 Hours Per Day (ICD-10-PCS; 2022-05-21)
DX: T87.43 Infection of amputation stump, right lower extremity (principal); N18.6 End stage renal disease; U07.1 COVID-19; E11.52 Type 2 diabetes mellitus with diabetic peripheral angiopathy with gangrene; I12.0 Hypertensive chronic kidney disease with stage 5 chronic kidney disease or end stage renal disease; E78.5 Hyperlipidemia, unspecified; E07.9 Disorder of thyroid, unspecified; E11.22 Type 2 diabetes mellitus with diabetic chronic kidney disease; E11.628 Type 2 diabetes mellitus with other skin complications; E11.65 Type 2 diabetes mellitus with hyperglycemia; E11.69 Type 2 diabetes mellitus with other specified complication; E66.9 Obesity, unspecified; E87.5 Hyperkalemia; Y83.8 Other surgical procedures as the cause of abnormal reaction of the patient, or of later complication, without mention of misadventure at the time of the procedure; E88.09 Other disorders of plasma-protein metabolism, not elsewhere classified; I25.10 Atherosclerotic heart disease of native coronary artery without angina pectoris; Z95.1 Presence of aortocoronary bypass graft; Z99.2 Dependence on renal dialysis; Z83.3 Family history of diabetes mellitus; Z82.3 Family history of stroke; Z82.49 Family history of ischemic heart disease and other diseases of the circulatory system; Y92.89 Other specified places as the place of occurrence of the external cause; Z68.21 Body mass index [BMI] 21.0-21.9, adult
CPT/HCPCS: 36415; 71045; 73701; 73718; 80048; 80053; 80061; 80202; 82962; 83036; 85025; 85610; 85652; 85730; 86141; 86850; 86900; 86901; 87040; 87070; 87075; 87205; 90715; 90935; 93005; 94644; 96365; 96366; 96368; 96372; 96375; G0378; J0690; J1642; J1815; J2543

== ENCOUNTER 2022-06-10 10:47 | Inpatient (IN) | payer OTHER ==
[~2022-06-10] VITALS: Ht 175.3 cm; Wt 73.4 kg
[~2022-06-10 10:47] MED LIST changes: +DOXY-286 PO; +DULA1INJ SC; +GLIP2.5T28 PO; +INSLISPI SC; +METO-289 PO; +RANO10003 PO
[2022-06-10 11:51] LABS: Basophils # (auto) 0.1 10 ^3/uL (0-0.2); Basophils % (auto) 1.1 % (0.0-2.0); Eosinophils # (auto) 0.1 10 ^3/uL (0-0.8); Eosinophils % (auto) 2.1 % (0.0-7.0); Hematocrit 39.7 % (41.0-53.0); Hemoglobin 12.7 g/dL (13.5-17.5); Lymphocytes % (auto) 15.9 % (10.0-50.0); Mean Corpuscular Hemoglobin 30.5 pg (28.0-32.0); Mean Corpuscular Hgb Conc. 32.1 g/dL (32.0-36.0); Monocytes # (auto) 0.6 10 ^3/uL (0-1.3); Monocytes % (auto) 9.9 % (0.0-12.0); Neutrophils # (auto) 4.5 10 ^3/uL (1.6-8.6); Nucleated Red Blood Cells % 0.1 %; Red Blood Cells 4.18 10^6/uL (4.5-5.90); Red Cell Distribution Width 16.3 % (11.8-14.3); White Blood Cell 6.3 10^3/uL (4.4-10.8)
[2022-06-10 11:52] LABS: Albumin 2.6 g/dL (3.4-5.0); Calcium 8.1 mg/dL (8.5-10.1); Potassium 4.3 mmol/L (3.5-5.1)
[2022-06-10 12:10] LABS: INR 1.01 (0.9-1.15); Partial Thromboplastin Time 32.7 sec (24.6-33.4)
[2022-06-10] MEDS ORDERED: CLINDAMYCIN 600MG IV 50 ML IV ONE (12:30)
[2022-06-10 12:42] LABS: BUN/Creatinine Ratio 11.2; Bilirubin, Total 0.4 mg/dL (0.2-1.0); Total Protein 6.6 g/dL (6.4-8.2)
[2022-06-10] MEDS ORDERED: DOCUSATE SOD 100 MG CAP PO PRN (15:15)
[2022-06-10] MEDS ORDERED: ACETAMINOPHEN 325 MG TAB PO PRN (15:15)
[2022-06-10] MEDS ORDERED: CLINDAMYCIN 300MG IV 50 ML IV ONE (16:15)
[2022-06-10] MEDS ORDERED: DEXTROSE (50%) 50ML SYRG IV PRN (16:45)
[2022-06-10 17:41] LABS: Magnesium 1.9 mg/dL (1.6-2.6); Phosphorus 3.8 mg/dL (2.5-4.90)
[2022-06-10] MEDS: InsuLIN REG 1unit/0.01ml Soln (100units/ml) SC SCH ×2 (17:41→23:33)
[2022-06-10] MEDS: ACCU-CHEK COMFORT CURVE STRIP VI SCH ×2 (17:42→23:32)
[2022-06-10] MEDS: TAMSULOSIN HYDROCHLORIDE 0.4 MG CAP PO SCH (17:49)
[2022-06-10] MEDS: cefTRIAXone 1GM/50ML D5W 50 ML IV SCH (17:50)
[2022-06-10] MEDS ORDERED: RANOLAZINE ER 500 MG TAB PO SCH (22:00)
[2022-06-10 22:59] VITALS: BP 122/68
[2022-06-10] MEDS: GABAPENTIN 300 MG CAP PO SCH (23:17)
[2022-06-10] MEDS: SODIUM CHLOR 0.9% PF (SALINE LOCK) 10ML VIAL/SYR IV SCH (23:17)
[2022-06-10] MEDS: ISOSORBIDE MONONITRATE 20 MG TAB PO SCH (23:27)
[2022-06-10] MEDS: CLINDAMYCIN 300MG IV 50 ML IV SCH (23:28)
[2022-06-10] MEDS: SACUBITRIL-VALSARTAN 24mg/26mg TAB PO SCH (23:30)
[2022-06-11 05:22] VITALS: BP 129/67
[2022-06-11] MEDS: SODIUM CHLOR 0.9% PF (SALINE LOCK) 10ML VIAL/SYR IV SCH ×3 (05:28→21:29)
[2022-06-11] MEDS: CLINDAMYCIN 300MG IV 50 ML IV SCH ×3 (05:28→21:29)
[2022-06-11 05:42] LABS: Basophils # (auto) 0 10 ^3/uL (0-0.2); Basophils % (auto) 0.6 % (0.0-2.0); Eosinophils # (auto) 0.2 10 ^3/uL (0-0.8); Eosinophils % (auto) 3.7 % (0.0-7.0); Hematocrit 36.5 % (41.0-53.0); Hemoglobin 11.7 g/dL (13.5-17.5); Lymphocytes % (auto) 18.7 % (10.0-50.0); Mean Corpuscular Hemoglobin 30.4 pg (28.0-32.0); Mean Corpuscular Hgb Conc. 32.1 g/dL (32.0-36.0); Mean Corpuscular Volume 94.8 fL (80.0-100.0); Monocytes # (auto) 0.5 10 ^3/uL (0-1.3); Monocytes % (auto) 8.5 % (0.0-12.0); Neutrophils # (auto) 3.7 10 ^3/uL (1.6-8.6); Neutrophils % (auto) 68.5 % (37.0-80.0); Nucleated Red Blood Cells % 0.1 %; Red Blood Cells 3.85 10^6/uL (4.5-5.90); Red Cell Distribution Width 16.6 % (11.8-14.3); White Blood Cell 5.4 10^3/uL (4.4-10.8)
[2022-06-11 05:58] LABS: Albumin 2.2 g/dL (3.4-5.0); Calcium 7.6 mg/dL (8.5-10.1); Potassium 4.5 mmol/L (3.5-5.1)
[2022-06-11 06:02] LABS: BUN/Creatinine Ratio 12.9; Bilirubin, Total 0.3 mg/dL (0.2-1.0); Total Protein 5.4 g/dL (6.4-8.2)
[2022-06-11] MEDS: ACCU-CHEK COMFORT CURVE STRIP VI SCH ×4 (06:46→21:37)
[2022-06-11] MEDS: InsuLIN REG 1unit/0.01ml Soln (100units/ml) SC SCH ×4 (06:50→21:44)
[2022-06-11 08:30] VITALS: BP 139/70
[2022-06-11] MEDS ORDERED: PHENYLEPHRINE HCL 10 MG/ML VL IV ONE (08:59)
[2022-06-11] MEDS: SACUBITRIL-VALSARTAN 24mg/26mg TAB PO SCH ×2 (09:28→21:35)
[2022-06-11] MEDS: RANOLAZINE ER 500 MG TAB PO SCH ×2 (09:28→21:33)
[2022-06-11] MEDS: ATORVASTATIN 20 MG TAB PO SCH (09:28)
[2022-06-11] MEDS: ISOSORBIDE MONONITRATE 20 MG TAB PO SCH ×2 (09:29→21:34)
[2022-06-11] MEDS: METOPROLOL SUCCINATE XL 50 MG TAB PO SCH (09:30)
[2022-06-11] MEDS: cefTRIAXone 1GM/50ML D5W 50 ML IV SCH ×2 (09:30→11:38)
[2022-06-11] MEDS: GABAPENTIN 300 MG CAP PO SCH ×2 (09:30→21:31)
[2022-06-11] MEDS ORDERED: SODIUM CHL 0.9% 1000 ML BAG XX ONE (09:45)
[2022-06-11] MEDS ORDERED: ceFAZolin 1GM VL ONE (10:09)
[2022-06-11] MEDS ORDERED: NEOMYCIN-BACITRACIN-POLYM 15GM TOP OINT TOP ONE (10:09)
[2022-06-11] MEDS ORDERED: ROPIVACAINE 0.5% (5MG/ML) 20ML AMPULE IJ ONE (10:10)
[2022-06-11] MEDS ORDERED: ceFAZolin 1GM/50ML 100 ML IV ONE (10:30)
[2022-06-11 12:30] VITALS: BP 103/66
[2022-06-11] MEDS ORDERED: CATHFLO ACTIVASE (ALTEPLASE) 2 MG VIAL IV ONE (15:45)
[2022-06-11 17:08] VITALS: BP 125/66
[2022-06-11] MEDS: TAMSULOSIN HYDROCHLORIDE 0.4 MG CAP PO SCH (19:51)
[2022-06-11 21:37] VITALS: BP 148/71
[2022-06-12] VITALS (9 sets, daily range): BP systolic 127–176; BP diastolic 54–77
[2022-06-12] MEDS: SODIUM CHLOR 0.9% PF (SALINE LOCK) 10ML VIAL/SYR IV SCH ×3 (05:06→21:25)
[2022-06-12] MEDS: CLINDAMYCIN 300MG IV 50 ML IV SCH ×3 (05:06→21:21)
[2022-06-12] MEDS: ACCU-CHEK COMFORT CURVE STRIP VI SCH ×4 (06:08→21:14)
[2022-06-12] MEDS: InsuLIN REG 1unit/0.01ml Soln (100units/ml) SC SCH ×4 (06:10→21:16)
[2022-06-12 07:21] LABS: Basophils # (auto) 0.1 10 ^3/uL (0-0.2); Basophils % (auto) 1.1 % (0.0-2.0); Eosinophils # (auto) 0.2 10 ^3/uL (0-0.8); Eosinophils % (auto) 3.8 % (0.0-7.0); Hematocrit 36.4 % (41.0-53.0); Hemoglobin 11.8 g/dL (13.5-17.5); Lymphocytes # (auto) 1.1 10 ^3/uL (0.4-5.4); Lymphocytes % (auto) 22.5 % (10.0-50.0); Mean Corpuscular Hemoglobin 30.5 pg (28.0-32.0); Mean Corpuscular Hgb Conc. 32.3 g/dL (32.0-36.0); Mean Corpuscular Volume 94.5 fL (80.0-100.0); Monocytes # (auto) 0.6 10 ^3/uL (0-1.3); Monocytes % (auto) 12.4 % (0.0-12.0); Neutrophils # (auto) 2.9 10 ^3/uL (1.6-8.6); Neutrophils % (auto) 60.2 % (37.0-80.0); Nucleated Red Blood Cells % 0.1 %; Red Blood Cells 3.85 10^6/uL (4.5-5.90); Red Cell Distribution Width 16.8 % (11.8-14.3); White Blood Cell 4.8 10^3/uL (4.4-10.8)
[2022-06-12] MEDS: cefTRIAXone 1GM/50ML D5W 50 ML IV SCH (08:37)
[2022-06-12 08:50] LABS: BUN/Creatinine Ratio 10.7; Calcium 7.4 mg/dL (8.5-10.1); Potassium 4.2 mmol/L (3.5-5.1)
[2022-06-12] MEDS: GABAPENTIN 300 MG CAP PO SCH ×2 (09:20→21:24)
[2022-06-12] MEDS: RANOLAZINE ER 500 MG TAB PO SCH ×2 (09:21→21:32)
[2022-06-12] MEDS: ISOSORBIDE MONONITRATE 20 MG TAB PO SCH ×2 (09:21→21:25)
[2022-06-12] MEDS: METOPROLOL SUCCINATE XL 50 MG TAB PO SCH (09:22)
[2022-06-12] MEDS: SACUBITRIL-VALSARTAN 24mg/26mg TAB PO SCH ×2 (09:22→21:25)
[2022-06-12] MEDS: ATORVASTATIN 20 MG TAB PO SCH (09:22)
[2022-06-12] MEDS ORDERED: fentaNYL CITRATE 100 MCG/2 ML VL ONE (10:39)
[2022-06-12] MEDS ORDERED: HEPARIN SODIUM (PORCINE) 5000 UNITS/ML 1ML VIAL ONE (10:39)
[2022-06-12] MEDS ORDERED: MIDAZOLAM HCL 2MG/2ML 2ml VIAL (1mg/ml) ONE (10:39)
[2022-06-12] MEDS ORDERED: LIDOCAINE 2%HCL (LOCAL ANESTH.) INJ 20ML MDV ONE (10:40)
[2022-06-12] MEDS: TAMSULOSIN HYDROCHLORIDE 0.4 MG CAP PO SCH (17:55)
[2022-06-13 00:50] VITALS: BP 149/70
[2022-06-13 05:00] VITALS: BP 156/79
[2022-06-13] MEDS: ACCU-CHEK COMFORT CURVE STRIP VI SCH ×4 (05:53→21:56)
[2022-06-13] MEDS: InsuLIN REG 1unit/0.01ml Soln (100units/ml) SC SCH ×4 (05:53→21:52)
[2022-06-13] MEDS: SODIUM CHLOR 0.9% PF (SALINE LOCK) 10ML VIAL/SYR IV SCH ×3 (05:53→21:57)
[2022-06-13] MEDS: CLINDAMYCIN 300MG IV 50 ML IV SCH ×3 (05:54→22:04)
[2022-06-13 06:40] LABS: Urine Bacteria FEW /hpf (None Seen); Urine Blood 1+ /uL (Negative); Urine Specific Gravity 1.014 (1.001-1.035); Urine WBC <1 /hpf (0 - 3)
[2022-06-13] MEDS ORDERED: SODIUM CHL 0.9% 1000 ML BAG XX ONE (07:00)
[2022-06-13 07:30] VITALS: BP 168/70
[2022-06-13] MEDS ORDERED: ROPIVACAINE 0.5% (5MG/ML) 20ML AMPULE IJ ONE (08:27)
[2022-06-13] MEDS ORDERED: NEOMYCIN-BACITRACIN-POLYM 15GM TOP OINT TOP ONE (08:27)
[2022-06-13 09:00] VITALS: BP 162/82
[2022-06-13] MEDS: GABAPENTIN 300 MG CAP PO SCH ×2 (09:31→21:58)
[2022-06-13] MEDS: ATORVASTATIN 20 MG TAB PO SCH (09:32)
[2022-06-13] MEDS: METOPROLOL SUCCINATE XL 50 MG TAB PO SCH (09:32)
[2022-06-13] MEDS: SACUBITRIL-VALSARTAN 24mg/26mg TAB PO SCH ×2 (09:34→22:02)
[2022-06-13] MEDS: ISOSORBIDE MONONITRATE 20 MG TAB PO SCH ×2 (09:34→22:02)
[2022-06-13] MEDS: cefTRIAXone 1GM/50ML D5W 50 ML IV SCH ×2 (09:36→12:36)
[2022-06-13] MEDS: RANOLAZINE ER 500 MG TAB PO SCH ×2 (09:36→22:03)
[2022-06-13] MEDS ORDERED: ceFAZolin 1GM VL ONE (09:54)
[2022-06-13] MEDS ORDERED: fentaNYL CITRATE 100 MCG/2 ML VL ONE (12:04)
[2022-06-13] MEDS ORDERED: MIDAZOLAM HCL 2MG/2ML 2ml VIAL (1mg/ml) ONE (12:04)
[2022-06-13] MEDS ORDERED: diphenhdrAMINE HCL 50 MG/1 ML VL ONE (12:21)
[2022-06-13] MEDS ORDERED: DexAMETHasone SOD PHOS 10MG/1ML VIAL INJ ONE (12:21)
[2022-06-13] MEDS ORDERED: ePHEDrine SULFATE 50 MG/ML AMP IV PRN (13:00)
[2022-06-13] MEDS ORDERED: MIDAZOLAM HCL 2MG/2ML 2ml VIAL (1mg/ml) IV PRN (13:00)
[2022-06-13] MEDS ORDERED: fentaNYL CITRATE 100 MCG/2 ML VL IV PRN (13:00)
[2022-06-13] MEDS ORDERED: ONDANSETRON HCL 4 MG/2 ML VIAL IV PRN (13:00)
[2022-06-13] MEDS ORDERED: ACCU-CHEK COMFORT CURVE STRIP VI ONE (13:00)
[2022-06-13] MEDS ORDERED: LABETALOL HCL 5 MG/ML 4ML SYRINGE IV PRN (13:00)
[2022-06-13 15:22] LABS: INR 0.98 (0.9-1.15); Partial Thromboplastin Time 25.9 sec (24.6-33.4)
[2022-06-13 17:00] VITALS: BP 109/67
[2022-06-13] MEDS: TAMSULOSIN HYDROCHLORIDE 0.4 MG CAP PO SCH (18:12)
[2022-06-13 22:00] VITALS: BP 113/52
[2022-06-13] MEDS ORDERED: INSULIN LANTUS (GLARGINE) 1 /0.01ml (100units/ml) SC ONE (22:30)
[2022-06-14 05:00] VITALS: BP 119/50
[2022-06-14] MEDS: CLINDAMYCIN 300MG IV 50 ML IV SCH (07:01)
[2022-06-14] MEDS: SODIUM CHLOR 0.9% PF (SALINE LOCK) 10ML VIAL/SYR IV SCH ×4 (07:01→22:21)
[2022-06-14] MEDS: ACCU-CHEK COMFORT CURVE STRIP VI SCH ×4 (07:05→22:29)
[2022-06-14] MEDS: InsuLIN REG 1unit/0.01ml Soln (100units/ml) SC SCH ×4 (07:06→22:39)
[2022-06-14] MEDS: INSULIN LANTUS (GLARGINE) 1 /0.01ml (100units/ml) SC SCH ×2 (07:07→22:36)
[2022-06-14 07:30] VITALS: BP 113/52
[2022-06-14 09:00] VITALS: BP 131/69
[2022-06-14] MEDS: SACUBITRIL-VALSARTAN 24mg/26mg TAB PO SCH ×2 (10:13→22:25)
[2022-06-14] MEDS: cefTRIAXone 1GM/50ML D5W 50 ML IV SCH (10:13)
[2022-06-14] MEDS: ISOSORBIDE MONONITRATE 20 MG TAB PO SCH ×2 (10:14→22:23)
[2022-06-14] MEDS: ATORVASTATIN 20 MG TAB PO SCH (10:15)
[2022-06-14] MEDS: GABAPENTIN 300 MG CAP PO SCH ×2 (10:15→22:25)
[2022-06-14] MEDS: RANOLAZINE ER 500 MG TAB PO SCH ×2 (10:16→22:24)
[2022-06-14] MEDS: METOPROLOL SUCCINATE XL 50 MG TAB PO SCH (10:17)
[2022-06-14] MEDS: HYDROcodone-ACET 5/325MG TAB PO PRN (10:18)
[2022-06-14] MEDS ORDERED: levoFLOXacin 500MG 100 ML IV ONE (11:15)
[2022-06-14] MEDS ORDERED: LIDOCAINE 1% (LOCAL ANESTH.) PF 5ml SDV ID ONE (12:00)
[2022-06-14] MEDS: Pro-Stat SF 30ml Vanilla PO SCH ×2 (12:02→22:29)
[2022-06-14] MEDS: B-COMPLEX W/ C & FOLIC ACID(NEPHROVITE TAB) PO SCH (12:48)
[2022-06-14] MEDS: ASCORBIC ACID 500 MG TAB PO SCH ×2 (12:49→22:25)
[2022-06-14 13:00] VITALS: BP 124/64
[2022-06-14 17:00] VITALS: BP 137/59
[2022-06-14] MEDS: TAMSULOSIN HYDROCHLORIDE 0.4 MG CAP PO SCH (17:39)
[2022-06-15 05:09] VITALS: BP 121/65
[2022-06-15] MEDS: ACCU-CHEK COMFORT CURVE STRIP VI SCH ×4 (06:37→23:09)
[2022-06-15] MEDS: INSULIN LANTUS (GLARGINE) 1 /0.01ml (100units/ml) SC SCH ×2 (06:37→23:04)
[2022-06-15] MEDS: InsuLIN REG 1unit/0.01ml Soln (100units/ml) SC SCH ×4 (06:38→22:56)
[2022-06-15] MEDS: SODIUM CHLOR 0.9% PF (SALINE LOCK) 10ML VIAL/SYR IV SCH ×5 (06:39→23:05)
[2022-06-15 09:00] VITALS: BP 115/96
[2022-06-15] MEDS ORDERED: levoFLOXacin 500MG 100 ML IV SCH (10:00)
[2022-06-15] MEDS: Pro-Stat SF 30ml Vanilla PO SCH ×2 (10:00→22:00)
[2022-06-15] MEDS: levoFLOXacin 250MG 50 ML IV SCH (10:55)
[2022-06-15] MEDS: ASCORBIC ACID 500 MG TAB PO SCH ×2 (10:58→23:08)
[2022-06-15] MEDS: SACUBITRIL-VALSARTAN 24mg/26mg TAB PO SCH ×2 (10:59→23:05)
[2022-06-15] MEDS: METOPROLOL SUCCINATE XL 50 MG TAB PO SCH (11:04)
[2022-06-15] MEDS: B-COMPLEX W/ C & FOLIC ACID(NEPHROVITE TAB) PO SCH (11:04)
[2022-06-15] MEDS: GABAPENTIN 300 MG CAP PO SCH ×2 (11:04→23:07)
[2022-06-15] MEDS: ONDANSETRON HCL 4 MG/2 ML VIAL IV PRN (11:33)
[2022-06-15] MEDS: RANOLAZINE ER 500 MG TAB PO SCH ×2 (11:40→23:07)
[2022-06-15] MEDS: ISOSORBIDE MONONITRATE 20 MG TAB PO SCH ×2 (11:42→23:06)
[2022-06-15] MEDS: ATORVASTATIN 20 MG TAB PO SCH (11:43)
[2022-06-15] MEDS: HYDROcodone-ACET 5/325MG TAB PO PRN (11:45)
[2022-06-15 13:00] VITALS: BP 118/58
[2022-06-15 17:00] VITALS: BP 115/54
[2022-06-15] MEDS: TAMSULOSIN HYDROCHLORIDE 0.4 MG CAP PO SCH (18:20)
[2022-06-15 22:00] VITALS: BP 121/49
[2022-06-16 05:00] VITALS: BP 106/52
[2022-06-16 06:06] LABS: Albumin 2.1 g/dL (3.4-5.0); Basophils # (auto) 0 10 ^3/uL (0-0.2); Basophils % (auto) 0.8 % (0.0-2.0); Calcium 6.4 mg/dL (8.5-10.1); Eosinophils # (auto) 0.1 10 ^3/uL (0-0.8); Eosinophils % (auto) 1.8 % (0.0-7.0); Hematocrit 29.1 % (41.0-53.0); Hemoglobin 9.4 g/dL (13.5-17.5); Lymphocytes # (auto) 0.9 10 ^3/uL (0.4-5.4); Lymphocytes % (auto) 16.8 % (10.0-50.0); Magnesium 1.9 mg/dL (1.6-2.6); Mean Corpuscular Hemoglobin 30.3 pg (28.0-32.0); Mean Corpuscular Hgb Conc. 32.3 g/dL (32.0-36.0); Mean Corpuscular Volume 93.8 fL (80.0-100.0); Monocytes # (auto) 0.7 10 ^3/uL (0-1.3); Monocytes % (auto) 12.2 % (0.0-12.0); Neutrophils # (auto) 3.9 10 ^3/uL (1.6-8.6); Neutrophils % (auto) 68.4 % (37.0-80.0); Nucleated Red Blood Cells % 0.1 %; Potassium 4.8 mmol/L (3.5-5.1); Red Cell Distribution Width 16.6 % (11.8-14.3); White Blood Cell 5.6 10^3/uL (4.4-10.8)
[2022-06-16 06:15] LABS: Bilirubin, Total 0.2 mg/dL (0.2-1.0); CRP High Sensitivity 1.52 mg/dL (< 0.3); Total Protein 4.8 g/dL (6.4-8.2)
[2022-06-16] MEDS: INSULIN LANTUS (GLARGINE) 1 /0.01ml (100units/ml) SC SCH ×2 (06:18→21:53)
[2022-06-16] MEDS: InsuLIN REG 1unit/0.01ml Soln (100units/ml) SC SCH ×4 (06:18→21:53)
[2022-06-16] MEDS: SODIUM CHLOR 0.9% PF (SALINE LOCK) 10ML VIAL/SYR IV SCH ×5 (06:18→21:52)
[2022-06-16] MEDS: ACCU-CHEK COMFORT CURVE STRIP VI SCH ×4 (06:19→21:54)
[2022-06-16] MEDS ORDERED: SODIUM CHL 0.9% 1000 ML BAG XX ONE (07:30)
[2022-06-16] MEDS ORDERED: ALBUMIN 25% 100 ML IV PRN (07:30)
[2022-06-16 07:32] VITALS: BP 104/54
[2022-06-16] MEDS: ONDANSETRON HCL 4 MG/2 ML VIAL IV PRN (07:51)
[2022-06-16 08:00] VITALS: BP 110/51
[2022-06-16] MEDS: SACUBITRIL-VALSARTAN 24mg/26mg TAB PO SCH ×2 (10:00→22:00)
[2022-06-16 12:40] VITALS: BP 110/51
[2022-06-16] MEDS: METOPROLOL SUCCINATE XL 50 MG TAB PO SCH (13:09)
[2022-06-16] MEDS: B-COMPLEX W/ C & FOLIC ACID(NEPHROVITE TAB) PO SCH (13:09)
[2022-06-16] MEDS: RANOLAZINE ER 500 MG TAB PO SCH ×2 (13:12→22:02)
[2022-06-16] MEDS: ATORVASTATIN 20 MG TAB PO SCH (13:12)
[2022-06-16] MEDS: ASCORBIC ACID 500 MG TAB PO SCH ×2 (13:12→22:02)
[2022-06-16] MEDS: GABAPENTIN 300 MG CAP PO SCH ×2 (13:13→22:01)
[2022-06-16] MEDS: ISOSORBIDE MONONITRATE 20 MG TAB PO SCH ×2 (13:14→22:00)
[2022-06-16] MEDS: Pro-Stat SF 30ml Vanilla PO SCH ×2 (15:15→22:00)
[2022-06-16 16:41] VITALS: BP 104/57
[2022-06-16] MEDS: TAMSULOSIN HYDROCHLORIDE 0.4 MG CAP PO SCH (18:12)
[2022-06-16] MEDS ORDERED: EPOETIN ALFA-EPBX 10,000 UNIT/1ML VIAL SC ONE (21:00)
[2022-06-16 22:00] VITALS: BP 121/52
[2022-06-17 05:00] VITALS: BP 116/50
[2022-06-17] MEDS: SODIUM CHLOR 0.9% PF (SALINE LOCK) 10ML VIAL/SYR IV SCH ×3 (06:14→14:03)
[2022-06-17] MEDS: InsuLIN REG 1unit/0.01ml Soln (100units/ml) SC SCH ×2 (06:14→12:00)
[2022-06-17] MEDS: ACCU-CHEK COMFORT CURVE STRIP VI SCH ×2 (06:15→11:30)
[2022-06-17] MEDS: INSULIN LANTUS (GLARGINE) 1 /0.01ml (100units/ml) SC SCH (06:17)
[2022-06-17 09:19] VITALS: BP 117/58
[2022-06-17] MEDS ORDERED: ASPirin 81 mg TAB PO SCH (10:00)
[2022-06-17] MEDS: Pro-Stat SF 30ml Vanilla PO SCH (10:00)
[2022-06-17] MEDS: B-COMPLEX W/ C & FOLIC ACID(NEPHROVITE TAB) PO SCH (10:37)
[2022-06-17] MEDS: ISOSORBIDE MONONITRATE 20 MG TAB PO SCH (10:38)
[2022-06-17] MEDS: RANOLAZINE ER 500 MG TAB PO SCH (10:39)
[2022-06-17] MEDS: METOPROLOL SUCCINATE XL 50 MG TAB PO SCH (10:39)
[2022-06-17] MEDS: ASCORBIC ACID 500 MG TAB PO SCH (10:40)
[2022-06-17] MEDS: GABAPENTIN 300 MG CAP PO SCH (10:40)
[2022-06-17] MEDS: SACUBITRIL-VALSARTAN 24mg/26mg TAB PO SCH (10:40)
[2022-06-17] MEDS: ATORVASTATIN 20 MG TAB PO SCH (10:40)
[2022-06-17] MEDS: levoFLOXacin 250MG 50 ML IV SCH (10:41)
[2022-06-17] MEDS ORDERED: FOLIC ACID 1 MG, MULTIPLE VITAMIN 10 ML, MAGNESIUM SULF SDV 50% 8 MEQ, THIAMINE INJ 100... INJ SCH ×5 (12:00)
[2022-06-17 12:52] VITALS: BP 140/62
[2022-06-17 14:22] VITALS: BP 140/62
[2022-06-18] MEDS ORDERED: SODIUM CHL 0.9% 1000 ML BAG XX ONE (07:00)
[2022-06-18] MEDS ORDERED: EPOETIN ALFA-EPBX 10,000 UNIT/1ML VIAL SC ONE (21:00)
== END 2022-06-17 17:45 | disposition home health service (06) | DRG 673 ==
LOC: ER 10:47 → TELE 16:03 → TELE-CENTR 22:13 → CENTRAL 06-11 15:04
PROVIDERS: ADMIT Nurse Practitioner Family; ATTEND Internal Medicine
PROC: 5A1D70Z Performance of Urinary Filtration, Intermittent, Less than 6 Hours Per Day (ICD-10-PCS; 2022-06-11)
PROC: 0JPT3XZ Removal of Tunneled Vascular Access Device from Trunk Subcutaneous Tissue and Fascia, Percutaneous Approach (ICD-10-PCS; principal; 2022-06-12)
PROC: 0JH63XZ Insertion of Tunneled Vascular Access Device into Chest Subcutaneous Tissue and Fascia, Percutaneous Approach (ICD-10-PCS; 2022-06-12)
PROC: 02H633Z Insertion of Infusion Device into Right Atrium, Percutaneous Approach (ICD-10-PCS; 2022-06-12)
PROC: B5181ZA Fluoroscopy of Superior Vena Cava using Low Osmolar Contrast, Guidance (ICD-10-PCS; 2022-06-12)
PROC: B548ZZA Ultrasonography of Superior Vena Cava, Guidance (ICD-10-PCS; 2022-06-12)
PROC: 0YBM0ZZ Excision of Right Foot, Open Approach (ICD-10-PCS; 2022-06-13)
PROC: 5A1D70Z Performance of Urinary Filtration, Intermittent, Less than 6 Hours Per Day (ICD-10-PCS; 2022-06-13)
PROC: 5A1D70Z Performance of Urinary Filtration, Intermittent, Less than 6 Hours Per Day (ICD-10-PCS; 2022-06-16)
DX: T82.41XA Breakdown (mechanical) of vascular dialysis catheter, initial encounter (principal); N18.6 End stage renal disease; E44.0 Moderate protein-calorie malnutrition; I13.2 Hypertensive heart and chronic kidney disease with heart failure and with stage 5 chronic kidney disease, or end stage renal disease; L03.115 Cellulitis of right lower limb; M86.8X7 Other osteomyelitis, ankle and foot; E11.69 Type 2 diabetes mellitus with other specified complication; E11.51 Type 2 diabetes mellitus with diabetic peripheral angiopathy without gangrene; E11.22 Type 2 diabetes mellitus with diabetic chronic kidney disease; N40.0 Benign prostatic hyperplasia without lower urinary tract symptoms; I50.9 Heart failure, unspecified; I25.10 Atherosclerotic heart disease of native coronary artery without angina pectoris; D63.1 Anemia in chronic kidney disease; E11.42 Type 2 diabetes mellitus with diabetic polyneuropathy; F17.200 Nicotine dependence, unspecified, uncomplicated; G20 Parkinson's disease; G25.3 Myoclonus; I48.91 Unspecified atrial fibrillation; E78.5 Hyperlipidemia, unspecified; Z79.02 Long term (current) use of antithrombotics/antiplatelets; Z89.519 Acquired absence of unspecified leg below knee; Z88.8 Allergy status to other drugs, medicaments and biological substances; Z91.199 Patient's noncompliance with other medical treatment and regimen due to unspecified reason; Z95.1 Presence of aortocoronary bypass graft; Z99.2 Dependence on renal dialysis; Z86.73 Personal history of transient ischemic attack (TIA), and cerebral infarction without residual deficits; Z83.3 Family history of diabetes mellitus; Z82.49 Family history of ischemic heart disease and other diseases of the circulatory system; Z79.899 Other long term (current) drug therapy; Z79.82 Long term (current) use of aspirin; Z79.4 Long term (current) use of insulin; Z82.3 Family history of stroke; Z68.21 Body mass index [BMI] 21.0-21.9, adult; Y83.8 Other surgical procedures as the cause of abnormal reaction of the patient, or of later complication, without mention of misadventure at the time of the procedure; Y92.89 Other specified places as the place of occurrence of the external cause
CPT/HCPCS: 36415; 36569; 71045; 73700; 76000; 80048; 80053; 81001; 82962; 83605; 83735; 84100; 85025; 85610; 85652; 85730; 86141; 86850; 86900; 86901; 87040; 87075; 87077; 87186; 87205; 90935; 93005; 93925; 96365; 96368; 97163; 99152; G0378; J0690; J0696; J1100; J1642; J1815; J1956; J2250; J2405; J3490; P9047

== ENCOUNTER 2022-07-22 11:11 | Inpatient (IN) | payer OTHER ==
[~2022-07-22] VITALS: Ht 175.3 cm; Wt 69.3 kg
[2022-07-22 13:59] LABS: Basophils # (auto) 0 10 ^3/uL (0-0.2); Basophils % (auto) 0.6 % (0.0-2.0); Eosinophils # (auto) 0.1 10 ^3/uL (0-0.8); Eosinophils % (auto) 2.1 % (0.0-7.0); Hematocrit 42.4 % (41.0-53.0); Hemoglobin 12.3 g/dL (13.5-17.5); Lymphocytes # (auto) 1.3 10 ^3/uL (0.4-5.4); Lymphocytes % (auto) 20.3 % (10.0-50.0); Mean Corpuscular Hemoglobin 29.8 pg (28.0-32.0); Mean Corpuscular Hgb Conc. 29.1 g/dL (32.0-36.0); Mean Corpuscular Volume 102.6 fL (80.0-100.0); Monocytes # (auto) 0.4 10 ^3/uL (0-1.3); Monocytes % (auto) 5.7 % (0.0-12.0); Neutrophils # (auto) 4.6 10 ^3/uL (1.6-8.6); Neutrophils % (auto) 71.3 % (37.0-80.0); Nucleated Red Blood Cells % 0.1 %; Red Blood Cells 4.14 10^6/uL (4.5-5.90); Red Cell Distribution Width 16.8 % (11.8-14.3); White Blood Cell 6.5 10^3/uL (4.4-10.8)
[2022-07-22 14:24] LABS: BUN/Creatinine Ratio 12.4; Calcium 8.6 mg/dL (8.5-10.1)
[2022-07-22 14:26] LABS: Bilirubin, Total 0.6 mg/dL (0.2-1.0)
[2022-07-22 15:06] LABS: Potassium 5.8 mmol/L (3.5-5.1)
[2022-07-22] MEDS ORDERED: SODIUM BICARBONATE 8.4% INJ 50ML SYRINGE IV ONE (16:45)
[2022-07-22] MEDS ORDERED: FUROSEMIDE 20 MG/2 ML VIAL IV ONE (16:45)
[2022-07-22] MEDS ORDERED: DEXTROSE (50%) 50ML SYRG IV ONE (16:45)
[2022-07-22] MEDS ORDERED: PIPERACILLIN-TAZOB 3.375GM 100 ML IV ONE (16:45)
[2022-07-22] MEDS ORDERED: CALCIUM GLUC 1,000mg/50ml-NS 50 ML IV ONE (16:45)
[2022-07-22] MEDS ORDERED: InsuLIN REG 1unit/0.01ml Soln (100units/ml) IV ONE (16:45)
[2022-07-22] MEDS ORDERED: SODIUM ZIRCONIUM CYCL 10 GM PAK PO ONE (16:45)
[2022-07-22] MEDS ORDERED: ALBUTEROL SULF 2.5 MG/0.5ML(0.5%) NEB SOLN NEB ONE (16:45)
[2022-07-22 17:18] LABS: Partial Thromboplastin Time 34.4 sec (24.6-33.4)
[2022-07-22] MEDS ORDERED: HYDROcodone-ACET 5/325MG TAB PO PRN (19:15)
[2022-07-22] MEDS ORDERED: levoFLOXacin 250MG 50 ML IV ONE (19:15)
[2022-07-22] MEDS ORDERED: DEXTROSE (50%) 50ML SYRG IV PRN (19:15)
[2022-07-22] MEDS ORDERED: MORPHINE SULFATE INJ 2 MG/ml SYRG IV PRN (19:15)
[2022-07-22] MEDS ORDERED: hydrALAZINE HCL 20 MG/ML VL IV PRN (19:30)
[2022-07-22 20:14] LABS: Cholesterol 153 mg/dL (< 200); LDL Cholesterol 90 mg/dL (< 100); Triglycerides 133 mg/dL (< 150)
[2022-07-22 20:14] LABS: INR 0.98 (0.9-1.15)
[2022-07-22 20:17] LABS: HDL Cholesterol 61 mg/dL (40-59)
[2022-07-23] VITALS (8 sets, daily range): BP systolic 125–158; BP diastolic 55–88
[2022-07-23] MEDS: ACCU-CHEK COMFORT CURVE STRIP VI SCH ×5 (01:16→23:47)
[2022-07-23] MEDS: levoFLOXacin 500MG 100 ML IV SCH (01:22)
[2022-07-23] MEDS: SACUBITRIL-VALSARTAN 24mg/26mg TAB PO SCH ×3 (01:22→22:21)
[2022-07-23] MEDS: RANOLAZINE ER 500 MG TAB PO SCH ×3 (01:22→22:24)
[2022-07-23] MEDS: InsuLIN REG 1unit/0.01ml Soln (100units/ml) SC SCH ×5 (01:26→23:57)
[2022-07-23] MEDS: INSULIN LANTUS (GLARGINE) 1 /0.01ml (100units/ml) SC SCH ×2 (01:29→22:30)
[2022-07-23] MEDS: GABAPENTIN 300 MG CAP PO SCH ×3 (01:44→22:24)
[2022-07-23] MEDS: LACTATED RINGER'S 1,000 ML IV SCH ×2 (02:13→18:38)
[2022-07-23] MEDS: ISOSORBIDE MONONITRATE ER 60 MG TAB PO SCH ×2 (09:29→22:22)
[2022-07-23] MEDS: METOPROLOL SUCCINATE XL 50 MG TAB PO SCH (09:30)
[2022-07-23] MEDS: FUROSEMIDE 40 MG TAB PO SCH (09:30)
[2022-07-23] MEDS: ASPirin-EC 81 mg tab PO SCH (09:30)
[2022-07-23] MEDS ORDERED: SODIUM CHL 0.9% 1000 ML BAG XX ONE (10:30)
[2022-07-23] MEDS: TAMSULOSIN HYDROCHLORIDE 0.4 MG CAP PO SCH (18:38)
[2022-07-23] MEDS: ATORVASTATIN 20 MG TAB PO SCH (22:23)
[2022-07-24] MEDS: LACTATED RINGER'S 1,000 ML IV SCH (03:00)
[2022-07-24 05:00] VITALS: BP 110/60
[2022-07-24] MEDS: InsuLIN REG 1unit/0.01ml Soln (100units/ml) SC SCH ×3 (05:46→17:41)
[2022-07-24] MEDS: ACCU-CHEK COMFORT CURVE STRIP VI SCH ×3 (05:46→17:53)
[2022-07-24 09:49] VITALS: BP 127/66
[2022-07-24] MEDS: GABAPENTIN 300 MG CAP PO SCH ×2 (10:00→22:40)
[2022-07-24] MEDS: ISOSORBIDE MONONITRATE ER 60 MG TAB PO SCH ×2 (10:00→22:39)
[2022-07-24] MEDS: FUROSEMIDE 40 MG TAB PO SCH (10:00)
[2022-07-24] MEDS: METOPROLOL SUCCINATE XL 50 MG TAB PO SCH (10:00)
[2022-07-24] MEDS: ASPirin-EC 81 mg tab PO SCH (10:00)
[2022-07-24] MEDS: RANOLAZINE ER 500 MG TAB PO SCH ×2 (10:00→22:40)
[2022-07-24] MEDS: SACUBITRIL-VALSARTAN 24mg/26mg TAB PO SCH ×2 (10:00→22:38)
[2022-07-24 12:48] VITALS: BP 145/75
[2022-07-24 17:05] VITALS: BP 137/65
[2022-07-24] MEDS: TAMSULOSIN HYDROCHLORIDE 0.4 MG CAP PO SCH (17:34)
[2022-07-24] MEDS: levoFLOXacin 500MG 100 ML IV SCH (18:32)
[2022-07-24 20:43] LABS: Urine Bacteria FEW /hpf (None Seen); Urine Blood Negative /uL (Negative); Urine Hyaline Cast FEW /lpf (0 - 2); Urine Specific Gravity 1.009 (1.001-1.035); Urine WBC 1 /hpf (0 - 3)
[2022-07-24 22:00] VITALS: BP 150/84
[2022-07-24] MEDS: INSULIN LANTUS (GLARGINE) 1 /0.01ml (100units/ml) SC SCH (22:00)
[2022-07-24] MEDS: ATORVASTATIN 20 MG TAB PO SCH (22:40)
[2022-07-25] MEDS: LACTATED RINGER'S 1,000 ML IV SCH
[2022-07-25] MEDS: ACCU-CHEK COMFORT CURVE STRIP VI SCH ×5 (00:06→23:15)
[2022-07-25 05:00] VITALS: BP 121/66
[2022-07-25] MEDS: InsuLIN REG 1unit/0.01ml Soln (100units/ml) SC SCH ×7 (06:30→23:15)
[2022-07-25] MEDS ORDERED: ROPIVACAINE 0.5% (5MG/ML) 20ML AMPULE IJ ONE (06:43)
[2022-07-25] MEDS ORDERED: ceFAZolin 1GM VL ONE (06:44)
[2022-07-25] MEDS ORDERED: POVIDONE IODINE 10 % TOPICAL OINT 30GM TOP ONE (06:44)
[2022-07-25 06:56] LABS: Basophils # (auto) 0 10 ^3/uL (0-0.2); Basophils % (auto) 0.7 % (0.0-2.0); Eosinophils # (auto) 0.2 10 ^3/uL (0-0.8); Eosinophils % (auto) 3.1 % (0.0-7.0); Hematocrit 31.4 % (41.0-53.0); Lymphocytes # (auto) 1.4 10 ^3/uL (0.4-5.4); Lymphocytes % (auto) 25.1 % (10.0-50.0); Mean Corpuscular Hemoglobin 29.6 pg (28.0-32.0); Mean Corpuscular Hgb Conc. 31.9 g/dL (32.0-36.0); Mean Corpuscular Volume 92.7 fL (80.0-100.0); Monocytes # (auto) 0.4 10 ^3/uL (0-1.3); Monocytes % (auto) 7.3 % (0.0-12.0); Neutrophils # (auto) 3.5 10 ^3/uL (1.6-8.6); Neutrophils % (auto) 63.8 % (37.0-80.0); Nucleated Red Blood Cells % 0.1 %; Red Blood Cells 3.39 10^6/uL (4.5-5.90); Red Cell Distribution Width 16.3 % (11.8-14.3); White Blood Cell 5.4 10^3/uL (4.4-10.8)
[2022-07-25] MEDS ORDERED: SODIUM CHL 0.9% 1000 ML BAG XX ONE (07:00)
[2022-07-25 07:15] LABS: INR 1.06 (0.9-1.15); Partial Thromboplastin Time 31.7 sec (24.6-33.4)
[2022-07-25 07:21] LABS: BUN/Creatinine Ratio 10.5
[2022-07-25 07:26] LABS: Potassium 5.8 mmol/L (3.5-5.1)
[2022-07-25] MEDS ORDERED: ALBUTEROL SULF 2.5 MG/0.5ML(0.5%) NEB SOLN NEB ONE (07:45)
[2022-07-25] MEDS ORDERED: ALBUTEROL SULF 2.5 MG/0.5ML(0.5%) NEB SOLN ONE (08:04)
[2022-07-25 08:10] VITALS: BP 134/72
[2022-07-25] MEDS ORDERED: ceFAZolin 1GM/50ML 100 ML IV ONE (08:24)
[2022-07-25] MEDS ORDERED: MIDAZOLAM HCL 2MG/2ML 2ml VIAL (1mg/ml) ONE (08:46)
[2022-07-25] MEDS ORDERED: MEPERIDINE HCL (25 MG/ML) 1ML VIAL ONE (08:46)
[2022-07-25] MEDS ORDERED: fentaNYL CITRATE 100 MCG/2 ML VL ONE (08:46)
[2022-07-25 09:00] VITALS: BP 159/87
[2022-07-25] MEDS: GABAPENTIN 300 MG CAP PO SCH ×2 (10:00→22:46)
[2022-07-25] MEDS ORDERED: HYDROmorphone HCL 2 MG/ML VL/or syr IV PRN (10:00)
[2022-07-25] MEDS ORDERED: MORPHINE SULFATE 4 MG/ML SYR/VIAL IV PRN (10:00)
[2022-07-25] MEDS: SACUBITRIL-VALSARTAN 24mg/26mg TAB PO SCH ×2 (10:00→22:45)
[2022-07-25] MEDS ORDERED: ONDANSETRON HCL 4 MG/2 ML VIAL IV PRN (10:00)
[2022-07-25] MEDS: ISOSORBIDE MONONITRATE ER 60 MG TAB PO SCH ×2 (10:00→22:46)
[2022-07-25] MEDS ORDERED: ePHEDrine SULFATE 50 MG/ML AMP IV PRN (10:00)
[2022-07-25] MEDS: ASPirin-EC 81 mg tab PO SCH (10:00)
[2022-07-25] MEDS: RANOLAZINE ER 500 MG TAB PO SCH ×2 (10:00→22:45)
[2022-07-25] MEDS: FUROSEMIDE 40 MG TAB PO SCH (10:00)
[2022-07-25] MEDS: METOPROLOL SUCCINATE XL 50 MG TAB PO SCH (10:00)
[2022-07-25] MEDS ORDERED: LABETALOL HCL 5 MG/ML 4ML SYRINGE IV PRN (10:00)
[2022-07-25] MEDS ORDERED: MIDAZOLAM HCL 2MG/2ML 2ml VIAL (1mg/ml) IV PRN (10:00)
[2022-07-25] MEDS ORDERED: PROPOFOL 10 MG/ML 20 ML IV ONE (10:15)
[2022-07-25] MEDS ORDERED: DexAMETHasone SOD PHOS 10MG/1ML VIAL INJ ONE (10:15)
[2022-07-25] MEDS ORDERED: BACITRACIN TOP OINT 1 UD PKG TOP ONE (10:52)
[2022-07-25 12:31] VITALS: BP 134/72
[2022-07-25] MEDS ORDERED: PHENYLEPHRINE HCL 10 MG/ML VL IV ONE (14:36)
[2022-07-25 16:25] LABS: Hematocrit 30.7 % (41.0-53.0); Hemoglobin 10.1 g/dL (13.5-17.5)
[2022-07-25 16:41] VITALS: BP 141/85
[2022-07-25] MEDS: TAMSULOSIN HYDROCHLORIDE 0.4 MG CAP PO SCH (17:46)
[2022-07-25] MEDS ORDERED: EPOETIN ALFA-EPBX 10,000 UNIT/1ML VIAL SC ONE (21:00)
[2022-07-25 22:00] VITALS: BP 130/67
[2022-07-25] MEDS: ATORVASTATIN 20 MG TAB PO SCH (22:46)
[2022-07-25] MEDS: INSULIN LANTUS (GLARGINE) 1 /0.01ml (100units/ml) SC SCH (23:14)
[2022-07-26] VITALS (7 sets, daily range): BP systolic 120–157; BP diastolic 61–86
[2022-07-26] MEDS ORDERED: InsuLIN REG 1unit/0.01ml Soln (100units/ml) SC ONE (00:30)
[2022-07-26] MEDS: LACTATED RINGER'S 1,000 ML IV SCH ×2 (03:15→23:15)
[2022-07-26 06:40] LABS: Basophils # (auto) 0 10 ^3/uL (0-0.2); Basophils % (auto) 0.3 % (0.0-2.0); Eosinophils # (auto) 0 10 ^3/uL (0-0.8); Hemoglobin 9.2 g/dL (13.5-17.5); Lymphocytes # (auto) 0.3 10 ^3/uL (0.4-5.4); Lymphocytes % (auto) 4.5 % (10.0-50.0); Mean Corpuscular Hemoglobin 30.6 pg (28.0-32.0); Monocytes # (auto) 0.5 10 ^3/uL (0-1.3); Monocytes % (auto) 7.6 % (0.0-12.0); Neutrophils # (auto) 6.2 10 ^3/uL (1.6-8.6); Neutrophils % (auto) 87.6 % (37.0-80.0); Nucleated Red Blood Cells % 0.1 %; Red Cell Distribution Width 15.8 % (11.8-14.3); White Blood Cell 7.1 10^3/uL (4.4-10.8)
[2022-07-26] MEDS: INSULIN LANTUS (GLARGINE) 1 /0.01ml (100units/ml) SC SCH ×2 (06:50→22:13)
[2022-07-26] MEDS: ACCU-CHEK COMFORT CURVE STRIP VI SCH ×3 (06:50→17:56)
[2022-07-26] MEDS: InsuLIN REG 1unit/0.01ml Soln (100units/ml) SC SCH ×3 (06:51→17:57)
[2022-07-26 07:11] LABS: BUN/Creatinine Ratio 11.7
[2022-07-26] MEDS: SACUBITRIL-VALSARTAN 24mg/26mg TAB PO SCH ×2 (10:00→22:05)
[2022-07-26] MEDS: ASPirin-EC 81 mg tab PO SCH (10:16)
[2022-07-26] MEDS: GABAPENTIN 300 MG CAP PO SCH ×2 (10:16→22:05)
[2022-07-26] MEDS: FUROSEMIDE 40 MG TAB PO SCH (10:16)
[2022-07-26] MEDS: METOPROLOL SUCCINATE XL 50 MG TAB PO SCH (10:17)
[2022-07-26] MEDS: RANOLAZINE ER 500 MG TAB PO SCH ×2 (10:18→22:06)
[2022-07-26] MEDS: ISOSORBIDE MONONITRATE ER 60 MG TAB PO SCH ×2 (10:19→22:05)
[2022-07-26] MEDS: TAMSULOSIN HYDROCHLORIDE 0.4 MG CAP PO SCH (17:56)
[2022-07-26] MEDS: levoFLOXacin 500MG 100 ML IV SCH (19:23)
[2022-07-26] MEDS: ATORVASTATIN 20 MG TAB PO SCH (22:05)
[2022-07-26] MEDS: ACETAMINOPHEN 325 MG TAB PO PRN (22:23)
[2022-07-27] VITALS (7 sets, daily range): BP systolic 97–127; BP diastolic 41–70
[2022-07-27] MEDS: InsuLIN REG 1unit/0.01ml Soln (100units/ml) SC SCH ×5 (06:00→23:40)
[2022-07-27] MEDS: ACCU-CHEK COMFORT CURVE STRIP VI SCH ×4 (06:16→18:44)
[2022-07-27] MEDS: INSULIN LANTUS (GLARGINE) 1 /0.01ml (100units/ml) SC SCH (06:59)
[2022-07-27] MEDS: SACUBITRIL-VALSARTAN 24mg/26mg TAB PO SCH ×2 (10:00→22:21)
[2022-07-27] MEDS: METOPROLOL SUCCINATE XL 50 MG TAB PO SCH (10:36)
[2022-07-27] MEDS: FUROSEMIDE 40 MG TAB PO SCH (10:36)
[2022-07-27] MEDS: GABAPENTIN 300 MG CAP PO SCH ×2 (10:36→22:21)
[2022-07-27] MEDS: RANOLAZINE ER 500 MG TAB PO SCH ×2 (10:37→22:18)
[2022-07-27] MEDS: ASPirin-EC 81 mg tab PO SCH (10:37)
[2022-07-27] MEDS: ISOSORBIDE MONONITRATE ER 60 MG TAB PO SCH ×2 (10:37→22:20)
[2022-07-27] MEDS ORDERED: LACTULOSE 20Gm/30ML SOLN PO ONE (16:30)
[2022-07-27] MEDS: TAMSULOSIN HYDROCHLORIDE 0.4 MG CAP PO SCH (17:48)
[2022-07-27] MEDS ORDERED: INSULIN LANTUS (GLARGINE) 1 /0.01ml (100units/ml) SC SCH (22:00)
[2022-07-27] MEDS: LACTULOSE 20Gm/30ML SOLN PO SCH (22:18)
[2022-07-27] MEDS: ATORVASTATIN 20 MG TAB PO SCH (22:19)
[2022-07-27] MEDS: MEROPENEM 500MG IVPB 50 ML IV SCH (23:24)
[2022-07-28] VITALS (7 sets, daily range): BP systolic 96–121; BP diastolic 54–65
[2022-07-28] MEDS: ACCU-CHEK COMFORT CURVE STRIP VI SCH ×5 (00:25→23:49)
[2022-07-28] MEDS ORDERED: IBUPROFEN 600 MG TAB PO PRN (00:30)
[2022-07-28] MEDS: ONDANSETRON HCL 4 MG/2 ML VIAL IV PRN (00:45)
[2022-07-28] MEDS: InsuLIN REG 1unit/0.01ml Soln (100units/ml) SC SCH ×4 (05:31→23:53)
[2022-07-28] MEDS ORDERED: BISACODYL 10 MG RECT SUPP PR PRN (08:00)
[2022-07-28] MEDS: MEROPENEM 500MG IVPB 50 ML IV SCH ×2 (09:57→21:50)
[2022-07-28] MEDS: LACTULOSE 20Gm/30ML SOLN PO SCH ×2 (09:58→21:50)
[2022-07-28] MEDS: ASPirin-EC 81 mg tab PO SCH (09:58)
[2022-07-28] MEDS: SACUBITRIL-VALSARTAN 24mg/26mg TAB PO SCH ×2 (10:00→21:51)
[2022-07-28] MEDS: FUROSEMIDE 40 MG TAB PO SCH (10:01)
[2022-07-28] MEDS: GABAPENTIN 300 MG CAP PO SCH ×2 (10:01→21:51)
[2022-07-28] MEDS: RANOLAZINE ER 500 MG TAB PO SCH ×2 (10:02→22:02)
[2022-07-28] MEDS: ISOSORBIDE MONONITRATE ER 60 MG TAB PO SCH ×2 (10:10→22:01)
[2022-07-28] MEDS: METOPROLOL SUCCINATE XL 50 MG TAB PO SCH (10:10)
[2022-07-28] MEDS: ACETAMINOPHEN 325 MG TAB PO PRN (12:54)
[2022-07-28] MEDS: TAMSULOSIN HYDROCHLORIDE 0.4 MG CAP PO SCH (18:15)
[2022-07-28] MEDS ORDERED: VANCOMYCIN PER PHARMACY 0 MG IV SCH (21:45)
[2022-07-28] MEDS: ATORVASTATIN 20 MG TAB PO SCH (21:52)
[2022-07-28] MEDS ORDERED: VANCOMYCIN 1GM/250ML 250 ML IV ONE (22:30)
[2022-07-29 05:00] VITALS: BP 107/60
[2022-07-29] MEDS: InsuLIN REG 1unit/0.01ml Soln (100units/ml) SC SCH ×4 (06:00→21:08)
[2022-07-29] MEDS: ACCU-CHEK COMFORT CURVE STRIP VI SCH ×4 (06:13→21:06)
[2022-07-29] MEDS ORDERED: SODIUM CHL 0.9% 1000 ML BAG XX ONE (07:00)
[2022-07-29 08:14] LABS: Basophils # (auto) 0 10 ^3/uL (0-0.2); Basophils % (auto) 0.5 % (0.0-2.0); Eosinophils # (auto) 0.1 10 ^3/uL (0-0.8); Eosinophils % (auto) 1.5 % (0.0-7.0); Hematocrit 27.5 % (41.0-53.0); Lymphocytes # (auto) 0.8 10 ^3/uL (0.4-5.4); Lymphocytes % (auto) 13.7 % (10.0-50.0); Mean Corpuscular Hemoglobin 29.7 pg (28.0-32.0); Mean Corpuscular Hgb Conc. 32.6 g/dL (32.0-36.0); Mean Corpuscular Volume 91.1 fL (80.0-100.0); Monocytes # (auto) 0.5 10 ^3/uL (0-1.3); Monocytes % (auto) 8.3 % (0.0-12.0); Neutrophils # (auto) 4.3 10 ^3/uL (1.6-8.6); Red Blood Cells 3.02 10^6/uL (4.5-5.90); White Blood Cell 5.7 10^3/uL (4.4-10.8)
[2022-07-29 08:42] LABS: Alanine Aminotransferase < 6 U/L (16-61); Albumin 2.1 g/dL (3.4-5.0); Alkaline Phosphatase 75 U/L (45-117); Anion Gap 7 (5-15); Aspartate Aminotransferase 13 U/L (15-37); BUN/Creatinine Ratio 12.1; Bilirubin, Total 0.4 mg/dL (0.2-1.0); Blood Urea Nitrogen 77 mg/dL (7-18); Calcium 7.1 mg/dL (8.5-10.1); Carbon Dioxide 22 mmol/L (21-32); Chloride 103 mmol/L (98-107); GFR African American 11 mL/min; GFR Non-African American 9 mL/min; Glucose 125 mg/dL (74-106); Sodium 132 mmol/L (136-145); Total Protein 5.4 g/dL (6.4-8.2)
[2022-07-29 08:53] LABS: Potassium 6.3 mmol/L (3.5-5.1)
[2022-07-29 09:00] VITALS: BP 91/53
[2022-07-29] MEDS: ASPirin-EC 81 mg tab PO SCH (10:00)
[2022-07-29] MEDS: FUROSEMIDE 40 MG TAB PO SCH (10:00)
[2022-07-29] MEDS: ISOSORBIDE MONONITRATE ER 60 MG TAB PO SCH ×2 (10:00→21:05)
[2022-07-29] MEDS: LACTULOSE 20Gm/30ML SOLN PO SCH ×2 (10:00→21:06)
[2022-07-29] MEDS: RANOLAZINE ER 500 MG TAB PO SCH ×2 (10:00→21:04)
[2022-07-29] MEDS: METOPROLOL SUCCINATE XL 50 MG TAB PO SCH (10:00)
[2022-07-29] MEDS ORDERED: SACUBITRIL-VALSARTAN 24mg/26mg TAB PO SCH (10:30)
[2022-07-29] MEDS ORDERED: OSELTAMIVIR 30 MG CAP PO ONE (10:30)
[2022-07-29] MEDS: GABAPENTIN 300 MG CAP PO SCH ×2 (10:31→21:05)
[2022-07-29 13:05] VITALS: BP 92/57
[2022-07-29] MEDS ORDERED: VANCOMYCIN 1GM/250ML 250 ML IV ONE (16:00)
[2022-07-29 16:19] VITALS: BP 106/64
[2022-07-29] MEDS: MEROPENEM 500MG IVPB 50 ML IV SCH ×2 (17:28→21:08)
[2022-07-29] MEDS: OSELTAMIVIR 30 MG CAP PO SCH ×2 (17:45→17:57)
[2022-07-29] MEDS: TAMSULOSIN HYDROCHLORIDE 0.4 MG CAP PO SCH ×2 (17:45→17:57)
[2022-07-29] MEDS ORDERED: EPOETIN ALFA-EPBX 10,000 UNIT/1ML VIAL SC ONE (21:00)
[2022-07-29] MEDS: ATORVASTATIN 20 MG TAB PO SCH (21:06)
[2022-07-29 21:40] VITALS: BP 121/52
[2022-07-29] MEDS ORDERED: OSELTAMIVIR 30 MG CAP PO SCH (22:00)
[2022-07-30 04:50] VITALS: BP 107/62
[2022-07-30] MEDS: InsuLIN REG 1unit/0.01ml Soln (100units/ml) SC SCH ×3 (06:00→17:58)
[2022-07-30] MEDS: ACCU-CHEK COMFORT CURVE STRIP VI SCH ×3 (06:13→17:56)
[2022-07-30 06:45] LABS: Basophils # (auto) 0 10 ^3/uL (0-0.2); Basophils % (auto) 0.3 % (0.0-2.0); Eosinophils # (auto) 0 10 ^3/uL (0-0.8); Hematocrit 26.8 % (41.0-53.0); Hemoglobin 9.2 g/dL (13.5-17.5); Lymphocytes # (auto) 1.2 10 ^3/uL (0.4-5.4); Lymphocytes % (auto) 26.4 % (10.0-50.0); Mean Corpuscular Hemoglobin 30.6 pg (28.0-32.0); Mean Corpuscular Hgb Conc. 34.3 g/dL (32.0-36.0); Mean Corpuscular Volume 89.1 fL (80.0-100.0); Monocytes # (auto) 0.6 10 ^3/uL (0-1.3); Monocytes % (auto) 14.3 % (0.0-12.0); Neutrophils # (auto) 2.6 10 ^3/uL (1.6-8.6); Nucleated Red Blood Cells % 0.1 %; Red Cell Distribution Width 15.7 % (11.8-14.3); White Blood Cell 4.4 10^3/uL (4.4-10.8)
[2022-07-30 07:23] LABS: BUN/Creatinine Ratio 10.2; Calcium 6.7 mg/dL (8.5-10.1); Potassium 5.5 mmol/L (3.5-5.1)
[2022-07-30 08:27] VITALS: BP 104/53
[2022-07-30] MEDS: ISOSORBIDE MONONITRATE ER 60 MG TAB PO SCH ×2 (10:00→22:27)
[2022-07-30] MEDS: LACTULOSE 20Gm/30ML SOLN PO SCH ×2 (11:04→22:24)
[2022-07-30] MEDS: METOPROLOL SUCCINATE XL 50 MG TAB PO SCH (11:05)
[2022-07-30] MEDS: GABAPENTIN 300 MG CAP PO SCH ×2 (11:05→22:25)
[2022-07-30] MEDS: FUROSEMIDE 40 MG TAB PO SCH (11:05)
[2022-07-30] MEDS: RANOLAZINE ER 500 MG TAB PO SCH ×2 (11:06→22:27)
[2022-07-30] MEDS: SODIUM ZIRCONIUM CYCL 10 GM PAK PO SCH (11:06)
[2022-07-30] MEDS: ASPirin-EC 81 mg tab PO SCH (11:06)
[2022-07-30] MEDS: MEROPENEM 500MG IVPB 50 ML IV SCH ×2 (11:10→22:24)
[2022-07-30] MEDS: ONDANSETRON HCL 4 MG/2 ML VIAL IV PRN (11:42)
[2022-07-30 12:36] VITALS: BP 123/56
[2022-07-30 16:29] VITALS: BP 126/65
[2022-07-30] MEDS: TAMSULOSIN HYDROCHLORIDE 0.4 MG CAP PO SCH (17:52)
[2022-07-30 21:30] VITALS: BP 111/54
[2022-07-30] MEDS: ATORVASTATIN 20 MG TAB PO SCH (22:25)
[2022-07-31] MEDS: ACCU-CHEK COMFORT CURVE STRIP VI SCH ×4 (00:44→17:59)
[2022-07-31] MEDS: InsuLIN REG 1unit/0.01ml Soln (100units/ml) SC SCH ×4 (00:44→17:56)
[2022-07-31 05:00] VITALS: BP 138/74
[2022-07-31 05:58] LABS: Basophils # (auto) 0 10 ^3/uL (0-0.2); Basophils % (auto) 0.5 % (0.0-2.0); Eosinophils # (auto) 0.1 10 ^3/uL (0-0.8); Eosinophils % (auto) 2.3 % (0.0-7.0); Hematocrit 27.8 % (41.0-53.0); Hemoglobin 9.2 g/dL (13.5-17.5); Lymphocytes # (auto) 1.2 10 ^3/uL (0.4-5.4); Lymphocytes % (auto) 24.9 % (10.0-50.0); Mean Corpuscular Hgb Conc. 33.2 g/dL (32.0-36.0); Mean Corpuscular Volume 90.5 fL (80.0-100.0); Monocytes # (auto) 0.5 10 ^3/uL (0-1.3); Monocytes % (auto) 11.6 % (0.0-12.0); Neutrophils # (auto) 2.8 10 ^3/uL (1.6-8.6); Neutrophils % (auto) 60.7 % (37.0-80.0); Red Blood Cells 3.07 10^6/uL (4.5-5.90); Red Cell Distribution Width 15.4 % (11.8-14.3); White Blood Cell 4.6 10^3/uL (4.4-10.8)
[2022-07-31 06:28] LABS: Albumin 2.1 g/dL (3.4-5.0); BUN/Creatinine Ratio 10.3; Calcium 7.4 mg/dL (8.5-10.1)
[2022-07-31 06:31] LABS: Bilirubin, Total 0.3 mg/dL (0.2-1.0); Total Protein 5.5 g/dL (6.4-8.2)
[2022-07-31 06:34] LABS: Potassium 5.6 mmol/L (3.5-5.1)
[2022-07-31] MEDS ORDERED: SODIUM CHL 0.9% 1000 ML BAG XX ONE (07:00)
[2022-07-31 09:02] VITALS: BP 122/49
[2022-07-31] MEDS: METOPROLOL SUCCINATE XL 50 MG TAB PO SCH (10:30)
[2022-07-31] MEDS: ASPirin-EC 81 mg tab PO SCH (10:30)
[2022-07-31] MEDS: GABAPENTIN 300 MG CAP PO SCH ×2 (10:30→21:36)
[2022-07-31] MEDS: FUROSEMIDE 40 MG TAB PO SCH (10:30)
[2022-07-31] MEDS: RANOLAZINE ER 500 MG TAB PO SCH ×2 (10:30→21:35)
[2022-07-31] MEDS: SODIUM ZIRCONIUM CYCL 10 GM PAK PO SCH (10:30)
[2022-07-31] MEDS: ISOSORBIDE MONONITRATE ER 60 MG TAB PO SCH ×2 (10:30→21:35)
[2022-07-31] MEDS: MEROPENEM 500MG IVPB 50 ML IV SCH ×2 (10:30→21:36)
[2022-07-31] MEDS: LACTULOSE 20Gm/30ML SOLN PO SCH ×2 (10:30→21:36)
[2022-07-31 13:00] VITALS: BP 104/57
[2022-07-31] MEDS ORDERED: VANCOMYCIN 1GM/250ML 250 ML IV ONE (16:00)
[2022-07-31 17:16] VITALS: BP 125/61
[2022-07-31] MEDS: OSELTAMIVIR 30 MG CAP PO SCH (17:58)
[2022-07-31] MEDS: TAMSULOSIN HYDROCHLORIDE 0.4 MG CAP PO SCH (17:58)
[2022-07-31] MEDS ORDERED: EPOETIN ALFA-EPBX 10,000 UNIT/1ML VIAL SC ONE (21:00)
[2022-07-31] MEDS: ATORVASTATIN 20 MG TAB PO SCH (21:36)
[2022-07-31 22:00] VITALS: BP 119/71
[2022-08-01] MEDS: InsuLIN REG 1unit/0.01ml Soln (100units/ml) SC SCH ×4 (00:04→17:49)
[2022-08-01] MEDS: ACCU-CHEK COMFORT CURVE STRIP VI SCH ×4 (00:05→17:49)
[2022-08-01 05:00] VITALS: BP 127/75
[2022-08-01 06:10] LABS: Basophils # (auto) 0.1 10 ^3/uL (0-0.2); Eosinophils # (auto) 0.3 10 ^3/uL (0-0.8); Eosinophils % (auto) 4.4 % (0.0-7.0); Hematocrit 25.8 % (41.0-53.0); Hemoglobin 8.7 g/dL (13.5-17.5); Lymphocytes # (auto) 1.4 10 ^3/uL (0.4-5.4); Lymphocytes % (auto) 24.5 % (10.0-50.0); Mean Corpuscular Hemoglobin 30.3 pg (28.0-32.0); Mean Corpuscular Hgb Conc. 33.6 g/dL (32.0-36.0); Mean Corpuscular Volume 90.1 fL (80.0-100.0); Monocytes # (auto) 0.7 10 ^3/uL (0-1.3); Monocytes % (auto) 11.9 % (0.0-12.0); Neutrophils # (auto) 3.3 10 ^3/uL (1.6-8.6); Neutrophils % (auto) 58.2 % (37.0-80.0); Nucleated Red Blood Cells % 0.1 %; Red Blood Cells 2.86 10^6/uL (4.5-5.90); Red Cell Distribution Width 15.6 % (11.8-14.3); White Blood Cell 5.7 10^3/uL (4.4-10.8)
[2022-08-01 06:39] LABS: Bilirubin, Total 0.5 mg/dL (0.2-1.0); Total Protein 4.8 g/dL (6.4-8.2)
[2022-08-01 06:58] LABS: Potassium 6.1 mmol/L (3.5-5.1)
[2022-08-01] MEDS ORDERED: ALBUTEROL SULF 2.5 MG/0.5ML(0.5%) NEB SOLN NEB ONE (07:30)
[2022-08-01] MEDS ORDERED: SODIUM ZIRCONIUM CYCL 10 GM PAK PO ONE ×2 (07:30→13:45)
[2022-08-01 08:44] VITALS: BP 127/78
[2022-08-01] MEDS: SODIUM ZIRCONIUM CYCL 10 GM PAK PO SCH ×3 (09:13→22:02)
[2022-08-01] MEDS: MEROPENEM 500MG IVPB 50 ML IV SCH ×2 (09:13→21:57)
[2022-08-01] MEDS: LACTULOSE 20Gm/30ML SOLN PO SCH ×2 (09:13→21:57)
[2022-08-01] MEDS: GABAPENTIN 300 MG CAP PO SCH ×2 (09:14→22:02)
[2022-08-01] MEDS: ASPirin-EC 81 mg tab PO SCH (09:14)
[2022-08-01] MEDS: RANOLAZINE ER 500 MG TAB PO SCH ×2 (09:14→22:03)
[2022-08-01] MEDS: FUROSEMIDE 40 MG TAB PO SCH (09:15)
[2022-08-01] MEDS: METOPROLOL SUCCINATE XL 50 MG TAB PO SCH (09:16)
[2022-08-01] MEDS: ISOSORBIDE MONONITRATE ER 60 MG TAB PO SCH ×2 (09:22→21:58)
[2022-08-01] MEDS ORDERED: CALCIUM GLUC 1,000mg/50ml-NS 50 ML IV ONE (11:15)
[2022-08-01] MEDS ORDERED: InsuLIN REG 1unit/0.01ml Soln (100units/ml) IV ONE ×2 (11:15→13:45)
[2022-08-01] MEDS ORDERED: DEXTROSE (50%) 50ML SYRG IV ONE (11:15)
[2022-08-01 13:04] VITALS: BP 104/59
[2022-08-01 15:40] VITALS: BP 116/65
[2022-08-01] MEDS: TAMSULOSIN HYDROCHLORIDE 0.4 MG CAP PO SCH (18:44)
[2022-08-01 22:00] VITALS: BP 96/57
[2022-08-01] MEDS: ATORVASTATIN 20 MG TAB PO SCH (22:00)
[2022-08-02] MEDS: InsuLIN REG 1unit/0.01ml Soln (100units/ml) SC SCH ×3 (00:25→16:15)
[2022-08-02] MEDS: ACCU-CHEK COMFORT CURVE STRIP VI SCH ×3 (00:26→18:02)
[2022-08-02 05:00] VITALS: BP 98/55
[2022-08-02] MEDS: SODIUM ZIRCONIUM CYCL 10 GM PAK PO SCH ×3 (05:43→22:00)
[2022-08-02] MEDS ORDERED: SODIUM CHL 0.9% 1000 ML BAG XX ONE (07:00)
[2022-08-02 07:58] LABS: Hematocrit 26.5 % (41.0-53.0); Hemoglobin 8.7 g/dL (13.5-17.5)
[2022-08-02 08:00] VITALS: BP 110/63
[2022-08-02] MEDS: FUROSEMIDE 40 MG TAB PO SCH (10:00)
[2022-08-02] MEDS: ISOSORBIDE MONONITRATE ER 60 MG TAB PO SCH ×2 (10:00→22:00)
[2022-08-02] MEDS: METOPROLOL SUCCINATE XL 50 MG TAB PO SCH (10:00)
[2022-08-02] MEDS: ASPirin-EC 81 mg tab PO SCH (10:16)
[2022-08-02] MEDS: RANOLAZINE ER 500 MG TAB PO SCH (10:16)
[2022-08-02] MEDS: GABAPENTIN 300 MG CAP PO SCH (10:16)
[2022-08-02] MEDS: LACTULOSE 20Gm/30ML SOLN PO SCH ×2 (10:17→22:00)
[2022-08-02] MEDS: MEROPENEM 500MG IVPB 50 ML IV SCH (10:57)
[2022-08-02 13:00] VITALS: BP 120/62
[2022-08-02 16:44] LABS: BUN/Creatinine Ratio 9.8; Calcium 7.6 mg/dL (8.5-10.1)
[2022-08-02 16:58] LABS: Potassium 5.7 mmol/L (3.5-5.1)
[2022-08-02 17:00] VITALS: BP 116/68
[2022-08-02] MEDS ORDERED: OSELTAMIVIR 30 MG CAP PO ONE (18:02)
[2022-08-02] MEDS: TAMSULOSIN HYDROCHLORIDE 0.4 MG CAP PO SCH (18:10)
[2022-08-02] MEDS: OSELTAMIVIR 30 MG CAP PO SCH (18:10)
[2022-08-02 20:00] VITALS: BP 110/63
[2022-08-02] MEDS ORDERED: EPOETIN ALFA-EPBX 10,000 UNIT/1ML VIAL SC ONE (21:00)
[2022-08-02 22:00] VITALS: BP 116/53
[2022-08-02] MEDS: INSULIN LANTUS (GLARGINE) 1 /0.01ml (100units/ml) SC SCH (22:00)
[2022-08-03] MEDS: ATORVASTATIN 20 MG TAB PO SCH ×2 (00:26→22:21)
[2022-08-03] MEDS: GABAPENTIN 300 MG CAP PO SCH ×3 (00:26→22:22)
[2022-08-03] MEDS: MEROPENEM 500MG IVPB 50 ML IV SCH ×3 (01:41→22:16)
[2022-08-03] MEDS: RANOLAZINE ER 500 MG TAB PO SCH ×3 (01:41→22:37)
[2022-08-03 05:15] VITALS: BP 137/65
[2022-08-03] MEDS: SODIUM ZIRCONIUM CYCL 10 GM PAK PO SCH ×3 (06:00→22:21)
[2022-08-03 06:27] LABS: BUN/Creatinine Ratio 7.6; Calcium 7.4 mg/dL (8.5-10.1); Potassium 4.3 mmol/L (3.5-5.1)
[2022-08-03] MEDS: InsuLIN REG 1unit/0.01ml Soln (100units/ml) SC SCH ×3 (06:39→17:22)
[2022-08-03] MEDS: ACCU-CHEK COMFORT CURVE STRIP VI SCH ×3 (06:43→17:19)
[2022-08-03 08:00] VITALS: BP 135/66
[2022-08-03 09:00] VITALS: BP 135/66
[2022-08-03] MEDS: ISOSORBIDE MONONITRATE ER 60 MG TAB PO SCH ×2 (09:59→22:31)
[2022-08-03] MEDS: LACTULOSE 20Gm/30ML SOLN PO SCH ×2 (09:59→22:17)
[2022-08-03] MEDS: ASPirin-EC 81 mg tab PO SCH (10:00)
[2022-08-03] MEDS: METOPROLOL SUCCINATE XL 50 MG TAB PO SCH (10:02)
[2022-08-03] MEDS: FUROSEMIDE 40 MG TAB PO SCH (10:12)
[2022-08-03 12:28] VITALS: BP 103/64
[2022-08-03] MEDS ORDERED: VANCOMYCIN 1GM/250ML 250 ML IV ONE (13:00)
[2022-08-03] MEDS: ONDANSETRON HCL 4 MG/2 ML VIAL IV PRN (14:16)
[2022-08-03] MEDS: TAMSULOSIN HYDROCHLORIDE 0.4 MG CAP PO SCH (17:18)
[2022-08-03 20:00] VITALS: BP 151/73
[2022-08-03 22:00] VITALS: BP 151/73
[2022-08-03] MEDS: INSULIN LANTUS (GLARGINE) 1 /0.01ml (100units/ml) SC SCH (22:27)
[2022-08-04] VITALS (7 sets, daily range): BP systolic 107–131; BP diastolic 50–59
[2022-08-04] MEDS: SODIUM ZIRCONIUM CYCL 10 GM PAK PO SCH ×3 (05:47→23:00)
[2022-08-04] MEDS: ACCU-CHEK COMFORT CURVE STRIP VI SCH ×3 (06:24→17:18)
[2022-08-04] MEDS: InsuLIN REG 1unit/0.01ml Soln (100units/ml) SC SCH ×3 (06:26→17:00)
[2022-08-04] MEDS: ISOSORBIDE MONONITRATE ER 60 MG TAB PO SCH ×2 (10:35→23:13)
[2022-08-04] MEDS: METOPROLOL SUCCINATE XL 50 MG TAB PO SCH (10:36)
[2022-08-04] MEDS: GABAPENTIN 300 MG CAP PO SCH ×2 (10:37→22:59)
[2022-08-04] MEDS: LACTULOSE 20Gm/30ML SOLN PO SCH ×2 (10:39→22:59)
[2022-08-04] MEDS: FUROSEMIDE 40 MG TAB PO SCH (10:39)
[2022-08-04] MEDS: MEROPENEM 500MG IVPB 50 ML IV SCH ×2 (10:43→23:09)
[2022-08-04] MEDS: ASPirin-EC 81 mg tab PO SCH (10:43)
[2022-08-04] MEDS: RANOLAZINE ER 500 MG TAB PO SCH ×2 (11:00→23:35)
[2022-08-04] MEDS: ATORVASTATIN 20 MG TAB PO SCH (23:00)
[2022-08-04] MEDS: INSULIN LANTUS (GLARGINE) 1 /0.01ml (100units/ml) SC SCH (23:04)
[2022-08-05 05:00] VITALS: BP 114/43
[2022-08-05 05:47] LABS: Hematocrit 25.5 % (41.0-53.0); Hemoglobin 8.5 g/dL (13.5-17.5); Mean Corpuscular Hgb Conc. 33.5 g/dL (32.0-36.0); Mean Corpuscular Volume 89.6 fL (80.0-100.0); Red Blood Cells 2.85 10^6/uL (4.5-5.90); Red Cell Distribution Width 15.5 % (11.8-14.3); White Blood Cell 5.7 10^3/uL (4.4-10.8)
[2022-08-05 06:40] LABS: Calcium 7.3 mg/dL (8.5-10.1); Potassium 4.3 mmol/L (3.5-5.1)
[2022-08-05 06:41] LABS: Basophils % (manual) 0 (0.0-2.0); Blast Cells 0; Metamyelocytes % 0; Myelocytes % 0; Promyelocytes % 0; Reactive Lymphocytes 0
[2022-08-05] MEDS: InsuLIN REG 1unit/0.01ml Soln (100units/ml) SC SCH ×2 (06:58→11:56)
[2022-08-05] MEDS: ACCU-CHEK COMFORT CURVE STRIP VI SCH ×2 (06:58→11:55)
[2022-08-05] MEDS: SODIUM ZIRCONIUM CYCL 10 GM PAK PO SCH ×2 (07:00→14:00)
[2022-08-05] MEDS ORDERED: SODIUM CHL 0.9% 1000 ML BAG XX ONE (07:00)
[2022-08-05 08:58] LABS: Band Neutrophils % (manual) 9; Eosinophils % (manual) 4 (0-7); Lymphocytes % (manual) 29 (10.0-50.0); Monocytes % (manual) 7 (0-12)
[2022-08-05 09:00] VITALS: BP 100/57
[2022-08-05] MEDS: LACTULOSE 20Gm/30ML SOLN PO SCH (09:29)
[2022-08-05] MEDS: ASPirin-EC 81 mg tab PO SCH (09:29)
[2022-08-05] MEDS: GABAPENTIN 300 MG CAP PO SCH (09:30)
[2022-08-05] MEDS: ISOSORBIDE MONONITRATE ER 60 MG TAB PO SCH (09:32)
[2022-08-05] MEDS: MEROPENEM 500MG IVPB 50 ML IV SCH (09:32)
[2022-08-05] MEDS: FUROSEMIDE 40 MG TAB PO SCH (09:33)
[2022-08-05] MEDS: METOPROLOL SUCCINATE XL 50 MG TAB PO SCH (09:37)
[2022-08-05] MEDS: RANOLAZINE ER 500 MG TAB PO SCH (09:44)
[2022-08-05] MEDS ORDERED: EPOETIN ALFA-EPBX 10,000 UNIT/1ML VIAL SC ONE (21:00)
== END 2022-08-05 15:12 | disposition home health service (06) | DRG 622 ==
LOC: ER 11:11 → OVERFLOW 19:09 → TELE-WESTW 07-23 04:29 → WEST WING 07-23 04:38 → TELE-WESTW 08-01 08:55
PROVIDERS: ADMIT Registered Nurse; ATTEND Internal Medicine
PROC: 5A1D70Z Performance of Urinary Filtration, Intermittent, Less than 6 Hours Per Day (ICD-10-PCS; principal; 2022-07-23)
PROC: 0JBQ0ZZ Excision of Right Foot Subcutaneous Tissue and Fascia, Open Approach (ICD-10-PCS; 2022-07-25)
PROC: 0QBN0ZZ Excision of Right Metatarsal, Open Approach (ICD-10-PCS; 2022-07-25)
PROC: 0QBL0ZZ Excision of Right Tarsal, Open Approach (ICD-10-PCS; 2022-07-25)
PROC: 5A1D70Z Performance of Urinary Filtration, Intermittent, Less than 6 Hours Per Day (ICD-10-PCS; 2022-07-25)
PROC: 5A1D70Z Performance of Urinary Filtration, Intermittent, Less than 6 Hours Per Day (ICD-10-PCS; 2022-07-29)
PROC: 05HC33Z Insertion of Infusion Device into Left Basilic Vein, Percutaneous Approach (ICD-10-PCS; 2022-07-31)
PROC: B54NZZA Ultrasonography of Left Upper Extremity Veins, Guidance (ICD-10-PCS; 2022-07-31)
PROC: 5A1D70Z Performance of Urinary Filtration, Intermittent, Less than 6 Hours Per Day (ICD-10-PCS; 2022-08-01)
PROC: 5A1D70Z Performance of Urinary Filtration, Intermittent, Less than 6 Hours Per Day (ICD-10-PCS; 2022-08-02)
PROC: 05HB33Z Insertion of Infusion Device into Right Basilic Vein, Percutaneous Approach (ICD-10-PCS; 2022-08-05)
PROC: B54MZZA Ultrasonography of Right Upper Extremity Veins, Guidance (ICD-10-PCS; 2022-08-05)
DX: E11.69 Type 2 diabetes mellitus with other specified complication (principal); I50.41 Acute combined systolic (congestive) and diastolic (congestive) heart failure; L97.819 Non-pressure chronic ulcer of other part of right lower leg with unspecified severity; M86.8X7 Other osteomyelitis, ankle and foot; N18.6 End stage renal disease; D63.1 Anemia in chronic kidney disease; E83.39 Other disorders of phosphorus metabolism; Z20.822 Contact with and (suspected) exposure to COVID-19; L97.519 Non-pressure chronic ulcer of other part of right foot with unspecified severity; E11.22 Type 2 diabetes mellitus with diabetic chronic kidney disease; E78.5 Hyperlipidemia, unspecified; E11.51 Type 2 diabetes mellitus with diabetic peripheral angiopathy without gangrene; E87.5 Hyperkalemia; I25.10 Atherosclerotic heart disease of native coronary artery without angina pectoris; Z99.2 Dependence on renal dialysis; E11.621 Type 2 diabetes mellitus with foot ulcer; J10.1 Influenza due to other identified influenza virus with other respiratory manifestations; Z95.1 Presence of aortocoronary bypass graft; Z91.199 Patient's noncompliance with other medical treatment and regimen due to unspecified reason; Z83.3 Family history of diabetes mellitus; Z89.519 Acquired absence of unspecified leg below knee; Z82.3 Family history of stroke; Z82.49 Family history of ischemic heart disease and other diseases of the circulatory system; Z63.4 Disappearance and death of family member
CPT/HCPCS: 36415; 71045; 73700; 73718; 80048; 80053; 80061; 80202; 81001; 82962; 83036; 83605; 83880; 84132; 84484; 85007; 85014; 85018; 85025; 85027; 85610; 85652; 85730; 86850; 86900; 86901; 87040; 87070; 87075; 87076; 87077; 87081; 87186; 87205; 87340; 87426; 87804; 90935; 93005; 94640; 96365; 96375; G0378; G9035; J0690; J1100; J1642; J1815; J1956; J2185; J2250; J2405; J2704

== ENCOUNTER 2022-08-10 00:27 | Emergency (ER) | payer OTHER ==
[~2022-08-10] VITALS: Ht 180.3 cm; Wt 65.0 kg
[2022-08-10 02:24] VITALS: BP 150/70
== END 2022-08-10 04:23 | disposition home or self-care (01) ==
LOC: EDBD 00:27 → ER 00:27
DX: T82.534A Leakage of infusion catheter, initial encounter (principal); Y92.89 Other specified places as the place of occurrence of the external cause; I12.0 Hypertensive chronic kidney disease with stage 5 chronic kidney disease or end stage renal disease; E11.22 Type 2 diabetes mellitus with diabetic chronic kidney disease; N18.6 End stage renal disease; Z90.89 Acquired absence of other organs; Z95.1 Presence of aortocoronary bypass graft
CPT/HCPCS: 93005

== ENCOUNTER 2022-08-22 21:28 | Inpatient (IN) | payer OTHER ==
[~2022-08-22] VITALS: Ht 175.3 cm; Wt 68.2 kg
[2022-08-22] MEDS ORDERED: ACETAMINOPHEN 500 MG TAB PO PRN (23:30)
[2022-08-22] MEDS ORDERED: ONDANSETRON HCL 4 MG/2 ML VIAL IV PRN (23:30)
[2022-08-22] MEDS ORDERED: NITROGLYCERIN 0.4 MG SL TAB SL PRN (23:30)
[2022-08-22] MEDS ORDERED: MORPHINE SULFATE INJ 2 MG/ml SYRG IV PRN (23:30)
[2022-08-22] MEDS ORDERED: ALBUTEROL SULF HFA 90MCG INH 200DOSE IN PRN (23:30)
[2022-08-22] MEDS ORDERED: DEXTROSE (50%) 50ML SYRG IV PRN (23:30)
[2022-08-22] MEDS ORDERED: hydrALAZINE HCL 20 MG/ML VL IV PRN (23:30)
[2022-08-22] MEDS ORDERED: DOCUSATE SOD 100 MG CAP PO PRN (23:30)
[2022-08-22] MEDS ORDERED: HYDROcodone-ACET 5/325MG TAB PO PRN (23:30)
[2022-08-22] MEDS ORDERED: HEPARIN SODIUM (PORCINE) 5000 UNITS/ML 1ML VIAL SC SCH (23:58)
[2022-08-22] MEDS: SODIUM CHLOR 0.9% PF (SALINE LOCK) 10ML VIAL/SYR IV SCH (23:58)
[2022-08-23 01:43] LABS: Albumin 2.3 g/dL (3.4-5.0); Magnesium 2.1 mg/dL (1.6-2.6); Potassium 5.1 mmol/L (3.5-5.1)
[2022-08-23 01:44] LABS: Basophils # (auto) 0 10 ^3/uL (0-0.2); Basophils % (auto) 0.4 % (0.0-2.0); Eosinophils # (auto) 0 10 ^3/uL (0-0.8); Eosinophils % (auto) 0.2 % (0.0-7.0); Hematocrit 30.5 % (41.0-53.0); Lymphocytes # (auto) 1.1 10 ^3/uL (0.4-5.4); Lymphocytes % (auto) 17.4 % (10.0-50.0); Mean Corpuscular Hemoglobin 29.7 pg (28.0-32.0); Mean Corpuscular Hgb Conc. 32.8 g/dL (32.0-36.0); Mean Corpuscular Volume 90.6 fL (80.0-100.0); Monocytes # (auto) 0.6 10 ^3/uL (0-1.3); Monocytes % (auto) 9.3 % (0.0-12.0); Neutrophils # (auto) 4.6 10 ^3/uL (1.6-8.6); Neutrophils % (auto) 72.7 % (37.0-80.0); Nucleated Red Blood Cells % 0.1 %; Red Blood Cells 3.37 10^6/uL (4.5-5.90); Red Cell Distribution Width 16.5 % (11.8-14.3); White Blood Cell 6.4 10^3/uL (4.4-10.8)
[2022-08-23 01:46] LABS: Bilirubin, Total 0.3 mg/dL (0.2-1.0); Total Protein 5.8 g/dL (6.4-8.2)
[2022-08-23 01:57] LABS: Thyroid Stimulating Hormone 1.5 uIU/mL (0.358-3.74)
[2022-08-23] MEDS: AZITHROMYCIN 500MG/ 250ML 250 ML IV SCH ×2 (03:00→21:01)
[2022-08-23 03:07] LABS: CRP High Sensitivity 0.765 mg/dL (< 0.3)
[2022-08-23 05:00] VITALS: BP 145/86
[2022-08-23] MEDS: SODIUM CHLOR 0.9% PF (SALINE LOCK) 10ML VIAL/SYR IV SCH ×3 (06:00→21:01)
[2022-08-23] MEDS: InsuLIN REG 1unit/0.01ml Soln (100units/ml) SC SCH ×4 (06:33→21:33)
[2022-08-23] MEDS: ACCU-CHEK COMFORT CURVE STRIP VI SCH ×4 (06:43→21:29)
[2022-08-23 08:00] VITALS: BP 133/64
[2022-08-23] MEDS: SEVELAMER 800 MG TAB PO SCH ×3 (08:35→18:09)
[2022-08-23 09:00] VITALS: BP 147/86
[2022-08-23] MEDS: ASCORBIC ACID 1,000 MG TAB PO SCH (10:00)
[2022-08-23] MEDS ORDERED: INFLUENZA QUAD 2022-2023 0.5 ML SYRG IM ONE (10:15)
[2022-08-23 10:18] LABS: Urine Blood Negative /uL (Negative); Urine Specific Gravity 1.017 (1.001-1.035)
[2022-08-23] MEDS: HEPARIN SODIUM (PORCINE) 5000 UNITS/ML 1ML VIAL SC SCH ×2 (11:00→18:09)
[2022-08-23] MEDS: DexAMETHasone SOD PHOS 10MG/1ML VIAL INJ IV SCH (11:42)
[2022-08-23] MEDS: ASPirin 81 mg TAB PO SCH (11:42)
[2022-08-23] MEDS: CARVEDILOL 12.5 MG TAB PO SCH ×2 (11:43→21:24)
[2022-08-23] MEDS: ZINC SULFATE 220mg CAP or TAB PO SCH (11:43)
[2022-08-23] MEDS: CLOPIDOGREL BISULFATE 75 MG TAB PO SCH (11:43)
[2022-08-23] MEDS: CHOLECALCIFEROL (VITD3) 2,000 UNIT CAP/TAB PO SCH (11:44)
[2022-08-23] MEDS: B-COMPLEX W/ C & FOLIC ACID(NEPHROVITE TAB) PO SCH (11:44)
[2022-08-23 13:00] VITALS: BP 138/76
[2022-08-23 13:36] LABS: Mean Corpuscular Hemoglobin 29.2 pg (28.0-32.0); Mean Corpuscular Hgb Conc. 32.5 g/dL (32.0-36.0); Red Blood Cells 3.78 10^6/uL (4.5-5.90); Red Cell Distribution Width 16.9 % (11.8-14.3); White Blood Cell 6.1 10^3/uL (4.4-10.8)
[2022-08-23 13:55] LABS: Band Neutrophils % (manual) 0; Basophils % (manual) 0 (0.0-2.0); Blast Cells 0; Promyelocytes % 0; Reactive Lymphocytes 0
[2022-08-23 14:01] LABS: Albumin 2.3 g/dL (3.4-5.0); BUN/Creatinine Ratio 11.4; Calcium 7.9 mg/dL (8.5-10.1); Potassium 4.1 mmol/L (3.5-5.1)
[2022-08-23 14:04] LABS: Bilirubin, Total 0.4 mg/dL (0.2-1.0); Total Protein 5.8 g/dL (6.4-8.2)
[2022-08-23 14:16] LABS: Eosinophils % (manual) 1 (0-7); Lymphocytes % (manual) 32 (10.0-50.0); Metamyelocytes % 1; Monocytes % (manual) 10 (0-12); Myelocytes % 4
[2022-08-23 17:00] VITALS: BP 123/72
[2022-08-23] MEDS ORDERED: VANCOMYCIN PER PHARMACY 0 MG IV SCH (19:30)
[2022-08-23] MEDS ORDERED: CEFEPIME 2 GM in D5W 5% 50 ML IV SCH (20:00)
[2022-08-23] MEDS ORDERED: VANCOMYCIN 1GM/250ML 250 ML IV ONE (20:00)
[2022-08-23] MEDS: ATORVASTATIN 20 MG TAB PO SCH (21:01)
[2022-08-23 22:00] VITALS: BP 136/69
[2022-08-23] MEDS ORDERED: INSULIN LANTUS (GLARGINE) 1 /0.01ml (100units/ml) SC ONE (23:15)
[2022-08-24] MEDS: HEPARIN SODIUM (PORCINE) 5000 UNITS/ML 1ML VIAL SC SCH ×3 (02:56→17:45)
[2022-08-24 05:00] VITALS: BP 124/55
[2022-08-24] MEDS: ACCU-CHEK COMFORT CURVE STRIP VI SCH ×4 (06:23→22:06)
[2022-08-24] MEDS: InsuLIN REG 1unit/0.01ml Soln (100units/ml) SC SCH ×4 (06:26→22:08)
[2022-08-24] MEDS: SODIUM CHLOR 0.9% PF (SALINE LOCK) 10ML VIAL/SYR IV SCH ×3 (06:31→21:06)
[2022-08-24] MEDS: SEVELAMER 800 MG TAB PO SCH ×4 (08:00→17:44)
[2022-08-24] MEDS: CEFEPIME 2 GM in D5W 5% 50 ML IV SCH ×2 (08:00→10:51)
[2022-08-24 08:38] VITALS: BP 152/76
[2022-08-24 09:56] LABS: Hematocrit 34.5 % (41.0-53.0); Hemoglobin 10.8 g/dL (13.5-17.5); Mean Corpuscular Hemoglobin 28.3 pg (28.0-32.0); Mean Corpuscular Hgb Conc. 31.4 g/dL (32.0-36.0); Mean Corpuscular Volume 90.1 fL (80.0-100.0); Red Blood Cells 3.83 10^6/uL (4.5-5.90); White Blood Cell 7.3 10^3/uL (4.4-10.8)
[2022-08-24 10:01] LABS: Band Neutrophils % (manual) 0; Basophils % (manual) 0 (0.0-2.0); Blast Cells 0; Promyelocytes % 0; Reactive Lymphocytes 0
[2022-08-24 10:29] LABS: Albumin 2.2 g/dL (3.4-5.0); Calcium 7.6 mg/dL (8.5-10.1)
[2022-08-24 10:31] LABS: BUN/Creatinine Ratio 12.8; Bilirubin, Total 0.3 mg/dL (0.2-1.0); Total Protein 5.6 g/dL (6.4-8.2)
[2022-08-24 10:35] LABS: Eosinophils % (manual) 2 (0-7); Lymphocytes % (manual) 39 (10.0-50.0); Metamyelocytes % 2; Monocytes % (manual) 11 (0-12); Myelocytes % 4
[2022-08-24] MEDS: DexAMETHasone SOD PHOS 10MG/1ML VIAL INJ IV SCH (10:51)
[2022-08-24] MEDS: ASPirin 81 mg TAB PO SCH (10:51)
[2022-08-24] MEDS: CARVEDILOL 12.5 MG TAB PO SCH ×2 (10:52→21:15)
[2022-08-24] MEDS: ZINC SULFATE 220mg CAP or TAB PO SCH (10:52)
[2022-08-24] MEDS: B-COMPLEX W/ C & FOLIC ACID(NEPHROVITE TAB) PO SCH (10:53)
[2022-08-24] MEDS: ISOSORBIDE MONONITRATE ER 60 MG TAB PO SCH (10:53)
[2022-08-24] MEDS: CLOPIDOGREL BISULFATE 75 MG TAB PO SCH (10:53)
[2022-08-24] MEDS: CHOLECALCIFEROL (VITD3) 2,000 UNIT CAP/TAB PO SCH (10:53)
[2022-08-24] MEDS: ASCORBIC ACID 1,000 MG TAB PO SCH (10:53)
[2022-08-24] MEDS: INSULIN LANTUS (GLARGINE) 1 /0.01ml (100units/ml) SC SCH ×2 (11:27→22:08)
[2022-08-24 13:00] VITALS: BP 142/68
[2022-08-24 17:00] VITALS: BP 128/60
[2022-08-24] MEDS: AZITHROMYCIN 500MG/ 250ML 250 ML IV SCH (21:06)
[2022-08-24] MEDS: ATORVASTATIN 20 MG TAB PO SCH (21:06)
[2022-08-24 22:00] VITALS: BP 107/71
[2022-08-25] MEDS: HEPARIN SODIUM (PORCINE) 5000 UNITS/ML 1ML VIAL SC SCH ×3 (03:19→18:23)
[2022-08-25 05:00] VITALS: BP 147/71
[2022-08-25] MEDS: SODIUM CHLOR 0.9% PF (SALINE LOCK) 10ML VIAL/SYR IV SCH ×3 (06:51→21:50)
[2022-08-25] MEDS: InsuLIN REG 1unit/0.01ml Soln (100units/ml) SC SCH ×5 (06:51→22:09)
[2022-08-25] MEDS: ACCU-CHEK COMFORT CURVE STRIP VI SCH ×4 (06:51→21:54)
[2022-08-25 08:00] VITALS: BP 127/60
[2022-08-25] MEDS: SEVELAMER 800 MG TAB PO SCH ×3 (08:57→18:21)
[2022-08-25] MEDS: ISOSORBIDE MONONITRATE ER 60 MG TAB PO SCH (10:00)
[2022-08-25] MEDS: ASCORBIC ACID 1,000 MG TAB PO SCH (10:00)
[2022-08-25] MEDS: CARVEDILOL 12.5 MG TAB PO SCH (10:00)
[2022-08-25] MEDS: B-COMPLEX W/ C & FOLIC ACID(NEPHROVITE TAB) PO SCH (10:00)
[2022-08-25] MEDS: ASPirin 81 mg TAB PO SCH (10:00)
[2022-08-25] MEDS: ZINC SULFATE 220mg CAP or TAB PO SCH (10:00)
[2022-08-25] MEDS: CLOPIDOGREL BISULFATE 75 MG TAB PO SCH (10:00)
[2022-08-25] MEDS: DexAMETHasone SOD PHOS 10MG/1ML VIAL INJ IV SCH (10:00)
[2022-08-25] MEDS: CHOLECALCIFEROL (VITD3) 2,000 UNIT CAP/TAB PO SCH (10:00)
[2022-08-25] MEDS: INSULIN LANTUS (GLARGINE) 1 /0.01ml (100units/ml) SC SCH ×2 (10:00→22:09)
[2022-08-25 12:00] VITALS: BP 115/51
[2022-08-25] MEDS: CEFEPIME 2 GM in D5W 5% 50 ML IV SCH (13:17)
[2022-08-25 13:48] LABS: Hematocrit 34.8 % (41.0-53.0); Hemoglobin 11.5 g/dL (13.5-17.5); Mean Corpuscular Hemoglobin 29.9 pg (28.0-32.0); Mean Corpuscular Hgb Conc. 32.9 g/dL (32.0-36.0); Mean Corpuscular Volume 90.8 fL (80.0-100.0); Red Blood Cells 3.83 10^6/uL (4.5-5.90); White Blood Cell 6.9 10^3/uL (4.4-10.8)
[2022-08-25 13:54] LABS: Band Neutrophils % (manual) 0; Basophils % (manual) 0 (0.0-2.0); Blast Cells 0; Reactive Lymphocytes 0
[2022-08-25 14:16] LABS: Albumin 2.4 g/dL (3.4-5.0); BUN/Creatinine Ratio 13.9; Bilirubin, Total 0.4 mg/dL (0.2-1.0); Calcium 7.9 mg/dL (8.5-10.1); Total Protein 5.7 g/dL (6.4-8.2)
[2022-08-25] MEDS ORDERED: VANCOMYCIN 1GM/250ML 250 ML IV ONE (15:15)
[2022-08-25 15:28] LABS: Eosinophils % (manual) 1 (0-7); Lymphocytes % (manual) 44 (10.0-50.0); Metamyelocytes % 3; Monocytes % (manual) 7 (0-12); Myelocytes % 2; Promyelocytes % 1
[2022-08-25 16:00] VITALS: BP 158/77
[2022-08-25] MEDS: SACUBITRIL-VALSARTAN 24mg/26mg TAB PO SCH (21:52)
[2022-08-25] MEDS: CARVEDILOL 3.125 MG TAB PO SCH (21:53)
[2022-08-25] MEDS: ATORVASTATIN 20 MG TAB PO SCH (21:53)
[2022-08-25] MEDS: AZITHROMYCIN 500MG/ 250ML 250 ML IV SCH (21:55)
[2022-08-25 22:00] VITALS: BP 145/73
[2022-08-26] VITALS: BP 145/73
[2022-08-26] MEDS: HEPARIN SODIUM (PORCINE) 5000 UNITS/ML 1ML VIAL SC SCH ×3 (04:27→19:00)
[2022-08-26 05:00] VITALS: BP 140/69
[2022-08-26 05:48] LABS: Hematocrit 33.3 % (41.0-53.0); Mean Corpuscular Hemoglobin 29.8 pg (28.0-32.0); Mean Corpuscular Hgb Conc. 33.1 g/dL (32.0-36.0); Red Cell Distribution Width 17.8 % (11.8-14.3); White Blood Cell 7.6 10^3/uL (4.4-10.8)
[2022-08-26 05:52] LABS: Basophils % (manual) 0 (0.0-2.0); Blast Cells 0; Metamyelocytes % 0; Promyelocytes % 0; Reactive Lymphocytes 0
[2022-08-26 06:06] LABS: Potassium 4.3 mmol/L (3.5-5.1)
[2022-08-26] MEDS: ACCU-CHEK COMFORT CURVE STRIP VI SCH ×3 (06:11→17:00)
[2022-08-26] MEDS: SODIUM CHLOR 0.9% PF (SALINE LOCK) 10ML VIAL/SYR IV SCH ×2 (06:11→14:09)
[2022-08-26] MEDS: InsuLIN REG 1unit/0.01ml Soln (100units/ml) SC SCH ×3 (06:11→17:00)
[2022-08-26 06:16] LABS: Albumin 2.2 g/dL (3.4-5.0); Bilirubin, Total 0.3 mg/dL (0.2-1.0); Calcium 7.6 mg/dL (8.5-10.1); Total Protein 5.3 g/dL (6.4-8.2)
[2022-08-26 08:00] VITALS: BP 129/54
[2022-08-26] MEDS: SEVELAMER 800 MG TAB PO SCH ×3 (08:00→18:00)
[2022-08-26 08:49] LABS: Band Neutrophils % (manual) 3; Eosinophils % (manual) 1 (0-7); Lymphocytes % (manual) 38 (10.0-50.0); Monocytes % (manual) 9 (0-12); Myelocytes % 1
[2022-08-26 12:00] VITALS: BP 113/64
[2022-08-26] MEDS: INSULIN LANTUS (GLARGINE) 1 /0.01ml (100units/ml) SC SCH (12:57)
[2022-08-26 13:15] VITALS: BP 113/64
[2022-08-26] MEDS: ASPirin 81 mg TAB PO SCH (14:03)
[2022-08-26] MEDS: ZINC SULFATE 220mg CAP or TAB PO SCH (14:07)
[2022-08-26] MEDS: SACUBITRIL-VALSARTAN 24mg/26mg TAB PO SCH (14:07)
[2022-08-26] MEDS: CARVEDILOL 3.125 MG TAB PO SCH (14:07)
[2022-08-26] MEDS: B-COMPLEX W/ C & FOLIC ACID(NEPHROVITE TAB) PO SCH (14:08)
[2022-08-26] MEDS: CLOPIDOGREL BISULFATE 75 MG TAB PO SCH (14:08)
[2022-08-26] MEDS: ISOSORBIDE MONONITRATE ER 60 MG TAB PO SCH (14:08)
[2022-08-26] MEDS: CHOLECALCIFEROL (VITD3) 2,000 UNIT CAP/TAB PO SCH (14:09)
[2022-08-26] MEDS: ASCORBIC ACID 1,000 MG TAB PO SCH (14:09)
[2022-08-26] MEDS ORDERED: VANCOMYCIN 500 MG in D5W 5% 100 ML IV ONE (18:30)
== END 2022-08-26 20:23 | disposition home or self-care (01) | DRG 871 ==
LOC: TELE-EAST 21:28
PROVIDERS: ADMIT Nurse Practitioner Family; ATTEND Internal Medicine Pulmonary Disease
PROC: 5A1D70Z Performance of Urinary Filtration, Intermittent, Less than 6 Hours Per Day (ICD-10-PCS; principal; 2022-08-26)
DX: A41.89 Other specified sepsis (principal); E43 Unspecified severe protein-calorie malnutrition; J12.82 Pneumonia due to coronavirus disease 2019; U07.1 COVID-19; J96.00 Acute respiratory failure, unspecified whether with hypoxia or hypercapnia; N18.6 End stage renal disease; I50.43 Acute on chronic combined systolic (congestive) and diastolic (congestive) heart failure; I21.A1 Myocardial infarction type 2; I13.2 Hypertensive heart and chronic kidney disease with heart failure and with stage 5 chronic kidney disease, or end stage renal disease; J98.11 Atelectasis; R65.20 Severe sepsis without septic shock; D63.1 Anemia in chronic kidney disease; E11.22 Type 2 diabetes mellitus with diabetic chronic kidney disease; E11.51 Type 2 diabetes mellitus with diabetic peripheral angiopathy without gangrene; E11.69 Type 2 diabetes mellitus with other specified complication; I25.10 Atherosclerotic heart disease of native coronary artery without angina pectoris; Z99.2 Dependence on renal dialysis; Z91.199 Patient's noncompliance with other medical treatment and regimen due to unspecified reason; Z89.431 Acquired absence of right foot; Z95.1 Presence of aortocoronary bypass graft; Z86.73 Personal history of transient ischemic attack (TIA), and cerebral infarction without residual deficits; Z83.3 Family history of diabetes mellitus; Z82.3 Family history of stroke; Z82.49 Family history of ischemic heart disease and other diseases of the circulatory system; Z79.899 Other long term (current) drug therapy; Z79.82 Long term (current) use of aspirin; Z79.4 Long term (current) use of insulin; Z78.9 Other specified health status; Z68.21 Body mass index [BMI] 21.0-21.9, adult
CPT/HCPCS: 36415; 71045; 73620; 80053; 80202; 81001; 82306; 82728; 82962; 83036; 83605; 83615; 83735; 84443; 85007; 85025; 85027; 85379; 86141; 87040; 87081; 87205; 87426; 90935; 93306; G0378; J1100; J1642; J1815; J7060

== ENCOUNTER 2022-11-07 14:23 | Outpatient (CLI) | payer MEDICARE, MEDICAID ==
[~2022-11-07 14:23] MED LIST changes: -DOXY-286 PO
[2022-11-07 14:51] LABS: Basophils # (auto) 0 10 ^3/uL (0-0.2); Basophils % (auto) 0.8 % (0.0-2.0); Eosinophils # (auto) 0.1 10 ^3/uL (0-0.8); Eosinophils % (auto) 2.2 % (0.0-7.0); Hematocrit 31.1 % (41.0-53.0); Hemoglobin 10.5 g/dL (13.5-17.5); Lymphocytes # (auto) 1.4 10 ^3/uL (0.4-5.4); Lymphocytes % (auto) 24.1 % (10.0-50.0); Mean Corpuscular Hemoglobin 31.3 pg (28.0-32.0); Mean Corpuscular Hgb Conc. 33.8 g/dL (32.0-36.0); Mean Corpuscular Volume 92.7 fL (80.0-100.0); Monocytes # (auto) 0.5 10 ^3/uL (0-1.3); Monocytes % (auto) 8.7 % (0.0-12.0); Neutrophils # (auto) 3.7 10 ^3/uL (1.6-8.6); Neutrophils % (auto) 64.2 % (37.0-80.0); Red Blood Cells 3.36 10^6/uL (4.5-5.90); Red Cell Distribution Width 16.1 % (11.8-14.3); White Blood Cell 5.7 10^3/uL (4.4-10.8)
[2022-11-07 14:54] LABS: Urine Bacteria NONE SEEN /hpf (None Seen); Urine Blood Negative /uL (Negative); Urine Specific Gravity 1.011 (1.001-1.035); Urine WBC 1 /hpf (0 - 3)
[2022-11-07 15:30] LABS: BUN/Creatinine Ratio 10.5; Bilirubin, Total 0.3 mg/dL (0.2-1.0); Calcium 8.6 mg/dL (8.5-10.1); Total Protein 6.7 g/dL (6.4-8.2)
[2022-11-07 15:34] LABS: INR 0.97 (0.9-1.15); Partial Thromboplastin Time 30.6 sec (24.6-33.4)
[2022-11-07 15:39] LABS: Potassium 5.9 mmol/L (3.5-5.1)
== END 2022-11-07 14:32 | disposition home or self-care (01) ==
LOC: LAB 14:23 → EDSTATUS 11-12 10:45
PROVIDERS: ATTEND Podiatrist Foot & Ankle Surgery
DX: Z01.812 Encounter for preprocedural laboratory examination (principal); Z20.822 Contact with and (suspected) exposure to COVID-19; I50.9 Heart failure, unspecified
CPT/HCPCS: 36415; 80053; 81001; 85025; 85610; 85730; C9803; U0003

== ENCOUNTER 2022-11-26 14:58 | Inpatient (IN) | payer MEDICARE, MEDICAID ==
[~2022-11-26] VITALS: Ht 175.3 cm; Wt 68.5 kg
[2022-11-26 15:50] LABS: Basophils # (auto) 0 10 ^3/uL (0-0.2); Basophils % (auto) 0.6 % (0.0-2.0); Eosinophils # (auto) 0.1 10 ^3/uL (0-0.8); Eosinophils % (auto) 1.4 % (0.0-7.0); Hematocrit 31.8 % (41.0-53.0); Hemoglobin 10.4 g/dL (13.5-17.5); Lymphocytes # (auto) 2.3 10 ^3/uL (0.4-5.4); Lymphocytes % (auto) 26.7 % (10.0-50.0); Mean Corpuscular Hgb Conc. 32.8 g/dL (32.0-36.0); Mean Corpuscular Volume 94.6 fL (80.0-100.0); Monocytes # (auto) 1.3 10 ^3/uL (0-1.3); Monocytes % (auto) 15.3 % (0.0-12.0); Neutrophils # (auto) 4.9 10 ^3/uL (1.6-8.6); Nucleated Red Blood Cells % 0.1 %; Red Blood Cells 3.36 10^6/uL (4.5-5.90); Red Cell Distribution Width 17.5 % (11.8-14.3); White Blood Cell 8.7 10^3/uL (4.4-10.8)
[2022-11-26 15:53] LABS: Albumin 3.1 g/dL (3.4-5.0); BUN/Creatinine Ratio 11.4; Calcium 8.8 mg/dL (8.5-10.1); Potassium 5.4 mmol/L (3.5-5.1)
[2022-11-26 15:56] LABS: Bilirubin, Total 0.4 mg/dL (0.2-1.0); Total Protein 6.7 g/dL (6.4-8.2)
[2022-11-26] MEDS ORDERED: DEXTROSE 10% 250 ML IV ONE (16:09)
[2022-11-26] MEDS ORDERED: DEXTROSE 10% 1,000 ML IV ONE (16:09)
[2022-11-26] MEDS: SODIUM CHLORIDE 0.9% 1,000 ML IV ONE ×2 (16:24→17:35)
[2022-11-26] MEDS ORDERED: FUROSEMIDE 20 MG/2 ML VIAL IV ONE (17:00)
[2022-11-26] MEDS ORDERED: ALBUTEROL SULF 2.5 MG/0.5ML(0.5%) NEB SOLN NEB ONE (17:00)
[2022-11-26] MEDS ORDERED: CALCIUM GLUC 1,000mg/50ml-NS 50 ML IV ONE (17:00)
[2022-11-26 18:14] LABS: Lactic Acid w/Reflex 2.2 mmol/L (0.4-2.0)
[2022-11-26] MEDS ORDERED: MORPHINE SULFATE INJ 2 MG/ml SYRG IV PRN (18:15)
[2022-11-26] MEDS ORDERED: D5W/SOD CHL 0.45% 1,000 ML IV ONE (18:15)
[2022-11-26] MEDS ORDERED: NITROGLYCERIN 0.4 MG SL TAB SL PRN (18:15)
[2022-11-26] MEDS ORDERED: hydrALAZINE HCL 20 MG/ML VL IV PRN (18:45)
[2022-11-26 18:55] LABS: Cholesterol 132 mg/dL (< 200); HDL Cholesterol 65 mg/dL (40-59); LDL Cholesterol 67 mg/dL (< 100); Triglycerides 53 mg/dL (< 150)
[2022-11-26 21:21] LABS: Urine Bacteria NONE SEEN /hpf (None Seen); Urine Blood Negative /uL (Negative); Urine Hyaline Cast FEW /lpf (0 - 2); Urine Specific Gravity 1.011 (1.001-1.035); Urine WBC 1 /hpf (0 - 3)
[2022-11-26 21:34] LABS: Alcohol, Urine < 3.0 mg/dL (0-10); Amphetamine Screen, Urine NEGATIVE (NEGATIVE); Barbiturate Scree,Urine NEGATIVE (NEGATIVE); Benzodiazephine Screen, Urine NEGATIVE (NEGATIVE); Cannabinoid Screen, Urine NEGATIVE (NEGATIVE); Cocaine Screen, Urine NEGATIVE (NEGATIVE); Opiate Scree,Urine NEGATIVE (NEGATIVE); Phencyclidine Screen, Urine NEGATIVE (NEGATIVE)
[2022-11-26] MEDS ORDERED: SODIUM ZIRCONIUM CYCL 10 GM PAK PO ONE (21:45)
[2022-11-27] MEDS: ACCU-CHEK COMFORT CURVE STRIP VI SCH ×8 (00:10→20:00)
[2022-11-27 04:35] LABS: Basophils # (auto) 0 10 ^3/uL (0-0.2); Basophils % (auto) 0.5 % (0.0-2.0); Eosinophils # (auto) 0.1 10 ^3/uL (0-0.8); Eosinophils % (auto) 1.3 % (0.0-7.0); Hematocrit 28.7 % (41.0-53.0); Hemoglobin 9.7 g/dL (13.5-17.5); Lymphocytes # (auto) 1.7 10 ^3/uL (0.4-5.4); Lymphocytes % (auto) 28.5 % (10.0-50.0); Mean Corpuscular Hemoglobin 31.9 pg (28.0-32.0); Mean Corpuscular Hgb Conc. 33.7 g/dL (32.0-36.0); Mean Corpuscular Volume 94.6 fL (80.0-100.0); Monocytes # (auto) 0.7 10 ^3/uL (0-1.3); Monocytes % (auto) 11.3 % (0.0-12.0); Neutrophils # (auto) 3.4 10 ^3/uL (1.6-8.6); Neutrophils % (auto) 58.4 % (37.0-80.0); Nucleated Red Blood Cells % 0.1 %; Red Blood Cells 3.03 10^6/uL (4.5-5.90); Red Cell Distribution Width 17.8 % (11.8-14.3); White Blood Cell 5.9 10^3/uL (4.4-10.8)
[2022-11-27 04:55] LABS: Albumin 2.8 g/dL (3.4-5.0); Calcium 8.3 mg/dL (8.5-10.1)
[2022-11-27 04:58] LABS: BUN/Creatinine Ratio 10.8; Bilirubin, Total 0.4 mg/dL (0.2-1.0); Total Protein 6.5 g/dL (6.4-8.2)
[2022-11-27 05:02] LABS: Potassium 5.6 mmol/L (3.5-5.1)
[2022-11-27] MEDS ORDERED: SODIUM ZIRCONIUM CYCL 10 GM PAK PO ONE (05:30)
[2022-11-27] MEDS ORDERED: SODIUM CHL 0.9% 1000 ML BAG XX ONE (08:15)
[2022-11-27] MEDS ORDERED: cloNIDine HCL 0.1 MG TAB PO PRN (09:30)
[2022-11-27] MEDS ORDERED: DEXTROSE (50%) 50ML SYRG IV PRN (09:30)
[2022-11-27] MEDS ORDERED: PANTOPRAZOLE 40 MG/10 ML VIAL INJ IV SCH (10:00)
[2022-11-27] MEDS: InsuLIN REG 1unit/0.01ml Soln (100units/ml) SC SCH ×3 (12:46→20:00)
[2022-11-27] MEDS: ENOXAPARIN SOD 30 MG/0.3 ML SYRINGE SC SCH (12:47)
[2022-11-27] MEDS: METOPROLOL TARTRATE 25 MG TAB PO SCH ×2 (12:47→22:23)
[2022-11-27] MEDS: FUROSEMIDE 20 MG/2 ML VIAL IV SCH (12:47)
[2022-11-27 14:29] VITALS: BP 122/62
[2022-11-27 17:00] VITALS: BP 124/69
[2022-11-27 20:00] VITALS: BP 95/54
[2022-11-27] MEDS ORDERED: EPOETIN ALFA-EPBX 10,000 UNIT/1ML VIAL SC ONE (21:00)
[2022-11-27 22:00] VITALS: BP 123/72
[2022-11-27] MEDS ORDERED: amLODIPine BESYLATE 5 MG TAB PO ONE (22:00)
[2022-11-28] VITALS (8 sets, daily range): BP systolic 106–137; BP diastolic 45–66
[2022-11-28] MEDS: InsuLIN REG 1unit/0.01ml Soln (100units/ml) SC SCH ×6 (04:00→20:41)
[2022-11-28] MEDS: ACCU-CHEK COMFORT CURVE STRIP VI SCH ×6 (04:00→20:39)
[2022-11-28 06:25] LABS: Hematocrit 31.3 % (41.0-53.0); Red Blood Cells 3.53 10^6/uL (4.5-5.90); Red Cell Distribution Width 16.8 % (11.8-14.3); White Blood Cell 6.3 10^3/uL (4.4-10.8)
[2022-11-28 06:28] LABS: Hemoglobin 10.9 g/dL (13.5-17.5); Mean Corpuscular Hemoglobin 30.9 pg (28.0-32.0); Mean Corpuscular Hgb Conc. 34.9 g/dL (32.0-36.0); Mean Corpuscular Volume 88.6 fL (80.0-100.0)
[2022-11-28 06:30] LABS: Partial Thromboplastin Time 35.9 sec (24.6-33.4)
[2022-11-28 06:41] LABS: Potassium 3.5 mmol/L (3.5-5.1)
[2022-11-28 06:51] LABS: BUN/Creatinine Ratio 22.9; Calcium 9.9 mg/dL (8.5-10.1)
[2022-11-28 07:16] LABS: Basophils % (manual) 0 (0.0-2.0); Blast Cells 0; Metamyelocytes % 0; Myelocytes % 0; Promyelocytes % 0; Reactive Lymphocytes 0
[2022-11-28] MEDS ORDERED: ceFAZolin 1GM/50ML 100 ML IV ONE (08:29)
[2022-11-28] MEDS ORDERED: KETAMINE HCL 10 ML ONE (08:31)
[2022-11-28] MEDS ORDERED: MIDAZOLAM HCL 2MG/2ML 2ml VIAL (1mg/ml) ONE (08:31)
[2022-11-28 08:36] LABS: Band Neutrophils % (manual) 1; Eosinophils % (manual) 5 (0-7); Lymphocytes % (manual) 16 (10.0-50.0); Monocytes % (manual) 9 (0-12)
[2022-11-28] MEDS ORDERED: PROPOFOL 10 MG/ML 20 ML IV ONE (08:48)
[2022-11-28] MEDS ORDERED: HYDROmorphone HCL 2 MG/ML VL/or syr IV PRN (09:15)
[2022-11-28] MEDS ORDERED: ONDANSETRON HCL 4 MG/2 ML VIAL IV PRN (09:15)
[2022-11-28] MEDS: ENOXAPARIN SOD 30 MG/0.3 ML SYRINGE SC SCH (10:17)
[2022-11-28] MEDS: METOPROLOL TARTRATE 25 MG TAB PO SCH ×2 (10:17→22:46)
[2022-11-28] MEDS: FUROSEMIDE 20 MG/2 ML VIAL IV SCH (10:17)
[2022-11-29] MEDS: ACCU-CHEK COMFORT CURVE STRIP VI SCH ×4 (00:04→12:00)
[2022-11-29] MEDS: InsuLIN REG 1unit/0.01ml Soln (100units/ml) SC SCH ×4 (00:06→12:00)
[2022-11-29 05:00] VITALS: BP 110/45
[2022-11-29 08:00] VITALS: BP 128/49
[2022-11-29 08:35] VITALS: BP 142/53
[2022-11-29] MEDS ORDERED: CEPH-510 PO (08:38)
[2022-11-29] MEDS: ENOXAPARIN SOD 30 MG/0.3 ML SYRINGE SC SCH (08:42)
[2022-11-29] MEDS: METOPROLOL TARTRATE 25 MG TAB PO SCH (08:42)
[2022-11-29] MEDS: FUROSEMIDE 20 MG/2 ML VIAL IV SCH (08:42)
[2022-11-29 09:22] VITALS: BP 142/53
[2022-11-29] MEDS ORDERED: SODIUM CHL 0.9% 1000 ML BAG XX ONE (09:30)
[2022-11-29] MEDS ORDERED: EPOETIN ALFA-EPBX 10,000 UNIT/1ML VIAL SC ONE (21:00)
== END 2022-11-29 12:30 | disposition home health service (06) | DRG 622 ==
LOC: ER 14:58 → TELE 18:22 → TELE-CENTR 11-27 11:58
PROVIDERS: ADMIT Registered Nurse; ATTEND Family Medicine
PROC: 5A1D70Z Performance of Urinary Filtration, Intermittent, Less than 6 Hours Per Day (ICD-10-PCS; principal; 2022-11-27)
PROC: 0JBQ0ZZ Excision of Right Foot Subcutaneous Tissue and Fascia, Open Approach (ICD-10-PCS; 2022-11-28)
PROC: 0JRQ07Z Replacement of Right Foot Subcutaneous Tissue and Fascia with Autologous Tissue Substitute, Open Approach (ICD-10-PCS; 2022-11-28)
PROC: 5A1D70Z Performance of Urinary Filtration, Intermittent, Less than 6 Hours Per Day (ICD-10-PCS; 2022-11-29)
DX: E11.621 Type 2 diabetes mellitus with foot ulcer (principal); G93.41 Metabolic encephalopathy; I13.2 Hypertensive heart and chronic kidney disease with heart failure and with stage 5 chronic kidney disease, or end stage renal disease; I50.32 Chronic diastolic (congestive) heart failure; N18.6 End stage renal disease; R55 Syncope and collapse; E78.5 Hyperlipidemia, unspecified; E11.22 Type 2 diabetes mellitus with diabetic chronic kidney disease; E11.649 Type 2 diabetes mellitus with hypoglycemia without coma; E87.5 Hyperkalemia; I25.10 Atherosclerotic heart disease of native coronary artery without angina pectoris; Z99.2 Dependence on renal dialysis; D63.1 Anemia in chronic kidney disease; E11.51 Type 2 diabetes mellitus with diabetic peripheral angiopathy without gangrene; E11.65 Type 2 diabetes mellitus with hyperglycemia; I65.21 Occlusion and stenosis of right carotid artery; L08.9 Local infection of the skin and subcutaneous tissue, unspecified; L97.519 Non-pressure chronic ulcer of other part of right foot with unspecified severity; E11.40 Type 2 diabetes mellitus with diabetic neuropathy, unspecified; Z20.822 Contact with and (suspected) exposure to COVID-19; I25.2 Old myocardial infarction; Z79.4 Long term (current) use of insulin; Z82.3 Family history of stroke; Z82.49 Family history of ischemic heart disease and other diseases of the circulatory system; Z83.3 Family history of diabetes mellitus; Z95.1 Presence of aortocoronary bypass graft; Z95.5 Presence of coronary angioplasty implant and graft
CPT/HCPCS: 36415; 70450; 71045; 80048; 80053; 80061; 80307; 81001; 82962; 83036; 83605; 83735; 84443; 84484; 85007; 85025; 85027; 85610; 85730; 87070; 87075; 87077; 87186; 87205; 87426; 90935; 93005; 93886; 94640; C9113; G0378; J0690; J1642; J1815; J2250; J2704

== ENCOUNTER 2022-12-23 16:26 | Inpatient (IN) | payer MEDICARE, MEDICAID ==
[~2022-12-23] VITALS: Ht 175.3 cm; Wt 68.5 kg
[~2022-12-23 16:26] MED LIST changes: +CEPH-510 PO
[2022-12-23] MEDS ORDERED: CALCIUM CHL 100MG/ML 500 MG in D5W 5% 100 ML IV ONE (17:00)
[2022-12-23] MEDS ORDERED: CALCIUM GLUC 1,000mg/50ml-NS 50 ML IV ONE (18:00)
[2022-12-23 18:17] LABS: Basophils # (auto) 0.1 10 ^3/uL (0-0.2); Basophils % (auto) 0.8 % (0.0-2.0); Eosinophils # (auto) 0.1 10 ^3/uL (0-0.8); Eosinophils % (auto) 1.6 % (0.0-7.0); Hematocrit 37.5 % (41.0-53.0); Lymphocytes # (auto) 1.6 10 ^3/uL (0.4-5.4); Lymphocytes % (auto) 24.7 % (10.0-50.0); Mean Corpuscular Hemoglobin 31.7 pg (28.0-32.0); Mean Corpuscular Hgb Conc. 31.9 g/dL (32.0-36.0); Mean Corpuscular Volume 99.5 fL (80.0-100.0); Monocytes # (auto) 0.8 10 ^3/uL (0-1.3); Monocytes % (auto) 12.3 % (0.0-12.0); Neutrophils # (auto) 3.9 10 ^3/uL (1.6-8.6); Neutrophils % (auto) 60.6 % (37.0-80.0); Nucleated Red Blood Cells % 0.1 %; Red Blood Cells 3.77 10^6/uL (4.5-5.90); Red Cell Distribution Width 16.2 % (11.8-14.3); White Blood Cell 6.4 10^3/uL (4.4-10.8)
[2022-12-23 18:44] LABS: Albumin 2.8 g/dL (3.4-5.0); Calcium 8.2 mg/dL (8.5-10.1); Magnesium 2.3 mg/dL (1.6-2.6); Potassium 3.5 mmol/L (3.5-5.1)
[2022-12-23 18:48] LABS: BUN/Creatinine Ratio 7.8 (10.0-20.0); Bilirubin, Total 0.4 mg/dL (0.2-1.0); Total Protein 6.9 g/dL (6.4-8.2)
[2022-12-23] MEDS ORDERED: MORPHINE SULFATE INJ 2 MG/ml SYRG IV PRN (21:30)
[2022-12-23] MEDS ORDERED: ceFAZolin 1GM/50ML 50 ML IV ONE (21:30)
[2022-12-23] MEDS ORDERED: DEXTROSE (50%) 50ML SYRG IV PRN (21:45)
[2022-12-23 21:54] LABS: INR 0.97 (0.9-1.15)
[2022-12-23] MEDS ORDERED: PATIENTS OWN MEDICATION (Ranolazine (Ranolazine ER) 1 TAB) PO SCH (22:00)
[2022-12-23] MEDS: ceFAZolin 1GM/50ML 50 ML IV SCH (22:00)
[2022-12-23] MEDS: GABAPENTIN 300 MG CAP PO SCH (22:00)
[2022-12-23] MEDS: ACCU-CHEK COMFORT CURVE STRIP VI SCH (22:00)
[2022-12-23] MEDS: SACUBITRIL-VALSARTAN 24mg/26mg TAB PO SCH (22:00)
[2022-12-23] MEDS: InsuLIN REG 1unit/0.01ml Soln (100units/ml) SC SCH (22:46)
[2022-12-24 05:43] LABS: Basophils # (auto) 0.1 10 ^3/uL (0-0.2); Basophils % (auto) 0.9 % (0.0-2.0); Eosinophils # (auto) 0.1 10 ^3/uL (0-0.8); Eosinophils % (auto) 1.7 % (0.0-7.0); Hematocrit 36.7 % (41.0-53.0); Hemoglobin 12.1 g/dL (13.5-17.5); Lymphocytes % (auto) 30.3 % (10.0-50.0); Mean Corpuscular Hemoglobin 31.8 pg (28.0-32.0); Mean Corpuscular Hgb Conc. 32.9 g/dL (32.0-36.0); Mean Corpuscular Volume 96.6 fL (80.0-100.0); Monocytes # (auto) 0.8 10 ^3/uL (0-1.3); Monocytes % (auto) 11.9 % (0.0-12.0); Neutrophils # (auto) 3.6 10 ^3/uL (1.6-8.6); Neutrophils % (auto) 55.2 % (37.0-80.0); Red Cell Distribution Width 15.8 % (11.8-14.3); White Blood Cell 6.5 10^3/uL (4.4-10.8)
[2022-12-24 05:51] LABS: Albumin 2.8 g/dL (3.4-5.0); Calcium 8.5 mg/dL (8.5-10.1); Potassium 3.8 mmol/L (3.5-5.1)
[2022-12-24 05:54] LABS: BUN/Creatinine Ratio 8.3 (10.0-20.0)
[2022-12-24 05:57] LABS: Bilirubin, Total 0.6 mg/dL (0.2-1.0); Total Protein 6.9 g/dL (6.4-8.2)
[2022-12-24] MEDS: ACCU-CHEK COMFORT CURVE STRIP VI SCH ×4 (06:05→21:40)
[2022-12-24] MEDS: InsuLIN REG 1unit/0.01ml Soln (100units/ml) SC SCH ×4 (06:05→21:33)
[2022-12-24] MEDS: ceFAZolin 1GM/50ML 50 ML IV SCH ×3 (06:38→22:04)
[2022-12-24] MEDS ORDERED: BUPIVACAINE HCL 0 ML ONE (06:46)
[2022-12-24] MEDS ORDERED: ROPIVACAINE 0.5% (5MG/ML) 20ML AMPULE IJ ONE (06:46)
[2022-12-24] MEDS ORDERED: ROCURONIUM 10MG/ML 10ML VIAL IV ONE (07:00)
[2022-12-24] MEDS ORDERED: SUCCINYLCHOLINE CHLORIDE 20 MG/ML 10ML VIAL IV ONE (07:00)
[2022-12-24] MEDS ORDERED: fentaNYL CITRATE 100 MCG/2 ML VL ONE (07:11)
[2022-12-24] MEDS ORDERED: MIDAZOLAM HCL 2MG/2ML 2ml VIAL (1mg/ml) ONE (07:11)
[2022-12-24] MEDS ORDERED: SODIUM CHLORIDE LOCK 10 ML ONE (07:11)
[2022-12-24] MEDS ORDERED: PROPOFOL 10 MG/ML 20 ML IV ONE (07:11)
[2022-12-24] MEDS ORDERED: ceFAZolin 1GM/50ML 50 ML IV ONE (07:19)
[2022-12-24] MEDS ORDERED: ceFAZolin 1GM VL ONE (07:22)
[2022-12-24] MEDS ORDERED: HYDROmorphone HCL 2 MG/ML VL/or syr IV PRN ×2 (07:30)
[2022-12-24] MEDS ORDERED: METOCLOPRAMIDE HCL 5MG/ml INJ 2ml VIAL IV PRN (07:30)
[2022-12-24] MEDS ORDERED: ACCU-CHEK COMFORT CURVE STRIP VI ONE (07:30)
[2022-12-24] MEDS ORDERED: MORPHINE SULFATE INJ 2 MG/ml SYRG IV PRN (07:30)
[2022-12-24] MEDS ORDERED: ONDANSETRON HCL 4 MG/2 ML VIAL ONE (07:32)
[2022-12-24] MEDS ORDERED: BACITRACIN TOP OINT 1 UD PKG TOP ONE (07:54)
[2022-12-24] MEDS: RANOLAZINE ER 500 MG TAB PO SCH ×2 (10:00→22:01)
[2022-12-24] MEDS: SACUBITRIL-VALSARTAN 24mg/26mg TAB PO SCH ×2 (10:00→22:00)
[2022-12-24] MEDS: ISOSORBIDE MONONITRATE ER 60 MG TAB PO SCH ×2 (10:00→22:02)
[2022-12-24] MEDS: ASPirin-EC 81 mg tab PO SCH (10:00)
[2022-12-24] MEDS: GABAPENTIN 300 MG CAP PO SCH ×2 (10:00→22:00)
[2022-12-24] MEDS ORDERED: PATIENTS OWN MEDICATION (Clopidogrel Bisulfate (Plavix) 1 TAB) PO SCH (10:00)
[2022-12-24] MEDS: CLOPIDOGREL BISULFATE 75 MG TAB PO SCH (10:00)
[2022-12-24] MEDS ORDERED: PATIENTS OWN MEDICATION (Atorvastatin Calcium (Lipitor) 1 TAB) PO SCH (10:00)
[2022-12-24] MEDS: FUROSEMIDE 40 MG TAB PO SCH (10:00)
[2022-12-24] MEDS ORDERED: METOCLOPRAMIDE HCL 5MG/ml INJ 2ml VIAL IV ONE (11:39)
[2022-12-24] MEDS ORDERED: DexAMETHasone SOD PHOS 10MG/1ML VIAL INJ IV ONE (11:39)
[2022-12-24] MEDS ORDERED: INSULIN LISPRO (HUMAN) 100 UNITS/ML ML SC ONE (17:45)
[2022-12-24] MEDS ORDERED: TAMSULOSIN HYDROCHLORIDE 0.4 MG CAP PO SCH (18:00)
[2022-12-24] MEDS ORDERED: INSULIN LANTUS (GLARGINE) 1 /0.01ml (100units/ml) SC ONE (21:45)
[2022-12-24] MEDS ORDERED: ATORVASTATIN 20 MG TAB PO SCH (22:00)
[2022-12-25 05:00] VITALS: BP 139/76
[2022-12-25] MEDS: ceFAZolin 1GM/50ML 50 ML IV SCH (06:21)
[2022-12-25] MEDS: InsuLIN REG 1unit/0.01ml Soln (100units/ml) SC SCH ×2 (06:33→11:24)
[2022-12-25] MEDS: ACCU-CHEK COMFORT CURVE STRIP VI SCH (06:35)
[2022-12-25] MEDS ORDERED: INSULIN LANTUS (GLARGINE) 1 /0.01ml (100units/ml) SC SCH (07:00)
[2022-12-25 07:53] VITALS: BP 139/71
[2022-12-25] MEDS: FUROSEMIDE 40 MG TAB PO SCH (08:22)
[2022-12-25] MEDS: ASPirin-EC 81 mg tab PO SCH (08:22)
[2022-12-25] MEDS: ISOSORBIDE MONONITRATE ER 60 MG TAB PO SCH (08:22)
[2022-12-25] MEDS: SACUBITRIL-VALSARTAN 24mg/26mg TAB PO SCH (08:22)
[2022-12-25] MEDS: CLOPIDOGREL BISULFATE 75 MG TAB PO SCH (08:22)
[2022-12-25] MEDS: GABAPENTIN 300 MG CAP PO SCH (08:22)
[2022-12-25] MEDS: RANOLAZINE ER 500 MG TAB PO SCH (08:23)
[2022-12-25 08:24] VITALS: BP 141/76
[2022-12-25 11:31] VITALS: BP 139/71
== END 2022-12-25 12:05 | disposition home or self-care (01) | DRG 573 ==
LOC: ER 16:26 → EDBD 16:26 → TELE 21:23 → TELE-EAST 12-24 12:59
PROVIDERS: ADMIT Nurse Practitioner Family; ATTEND Internal Medicine
PROC: 0HRMXK3 Replacement of Right Foot Skin with Nonautologous Tissue Substitute, Full Thickness, External Approach (ICD-10-PCS; 2022-12-24)
PROC: 0JBQ0ZZ Excision of Right Foot Subcutaneous Tissue and Fascia, Open Approach (ICD-10-PCS; principal; 2022-12-24 07:32)
DX: L97.519 Non-pressure chronic ulcer of other part of right foot with unspecified severity (principal); N18.6 End stage renal disease; J90 Pleural effusion, not elsewhere classified; I13.2 Hypertensive heart and chronic kidney disease with heart failure and with stage 5 chronic kidney disease, or end stage renal disease; E11.22 Type 2 diabetes mellitus with diabetic chronic kidney disease; E11.621 Type 2 diabetes mellitus with foot ulcer; E78.5 Hyperlipidemia, unspecified; I25.10 Atherosclerotic heart disease of native coronary artery without angina pectoris; I49.3 Ventricular premature depolarization; Z20.822 Contact with and (suspected) exposure to COVID-19; I50.9 Heart failure, unspecified; R00.8 Other abnormalities of heart beat; Z79.02 Long term (current) use of antithrombotics/antiplatelets; Z79.82 Long term (current) use of aspirin; Z95.1 Presence of aortocoronary bypass graft; Z82.3 Family history of stroke; Z82.49 Family history of ischemic heart disease and other diseases of the circulatory system; Z83.3 Family history of diabetes mellitus; Z98.61 Coronary angioplasty status
CPT/HCPCS: 36415; 71045; 80053; 80162; 82962; 83735; 83880; 84484; 85025; 85610; 87075; 87077; 87186; 87205; 87426; 93005; 96365; 96367; 96375; 99291; G0378; J0330; J0690; J1100; J1815; J2250; J2405; J2704; J3490; J7060

== ENCOUNTER 2023-01-22 14:05 | Emergency (ER) | payer MEDICARE, MEDICAID ==
[~2023-01-22] VITALS: Ht 175.3 cm; Wt 79.0 kg
[2023-01-22 16:26] LABS: Basophils # (auto) 0 10 ^3/uL (0-0.2); Basophils % (auto) 0.5 % (0.0-2.0); Eosinophils # (auto) 0.1 10 ^3/uL (0-0.8); Eosinophils % (auto) 1.4 % (0.0-7.0); Hemoglobin 10.9 g/dL (13.5-17.5); Lymphocytes # (auto) 1.2 10 ^3/uL (0.4-5.4); Lymphocytes % (auto) 16.3 % (10.0-50.0); Mean Corpuscular Hemoglobin 31.7 pg (28.0-32.0); Mean Corpuscular Hgb Conc. 33.1 g/dL (32.0-36.0); Mean Corpuscular Volume 95.7 fL (80.0-100.0); Monocytes # (auto) 0.6 10 ^3/uL (0-1.3); Monocytes % (auto) 8.3 % (0.0-12.0); Neutrophils # (auto) 5.3 10 ^3/uL (1.6-8.6); Neutrophils % (auto) 73.5 % (37.0-80.0); Red Blood Cells 3.45 10^6/uL (4.5-5.90); Red Cell Distribution Width 13.6 % (11.8-14.3); White Blood Cell 7.2 10^3/uL (4.4-10.8)
[2023-01-22 16:46] LABS: Albumin 2.9 g/dL (3.4-5.0); Potassium 5.2 mmol/L (3.5-5.1)
[2023-01-22 16:50] LABS: BUN/Creatinine Ratio 7.9 (10.0-20.0); Bilirubin, Total 0.4 mg/dL (0.2-1.0); Total Protein 6.1 g/dL (6.4-8.2)
[2023-01-22 19:00] VITALS: BP 156/76
== END 2023-01-22 19:35 | disposition home or self-care (01) ==
LOC: ER 14:05 → EDBD 14:05 → ER 19:35
DX: S00.03XA Contusion of scalp, initial encounter (principal); S60.512A Abrasion of left hand, initial encounter; R07.81 Pleurodynia; E11.22 Type 2 diabetes mellitus with diabetic chronic kidney disease; I12.0 Hypertensive chronic kidney disease with stage 5 chronic kidney disease or end stage renal disease; N18.6 End stage renal disease; I25.810 Atherosclerosis of coronary artery bypass graft(s) without angina pectoris; E78.5 Hyperlipidemia, unspecified; I25.2 Old myocardial infarction; Z99.2 Dependence on renal dialysis; W05.0XXA Fall from non-moving wheelchair, initial encounter; Y93.89 Activity, other specified; Y92.89 Other specified places as the place of occurrence of the external cause; Y99.8 Other external cause status
CPT/HCPCS: 36415; 70450; 71250; 72125; 74176; 80053; 84484; 85025; 93005

== ENCOUNTER 2023-02-28 00:58 | Inpatient (IN) | payer MEDICARE, MEDICAID ==
[~2023-02-28] VITALS: Ht 175.3 cm; Wt 98.2 kg
[~2023-02-28 00:58] MED LIST changes: +GABA-1250 PO; -GABA300C10 PO; -GLIP2.5T28 PO; +GLIP2.5T9 PO
[2023-02-28] MEDS ORDERED: levETIRAcetam 500 MG/5ML INJ IV ONE (01:34)
[2023-02-28 02:05] LABS: Basophils # (auto) 0.1 10 ^3/uL (0-0.2); Basophils % (auto) 0.6 % (0.0-2.0); Eosinophils # (auto) 0.2 10 ^3/uL (0-0.8); Eosinophils % (auto) 1.9 % (0.0-7.0); Hematocrit 26.4 % (41.0-53.0); Hemoglobin 8.7 g/dL (13.5-17.5); Lymphocytes # (auto) 1.4 10 ^3/uL (0.4-5.4); Lymphocytes % (auto) 12.3 % (10.0-50.0); Mean Corpuscular Hemoglobin 31.2 pg (28.0-32.0); Mean Corpuscular Hgb Conc. 32.9 g/dL (32.0-36.0); Mean Corpuscular Volume 94.8 fL (80.0-100.0); Monocytes # (auto) 1.1 10 ^3/uL (0-1.3); Monocytes % (auto) 9.6 % (0.0-12.0); Neutrophils # (auto) 8.5 10 ^3/uL (1.6-8.6); Neutrophils % (auto) 75.6 % (37.0-80.0); Red Blood Cells 2.78 10^6/uL (4.5-5.90); Red Cell Distribution Width 14.9 % (11.8-14.3); White Blood Cell 11.2 10^3/uL (4.4-10.8)
[2023-02-28 02:18] LABS: Albumin 2.5 g/dL (3.4-5.0); BUN/Creatinine Ratio 8.7 (10.0-20.0); Calcium 8.2 mg/dL (8.5-10.1); Potassium 4.4 mmol/L (3.5-5.1)
[2023-02-28 02:19] LABS: INR 1.06 (0.9-1.15); Partial Thromboplastin Time 35.8 sec (24.6-33.4)
[2023-02-28 02:23] LABS: Bilirubin, Total 0.4 mg/dL (0.2-1.0); Total Protein 6.8 g/dL (6.4-8.2)
[2023-02-28] MEDS ORDERED: ASPirin 325 MG TAB PO ONE (02:45)
[2023-02-28] MEDS ORDERED: ONDANSETRON HCL 4 MG/2 ML VIAL IV ONE (03:45)
[2023-02-28] MEDS ORDERED: DOCUSATE SOD 100 MG CAP PO PRN (06:00)
[2023-02-28] MEDS ORDERED: FUROSEMIDE 40 MG/4 ML VIAL IV ONE (06:00)
[2023-02-28] MEDS ORDERED: NITROGLYCERIN 0.4 MG SL TAB SL PRN (06:00)
[2023-02-28] MEDS ORDERED: DEXTROSE (50%) 50ML SYRG IV PRN (06:00)
[2023-02-28] MEDS ORDERED: MORPHINE SULFATE INJ 2 MG/ml SYRG IV PRN (06:00)
[2023-02-28] MEDS ORDERED: ACETAMINOPHEN 325 MG TAB PO PRN (06:00)
[2023-02-28] MEDS: SODIUM CHLOR 0.9% PF (SALINE LOCK) 10ML VIAL/SYR IV SCH ×3 (06:44→22:45)
[2023-02-28] MEDS: ACCU-CHEK COMFORT CURVE STRIP VI SCH ×4 (06:58→22:45)
[2023-02-28] MEDS: InsuLIN REG 1unit/0.01ml Soln (100units/ml) SC SCH ×4 (06:58→22:48)
[2023-02-28 07:24] LABS: Basophils # (auto) 0.1 10 ^3/uL (0-0.2); Basophils % (auto) 0.9 % (0.0-2.0); Eosinophils # (auto) 0.2 10 ^3/uL (0-0.8); Eosinophils % (auto) 2.2 % (0.0-7.0); Hematocrit 24.9 % (41.0-53.0); Hemoglobin 8.4 g/dL (13.5-17.5); Lymphocytes # (auto) 1.6 10 ^3/uL (0.4-5.4); Lymphocytes % (auto) 14.9 % (10.0-50.0); Mean Corpuscular Hemoglobin 32.1 pg (28.0-32.0); Mean Corpuscular Hgb Conc. 33.6 g/dL (32.0-36.0); Mean Corpuscular Volume 95.6 fL (80.0-100.0); Monocytes # (auto) 0.9 10 ^3/uL (0-1.3); Monocytes % (auto) 8.6 % (0.0-12.0); Neutrophils % (auto) 73.4 % (37.0-80.0); Nucleated Red Blood Cells % 0.1 %; White Blood Cell 10.9 10^3/uL (4.4-10.8)
[2023-02-28 07:28] LABS: Albumin 2.5 g/dL (3.4-5.0); Potassium 4.8 mmol/L (3.5-5.1)
[2023-02-28 07:32] LABS: BUN/Creatinine Ratio 8.7 (10.0-20.0); Bilirubin, Total 0.5 mg/dL (0.2-1.0); Total Protein 6.4 g/dL (6.4-8.2)
[2023-02-28] MEDS: ASPirin 81 mg TAB PO SCH (09:21)
[2023-02-28] MEDS: FUROSEMIDE 40 MG/4 ML VIAL IV SCH (09:21)
[2023-02-28] MEDS: CARVEDILOL 12.5 MG TAB PO SCH ×2 (09:21→22:35)
[2023-02-28] MEDS: HEPARIN SODIUM (PORCINE) 5000 UNITS/ML 1ML VIAL SC SCH ×2 (09:24→22:36)
[2023-02-28] MEDS: HYDROcodone-ACET 5/325MG TAB PO PRN ×2 (17:56→22:36)
[2023-02-28] MEDS: ATORVASTATIN 20 MG TAB PO SCH (22:35)
[2023-02-28] MEDS: SACUBITRIL-VALSARTAN 24mg/26mg TAB PO SCH (22:49)
[2023-03-01 04:04] LABS: Urine Bacteria NONE SEEN /hpf (None Seen); Urine Blood Negative /uL (Negative); Urine Specific Gravity 1.012 (1.001-1.035); Urine WBC 3 /hpf (0 - 3)
[2023-03-01] MEDS: InsuLIN REG 1unit/0.01ml Soln (100units/ml) SC SCH ×4 (07:00→22:57)
[2023-03-01] MEDS: ACCU-CHEK COMFORT CURVE STRIP VI SCH ×4 (07:09→22:47)
[2023-03-01 07:15] LABS: Basophils # (auto) 0.1 10 ^3/uL (0-0.2); Eosinophils # (auto) 0.3 10 ^3/uL (0-0.8); Hematocrit 24.8 % (41.0-53.0); Lymphocytes # (auto) 1.6 10 ^3/uL (0.4-5.4); Mean Corpuscular Hgb Conc. 33.3 g/dL (32.0-36.0); Monocytes # (auto) 0.8 10 ^3/uL (0-1.3); Red Blood Cells 2.62 10^6/uL (4.5-5.90); White Blood Cell 8.8 10^3/uL (4.4-10.8)
[2023-03-01 07:19] LABS: Basophils % (auto) 1.1 % (0.0-2.0); Eosinophils % (auto) 3.2 % (0.0-7.0); Hemoglobin 8.3 g/dL (13.5-17.5); Lymphocytes % (auto) 17.9 % (10.0-50.0); Mean Corpuscular Hemoglobin 31.5 pg (28.0-32.0); Mean Corpuscular Volume 94.7 fL (80.0-100.0); Monocytes % (auto) 8.9 % (0.0-12.0); Neutrophils # (auto) 6.1 10 ^3/uL (1.6-8.6); Neutrophils % (auto) 68.9 % (37.0-80.0); Nucleated Red Blood Cells % 0.1 %; Red Cell Distribution Width 15.2 % (11.8-14.3)
[2023-03-01] MEDS: HYDROcodone-ACET 5/325MG TAB PO PRN ×3 (07:35→22:54)
[2023-03-01] MEDS: SODIUM CHLOR 0.9% PF (SALINE LOCK) 10ML VIAL/SYR IV SCH ×3 (07:36→23:01)
[2023-03-01 07:41] LABS: Albumin 2.5 g/dL (3.4-5.0); Calcium 7.5 mg/dL (8.5-10.1); Potassium 4.7 mmol/L (3.5-5.1)
[2023-03-01 07:43] LABS: BUN/Creatinine Ratio 9.6 (10.0-20.0); Bilirubin, Total 0.5 mg/dL (0.2-1.0); Total Protein 6.5 g/dL (6.4-8.2)
[2023-03-01] MEDS: ASPirin 81 mg TAB PO SCH (09:40)
[2023-03-01] MEDS: CARVEDILOL 12.5 MG TAB PO SCH ×2 (09:41→22:42)
[2023-03-01] MEDS: HEPARIN SODIUM (PORCINE) 5000 UNITS/ML 1ML VIAL SC SCH ×2 (09:41→22:57)
[2023-03-01] MEDS: FUROSEMIDE 40 MG/4 ML VIAL IV SCH (09:41)
[2023-03-01] MEDS: SACUBITRIL-VALSARTAN 24mg/26mg TAB PO SCH ×2 (09:41→22:47)
[2023-03-01] MEDS ORDERED: SODIUM CHL 0.9% 1000 ML BAG XX ONE (16:30)
[2023-03-01] MEDS ORDERED: EPOETIN ALFA-EPBX 10,000 UNIT/1ML VIAL SC ONE (21:00)
[2023-03-01] MEDS: ATORVASTATIN 20 MG TAB PO SCH (22:54)
[2023-03-02] MEDS ORDERED: MIDODRINE HCL 10 MG TAB PO ONE (00:15)
[2023-03-02] MEDS: ONDANSETRON HCL 4 MG/2 ML VIAL IV PRN ×3 (03:50→23:04)
[2023-03-02] MEDS ORDERED: ALBUMIN 25% 100 ML IV ONE (05:15)
[2023-03-02] MEDS: SODIUM CHLOR 0.9% PF (SALINE LOCK) 10ML VIAL/SYR IV SCH ×3 (06:03→23:45)
[2023-03-02] MEDS: ACCU-CHEK COMFORT CURVE STRIP VI SCH ×4 (06:49→23:05)
[2023-03-02] MEDS: InsuLIN REG 1unit/0.01ml Soln (100units/ml) SC SCH ×4 (06:51→23:36)
[2023-03-02 09:14] LABS: Basophils # (auto) 0.1 10 ^3/uL (0-0.2); Eosinophils # (auto) 0.1 10 ^3/uL (0-0.8); Hemoglobin 7.5 g/dL (13.5-17.5); Monocytes # (auto) 0.7 10 ^3/uL (0-1.3); Nucleated Red Blood Cells % 0.1 %
[2023-03-02 09:16] LABS: Potassium 4.8 mmol/L (3.5-5.1)
[2023-03-02 09:25] LABS: Basophils % (auto) 0.9 % (0.0-2.0); Hematocrit 22.7 % (41.0-53.0); Lymphocytes # (auto) 0.8 10 ^3/uL (0.4-5.4); Lymphocytes % (auto) 10.2 % (10.0-50.0); Mean Corpuscular Hemoglobin 31.9 pg (28.0-32.0); Mean Corpuscular Volume 96.6 fL (80.0-100.0); Monocytes % (auto) 8.8 % (0.0-12.0); Neutrophils # (auto) 6.1 10 ^3/uL (1.6-8.6); Neutrophils % (auto) 79.1 % (37.0-80.0); Red Blood Cells 2.35 10^6/uL (4.5-5.90); Red Cell Distribution Width 14.9 % (11.8-14.3); White Blood Cell 7.7 10^3/uL (4.4-10.8)
[2023-03-02 09:29] LABS: Albumin 2.9 g/dL (3.4-5.0); BUN/Creatinine Ratio 8.9 (10.0-20.0); Bilirubin, Total 0.7 mg/dL (0.2-1.0); Calcium 7.5 mg/dL (8.5-10.1); Total Protein 6.2 g/dL (6.4-8.2)
[2023-03-02] MEDS: FUROSEMIDE 40 MG/4 ML VIAL IV SCH (09:57)
[2023-03-02] MEDS: CARVEDILOL 12.5 MG TAB PO SCH ×2 (09:58→22:00)
[2023-03-02] MEDS: ASPirin 81 mg TAB PO SCH (10:06)
[2023-03-02] MEDS: HEPARIN SODIUM (PORCINE) 5000 UNITS/ML 1ML VIAL SC SCH ×2 (10:07→23:37)
[2023-03-02] MEDS: MIDODRINE HCL 10 MG TAB PO SCH ×2 (12:23→18:06)
[2023-03-02 12:46] VITALS: BP 84/47
[2023-03-02] MEDS: ALBUTEROL SULF 2.5 MG/0.5ML(0.5%) NEB SOLN NEB SCH ×3 (14:32→22:44)
[2023-03-02] MEDS: IPRATROPIUM BROM 0.5 MG/2.5ML INH SOL NEB SCH ×3 (14:32→22:44)
[2023-03-02 22:00] VITALS: BP 112/66
[2023-03-02] MEDS: ATORVASTATIN 20 MG TAB PO SCH (23:03)
[2023-03-02] MEDS: HYDROcodone-ACET 5/325MG TAB PO PRN (23:03)
[2023-03-03] VITALS (7 sets, daily range): BP systolic 100–130; BP diastolic 49–67
[2023-03-03] MEDS: IPRATROPIUM BROM 0.5 MG/2.5ML INH SOL NEB SCH ×6 (02:37→22:16)
[2023-03-03] MEDS: ALBUTEROL SULF 2.5 MG/0.5ML(0.5%) NEB SOLN NEB SCH ×6 (02:37→22:16)
[2023-03-03] MEDS ORDERED: IRBE300T43 PO (02:59)
[2023-03-03] MEDS ORDERED: FURO40TA4 PO (02:59)
[2023-03-03] MEDS ORDERED: PRED1SUS4 OP (03:00)
[2023-03-03] MEDS ORDERED: ATO40T PO (03:00)
[2023-03-03] MEDS ORDERED: METO25TA93 PO (03:00)
[2023-03-03] MEDS ORDERED: FOLI-119 PO (03:00)
[2023-03-03] MEDS: MIDODRINE HCL 10 MG TAB PO SCH ×3 (06:35→18:00)
[2023-03-03] MEDS: ACCU-CHEK COMFORT CURVE STRIP VI SCH ×4 (06:35→22:23)
[2023-03-03] MEDS: SODIUM CHLOR 0.9% PF (SALINE LOCK) 10ML VIAL/SYR IV SCH ×3 (06:36→22:28)
[2023-03-03] MEDS: InsuLIN REG 1unit/0.01ml Soln (100units/ml) SC SCH ×4 (06:45→22:00)
[2023-03-03] MEDS: CARVEDILOL 12.5 MG TAB PO SCH ×2 (08:41→22:00)
[2023-03-03] MEDS: FUROSEMIDE 40 MG/4 ML VIAL IV SCH (08:41)
[2023-03-03] MEDS: HYDROcodone-ACET 5/325MG TAB PO PRN ×2 (08:48→21:09)
[2023-03-03] MEDS: ONDANSETRON HCL 4 MG/2 ML VIAL IV PRN ×3 (08:48→21:03)
[2023-03-03] MEDS: ASPirin 81 mg TAB PO SCH (08:53)
[2023-03-03] MEDS: HEPARIN SODIUM (PORCINE) 5000 UNITS/ML 1ML VIAL SC SCH ×2 (09:06→22:22)
[2023-03-03] MEDS ORDERED: ALBUMIN 25% 100 ML IV ONE ×3 (13:15)
[2023-03-03] MEDS ORDERED: ALBUMIN 25% 50 ML IV ONE (13:15)
[2023-03-03] MEDS ORDERED: EPOETIN ALFA-EPBX 4,000 UNIT/ML VIAL SC ONE (21:00)
[2023-03-03] MEDS: ATORVASTATIN 20 MG TAB PO SCH (22:20)
[2023-03-04] VITALS (8 sets, daily range): BP systolic 113–136; BP diastolic 72–80
[2023-03-04] MEDS: HYDROcodone-ACET 5/325MG TAB PO PRN ×2 (02:20→09:28)
[2023-03-04] MEDS: ONDANSETRON HCL 4 MG/2 ML VIAL IV PRN ×2 (02:23→09:26)
[2023-03-04] MEDS: ALBUTEROL SULF 2.5 MG/0.5ML(0.5%) NEB SOLN NEB SCH ×6 (02:33→22:00)
[2023-03-04] MEDS: IPRATROPIUM BROM 0.5 MG/2.5ML INH SOL NEB SCH ×6 (02:33→22:00)
[2023-03-04] MEDS: MIDODRINE HCL 10 MG TAB PO SCH ×3 (06:25→18:33)
[2023-03-04] MEDS: ACCU-CHEK COMFORT CURVE STRIP VI SCH ×4 (06:25→21:48)
[2023-03-04] MEDS: InsuLIN REG 1unit/0.01ml Soln (100units/ml) SC SCH ×4 (06:27→21:52)
[2023-03-04] MEDS: SODIUM CHLOR 0.9% PF (SALINE LOCK) 10ML VIAL/SYR IV SCH ×3 (06:28→21:48)
[2023-03-04] MEDS: ASPirin 81 mg TAB PO SCH (09:29)
[2023-03-04] MEDS: CARVEDILOL 12.5 MG TAB PO SCH (09:29)
[2023-03-04] MEDS: FUROSEMIDE 40 MG/4 ML VIAL IV SCH (09:30)
[2023-03-04] MEDS: HEPARIN SODIUM (PORCINE) 5000 UNITS/ML 1ML VIAL SC SCH ×2 (09:47→21:47)
[2023-03-04] MEDS ORDERED: SACUBITRIL-VALSARTAN 24mg/26mg TAB PO SCH (10:00)
[2023-03-04] MEDS ORDERED: IODIXANOL 320MG/ML 100ML BTL IV ONE ×3 (14:09→16:25)
[2023-03-04] MEDS ORDERED: LIDOCAINE 2%HCL (LOCAL ANESTH.) INJ 20ML MDV ONE (14:09)
[2023-03-04] MEDS ORDERED: HEPARIN IN NS 1000Units/500mL 0 ML ONE (14:09)
[2023-03-04] MEDS ORDERED: ANGIOMAX 250 MG VIAL IV ONE ×2 (14:14→16:24)
[2023-03-04] MEDS ORDERED: HEPARIN SODIUM (PORCINE) 5000 UNITS/ML 1ML VIAL ONE ×2 (14:14→16:24)
[2023-03-04] MEDS ORDERED: fentaNYL CITRATE 100 MCG/2 ML VL ONE ×2 (14:14→16:25)
[2023-03-04] MEDS ORDERED: VERAPAMIL 2.5MG/ML INJ 2ML VIAL IV ONE ×2 (14:14→16:24)
[2023-03-04] MEDS ORDERED: MIDAZOLAM HCL 2MG/2ML 2ml VIAL (1mg/ml) ONE ×2 (14:15→16:25)
[2023-03-04] MEDS ORDERED: SODIUM CHL 0.9% 0 ML ONE (14:15)
[2023-03-04] MEDS ORDERED: CLOPIDOGREL 300 MG TAB ONE (15:52)
[2023-03-04] MEDS ORDERED: SODIUM CHL 0.9% 50 ML ONE (16:25)
[2023-03-04] MEDS ORDERED: niCARdipine 25 MG/10 ML VIAL IV ONE (16:26)
[2023-03-04] MEDS ORDERED: ADENOSINE 6 MG/2 ML INJ IV ONE (16:26)
[2023-03-04 16:57] LABS: Basophils # (auto) 0.1 10 ^3/uL (0-0.2); Eosinophils # (auto) 0 10 ^3/uL (0-0.8); Eosinophils % (auto) 0.2 % (0.0-7.0); Hemoglobin 8.6 g/dL (13.5-17.5); Mean Corpuscular Volume 95.5 fL (80.0-100.0); Nucleated Red Blood Cells % 0.1 %
[2023-03-04 16:58] LABS: Basophils % (auto) 0.6 % (0.0-2.0); Hematocrit 26.5 % (41.0-53.0); Lymphocytes % (auto) 10.3 % (10.0-50.0); Mean Corpuscular Hemoglobin 30.8 pg (28.0-32.0); Mean Corpuscular Hgb Conc. 32.3 g/dL (32.0-36.0); Monocytes # (auto) 0.9 10 ^3/uL (0-1.3); Monocytes % (auto) 9.5 % (0.0-12.0); Neutrophils # (auto) 7.9 10 ^3/uL (1.6-8.6); Neutrophils % (auto) 79.4 % (37.0-80.0); Red Blood Cells 2.78 10^6/uL (4.5-5.90); Red Cell Distribution Width 15.2 % (11.8-14.3)
[2023-03-04 17:00] LABS: BUN/Creatinine Ratio 6.7 (10.0-20.0); Calcium 8.2 mg/dL (8.5-10.1); Potassium 4.8 mmol/L (3.5-5.1)
[2023-03-04] MEDS: ATORVASTATIN 20 MG TAB PO SCH (21:48)
[2023-03-05] VITALS (7 sets, daily range): BP systolic 86–120; BP diastolic 51–59
[2023-03-05] MEDS: ONDANSETRON HCL 4 MG/2 ML VIAL IV PRN ×3 (00:08→08:59)
[2023-03-05] MEDS: ATORVASTATIN 20 MG TAB PO SCH (00:11)
[2023-03-05] MEDS: IPRATROPIUM BROM 0.5 MG/2.5ML INH SOL NEB SCH ×6 (02:00→22:39)
[2023-03-05] MEDS: ALBUTEROL SULF 2.5 MG/0.5ML(0.5%) NEB SOLN NEB SCH ×6 (02:00→22:39)
[2023-03-05 05:52] LABS: Basophils # (auto) 0.1 10 ^3/uL (0-0.2); Eosinophils # (auto) 0 10 ^3/uL (0-0.8); Hemoglobin 8.3 g/dL (13.5-17.5); Monocytes # (auto) 0.9 10 ^3/uL (0-1.3)
[2023-03-05 05:55] LABS: Eosinophils % (auto) 0.2 % (0.0-7.0); Hematocrit 24.9 % (41.0-53.0); Lymphocytes # (auto) 1.2 10 ^3/uL (0.4-5.4); Lymphocytes % (auto) 13.2 % (10.0-50.0); Mean Corpuscular Hemoglobin 31.8 pg (28.0-32.0); Mean Corpuscular Hgb Conc. 33.5 g/dL (32.0-36.0); Monocytes % (auto) 10.2 % (0.0-12.0); Neutrophils # (auto) 6.6 10 ^3/uL (1.6-8.6); Neutrophils % (auto) 75.4 % (37.0-80.0); Red Blood Cells 2.62 10^6/uL (4.5-5.90); White Blood Cell 8.7 10^3/uL (4.4-10.8)
[2023-03-05] MEDS: InsuLIN REG 1unit/0.01ml Soln (100units/ml) SC SCH ×4 (06:03→23:05)
[2023-03-05] MEDS: ACCU-CHEK COMFORT CURVE STRIP VI SCH ×4 (06:04→23:04)
[2023-03-05] MEDS: SODIUM CHLOR 0.9% PF (SALINE LOCK) 10ML VIAL/SYR IV SCH ×3 (06:04→22:00)
[2023-03-05] MEDS: MIDODRINE HCL 10 MG TAB PO SCH ×3 (06:10→18:19)
[2023-03-05 06:12] LABS: Albumin 3.2 g/dL (3.4-5.0); Potassium 4.7 mmol/L (3.5-5.1)
[2023-03-05 06:16] LABS: Bilirubin, Total 0.9 mg/dL (0.2-1.0); Total Protein 6.4 g/dL (6.4-8.2)
[2023-03-05] MEDS: FUROSEMIDE 40 MG/4 ML VIAL IV SCH (10:00)
[2023-03-05] MEDS: ASPirin 81 mg TAB PO SCH (10:50)
[2023-03-05] MEDS: CLOPIDOGREL BISULFATE 75 MG TAB PO SCH (10:50)
[2023-03-05] MEDS: HEPARIN SODIUM (PORCINE) 5000 UNITS/ML 1ML VIAL SC SCH ×2 (10:53→23:03)
[2023-03-05] MEDS ORDERED: EPOETIN ALFA-EPBX 4,000 UNIT/ML VIAL SC ONE (21:00)
[2023-03-06] MEDS: ALBUTEROL SULF 2.5 MG/0.5ML(0.5%) NEB SOLN NEB SCH ×5 (02:40→18:54)
[2023-03-06] MEDS: IPRATROPIUM BROM 0.5 MG/2.5ML INH SOL NEB SCH ×5 (02:40→18:54)
[2023-03-06] MEDS: SODIUM CHLOR 0.9% PF (SALINE LOCK) 10ML VIAL/SYR IV SCH ×2 (05:15→14:00)
[2023-03-06 05:36] VITALS: BP 127/68
[2023-03-06] MEDS: MIDODRINE HCL 10 MG TAB PO SCH ×3 (06:38→19:47)
[2023-03-06] MEDS: InsuLIN REG 1unit/0.01ml Soln (100units/ml) SC SCH ×3 (06:42→17:00)
[2023-03-06] MEDS: ACCU-CHEK COMFORT CURVE STRIP VI SCH ×3 (06:42→17:56)
[2023-03-06 09:00] VITALS: BP 93/49
[2023-03-06] MEDS: ASPirin 81 mg TAB PO SCH (09:41)
[2023-03-06] MEDS: CLOPIDOGREL BISULFATE 75 MG TAB PO SCH (09:41)
[2023-03-06] MEDS: HEPARIN SODIUM (PORCINE) 5000 UNITS/ML 1ML VIAL SC SCH (09:43)
[2023-03-06] MEDS: FUROSEMIDE 40 MG/4 ML VIAL IV SCH (09:44)
[2023-03-06 13:00] VITALS: BP 118/68
[2023-03-06 17:00] VITALS: BP 89/46
== END 2023-03-06 20:24 | DRG 246 ==
LOC: EDBD 00:58 → EDUNIT# 00:58 → ER 01:13 → TELE 06:04 → TELE-EAST 03-02 21:31 → EAST 03-04 11:38 → TELE-EAST 03-05 03:19
PROVIDERS: ADMIT Nurse Practitioner Family; ATTEND Internal Medicine
PROC: 0W993ZZ Drainage of Right Pleural Cavity, Percutaneous Approach (ICD-10-PCS; 2023-03-01)
PROC: 5A1D70Z Performance of Urinary Filtration, Intermittent, Less than 6 Hours Per Day (ICD-10-PCS; 2023-03-01)
PROC: 5A1D70Z Performance of Urinary Filtration, Intermittent, Less than 6 Hours Per Day (ICD-10-PCS; 2023-03-03)
PROC: 027036Z Dilation of Coronary Artery, One Artery with Three Drug-eluting Intraluminal Devices, Percutaneous Approach (ICD-10-PCS; principal; 2023-03-04)
PROC: 4A023N7 Measurement of Cardiac Sampling and Pressure, Left Heart, Percutaneous Approach (ICD-10-PCS; 2023-03-04)
PROC: B211YZZ Fluoroscopy of Multiple Coronary Arteries using Other Contrast (ICD-10-PCS; 2023-03-04)
PROC: B213YZZ Fluoroscopy of Multiple Coronary Artery Bypass Grafts using Other Contrast (ICD-10-PCS; 2023-03-04)
PROC: B218YZZ Fluoroscopy of Left Internal Mammary Bypass Graft using Other Contrast (ICD-10-PCS; 2023-03-04)
PROC: 5A1D70Z Performance of Urinary Filtration, Intermittent, Less than 6 Hours Per Day (ICD-10-PCS; 2023-03-05)
DX: T82.855A Stenosis of coronary artery stent, initial encounter (principal); E43 Unspecified severe protein-calorie malnutrition; I50.23 Acute on chronic systolic (congestive) heart failure; N18.6 End stage renal disease; J96.01 Acute respiratory failure with hypoxia; I13.2 Hypertensive heart and chronic kidney disease with heart failure and with stage 5 chronic kidney disease, or end stage renal disease; D63.8 Anemia in other chronic diseases classified elsewhere; Z99.2 Dependence on renal dialysis; D72.829 Elevated white blood cell count, unspecified; I25.5 Ischemic cardiomyopathy; E11.51 Type 2 diabetes mellitus with diabetic peripheral angiopathy without gangrene; J44.9 Chronic obstructive pulmonary disease, unspecified; Z20.822 Contact with and (suspected) exposure to COVID-19; I25.10 Atherosclerotic heart disease of native coronary artery without angina pectoris; E11.22 Type 2 diabetes mellitus with diabetic chronic kidney disease; Y84.0 Cardiac catheterization as the cause of abnormal reaction of the patient, or of later complication, without mention of misadventure at the time of the procedure; E78.5 Hyperlipidemia, unspecified; I25.2 Old myocardial infarction; Z95.1 Presence of aortocoronary bypass graft; Z68.32 Body mass index [BMI] 32.0-32.9, adult; Z79.82 Long term (current) use of aspirin; Z82.3 Family history of stroke; Z82.49 Family history of ischemic heart disease and other diseases of the circulatory system; Z83.3 Family history of diabetes mellitus; Z79.899 Other long term (current) drug therapy; Y92.89 Other specified places as the place of occurrence of the external cause
CPT/HCPCS: 36415; 71045; 80048; 80053; 81001; 82962; 83036; 83605; 83880; 84484; 85025; 85610; 85730; 87081; 87205; 87426; 89051; 90935; 92937; 92938; 93005; 93306; 93459; 94640; 96374; 96375; 99152; 99153; C1887; G0378; J0153; J1815; J2250; J2405; P9047; Q9967

== ENCOUNTER 2023-06-05 16:59 | Inpatient (IN) | payer MEDICARE, MEDICAID ==
[~2023-06-05] VITALS: Ht 165.1 cm; Wt 77.3 kg
[~2023-06-05 16:59] MED LIST changes: +ATO40T PO; +FOLI-119 PO; +FURO40TA4 PO; +IRBE300T43 PO; +METO25TA93 PO; +PRED1SUS4 OP
[2023-06-05 17:20] LABS: Basophils # (auto) 0 10 ^3/uL (0-0.2); Basophils % (auto) 0.8 % (0.0-2.0); Eosinophils # (auto) 0.1 10 ^3/uL (0-0.8); Eosinophils % (auto) 2.3 % (0.0-7.0); Hematocrit 34.4 % (41.0-53.0); Hemoglobin 11.2 g/dL (13.5-17.5); Lymphocytes # (auto) 0.8 10 ^3/uL (0.4-5.4); Lymphocytes % (auto) 14.3 % (10.0-50.0); Mean Corpuscular Hemoglobin 30.1 pg (28.0-32.0); Mean Corpuscular Hgb Conc. 32.4 g/dL (32.0-36.0); Mean Corpuscular Volume 92.9 fL (80.0-100.0); Monocytes # (auto) 0.4 10 ^3/uL (0-1.3); Monocytes % (auto) 8.5 % (0.0-12.0); Neutrophils # (auto) 3.9 10 ^3/uL (1.6-8.6); Neutrophils % (auto) 74.1 % (37.0-80.0); Nucleated Red Blood Cells % 0.1 %; Red Blood Cells 3.71 10^6/uL (4.5-5.90); Red Cell Distribution Width 17.5 % (11.8-14.3); White Blood Cell 5.3 10^3/uL (4.4-10.8)
[2023-06-05 17:38] VITALS: PULSE 80; O2SAT 99
[2023-06-05 17:51] LABS: Alanine Aminotransferase 22 U/L (7-40); Alkaline Phosphatase 156 U/L (46-116); Anion Gap 6 (5-15); Calcium 8.1 mg/dL (8.7-10.4); Carbon Dioxide 28 mmol/L (20-30); Chloride 103 mmol/L (98-107); Glucose 145 mg/dL (74-106); Potassium 4.1 mmol/L (3.5-5.1); Sodium 137 mmol/L (136-145)
[2023-06-05 17:52] LABS: Albumin 3.7 g/dL (3.2-4.8); Aspartate Aminotransferase 41 U/L (13-40); BUN/Creatinine Ratio 10.5 (10.0-20.0); Bilirubin, Total 0.5 mg/dL (0.2-1.0); Blood Urea Nitrogen 20 mg/dL (9-23); Total Protein 6.5 g/dL (5.7-8.2)
[2023-06-05] MEDS ORDERED: CYCLOBENZAPRINE HCL 10 MG TAB PO ONE (18:45)
[2023-06-05 20:00] VITALS: PULSE 80; RESP 31; O2SAT 99
[2023-06-05] MEDS ORDERED: ONDANSETRON HCL 4 MG/2 ML VIAL IV PRN (21:30)
[2023-06-05] MEDS ORDERED: ACETAMINOPHEN 325 MG TAB PO PRN (21:30)
[2023-06-05] MEDS ORDERED: DEXTROSE (50%) 50ML SYRG IV PRN (21:30)
[2023-06-05] MEDS: InsuLIN REG 1unit/0.01ml Soln (100units/ml) SC SCH (22:00)
[2023-06-05] MEDS: SODIUM CHLOR 0.9% PF (SALINE LOCK) 10ML VIAL/SYR IV SCH (22:02)
[2023-06-05] MEDS: ACCU-CHEK COMFORT CURVE STRIP VI SCH (22:03)
[2023-06-05] MEDS: METOPROLOL TARTRATE 25 MG TAB PO SCH (22:06)
[2023-06-05] MEDS: HYDROcodone-ACET 5/325MG TAB PO PRN (22:06)
[2023-06-05] MEDS: ATORVASTATIN 20 MG TAB PO SCH (22:06)
[2023-06-05] MEDS ORDERED: MORPHINE SULFATE INJ 2 MG/ml SYRG IV PRN (22:45)
[2023-06-05] MEDS ORDERED: NITROGLYCERIN 0.4 MG SL TAB SL PRN (22:45)
[2023-06-06] MEDS: HYDROcodone-ACET 5/325MG TAB PO PRN (04:43)
[2023-06-06 06:07] LABS: Urine Blood Negative /uL (Negative); Urine Clarity Clear (Clear); Urine Color PINK (Yellow); Urine Protein, UAD 2+ (Negative); Urine Specific Gravity 1.015 (1.001-1.035); Urine WBC 3 /hpf (0 - 3); Urine pH 6.5 (5.0-8.0)
[2023-06-06 06:08] LABS: Urine Bacteria NONE SEEN /hpf (None Seen)
[2023-06-06 06:32] LABS: Basophils # (auto) 0 10 ^3/uL (0-0.2); Basophils % (auto) 0.9 % (0.0-2.0); Eosinophils # (auto) 0.1 10 ^3/uL (0-0.8); Eosinophils % (auto) 1.6 % (0.0-7.0); Hematocrit 33.2 % (41.0-53.0); Hemoglobin 10.7 g/dL (13.5-17.5); Lymphocytes # (auto) 0.8 10 ^3/uL (0.4-5.4); Lymphocytes % (auto) 15.9 % (10.0-50.0); Mean Corpuscular Hemoglobin 29.6 pg (28.0-32.0); Mean Corpuscular Hgb Conc. 32.2 g/dL (32.0-36.0); Mean Corpuscular Volume 91.8 fL (80.0-100.0); Monocytes # (auto) 0.6 10 ^3/uL (0-1.3); Neutrophils # (auto) 3.6 10 ^3/uL (1.6-8.6); Neutrophils % (auto) 70.6 % (37.0-80.0); Red Blood Cells 3.61 10^6/uL (4.5-5.90); Red Cell Distribution Width 17.4 % (11.8-14.3)
[2023-06-06 06:49] LABS: Alanine Aminotransferase 37 U/L (7-40); Alkaline Phosphatase 155 U/L (46-116); Anion Gap 7 (5-15); BUN/Creatinine Ratio 9.3 (10.0-20.0); Blood Urea Nitrogen 25 mg/dL (9-23); Calcium 8.7 mg/dL (8.7-10.4); Carbon Dioxide 28 mmol/L (20-30); Chloride 101 mmol/L (98-107); Glucose 110 mg/dL (74-106); Potassium 4.4 mmol/L (3.5-5.1); Sodium 136 mmol/L (136-145)
[2023-06-06 06:50] LABS: Albumin 3.6 g/dL (3.2-4.8); Aspartate Aminotransferase 70 U/L (13-40); Bilirubin, Total 0.5 mg/dL (0.2-1.0); Total Protein 6.6 g/dL (5.7-8.2)
[2023-06-06] MEDS: InsuLIN REG 1unit/0.01ml Soln (100units/ml) SC SCH ×4 (06:54→22:00)
[2023-06-06] MEDS: SODIUM CHLOR 0.9% PF (SALINE LOCK) 10ML VIAL/SYR IV SCH ×3 (06:54→22:00)
[2023-06-06] MEDS: ACCU-CHEK COMFORT CURVE STRIP VI SCH ×4 (06:55→22:00)
[2023-06-06 07:35] VITALS: PULSE 77; RESP 11; O2SAT 99
[2023-06-06] MEDS: SEVELAMER 800 MG TAB PO SCH ×3 (07:38→17:46)
[2023-06-06] MEDS: FUROSEMIDE 40 MG/4 ML VIAL IV SCH (10:00)
[2023-06-06] MEDS: METOPROLOL TARTRATE 25 MG TAB PO SCH ×2 (10:00→22:15)
[2023-06-06] MEDS: B-COMPLEX W/ C & FOLIC ACID(NEPHROVITE TAB) PO SCH (10:20)
[2023-06-06] MEDS: ASPirin 81 mg TAB PO SCH (10:21)
[2023-06-06 14:00] LABS: Creatinine, Urine 79.33 mg/dL (30.0-125.0)
[2023-06-06 14:03] LABS: Protein, Urine 272.9 mg/dL (0.0-11.9)
[2023-06-06 18:52] VITALS: O2SAT 96
[2023-06-06 20:00] VITALS: PULSE 72
[2023-06-06 22:00] VITALS: BP 137/79; PULSE 54; RESP 16; TEMP 98.2; O2SAT 96
[2023-06-06] MEDS: AMIODARONE HCL 200 MG TAB PO SCH (22:00)
[2023-06-06] MEDS: ATORVASTATIN 20 MG TAB PO SCH (22:14)
[2023-06-06] MEDS: SACUBITRIL-VALSARTAN 24mg/26mg TAB PO SCH (22:15)
[2023-06-07] VITALS (7 sets, daily range): BP systolic 125–144; BP diastolic 76–88; PULSE 65–77; RESP 14–23; TEMP 97.9–98.6; O2SAT 90–100
[2023-06-07] MEDS: HYDROcodone-ACET 5/325MG TAB PO PRN ×4 (04:52→22:03)
[2023-06-07] MEDS: SODIUM CHLOR 0.9% PF (SALINE LOCK) 10ML VIAL/SYR IV SCH ×3 (06:27→22:00)
[2023-06-07] MEDS: ACCU-CHEK COMFORT CURVE STRIP VI SCH ×4 (06:27→22:00)
[2023-06-07] MEDS: InsuLIN REG 1unit/0.01ml Soln (100units/ml) SC SCH ×4 (06:27→22:00)
[2023-06-07 06:47] LABS: Chloride 100 mmol/L (98-107); Potassium 4.3 mmol/L (3.5-5.1); Sodium 134 mmol/L (136-145)
[2023-06-07 06:48] LABS: Calcium 8.6 mg/dL (8.7-10.4)
[2023-06-07 06:52] LABS: Glucose 71 mg/dL (74-106)
[2023-06-07 06:53] LABS: BUN/Creatinine Ratio 8.2 (10.0-20.0); Blood Urea Nitrogen 28 mg/dL (9-23)
[2023-06-07 07:06] LABS: Anion Gap 10 (5-15); Carbon Dioxide 24 mmol/L (20-30)
[2023-06-07] MEDS: SEVELAMER 800 MG TAB PO SCH ×3 (07:49→17:28)
[2023-06-07 09:21] LABS: Basophils # (auto) 0 10 ^3/uL (0-0.2); Basophils % (auto) 0.8 % (0.0-2.0); Eosinophils # (auto) 0.1 10 ^3/uL (0-0.8); Eosinophils % (auto) 2.7 % (0.0-7.0); Hematocrit 34.7 % (41.0-53.0); Lymphocytes # (auto) 0.9 10 ^3/uL (0.4-5.4); Lymphocytes % (auto) 16.6 % (10.0-50.0); Mean Corpuscular Hemoglobin 29.6 pg (28.0-32.0); Mean Corpuscular Hgb Conc. 31.6 g/dL (32.0-36.0); Mean Corpuscular Volume 93.7 fL (80.0-100.0); Monocytes # (auto) 0.6 10 ^3/uL (0-1.3); Monocytes % (auto) 11.8 % (0.0-12.0); Neutrophils # (auto) 3.7 10 ^3/uL (1.6-8.6); Neutrophils % (auto) 68.1 % (37.0-80.0); Nucleated Red Blood Cells % 0.1 %; Red Cell Distribution Width 17.3 % (11.8-14.3); White Blood Cell 5.5 10^3/uL (4.4-10.8)
[2023-06-07] MEDS: AMIODARONE HCL 200 MG TAB PO SCH ×2 (09:51→21:49)
[2023-06-07] MEDS: B-COMPLEX W/ C & FOLIC ACID(NEPHROVITE TAB) PO SCH (09:51)
[2023-06-07] MEDS: DOCUSATE SOD 100 MG CAP PO PRN (09:51)
[2023-06-07] MEDS: ASPirin 81 mg TAB PO SCH (09:52)
[2023-06-07] MEDS: SACUBITRIL-VALSARTAN 24mg/26mg TAB PO SCH ×2 (09:52→21:49)
[2023-06-07] MEDS: METOPROLOL TARTRATE 25 MG TAB PO SCH ×2 (09:53→21:49)
[2023-06-07] MEDS: FUROSEMIDE 40 MG/4 ML VIAL IV SCH (10:41)
[2023-06-07] MEDS: ATORVASTATIN 20 MG TAB PO SCH (21:49)
[2023-06-08] VITALS (8 sets, daily range): BP systolic 117–125; BP diastolic 60–79; PULSE 68–86; RESP 14–17; TEMP 97.5–98.5; O2SAT 96–100
[2023-06-08] MEDS: InsuLIN REG 1unit/0.01ml Soln (100units/ml) SC SCH ×4 (05:34→22:03)
[2023-06-08] MEDS: SODIUM CHLOR 0.9% PF (SALINE LOCK) 10ML VIAL/SYR IV SCH ×3 (06:00→22:11)
[2023-06-08] MEDS: ACCU-CHEK COMFORT CURVE STRIP VI SCH ×4 (06:31→22:04)
[2023-06-08] MEDS: SEVELAMER 800 MG TAB PO SCH ×3 (08:07→18:28)
[2023-06-08] MEDS ORDERED: SODIUM CHL 0.9% 1000 ML BAG XX ONE (09:45)
[2023-06-08 09:57] LABS: Chloride 97 mmol/L (98-107); Potassium 4.5 mmol/L (3.5-5.1); Sodium 133 mmol/L (136-145)
[2023-06-08 09:58] LABS: Anion Gap 6 (5-15); Calcium 8.4 mg/dL (8.7-10.4); Carbon Dioxide 30 mmol/L (20-30)
[2023-06-08] MEDS: METOPROLOL TARTRATE 25 MG TAB PO SCH ×2 (10:00→22:08)
[2023-06-08] MEDS: FUROSEMIDE 40 MG/4 ML VIAL IV SCH (10:00)
[2023-06-08] MEDS: SACUBITRIL-VALSARTAN 24mg/26mg TAB PO SCH ×2 (10:00→22:11)
[2023-06-08 10:03] LABS: BUN/Creatinine Ratio 10.6 (10.0-20.0); Glucose 145 mg/dL (74-106)
[2023-06-08 10:06] LABS: Blood Urea Nitrogen 47 mg/dL (9-23)
[2023-06-08] MEDS: B-COMPLEX W/ C & FOLIC ACID(NEPHROVITE TAB) PO SCH (10:42)
[2023-06-08] MEDS: ASPirin 81 mg TAB PO SCH (10:42)
[2023-06-08] MEDS: AMIODARONE HCL 200 MG TAB PO SCH ×2 (10:42→22:08)
[2023-06-08 12:01] LABS: Hepatitis A Ab IgM Negative
[2023-06-08 12:02] LABS: Hepatitis B Core IgM Negative; Hepatitis C Antibody Negative (Negative)
[2023-06-08 12:37] LABS: Hepatitis B Surface Antigen Negative (Negative)
[2023-06-08] MEDS: DOCUSATE SOD 100 MG CAP PO PRN (13:45)
[2023-06-08] MEDS: HYDROcodone-ACET 5/325MG TAB PO PRN (17:25)
[2023-06-08] MEDS: APIXABAN 2.5 MG TAB PO SCH (22:06)
[2023-06-08] MEDS: ATORVASTATIN 20 MG TAB PO SCH (22:06)
[2023-06-09] VITALS (7 sets, daily range): BP systolic 120–150; BP diastolic 58–83; PULSE 56–108; RESP 18–22; TEMP 97.2–98.1; O2SAT 94–98
[2023-06-09] MEDS: SODIUM CHLOR 0.9% PF (SALINE LOCK) 10ML VIAL/SYR IV SCH ×3 (06:05→23:31)
[2023-06-09] MEDS: ACCU-CHEK COMFORT CURVE STRIP VI SCH ×4 (06:21→23:32)
[2023-06-09] MEDS: InsuLIN REG 1unit/0.01ml Soln (100units/ml) SC SCH ×4 (06:21→22:00)
[2023-06-09 07:36] LABS: Chloride 101 mmol/L (98-107); Potassium 5.4 mmol/L (3.5-5.1); Sodium 137 mmol/L (136-145)
[2023-06-09 07:37] LABS: Anion Gap 6 (5-15); Carbon Dioxide 30 mmol/L (20-30)
[2023-06-09 07:38] LABS: Calcium 8.7 mg/dL (8.5-10.1)
[2023-06-09 07:42] LABS: BUN/Creatinine Ratio 8.5 (10.0-20.0); Glucose 92 mg/dL (74-106)
[2023-06-09 07:44] LABS: Blood Urea Nitrogen 29 mg/dL (9-23)
[2023-06-09] MEDS: SEVELAMER 800 MG TAB PO SCH ×3 (08:16→17:10)
[2023-06-09] MEDS: METOPROLOL TARTRATE 25 MG TAB PO SCH ×2 (10:16→23:27)
[2023-06-09] MEDS: FUROSEMIDE 40 MG/4 ML VIAL IV SCH (10:17)
[2023-06-09] MEDS: ASPirin 81 mg TAB PO SCH (10:17)
[2023-06-09] MEDS: B-COMPLEX W/ C & FOLIC ACID(NEPHROVITE TAB) PO SCH (10:17)
[2023-06-09] MEDS: APIXABAN 2.5 MG TAB PO SCH ×2 (10:17→23:28)
[2023-06-09] MEDS: AMIODARONE HCL 200 MG TAB PO SCH ×2 (10:18→23:26)
[2023-06-09] MEDS: SODIUM ZIRCONIUM CYCL 10 GM PAK PO SCH ×2 (14:18→22:00)
[2023-06-09] MEDS ORDERED: SODIUM CHL 0.9% 1000 ML BAG XX ONE (16:00)
[2023-06-09] MEDS: ATORVASTATIN 20 MG TAB PO SCH (23:27)
[2023-06-10 05:00] VITALS: BP 133/75; PULSE 71; RESP 18; TEMP 98.8; O2SAT 100
[2023-06-10] MEDS: SODIUM ZIRCONIUM CYCL 10 GM PAK PO SCH ×2 (06:00→14:00)
[2023-06-10] MEDS: SODIUM CHLOR 0.9% PF (SALINE LOCK) 10ML VIAL/SYR IV SCH ×2 (06:08→14:26)
[2023-06-10] MEDS: ACCU-CHEK COMFORT CURVE STRIP VI SCH ×3 (06:09→18:45)
[2023-06-10] MEDS: InsuLIN REG 1unit/0.01ml Soln (100units/ml) SC SCH ×3 (06:09→18:46)
[2023-06-10 08:00] VITALS: BP 123/58; PULSE 69; PULSE 70; RESP 24; TEMP 98.6; O2SAT 90; O2SAT 94
[2023-06-10] MEDS: SEVELAMER 800 MG TAB PO SCH ×3 (08:00→18:00)
[2023-06-10] MEDS: METOPROLOL TARTRATE 25 MG TAB PO SCH (09:51)
[2023-06-10] MEDS: ASPirin 81 mg TAB PO SCH (09:51)
[2023-06-10] MEDS: B-COMPLEX W/ C & FOLIC ACID(NEPHROVITE TAB) PO SCH (09:52)
[2023-06-10] MEDS: FUROSEMIDE 40 MG/4 ML VIAL IV SCH (09:52)
[2023-06-10] MEDS: APIXABAN 2.5 MG TAB PO SCH (09:52)
[2023-06-10] MEDS: AMIODARONE HCL 200 MG TAB PO SCH (09:52)
[2023-06-10 13:00] VITALS: BP 159/91; PULSE 75; RESP 22; TEMP 98.6; O2SAT 98
[2023-06-10 13:06] VITALS: BP 123/58; PULSE 70; RESP 20; TEMP 37; O2SAT 95
[2023-06-10 17:00] VITALS: BP 151/89; PULSE 55; RESP 20; TEMP 98.6; O2SAT 99
== END 2023-06-10 19:50 | disposition home or self-care (01) | DRG 291 ==
LOC: ER 16:59 → EDBD 16:59 → TELE 22:42 → TELE-EAST 06-06 18:11
PROVIDERS: ADMIT Nurse Practitioner Family; ATTEND Family Medicine
PROC: 5A1D70Z Performance of Urinary Filtration, Intermittent, Less than 6 Hours Per Day (ICD-10-PCS; principal; 2023-06-08)
PROC: 5A1D70Z Performance of Urinary Filtration, Intermittent, Less than 6 Hours Per Day (ICD-10-PCS; 2023-06-09)
DX: I13.2 Hypertensive heart and chronic kidney disease with heart failure and with stage 5 chronic kidney disease, or end stage renal disease (principal); I50.23 Acute on chronic systolic (congestive) heart failure; J96.21 Acute and chronic respiratory failure with hypoxia; N18.6 End stage renal disease; I24.9 Acute ischemic heart disease, unspecified; E44.0 Moderate protein-calorie malnutrition; J90 Pleural effusion, not elsewhere classified; D63.1 Anemia in chronic kidney disease; I95.3 Hypotension of hemodialysis; I48.0 Paroxysmal atrial fibrillation; I25.10 Atherosclerotic heart disease of native coronary artery without angina pectoris; E11.65 Type 2 diabetes mellitus with hyperglycemia; E11.22 Type 2 diabetes mellitus with diabetic chronic kidney disease; E11.51 Type 2 diabetes mellitus with diabetic peripheral angiopathy without gangrene; E87.5 Hyperkalemia; Z99.2 Dependence on renal dialysis; Z95.1 Presence of aortocoronary bypass graft; Z95.5 Presence of coronary angioplasty implant and graft; Z79.02 Long term (current) use of antithrombotics/antiplatelets; Z79.01 Long term (current) use of anticoagulants; Z79.82 Long term (current) use of aspirin; Z98.62 Peripheral vascular angioplasty status; Z89.431 Acquired absence of right foot; Z83.3 Family history of diabetes mellitus; Z82.3 Family history of stroke; Z83.42 Family history of familial hypercholesterolemia; Z99.81 Dependence on supplemental oxygen; Z79.4 Long term (current) use of insulin; Z68.26 Body mass index [BMI] 26.0-26.9, adult
CPT/HCPCS: 36415; 71045; 76604; 80048; 80053; 80074; 81001; 82306; 82570; 82962; 83036; 84100; 84156; 84300; 84443; 84484; 84550; 85025; 90935; 93005; G0378; J1642; J1815

== ENCOUNTER 2023-06-22 13:23 | Inpatient (IN) | payer MEDICARE, MEDICAID ==
[~2023-06-22] VITALS: Ht 175.3 cm; Wt 78.2 kg
[2023-06-22 14:42] LABS: Basophils # (auto) 0 10 ^3/uL (0-0.2); Basophils % (auto) 0.3 % (0.0-2.0); Eosinophils # (auto) 0.1 10 ^3/uL (0-0.8); Eosinophils % (auto) 1.9 % (0.0-7.0); Hematocrit 31.1 % (41.0-53.0); Hemoglobin 9.8 g/dL (13.5-17.5); Lymphocytes # (auto) 0.7 10 ^3/uL (0.4-5.4); Lymphocytes % (auto) 10.3 % (10.0-50.0); Mean Corpuscular Hemoglobin 29.6 pg (28.0-32.0); Mean Corpuscular Hgb Conc. 31.7 g/dL (32.0-36.0); Mean Corpuscular Volume 93.4 fL (80.0-100.0); Monocytes # (auto) 0.6 10 ^3/uL (0-1.3); Neutrophils # (auto) 5.2 10 ^3/uL (1.6-8.6); Neutrophils % (auto) 78.5 % (37.0-80.0); Nucleated Red Blood Cells % 0.1 %; Red Blood Cells 3.33 10^6/uL (4.5-5.90); Red Cell Distribution Width 19.1 % (11.8-14.3); White Blood Cell 6.6 10^3/uL (4.4-10.8)
[2023-06-22 15:04] LABS: Alanine Aminotransferase 15 U/L (7-40); Albumin 3.8 g/dL (3.2-4.8); Alkaline Phosphatase 123 U/L (46-116); Anion Gap 9 (5-15); Aspartate Aminotransferase 11 U/L (13-40); BUN/Creatinine Ratio 17.7 (10.0-20.0); Bilirubin, Total 0.3 mg/dL (0.2-1.0); Calcium 8.8 mg/dL (8.7-10.4); Carbon Dioxide 25 mmol/L (20-30); Chloride 102 mmol/L (98-107); Glucose 219 mg/dL (74-106); Sodium 136 mmol/L (136-145); Total Protein 6.6 g/dL (5.7-8.2)
[2023-06-22 15:09] LABS: Blood Urea Nitrogen 86 mg/dL (9-23); Potassium 6.2 mmol/L (3.5-5.1)
[2023-06-22 15:57] VITALS: PULSE 64; RESP 18; O2SAT 97
[2023-06-22] MEDS ORDERED: CALCIUM GLUC 1,000mg/50ml-NS 50 ML IV ONE (16:15)
[2023-06-22] MEDS ORDERED: InsuLIN REG 1unit/0.01ml Soln (100units/ml) IV ONE (16:15)
[2023-06-22] MEDS ORDERED: SODIUM BICARBONATE 8.4 % INJ 50ML VIAL IV ONE (16:15)
[2023-06-22] MEDS ORDERED: DEXTROSE (50%) 50ML SYRG IV ONE (16:15)
[2023-06-22] MEDS ORDERED: FUROSEMIDE 40 MG/4 ML VIAL IV ONE (16:15)
[2023-06-22] MEDS ORDERED: SODIUM ZIRCONIUM CYCL 10 GM PAK PO ONE (16:15)
[2023-06-22] MEDS ORDERED: ALBUTEROL SULF 2.5 MG/0.5ML(0.5%) NEB SOLN NEB ONE (16:15)
[2023-06-22] MEDS ORDERED: SODIUM CHL 0.9% 1000 ML BAG XX ONE (16:45)
[2023-06-22 16:56] LABS: INR 1.19 (0.9-1.15); Prothrombin Time 12.4 sec (9.3-11.8)
[2023-06-22] MEDS ORDERED: ALBUMIN 25% 100 ML IV ONE (18:30)
[2023-06-22 19:30] VITALS: PULSE 74; RESP 18; O2SAT 97
[2023-06-22] MEDS ORDERED: EPOETIN ALFA-EPBX 10,000 UNIT/1ML VIAL SC ONE (21:00)
[2023-06-22] MEDS ORDERED: DEXTROSE (50%) 50ML SYRG IV PRN (21:30)
[2023-06-22] MEDS ORDERED: ONDANSETRON HCL 4 MG/2 ML VIAL IV PRN (21:30)
[2023-06-22] MEDS ORDERED: NITROGLYCERIN 0.4 MG SL TAB SL PRN (21:30)
[2023-06-22] MEDS ORDERED: MORPHINE SULFATE INJ 2 MG/ml SYRG IV PRN (21:30)
[2023-06-22] MEDS: InsuLIN REG 1unit/0.01ml Soln (100units/ml) SC SCH (22:00)
[2023-06-22] MEDS: ACCU-CHEK COMFORT CURVE STRIP VI SCH (22:29)
[2023-06-22] MEDS: METOPROLOL TARTRATE 25 MG TAB PO SCH (22:30)
[2023-06-22] MEDS: RANOLAZINE ER 500 MG TAB PO SCH (22:30)
[2023-06-22] MEDS: GABAPENTIN 300 MG CAP PO SCH (22:30)
[2023-06-22] MEDS: ATORVASTATIN 20 MG TAB PO SCH (22:30)
[2023-06-22] MEDS: HEPARIN SODIUM (PORCINE) 5000 UNITS/ML 1ML VIAL SC SCH (22:31)
[2023-06-23] VITALS (7 sets, daily range): BP systolic 100–126; BP diastolic 62–73; PULSE 62–82; RESP 17–19; TEMP 97.6–98.3; O2SAT 97–100
[2023-06-23 05:18] LABS: Basophils # (auto) 0 10 ^3/uL (0-0.2); Basophils % (auto) 0.4 % (0.0-2.0); Eosinophils # (auto) 0.1 10 ^3/uL (0-0.8); Eosinophils % (auto) 2.2 % (0.0-7.0); Hematocrit 28.4 % (41.0-53.0); Hemoglobin 9.3 g/dL (13.5-17.5); Lymphocytes # (auto) 0.7 10 ^3/uL (0.4-5.4); Mean Corpuscular Hemoglobin 30.2 pg (28.0-32.0); Mean Corpuscular Hgb Conc. 32.8 g/dL (32.0-36.0); Mean Corpuscular Volume 92.3 fL (80.0-100.0); Monocytes # (auto) 0.4 10 ^3/uL (0-1.3); Monocytes % (auto) 9.1 % (0.0-12.0); Neutrophils # (auto) 3.6 10 ^3/uL (1.6-8.6); Neutrophils % (auto) 73.3 % (37.0-80.0); Red Blood Cells 3.07 10^6/uL (4.5-5.90); Red Cell Distribution Width 18.8 % (11.8-14.3); White Blood Cell 4.8 10^3/uL (4.4-10.8)
[2023-06-23 05:26] LABS: Alanine Aminotransferase 13 U/L (7-40); Albumin 3.6 g/dL (3.2-4.8); Alkaline Phosphatase 100 U/L (46-116); Anion Gap 8 (5-15); Aspartate Aminotransferase 11 U/L (13-40); BUN/Creatinine Ratio 14.8 (10.0-20.0); Calcium 8.6 mg/dL (8.5-10.1); Carbon Dioxide 33 mmol/L (20-30); Chloride 101 mmol/L (98-107); Glucose 79 mg/dL (74-106); Potassium 4.3 mmol/L (3.5-5.1); Sodium 142 mmol/L (136-145)
[2023-06-23 05:27] LABS: Bilirubin, Total 0.7 mg/dL (0.2-1.0); Total Protein 6.2 g/dL (5.7-8.2)
[2023-06-23 05:46] LABS: Blood Urea Nitrogen 49 mg/dL (9-23)
[2023-06-23] MEDS: InsuLIN REG 1unit/0.01ml Soln (100units/ml) SC SCH ×4 (06:12→21:43)
[2023-06-23] MEDS: ACCU-CHEK COMFORT CURVE STRIP VI SCH ×4 (06:12→21:37)
[2023-06-23] MEDS ORDERED: IRBE150T49 PO (08:04)
[2023-06-23] MEDS ORDERED: DIGO0.25 PO (08:05)
[2023-06-23] MEDS ORDERED: GLIP-110 PO (08:08)
[2023-06-23] MEDS ORDERED: CLOPIDOGREL BISULFATE 75 MG TAB PO SCH (10:00)
[2023-06-23] MEDS: ASPirin 81 mg TAB PO SCH (11:20)
[2023-06-23] MEDS: DIGOXIN 0.25 MG TAB PO SCH (11:20)
[2023-06-23] MEDS: GABAPENTIN 300 MG CAP PO SCH ×2 (11:21→21:35)
[2023-06-23] MEDS: FUROSEMIDE 40 MG TAB PO SCH (11:21)
[2023-06-23] MEDS: METOPROLOL TARTRATE 25 MG TAB PO SCH ×2 (11:21→21:36)
[2023-06-23] MEDS: RANOLAZINE ER 500 MG TAB PO SCH ×2 (11:22→21:36)
[2023-06-23] MEDS: CLOPIDOGREL BISULFATE 75 MG TAB PO SCH (11:22)
[2023-06-23] MEDS: HEPARIN SODIUM (PORCINE) 5000 UNITS/ML 1ML VIAL SC SCH ×2 (11:28→21:42)
[2023-06-23] MEDS: ACETAMINOPHEN 325 MG TAB PO PRN ×2 (13:25→21:34)
[2023-06-23] MEDS: ATORVASTATIN 20 MG TAB PO SCH (21:35)
[2023-06-23] MEDS ORDERED: LACTULOSE 20Gm/30ML SOLN PO PRN (22:00)
[2023-06-24] VITALS (7 sets, daily range): BP systolic 123–146; BP diastolic 71–80; PULSE 66–82; RESP 18–20; TEMP 97.8–98.2; O2SAT 94–98
[2023-06-24] MEDS: ACCU-CHEK COMFORT CURVE STRIP VI SCH ×4 (06:13→21:22)
[2023-06-24] MEDS: InsuLIN REG 1unit/0.01ml Soln (100units/ml) SC SCH ×4 (06:15→21:23)
[2023-06-24] MEDS ORDERED: SODIUM CHL 0.9% 1000 ML BAG XX ONE (07:00)
[2023-06-24] MEDS: ASPirin 81 mg TAB PO SCH (10:00)
[2023-06-24] MEDS: METOPROLOL TARTRATE 25 MG TAB PO SCH ×2 (10:00→21:22)
[2023-06-24] MEDS: GABAPENTIN 300 MG CAP PO SCH ×2 (10:00→21:22)
[2023-06-24] MEDS: RANOLAZINE ER 500 MG TAB PO SCH ×2 (10:00→21:22)
[2023-06-24] MEDS: FUROSEMIDE 40 MG TAB PO SCH (10:00)
[2023-06-24] MEDS: DIGOXIN 0.25 MG TAB PO SCH (10:00)
[2023-06-24] MEDS: CLOPIDOGREL BISULFATE 75 MG TAB PO SCH (12:03)
[2023-06-24] MEDS: HEPARIN SODIUM (PORCINE) 5000 UNITS/ML 1ML VIAL SC SCH ×2 (12:06→21:25)
[2023-06-24 16:59] LABS: Hematocrit 31.3 % (41.0-53.0); Hemoglobin 10.2 g/dL (13.5-17.5)
[2023-06-24] MEDS ORDERED: EPOETIN ALFA-EPBX 10,000 UNIT/1ML VIAL SC ONE (21:00)
[2023-06-24] MEDS: ATORVASTATIN 20 MG TAB PO SCH (21:21)
[2023-06-24] MEDS: ACETAMINOPHEN 325 MG TAB PO PRN (21:26)
[2023-06-25] MEDS: ACCU-CHEK COMFORT CURVE STRIP VI SCH ×4 (07:00→21:29)
[2023-06-25] MEDS: InsuLIN REG 1unit/0.01ml Soln (100units/ml) SC SCH ×4 (07:00→21:35)
[2023-06-25 08:00] VITALS: PULSE 70
[2023-06-25 09:00] VITALS: BP 146/85; PULSE 72; RESP 16; TEMP 98.1; O2SAT 98
[2023-06-25] MEDS: FUROSEMIDE 40 MG TAB PO SCH (10:00)
[2023-06-25] MEDS: DIGOXIN 0.25 MG TAB PO SCH (10:00)
[2023-06-25] MEDS: CLOPIDOGREL BISULFATE 75 MG TAB PO SCH (10:00)
[2023-06-25] MEDS: GABAPENTIN 300 MG CAP PO SCH ×2 (10:00→21:36)
[2023-06-25] MEDS: RANOLAZINE ER 500 MG TAB PO SCH ×2 (10:00→21:36)
[2023-06-25] MEDS: METOPROLOL TARTRATE 25 MG TAB PO SCH ×2 (10:00→21:53)
[2023-06-25] MEDS: ASPirin 81 mg TAB PO SCH (10:00)
[2023-06-25] MEDS: HEPARIN SODIUM (PORCINE) 5000 UNITS/ML 1ML VIAL SC SCH ×2 (10:00→21:35)
[2023-06-25 13:00] VITALS: BP 111/59; PULSE 65; RESP 18; TEMP 98.4; O2SAT 92
[2023-06-25 17:00] VITALS: BP 124/68; PULSE 70; RESP 16; TEMP 98.6; O2SAT 100
[2023-06-25] MEDS: ACETAMINOPHEN 325 MG TAB PO PRN (17:53)
[2023-06-25 20:00] VITALS: PULSE 74
[2023-06-25] MEDS: ATORVASTATIN 20 MG TAB PO SCH (21:36)
[2023-06-25 22:00] VITALS: BP 117/58; PULSE 72; RESP 20; TEMP 97.9; O2SAT 99
[2023-06-26] MEDS: ACETAMINOPHEN 325 MG TAB PO PRN (01:39)
[2023-06-26 05:00] VITALS: BP 120/73; PULSE 65; RESP 22; TEMP 97.7; O2SAT 99
[2023-06-26] MEDS: ACCU-CHEK COMFORT CURVE STRIP VI SCH ×2 (06:18→12:29)
[2023-06-26] MEDS: InsuLIN REG 1unit/0.01ml Soln (100units/ml) SC SCH ×2 (06:23→12:30)
[2023-06-26 08:00] VITALS: BP 119/71; PULSE 69; PULSE 86; RESP 16; TEMP 97.9
[2023-06-26 09:00] VITALS: BP 119/79; PULSE 86; RESP 16; TEMP 97; O2SAT 98
[2023-06-26] MEDS: RANOLAZINE ER 500 MG TAB PO SCH (09:42)
[2023-06-26] MEDS: DIGOXIN 0.25 MG TAB PO SCH (09:42)
[2023-06-26] MEDS: GABAPENTIN 300 MG CAP PO SCH (09:42)
[2023-06-26] MEDS: METOPROLOL TARTRATE 25 MG TAB PO SCH (09:43)
[2023-06-26] MEDS: CLOPIDOGREL BISULFATE 75 MG TAB PO SCH (09:43)
[2023-06-26] MEDS: ASPirin 81 mg TAB PO SCH (09:43)
[2023-06-26] MEDS: FUROSEMIDE 40 MG TAB PO SCH (09:44)
[2023-06-26] MEDS: HEPARIN SODIUM (PORCINE) 5000 UNITS/ML 1ML VIAL SC SCH (09:47)
[2023-06-26 11:18] VITALS: BP 119/71; PULSE 86; RESP 16; TEMP 97.9; O2SAT 98
== END 2023-06-26 13:28 | disposition home or self-care (01) | DRG 291 ==
LOC: ER 13:23 → EDBD 13:23 → TELE 21:35 → TELE-WESTW 06-23 05:50
PROVIDERS: ADMIT Nurse Practitioner; ATTEND Internal Medicine
PROC: 5A1D70Z Performance of Urinary Filtration, Intermittent, Less than 6 Hours Per Day (ICD-10-PCS; principal; 2023-06-22)
PROC: 5A1D70Z Performance of Urinary Filtration, Intermittent, Less than 6 Hours Per Day (ICD-10-PCS; 2023-06-24)
DX: I13.2 Hypertensive heart and chronic kidney disease with heart failure and with stage 5 chronic kidney disease, or end stage renal disease (principal); I50.23 Acute on chronic systolic (congestive) heart failure; N18.6 End stage renal disease; G93.49 Other encephalopathy; E87.5 Hyperkalemia; G25.2 Other specified forms of tremor; Z99.2 Dependence on renal dialysis; E11.22 Type 2 diabetes mellitus with diabetic chronic kidney disease; D63.1 Anemia in chronic kidney disease; E11.319 Type 2 diabetes mellitus with unspecified diabetic retinopathy without macular edema; E11.51 Type 2 diabetes mellitus with diabetic peripheral angiopathy without gangrene; E78.5 Hyperlipidemia, unspecified; I25.10 Atherosclerotic heart disease of native coronary artery without angina pectoris; Z82.3 Family history of stroke; Z82.49 Family history of ischemic heart disease and other diseases of the circulatory system; Z83.3 Family history of diabetes mellitus; Z95.1 Presence of aortocoronary bypass graft; I25.2 Old myocardial infarction; I25.5 Ischemic cardiomyopathy; Z91.158 Patient's noncompliance with renal dialysis for other reason
CPT/HCPCS: 36415; 70450; 71045; 80053; 80162; 82962; 85014; 85018; 85025; 85610; 87081; 90935; 93005; 93306; 94640; 96365; 99291; G0378; J1642; J1815; J2405; P9047

== ENCOUNTER 2023-06-30 13:46 | Inpatient (IN) | payer MEDICARE, MEDICAID ==
[~2023-06-30] VITALS: Ht 170.2 cm; Wt 77.3 kg
[~2023-06-30 13:46] MED LIST changes: +DIGO0.25 PO; +GLIP-110 PO; -GLIP2.5T9 PO; +IRBE150T49 PO
[2023-06-30] MEDS ORDERED: SODIUM CHLORIDE 0.9% 500 ML IVB ONE (14:15)
[2023-06-30 14:57] LABS: Basophils # (auto) 0 10 ^3/uL (0-0.2); Basophils % (auto) 0.5 % (0.0-2.0); Eosinophils # (auto) 0 10 ^3/uL (0-0.8); Eosinophils % (auto) 0.3 % (0.0-7.0); Hematocrit 33.5 % (41.0-53.0); Hemoglobin 10.5 g/dL (13.5-17.5); Lymphocytes # (auto) 0.1 10 ^3/uL (0.4-5.4); Lymphocytes % (auto) 1.1 % (10.0-50.0); Mean Corpuscular Hemoglobin 29.6 pg (28.0-32.0); Mean Corpuscular Hgb Conc. 31.5 g/dL (32.0-36.0); Mean Corpuscular Volume 93.9 fL (80.0-100.0); Monocytes # (auto) 0.2 10 ^3/uL (0-1.3); Monocytes % (auto) 3.3 % (0.0-12.0); Neutrophils % (auto) 94.8 % (37.0-80.0); Nucleated Red Blood Cells % 0.1 %; Red Blood Cells 3.57 10^6/uL (4.5-5.90); Red Cell Distribution Width 19.8 % (11.8-14.3); White Blood Cell 7.4 10^3/uL (4.4-10.8)
[2023-06-30] MEDS ORDERED: ACETAMINOPHEN 325 MG TAB PO ONE (15:15)
[2023-06-30 15:32] LABS: Alanine Aminotransferase 13 U/L (7-40); Albumin 3.7 g/dL (3.2-4.8); Alkaline Phosphatase 91 U/L (46-116); Anion Gap 11 (5-15); Aspartate Aminotransferase 16 U/L (13-40); BUN/Creatinine Ratio 13.2 (10.0-20.0); Bilirubin, Total 0.7 mg/dL (0.2-1.0); Blood Alcohol < 3.0 mg/dL (<10); Blood Urea Nitrogen 60 mg/dL (9-23); Calcium 8.7 mg/dL (8.5-10.1); Carbon Dioxide 24 mmol/L (20-30); Chloride 98 mmol/L (98-107); Glucose 165 mg/dL (74-106); Potassium 5.3 mmol/L (3.5-5.1); Sodium 133 mmol/L (136-145); Total Protein 6.5 g/dL (5.7-8.2)
[2023-06-30 15:44] LABS: Magnesium 1.9 mg/dL (1.6-2.6)
[2023-06-30] MEDS ORDERED: cefTRIAXone 1GM/50ML D5W 50 ML IV ONE (15:45)
[2023-06-30] MEDS ORDERED: levoFLOXacin 500MG 100 ML IV ONE (15:45)
[2023-06-30] MEDS ORDERED: SODIUM CHLORIDE 0.9% 1,900 ML IV ONE (15:45)
[2023-06-30] MEDS ORDERED: DEXTROSE (50%) 50ML SYRG IV PRN (17:30)
[2023-06-30] MEDS ORDERED: HEPARIN DRIP/D5W 100UNITS/ML 250 ML IV SCH (17:30)
[2023-06-30] MEDS ORDERED: HEPARIN SODIUM (PORCINE) 5000 UNITS/ML 1ML VIAL IV ONE (17:30)
[2023-06-30] MEDS ORDERED: NITROGLYCERIN 0.4 MG SL TAB SL PRN (17:30)
[2023-06-30] MEDS ORDERED: CEFEPIME 1GM/ 50ML 50 ML IV ONE (17:30)
[2023-06-30] MEDS ORDERED: MORPHINE SULFATE INJ 2 MG/ml SYRG IV PRN ×2 (17:30)
[2023-06-30] MEDS ORDERED: VANCOMYCIN PER PHARMACY 0 MG IV SCH (17:30)
[2023-06-30] MEDS ORDERED: SODIUM ZIRCONIUM CYCL 10 GM PAK PO ONE (17:45)
[2023-06-30] MEDS ORDERED: VANCOMYCIN 1GM/250ML 250 ML IV ONE ×2 (18:00→19:00)
[2023-06-30] MEDS: ATORVASTATIN 20 MG TAB PO SCH (18:10)
[2023-06-30 18:11] LABS: INR 1.26 (0.9-1.15)
[2023-06-30] MEDS: TAMSULOSIN HYDROCHLORIDE 0.4 MG CAP PO SCH (18:12)
[2023-06-30 18:38] LABS: Basophils # (auto) 0 10 ^3/uL (0-0.2); Basophils % (auto) 0.3 % (0.0-2.0); Eosinophils # (auto) 0 10 ^3/uL (0-0.8); Eosinophils % (auto) 0.3 % (0.0-7.0); Hematocrit 29.7 % (41.0-53.0); Hemoglobin 9.4 g/dL (13.5-17.5); Lymphocytes # (auto) 0.1 10 ^3/uL (0.4-5.4); Lymphocytes % (auto) 1.4 % (10.0-50.0); Mean Corpuscular Hemoglobin 29.2 pg (28.0-32.0); Mean Corpuscular Hgb Conc. 31.7 g/dL (32.0-36.0); Mean Corpuscular Volume 92.3 fL (80.0-100.0); Monocytes # (auto) 0.2 10 ^3/uL (0-1.3); Monocytes % (auto) 3.6 % (0.0-12.0); Neutrophils # (auto) 5.8 10 ^3/uL (1.6-8.6); Neutrophils % (auto) 94.4 % (37.0-80.0); Red Blood Cells 3.21 10^6/uL (4.5-5.90); Red Cell Distribution Width 19.6 % (11.8-14.3); White Blood Cell 6.2 10^3/uL (4.4-10.8)
[2023-06-30 19:30] VITALS: RESP 25; O2SAT 97
[2023-06-30] MEDS: ACCU-CHEK COMFORT CURVE STRIP VI SCH (22:41)
[2023-06-30] MEDS: InsuLIN REG 1unit/0.01ml Soln (100units/ml) SC SCH (22:41)
[2023-06-30] MEDS: RANOLAZINE ER 500 MG TAB PO SCH (22:48)
[2023-06-30] MEDS: SACUBITRIL-VALSARTAN 24mg/26mg TAB PO SCH (22:48)
[2023-06-30] MEDS: GABAPENTIN 300 MG CAP PO SCH (22:49)
[2023-07-01 01:39] LABS: INR 1.4 (0.9-1.15); Prothrombin Time 14.4 sec (9.3-11.8)
[2023-07-01 01:44] LABS: Partial Thromboplastin Time 120.5 SEC (24.5-34.5)
[2023-07-01] MEDS ORDERED: HEPARIN DRIP/D5W 100UNITS/ML 250 ML IV SCH ×2 (03:00→10:15)
[2023-07-01 05:48] LABS: Alanine Aminotransferase 10 U/L (7-40); Alkaline Phosphatase 71 U/L (46-116); Anion Gap 10 (5-15); Aspartate Aminotransferase 11 U/L (13-40); BUN/Creatinine Ratio 13.8 (10.0-20.0); Bilirubin, Total 0.5 mg/dL (0.2-1.0); Blood Urea Nitrogen 67 mg/dL (9-23); Calcium 7.6 mg/dL (8.5-10.1); Carbon Dioxide 23 mmol/L (20-30); Chloride 100 mmol/L (98-107); Glucose 137 mg/dL (74-106); Potassium 4.2 mmol/L (3.5-5.1); Sodium 133 mmol/L (136-145); Total Protein 5.3 g/dL (5.7-8.2)
[2023-07-01 05:55] LABS: Basophils # (auto) 0 10 ^3/uL (0-0.2); Basophils % (auto) 0.4 % (0.0-2.0); Eosinophils # (auto) 0.1 10 ^3/uL (0-0.8); Hematocrit 27.6 % (41.0-53.0); Hemoglobin 8.7 g/dL (13.5-17.5); Lymphocytes # (auto) 0.2 10 ^3/uL (0.4-5.4); Lymphocytes % (auto) 5.4 % (10.0-50.0); Mean Corpuscular Hemoglobin 29.8 pg (28.0-32.0); Mean Corpuscular Hgb Conc. 31.6 g/dL (32.0-36.0); Mean Corpuscular Volume 94.1 fL (80.0-100.0); Monocytes # (auto) 0.3 10 ^3/uL (0-1.3); Monocytes % (auto) 6.5 % (0.0-12.0); Neutrophils # (auto) 3.5 10 ^3/uL (1.6-8.6); Neutrophils % (auto) 85.7 % (37.0-80.0); Nucleated Red Blood Cells % 0.1 %; Red Blood Cells 2.93 10^6/uL (4.5-5.90); Red Cell Distribution Width 20.1 % (11.8-14.3); White Blood Cell 4.1 10^3/uL (4.4-10.8)
[2023-07-01] MEDS: ACCU-CHEK COMFORT CURVE STRIP VI SCH ×4 (06:20→22:51)
[2023-07-01] MEDS: InsuLIN REG 1unit/0.01ml Soln (100units/ml) SC SCH ×4 (06:28→23:06)
[2023-07-01 08:00] VITALS: PULSE 72; RESP 16; O2SAT 100
[2023-07-01] MEDS ORDERED: SODIUM CHL 0.9% 1000 ML BAG XX ONE (09:15)
[2023-07-01] MEDS ORDERED: ALBUMIN 25% 100 ML IV ONE (09:15)
[2023-07-01 09:31] LABS: INR 1.31 (0.9-1.15); Prothrombin Time 13.5 sec (9.3-11.8)
[2023-07-01] MEDS: METOPROLOL SUCCINATE XL 50 MG TAB PO SCH (10:00)
[2023-07-01] MEDS: CEFEPIME 1GM/ 50ML 50 ML IV SCH (10:00)
[2023-07-01] MEDS ORDERED: ASPirin-EC 81 mg tab PO SCH (10:00)
[2023-07-01] MEDS ORDERED: CLOPIDOGREL BISULFATE 75 MG TAB PO SCH (10:00)
[2023-07-01] MEDS: SACUBITRIL-VALSARTAN 24mg/26mg TAB PO SCH ×2 (10:46→21:19)
[2023-07-01] MEDS: FOLIC ACID 1 MG TAB PO SCH (10:47)
[2023-07-01] MEDS: GABAPENTIN 300 MG CAP PO SCH ×2 (10:47→21:20)
[2023-07-01] MEDS: RANOLAZINE ER 500 MG TAB PO SCH ×2 (10:47→21:22)
[2023-07-01] MEDS: DIGOXIN 0.25 MG TAB PO SCH (10:48)
[2023-07-01] MEDS: ACETAMINOPHEN 325 MG TAB PO PRN ×2 (15:43→21:20)
[2023-07-01] MEDS ORDERED: VANCOMYCIN 1GM/250ML 250 ML IV ONE (17:15)
[2023-07-01] MEDS ORDERED: HEPARIN SODIUM (PORCINE) 5000 UNITS/ML 1ML VIAL IV ONE (17:15)
[2023-07-01] MEDS: TAMSULOSIN HYDROCHLORIDE 0.4 MG CAP PO SCH (18:19)
[2023-07-01] MEDS: ATORVASTATIN 20 MG TAB PO SCH (18:20)
[2023-07-01 18:29] LABS: INR 1.34 (0.9-1.15); Partial Thromboplastin Time 36.7 SEC (24.5-34.5); Prothrombin Time 13.8 sec (9.3-11.8)
[2023-07-01] MEDS: HEPARIN DRIP/D5W 100UNITS/ML 250 ML IV SCH ×2 (18:59→21:11)
[2023-07-01 19:30] VITALS: PULSE 73; RESP 16; O2SAT 100
[2023-07-01 19:32] LABS: Basophils # (auto) 0 10 ^3/uL (0-0.2); Basophils % (auto) 0.3 % (0.0-2.0); Eosinophils # (auto) 0.2 10 ^3/uL (0-0.8); Eosinophils % (auto) 5.7 % (0.0-7.0); Hematocrit 26.6 % (41.0-53.0); Hemoglobin 8.7 g/dL (13.5-17.5); Lymphocytes # (auto) 0.4 10 ^3/uL (0.4-5.4); Lymphocytes % (auto) 13.9 % (10.0-50.0); Mean Corpuscular Hemoglobin 30.1 pg (28.0-32.0); Mean Corpuscular Hgb Conc. 32.8 g/dL (32.0-36.0); Mean Corpuscular Volume 91.9 fL (80.0-100.0); Monocytes # (auto) 0.4 10 ^3/uL (0-1.3); Monocytes % (auto) 12.7 % (0.0-12.0); Neutrophils % (auto) 67.4 % (37.0-80.0); Nucleated Red Blood Cells % 0.1 %; Red Blood Cells 2.89 10^6/uL (4.5-5.90); Red Cell Distribution Width 19.6 % (11.8-14.3)
[2023-07-01] MEDS ORDERED: EPOETIN ALFA-EPBX 10,000 UNIT/1ML VIAL SC ONE (21:00)
[2023-07-01] MEDS: DOXYCYCLINE 100 MG TAB/CAP PO SCH (21:24)
[2023-07-01] MEDS ORDERED: APIXABAN 5 MG TAB PO SCH (22:00)
[2023-07-02 03:29] LABS: Basophils # (auto) 0 10 ^3/uL (0-0.2); Basophils % (auto) 0.3 % (0.0-2.0); Eosinophils # (auto) 0.2 10 ^3/uL (0-0.8); Hematocrit 26.7 % (41.0-53.0); Hemoglobin 8.6 g/dL (13.5-17.5); Lymphocytes # (auto) 0.6 10 ^3/uL (0.4-5.4); Lymphocytes % (auto) 14.1 % (10.0-50.0); Mean Corpuscular Hemoglobin 29.6 pg (28.0-32.0); Mean Corpuscular Hgb Conc. 32.3 g/dL (32.0-36.0); Mean Corpuscular Volume 91.7 fL (80.0-100.0); Monocytes # (auto) 0.6 10 ^3/uL (0-1.3); Monocytes % (auto) 14.7 % (0.0-12.0); Neutrophils # (auto) 2.5 10 ^3/uL (1.6-8.6); Neutrophils % (auto) 64.9 % (37.0-80.0); Nucleated Red Blood Cells % 0.2 %; Red Blood Cells 2.91 10^6/uL (4.5-5.90); Red Cell Distribution Width 19.9 % (11.8-14.3); White Blood Cell 3.9 10^3/uL (4.4-10.8)
[2023-07-02 03:38] LABS: Chloride 100 mmol/L (98-107); Potassium 3.6 mmol/L (3.5-5.1); Sodium 135 mmol/L (136-145)
[2023-07-02 03:39] LABS: Anion Gap 5 (5-15); Carbon Dioxide 30 mmol/L (20-30)
[2023-07-02 03:44] LABS: BUN/Creatinine Ratio 9.9 (10.0-20.0)
[2023-07-02 03:45] LABS: Blood Urea Nitrogen 38 mg/dL (9-23)
[2023-07-02 03:54] LABS: INR 1.34 (0.9-1.15); Prothrombin Time 13.8 sec (9.3-11.8)
[2023-07-02 03:56] LABS: Partial Thromboplastin Time 91.3 SEC (24.5-34.5)
[2023-07-02 04:32] LABS: Glucose 85 mg/dL (74-106)
[2023-07-02] MEDS: HEPARIN DRIP/D5W 100UNITS/ML 250 ML IV SCH ×2 (05:00→18:31)
[2023-07-02] MEDS: ACCU-CHEK COMFORT CURVE STRIP VI SCH ×4 (06:34→22:21)
[2023-07-02] MEDS: InsuLIN REG 1unit/0.01ml Soln (100units/ml) SC SCH ×4 (06:34→22:00)
[2023-07-02 07:30] VITALS: PULSE 74; RESP 12; O2SAT 99
[2023-07-02] MEDS: ACETAMINOPHEN 325 MG TAB PO PRN (08:41)
[2023-07-02] MEDS: CEFEPIME 1GM/ 50ML 50 ML IV SCH (10:26)
[2023-07-02] MEDS: DIGOXIN 0.25 MG TAB PO SCH (10:27)
[2023-07-02] MEDS: DOXYCYCLINE 100 MG TAB/CAP PO SCH ×2 (10:27→22:18)
[2023-07-02] MEDS: METOPROLOL SUCCINATE XL 50 MG TAB PO SCH (10:27)
[2023-07-02] MEDS: SACUBITRIL-VALSARTAN 24mg/26mg TAB PO SCH ×2 (10:27→22:17)
[2023-07-02] MEDS: GABAPENTIN 300 MG CAP PO SCH ×2 (10:27→22:18)
[2023-07-02] MEDS: FOLIC ACID 1 MG TAB PO SCH (10:28)
[2023-07-02] MEDS: RANOLAZINE ER 500 MG TAB PO SCH ×2 (10:28→22:18)
[2023-07-02 11:28] LABS: INR 1.29 (0.9-1.15); Partial Thromboplastin Time 52.7 SEC (24.5-34.5); Prothrombin Time 13.3 sec (9.3-11.8)
[2023-07-02 18:00] VITALS: BP 95/55; PULSE 61; RESP 20; TEMP 97.3; O2SAT 100
[2023-07-02] MEDS: TAMSULOSIN HYDROCHLORIDE 0.4 MG CAP PO SCH (19:44)
[2023-07-02] MEDS: ATORVASTATIN 20 MG TAB PO SCH (19:44)
[2023-07-02 20:00] VITALS: PULSE 63
[2023-07-02 22:00] VITALS: BP 111/49; PULSE 63; RESP 17; TEMP 97.7; O2SAT 100
[2023-07-03] VITALS (7 sets, daily range): BP systolic 107–121; BP diastolic 45–63; PULSE 66–76; RESP 16–21; TEMP 97.7–98.3; O2SAT 97–99
[2023-07-03] MEDS: HEPARIN DRIP/D5W 100UNITS/ML 250 ML IV SCH (01:25)
[2023-07-03 05:45] LABS: Anion Gap 8 (5-15); Carbon Dioxide 27 mmol/L (20-30); Chloride 98 mmol/L (98-107); Potassium 4.1 mmol/L (3.5-5.1); Sodium 133 mmol/L (136-145)
[2023-07-03 05:46] LABS: Calcium 8.2 mg/dL (8.5-10.1)
[2023-07-03 05:51] LABS: BUN/Creatinine Ratio 10.6 (10.0-20.0); Blood Urea Nitrogen 44 mg/dL (9-23); Glucose 108 mg/dL (74-106)
[2023-07-03 05:59] LABS: INR 1.22 (0.9-1.15); Partial Thromboplastin Time 47.1 SEC (24.5-34.5); Prothrombin Time 12.6 sec (9.3-11.8)
[2023-07-03] MEDS: InsuLIN REG 1unit/0.01ml Soln (100units/ml) SC SCH ×4 (07:00→23:14)
[2023-07-03] MEDS ORDERED: SODIUM CHL 0.9% 1000 ML BAG XX ONE (07:00)
[2023-07-03] MEDS: ACCU-CHEK COMFORT CURVE STRIP VI SCH ×4 (07:03→21:56)
[2023-07-03] MEDS ORDERED: HEPARIN DRIP/D5W 100UNITS/ML 250 ML IV SCH ×2 (07:45→11:30)
[2023-07-03] MEDS ORDERED: IOHEXOL 350 MG/ML 100ML IJ ONE (08:27)
[2023-07-03] MEDS: METOPROLOL SUCCINATE XL 50 MG TAB PO SCH (10:00)
[2023-07-03] MEDS: SACUBITRIL-VALSARTAN 24mg/26mg TAB PO SCH ×2 (10:00→21:53)
[2023-07-03] MEDS: RANOLAZINE ER 500 MG TAB PO SCH ×2 (10:00→21:53)
[2023-07-03] MEDS: CEFEPIME 1GM/ 50ML 50 ML IV SCH (10:54)
[2023-07-03] MEDS: DOXYCYCLINE 100 MG TAB/CAP PO SCH ×2 (10:54→21:53)
[2023-07-03] MEDS: GABAPENTIN 300 MG CAP PO SCH ×2 (10:54→21:53)
[2023-07-03] MEDS: FOLIC ACID 1 MG TAB PO SCH (10:54)
[2023-07-03] MEDS ORDERED: VANCOMYCIN 1GM/250ML 250 ML IV ONE (17:00)
[2023-07-03] MEDS: ATORVASTATIN 20 MG TAB PO SCH (17:52)
[2023-07-03] MEDS: TAMSULOSIN HYDROCHLORIDE 0.4 MG CAP PO SCH (17:52)
[2023-07-03 20:06] LABS: INR 1.19 (0.9-1.15); Partial Thromboplastin Time 38.6 SEC (24.5-34.5); Prothrombin Time 12.4 sec (9.3-11.8)
[2023-07-03] MEDS ORDERED: EPOETIN ALFA-EPBX 10,000 UNIT/1ML VIAL SC ONE (21:00)
[2023-07-03] MEDS: APIXABAN 5 MG TAB PO SCH (21:53)
[2023-07-03] MEDS: ACETAMINOPHEN 325 MG TAB PO PRN (22:58)
[2023-07-04] VITALS (7 sets, daily range): BP systolic 97–119; BP diastolic 40–66; PULSE 66–80; RESP 15–18; TEMP 36.1; O2SAT 92–100
[2023-07-04] MEDS: InsuLIN REG 1unit/0.01ml Soln (100units/ml) SC SCH ×4 (07:00→21:32)
[2023-07-04] MEDS: ACCU-CHEK COMFORT CURVE STRIP VI SCH ×4 (07:04→21:33)
[2023-07-04] MEDS: SACUBITRIL-VALSARTAN 24mg/26mg TAB PO SCH ×2 (09:04→21:29)
[2023-07-04] MEDS: RANOLAZINE ER 500 MG TAB PO SCH ×2 (09:04→21:29)
[2023-07-04] MEDS: GABAPENTIN 300 MG CAP PO SCH ×2 (09:04→21:33)
[2023-07-04] MEDS: CEFEPIME 1GM/ 50ML 50 ML IV SCH (09:04)
[2023-07-04] MEDS: METOPROLOL SUCCINATE XL 50 MG TAB PO SCH (09:05)
[2023-07-04] MEDS: APIXABAN 5 MG TAB PO SCH ×2 (09:05→21:32)
[2023-07-04] MEDS: DOXYCYCLINE 100 MG TAB/CAP PO SCH ×2 (09:05→21:30)
[2023-07-04] MEDS: FOLIC ACID 1 MG TAB PO SCH (09:05)
[2023-07-04] MEDS: DIGOXIN 0.25 MG TAB PO SCH (09:06)
[2023-07-04] MEDS: ATORVASTATIN 20 MG TAB PO SCH (16:53)
[2023-07-04] MEDS: TAMSULOSIN HYDROCHLORIDE 0.4 MG CAP PO SCH (16:53)
[2023-07-05] VITALS (7 sets, daily range): BP systolic 94–115; BP diastolic 41–63; PULSE 60–75; RESP 14–18; TEMP 97–98.3; O2SAT 90–99
[2023-07-05] MEDS: InsuLIN REG 1unit/0.01ml Soln (100units/ml) SC SCH ×4 (06:39→21:52)
[2023-07-05] MEDS: ACCU-CHEK COMFORT CURVE STRIP VI SCH ×4 (06:40→21:52)
[2023-07-05] MEDS: APIXABAN 5 MG TAB PO SCH ×2 (09:17→21:46)
[2023-07-05] MEDS: RANOLAZINE ER 500 MG TAB PO SCH ×2 (09:17→21:45)
[2023-07-05] MEDS: GABAPENTIN 300 MG CAP PO SCH ×2 (09:17→21:45)
[2023-07-05] MEDS: METOPROLOL SUCCINATE XL 50 MG TAB PO SCH (09:18)
[2023-07-05] MEDS: FOLIC ACID 1 MG TAB PO SCH (09:18)
[2023-07-05] MEDS: CEFEPIME 1GM/ 50ML 50 ML IV SCH (09:18)
[2023-07-05] MEDS: DOXYCYCLINE 100 MG TAB/CAP PO SCH ×2 (09:19→21:45)
[2023-07-05] MEDS: SACUBITRIL-VALSARTAN 24mg/26mg TAB PO SCH ×2 (09:20→21:52)
[2023-07-05] MEDS: ATORVASTATIN 20 MG TAB PO SCH (17:40)
[2023-07-05] MEDS: TAMSULOSIN HYDROCHLORIDE 0.4 MG CAP PO SCH (17:40)
[2023-07-06] VITALS (7 sets, daily range): BP systolic 106–126; BP diastolic 46–66; PULSE 49–82; RESP 16–18; TEMP 97.9–98.7; O2SAT 94–100
[2023-07-06 05:34] LABS: Basophils # (auto) 0 10 ^3/uL (0-0.2); Basophils % (auto) 0.7 % (0.0-2.0); Eosinophils # (auto) 0.2 10 ^3/uL (0-0.8); Eosinophils % (auto) 3.3 % (0.0-7.0); Hematocrit 28.8 % (41.0-53.0); Hemoglobin 9.5 g/dL (13.5-17.5); Lymphocytes # (auto) 0.6 10 ^3/uL (0.4-5.4); Lymphocytes % (auto) 13.8 % (10.0-50.0); Mean Corpuscular Hemoglobin 30.4 pg (28.0-32.0); Mean Corpuscular Hgb Conc. 32.8 g/dL (32.0-36.0); Mean Corpuscular Volume 92.7 fL (80.0-100.0); Monocytes # (auto) 0.6 10 ^3/uL (0-1.3); Monocytes % (auto) 12.6 % (0.0-12.0); Neutrophils # (auto) 3.2 10 ^3/uL (1.6-8.6); Neutrophils % (auto) 69.6 % (37.0-80.0); Red Blood Cells 3.11 10^6/uL (4.5-5.90); Red Cell Distribution Width 19.8 % (11.8-14.3); White Blood Cell 4.6 10^3/uL (4.4-10.8)
[2023-07-06 05:41] LABS: Alanine Aminotransferase 11 U/L (7-40); Albumin 3.2 g/dL (3.2-4.8); Alkaline Phosphatase 77 U/L (46-116); Anion Gap 10 (5-15); Aspartate Aminotransferase 11 U/L (13-40); BUN/Creatinine Ratio 10.1 (10.0-20.0); Bilirubin, Total 0.4 mg/dL (0.2-1.0); Blood Urea Nitrogen 55 mg/dL (9-23); Calcium 8.2 mg/dL (8.7-10.4); Carbon Dioxide 25 mmol/L (20-30); Chloride 97 mmol/L (98-107); Glucose 114 mg/dL (74-106); Potassium 4.5 mmol/L (3.5-5.1); Sodium 132 mmol/L (136-145); Total Protein 5.6 g/dL (5.7-8.2)
[2023-07-06] MEDS: ACCU-CHEK COMFORT CURVE STRIP VI SCH ×4 (05:46→22:11)
[2023-07-06] MEDS: InsuLIN REG 1unit/0.01ml Soln (100units/ml) SC SCH ×4 (05:46→22:00)
[2023-07-06] MEDS: DIGOXIN 0.25 MG TAB PO SCH (09:00)
[2023-07-06] MEDS: SACUBITRIL-VALSARTAN 24mg/26mg TAB PO SCH (09:00)
[2023-07-06] MEDS: APIXABAN 5 MG TAB PO SCH ×2 (09:00→21:40)
[2023-07-06] MEDS: METOPROLOL SUCCINATE XL 50 MG TAB PO SCH (09:00)
[2023-07-06] MEDS: GABAPENTIN 300 MG CAP PO SCH ×2 (09:00→21:40)
[2023-07-06] MEDS: DOXYCYCLINE 100 MG TAB/CAP PO SCH ×2 (09:00→21:40)
[2023-07-06] MEDS: RANOLAZINE ER 500 MG TAB PO SCH ×2 (09:00→21:40)
[2023-07-06] MEDS: FOLIC ACID 1 MG TAB PO SCH (09:00)
[2023-07-06 14:13] LABS: Chloride 98 mmol/L (98-107); Potassium 4.4 mmol/L (3.5-5.1); Sodium 131 mmol/L (136-145)
[2023-07-06 14:14] LABS: Anion Gap 9 (5-15); Carbon Dioxide 24 mmol/L (20-30)
[2023-07-06 14:15] LABS: Calcium 8.4 mg/dL (8.5-10.1)
[2023-07-06] MEDS ORDERED: SODIUM CHL 0.9% 1000 ML BAG XX ONE (14:15)
[2023-07-06 14:19] LABS: BUN/Creatinine Ratio 10.6 (10.0-20.0); Blood Urea Nitrogen 58 mg/dL (9-23); Glucose 108 mg/dL (74-106)
[2023-07-06 14:39] LABS: Hepatitis B Surface Antibody Negative (Negative)
[2023-07-06 14:51] LABS: Hepatitis B Surface Antigen Negative (Negative)
[2023-07-06] MEDS ORDERED: IOHEXOL 350 MG/ML 100ML IJ ONE ×3 (16:07→20:43)
[2023-07-06] MEDS: TAMSULOSIN HYDROCHLORIDE 0.4 MG CAP PO SCH (17:51)
[2023-07-06] MEDS: ATORVASTATIN 20 MG TAB PO SCH (17:51)
[2023-07-06] MEDS ORDERED: VANCOMYCIN 500 MG in D5W 5% 100 ML IV ONE (18:00)
[2023-07-06] MEDS ORDERED: EPOETIN ALFA-EPBX 4,000 UNIT/ML VIAL SC ONE (21:00)
[2023-07-06] MEDS ORDERED: LORazepam 2MG/ML-1ML VIAL IV PRN (21:15)
[2023-07-07] VITALS (7 sets, daily range): BP systolic 123–160; BP diastolic 60–77; PULSE 84–87; RESP 16–18; TEMP 97.5–98.1; O2SAT 92–99
[2023-07-07] MEDS: ACCU-CHEK COMFORT CURVE STRIP VI SCH ×4 (06:33→22:00)
[2023-07-07] MEDS: InsuLIN REG 1unit/0.01ml Soln (100units/ml) SC SCH ×4 (06:34→22:00)
[2023-07-07] MEDS: GABAPENTIN 300 MG CAP PO SCH ×2 (09:56→22:00)
[2023-07-07] MEDS: FOLIC ACID 1 MG TAB PO SCH (09:56)
[2023-07-07] MEDS: APIXABAN 5 MG TAB PO SCH ×2 (09:56→22:00)
[2023-07-07] MEDS: RANOLAZINE ER 500 MG TAB PO SCH ×2 (09:56→22:00)
[2023-07-07] MEDS: DOXYCYCLINE 100 MG TAB/CAP PO SCH ×2 (09:57→22:00)
[2023-07-07] MEDS: METOPROLOL SUCCINATE XL 50 MG TAB PO SCH (09:57)
[2023-07-07] MEDS: ATORVASTATIN 20 MG TAB PO SCH (16:49)
[2023-07-07] MEDS: TAMSULOSIN HYDROCHLORIDE 0.4 MG CAP PO SCH (16:49)
[2023-07-07] MEDS ORDERED: LABETALOL HCL 5 MG/ML 4ML SYRINGE IV ONE (22:30)
[2023-07-07] MEDS ORDERED: PHENYTOIN IV DILANTIN 1,000 MG in SODIUM CHL 0.9% 250 ML IV ONE (22:45)
[2023-07-08 05:00] VITALS: BP 111/48; PULSE 76; RESP 16; TEMP 98.3; O2SAT 99
[2023-07-08] MEDS: PHENYTOIN SODIUM 50 MG/ML 2ML VIAL IV SCH ×2 (06:19→14:00)
[2023-07-08] MEDS: ACCU-CHEK COMFORT CURVE STRIP VI SCH ×2 (06:58→11:30)
[2023-07-08] MEDS: InsuLIN REG 1unit/0.01ml Soln (100units/ml) SC SCH ×2 (06:58→11:30)
[2023-07-08] MEDS ORDERED: SODIUM CHL 0.9% 1000 ML BAG XX ONE (07:00)
[2023-07-08] MEDS ORDERED: PHENYTOIN IV DILANTIN 1,000 MG in SODIUM CHL 0.9% 250 ML IV ONE (07:30)
[2023-07-08 08:00] VITALS: PULSE 81
[2023-07-08 09:01] VITALS: BP 123/65; PULSE 86; RESP 18; TEMP 98.4; O2SAT 100
[2023-07-08] MEDS: FOLIC ACID 1 MG TAB PO SCH (09:05)
[2023-07-08] MEDS: APIXABAN 5 MG TAB PO SCH (09:05)
[2023-07-08] MEDS: GABAPENTIN 300 MG CAP PO SCH (09:06)
[2023-07-08] MEDS: DOXYCYCLINE 100 MG TAB/CAP PO SCH (09:06)
[2023-07-08] MEDS: METOPROLOL SUCCINATE XL 50 MG TAB PO SCH (09:06)
[2023-07-08] MEDS: RANOLAZINE ER 500 MG TAB PO SCH (09:06)
[2023-07-08] MEDS ORDERED: CEFEPIME 1GM/ 50ML 50 ML IV SCH (10:00)
[2023-07-08 12:48] VITALS: BP 112/57; PULSE 74; RESP 20; TEMP 98.4; O2SAT 96
[2023-07-08 14:34] VITALS: BP 112/57; PULSE 74; RESP 20; TEMP 98.4; O2SAT 96
[2023-07-08] MEDS ORDERED: EPOETIN ALFA-EPBX 4,000 UNIT/ML VIAL SC ONE (21:00)
== END 2023-07-08 15:42 | disposition hospice, home (50) | DRG 871 ==
LOC: ER 13:46 → EDBD 13:46 → TELE 17:25 → TELE-WESTW 07-02 17:41
PROVIDERS: ADMIT Nurse Practitioner Family; ATTEND Internal Medicine
PROC: 5A1D70Z Performance of Urinary Filtration, Intermittent, Less than 6 Hours Per Day (ICD-10-PCS; 2023-07-01)
PROC: 5A1D70Z Performance of Urinary Filtration, Intermittent, Less than 6 Hours Per Day (ICD-10-PCS; 2023-07-03)
PROC: 5A1D70Z Performance of Urinary Filtration, Intermittent, Less than 6 Hours Per Day (ICD-10-PCS; 2023-07-06)
PROC: 4A00X4Z Measurement of Central Nervous Electrical Activity, External Approach (ICD-10-PCS; principal; 2023-07-07)
DX: A41.9 Sepsis, unspecified organism (principal); G92.8 Other toxic encephalopathy; I50.43 Acute on chronic combined systolic (congestive) and diastolic (congestive) heart failure; N18.6 End stage renal disease; L03.114 Cellulitis of left upper limb; I13.2 Hypertensive heart and chronic kidney disease with heart failure and with stage 5 chronic kidney disease, or end stage renal disease; G40.209 Localization-related (focal) (partial) symptomatic epilepsy and epileptic syndromes with complex partial seizures, not intractable, without status epilepticus; I82.622 Acute embolism and thrombosis of deep veins of left upper extremity; Y95 Nosocomial condition; E87.6 Hypokalemia; D64.9 Anemia, unspecified; E78.5 Hyperlipidemia, unspecified; R04.0 Epistaxis; E87.5 Hyperkalemia; I25.10 Atherosclerotic heart disease of native coronary artery without angina pectoris; Z66 Do not resuscitate; E11.22 Type 2 diabetes mellitus with diabetic chronic kidney disease; Z99.2 Dependence on renal dialysis; Z99.81 Dependence on supplemental oxygen; Z95.1 Presence of aortocoronary bypass graft; Z87.01 Personal history of pneumonia (recurrent); I25.2 Old myocardial infarction; Z79.82 Long term (current) use of aspirin; Z79.4 Long term (current) use of insulin; Z79.899 Other long term (current) drug therapy; Z90.49 Acquired absence of other specified parts of digestive tract; Z83.3 Family history of diabetes mellitus; Z82.49 Family history of ischemic heart disease and other diseases of the circulatory system; Z82.3 Family history of stroke; Z86.73 Personal history of transient ischemic attack (TIA), and cerebral infarction without residual deficits; Z79.01 Long term (current) use of anticoagulants; Z51.5 Encounter for palliative care
CPT/HCPCS: 36415; 70450; 70496; 71045; 71275; 80048; 80053; 80162; 80185; 80202; 80320; 82962; 83605; 83735; 83880; 85025; 85610; 85730; 86706; 87040; 87081; 87340; 90935; 93005; 93971; 95819; 99291; G0378; J0696; J1642; J1815; J1956; J3490; J7060